=== PATIENT | female | born 1970 | race Caucasian/White ===

== ENCOUNTER 2022-07-09 13:35 | Outpatient (CLI) | payer OTHER, SELFPAY ==
[2022-07-09 15:01] LABS: Cholesterol* 174 mg/dL (90-199); Triglycerides* 160 mg/dL (40-149)
[2022-07-09 15:02] LABS: HDL Cholesterol* 50 mg/dL (>=50); LDL Cholesterol Calculated 92 mg/dL (<100)
== END 2022-07-09 13:36 | disposition home or self-care (01) ==
PROVIDERS: PCP Internal Medicine; Visit Provider Internal Medicine
DX: E78.5 Hyperlipidemia, unspecified (principal); E11.9 Type 2 diabetes mellitus without complications; I10 Essential (primary) hypertension
CPT/HCPCS: 80061

== ENCOUNTER 2022-09-30 08:49 | Outpatient (CLI) | payer OTHER, SELFPAY ==
--- NOTE | 2022-09-30 09:15 | CRLHL7_ITS ---
For Patients: As a result of the Century Cures Act, medical imaging exams and procedure reports are released immediately into your electronic medical record. You may view this report before your referring provider. If you have questions, please contact your health care provider. BILATERAL SCREENING MAMMOGRAM WITH COMPUTER-AIDED DETECTION TECHNIQUE: CC and MLO views were obtained. These mammographic images have been obtained using full-field digital technique. These mammographic images were interpreted with the benefit of computer-aided detection. COMPARISON FILM: 06/11/21, 05/02/20, 12/08/18. FINDINGS: The breasts are almost entirely fatty IMPRESSION: There is no radiographic evidence for malignancy. ASSESSMENT: BI-RADS Category 1: Negative RECOMMENDATION: Routine screening mammogram in 1 year. A lay language report of this examination will be provided to the patient. Brad Mcadams M.D. Diagnostic Radiologist [email or web address] Transcribed: 5:40 p.mGarret mace/Dictated by: Brad Mcadams MD @ 09/30/2022 12:44:00 PM (Electronically Signed)
== END 2022-09-30 08:50 | disposition home or self-care (01) ==
PROVIDERS: PCP Internal Medicine; Visit Provider Internal Medicine
DX: Z12.31 Encounter for screening mammogram for malignant neoplasm of breast (principal)
CPT/HCPCS: 77067

== ENCOUNTER 2023-04-22 09:33 | Outpatient (CLI) | payer OTHER, SELFPAY | END 2023-04-22 09:34 | disposition home or self-care (01) | LOC: NFLDREF 04-25 08:16 | PROVIDERS: PCP Internal Medicine; Referring Provider Internal Medicine; Visit Provider Internal Medicine | DX: E11.9 Type 2 diabetes mellitus without complications (principal); I10 Essential (primary) hypertension; E66.9 Obesity, unspecified; E78.5 Hyperlipidemia, unspecified | CPT/HCPCS: 80053; 80061; 82043; 82570 ==

== ENCOUNTER 2023-09-19 09:43 | Outpatient (CLI) | payer OTHER, SELFPAY ==
--- NOTE | 2023-09-19 09:45 | MM_ITS ---
Patient: BALDEMAR PETERS Facility:?[facility] Patient ID:?[id number] Site Patient ID:?[id number]. Site :?1970 Study:?XRay-Breast Bilateral 3D W/CAD-09/19/2023 10:30:29 AM Ordering Physician:Lexii Talbert Final Report: BILATERAL SCREENING MAMMOGRAM WITH COMPUTER-AIDED DETECTION AND TOMOSYNTHESIS TECHNIQUE: CC and MLO views were obtained. These mammographic images have been obtained using full-field digital technique. These mammographic images were interpreted with the benefit of computer-aided detection. Breast Tomosynthesis was used in this interpretation. COMPARISON FILM: 09/30/22, 06/11/21, 05/02/20. FINDINGS: The breasts are almost entirely fatty IMPRESSION: There is no radiographic evidence for malignancy. ASSESSMENT: BI-RADS Category 1: Negative RECOMMENDATION: Routine screening mammogram in 1 year. A lay language report of this examination will be provided to the patient. Brad Mcadams M.D. Diagnostic Radiologist [email or web address] Transcribed: 1:47 p.mGarret mace/Dictated by: Brad Mcadams MD @ 09/20/2023 11:03:00 AM Signed by:?Bard Mcadams MD @09/20/2023 1:52:33 PM (Electronic Signature)
== END 2023-09-19 09:44 | disposition home or self-care (01) ==
LOC: MAMMO 09:44
PROVIDERS: PCP Internal Medicine; Visit Provider Internal Medicine
DX: Z12.31 Encounter for screening mammogram for malignant neoplasm of breast (principal)
CPT/HCPCS: 77063; 77067

== ENCOUNTER 2023-11-05 19:30 | Inpatient (IN) | payer OTHER, SELFPAY ==
[2023-11-05] VITALS (30 sets, daily range): BP systolic 103–137; BP diastolic 43–80; PULSE 66–91; RESP 18; TEMP 36.6–36.8; O2SAT 95–100; BMI 39.5; BMI 40.8
--- NOTE | 2023-11-05 19:51 | ED_ITS ---
HPI - General Adult General Chief complaint: Hypotension Stated complaint: Low BP Time Seen by Provider: 11/05/23 19:44 History of Present Illness HPI narrative: pt states she felt dizzy, took blood pressure at home, highest she could get was 8x/5x. states blurry vision and L leg pain. she had a L leg artery procedure a while back and says sometimes it hurts. pt states diarrhea . takes morning bp meds at 1100, states this started at 14-1500 53-year-old woman presenting to the emergency department concern of low blood pressure. This evening she was feeling it was initially described as dizzy but sounds like more of a lightheadedness and checked her blood pressure at home noting she could not achieve higher than about 80/50. No changes to her antihypertensives with a longstanding history of high blood pressure. Vision can seem a little bit blurry. Light headache. She did have a small fall today but not because of feeling lightheaded she just slipped when trying to lean up against a bike rack apparently. Did not hurt anything. Does have a history of diabetes. Also with history of peripheral vascular/arterial disease requiring I believe surgery on the left femoral artery about 15 years ago. She continues to take clopidogrel. She has been experiencing new pain in the outer calf with even just a few steps. She has been having loose stools lately which are not black nor melanotic. Does note a history of long standing abdominal pains. Does have a history of cholecystectomy. She says that greasy food makes things worse. Does have a history GERD and reports extensive evaluation suggesting upper endoscopy. Records indicate current on colonoscopy I believe last done in 2019. Has been rather fatigued for unspecified amount of time. Went to vacation in [place] and [place] over this last week. Week ago she did have a fall tripping over some non-existent steps apparently entering the garage. Injuries were limited to scrapes. Otherwise no sense of tachycardia or palpitations with this fatigue or lightheadedness. No fevers. No cough or cold symptoms. She no longer has menses having had a hysterectomy Related Data Home Medications Medication Instructions Recorded Confirmed Blood Glucose Meter 12/23/21 10/19/23 aspirin 81 mg tablet,delayed 81 mg PO QDAY 12/23/21 10/19/23 release (Adult Aspirin Regimen) multivitamin 1 tab PO QAM 07/13/22 10/19/23 psyllium husk (aspartame) 3.4 gram 1 packet PO QDAY 04/28/23 10/19/23 oral powder packet (Metamucil Fiber Singles) Previous Rx's Medication Instructions Recorded COVID-19 antigen test (COVID-19 #4 ea 08/04/22 At-Home Test kit) fluoxetine 10 mg tablet 10 mg PO QAM #90 tabs 06/23/23 amlodipine 5 mg tablet 5 mg PO DAILY #90 tabs 09/26/23 clopidogrel 75 mg tablet 75 mg PO DAILY #90 tabs 09/26/23 glipizide 5 mg tablet 5 mg PO QAM #90 tabs 09/26/23 hydrochlorothiazide 25 mg tablet 25 mg PO DAILY #90 tabs 09/26/23 lisinopril 40 mg tablet 40 mg PO DAILY #90 tabs 09/26/23 metformin 1,000 mg tablet 1,000 mg PO BID #180 tabs 09/26/23 omeprazole 40 mg capsule,delayed 40 mg PO DAILY #90 caps 09/26/23 release simvastatin 10 mg tablet 10 mg PO DAILY #90 tabs 09/26/23 blood sugar diagnostic (Contour #100 ea 09/30/23 Next Test Strips) lancets (Microlet Lancet) #100 ea 09/30/23 fluconazole 150 mg tablet 150 mg PO Q3D 2 doses #2 tabs 10/19/23 triamcinolone acetonide 0.1 % 1 applic topical BID #15 grams 10/19/23 topical cream Allergies Allergy/AdvReac Type Severity Reaction Status Date / Time erythromycin base Allergy Unknown Rash Verified 10/19/23 11:21 Penicillins Allergy Unknown Rash Verified 10/19/23 11:21 Review of Systems Status of ROS: Reports: 6 or more systems reviewed and unremarkable except as noted in History and below [facility] Surgical History History of tonsillectomy and adenoidectomy (07/14/10) ?Z90.89 - Acquired absence of other organs (ICD-10) History of hysterectomy (07/14/10) ?Z90.710 - Acquired absence of both cervix and uterus (ICD-10) History of cholecystectomy (07/14/10) ?Z90.49 - Acquired absence of other specified parts of digestive tract (ICD- 10) Social History Smoking Status: Former smoker Do you use any of these nicotine containing products: None Second hand tobacco smoke exposure: No How often do you have a drink containing alcohol: never How often do you have six or more drinks on one occasion: Never AUDIT-C Alcohol total score: 0 Non-prescribed substance use: denies use Little interest or pleasure in doing things: not at all Feeling down, depressed, or hopeless: not at all service: No Exam Narrative: Exam Narrative: Very pleasant. Good energy. Skin is warm and dry. Mucous membranes are pale on reexamination. Oropharynx is unremarkable. Head is atraumatic. Cranial nerves 2-12 intact. Heart in regular rate and rhythm without murmur gallop. Lungs are clear. Abdomen is overweight soft nontender. Extremities are well perfused, warm. However I can not palpate pulses about the ankle or feet bilaterally. [place] and noted that there is some distension upon standing of posterior vasculature in the left calf; this seems somewhat symmetrical as she goes to stand. Some darkening of the distal dorsal foot and toes on the left upon longer standing. Const: Vital Signs, click to edit/add: Vital Signs - 24 hr 11/05/23 19:39 11/05/23 19:43 11/05/23 19:44 Temperature 98.3 F Pulse Rate 91 86 Pulse Rate [Pulse Oximeter] 91 Respiratory Rate 18 Blood Pressure 121/66 Blood Pressure [Ri ght Upper Arm] 123/69 Pulse Oximetry 99 98 98 Oxygen Delivery Me thod Room Air 11/05/23 19:45 11/05/23 19:47 11/05/23 20:00 Temperature Pulse Rate 87 81 83 Pulse Rate [Pulse Oximeter] Respiratory Rate Blood Pressure 103/45 L Blood Pressure [Ri ght Upper Arm] Pulse Oximetry 98 97 99 Oxygen Delivery Me thod 11/05/23 20:03 11/05/23 20:15 11/05/23 20:17 Temperature Pulse Rate 88 80 Pulse Rate [Pulse Oximeter] Respiratory Rate Blood Pressure 136/62 111/54 L Blood Pressure [Ri ght Upper Arm] Pulse Oximetry 99 97 Oxygen Delivery Me thod 11/05/23 20:30 11/05/23 20:31 11/05/23 20:32 Temperature Pulse Rate 66 77 Pulse Rate [Pulse Oximeter] Respiratory Rate Blood Pressure 112/80 106/50 L Blood Pressure [Ri ght Upper Arm] Pulse Oximetry 97 97 Oxygen Delivery Me thod 11/05/23 20:33 11/05/23 20:45 11/05/23 20:47 Temperature Pulse Rate 79 80 77 Pulse Rate [Pulse Oximeter] Respiratory Rate Blood Pressure 118/51 L Blood Pressure [Ri ght Upper Arm] Pulse Oximetry 97 97 97 Oxygen Delivery Me thod Documenting provider has reviewed patient's vital signs: yes Course Vital Signs Vital signs: Initial Vital Signs Temperature 98.3 F 11/05/23 19:39 Temperature Source Temporal Artery Scan 11/05/23 19:39 Pulse Rate 91 11/05/23 19:39 Respiratory Rate 18 11/05/23 19:39 Blood Pressure 123/69 11/05/23 19:39 Blood Pressure Mean 87 11/05/23 19:39 Blood Pressure Position Sitting 11/05/23 19:39 Pulse Oximetry 99 11/05/23 19:39 Oxygen Delivery Method Room Air 11/05/23 19:39 Vital Signs Temperature 98.3 F 11/05/23 19:39 Pulse Rate 91 11/05/23 19:39 Respiratory Rate 18 11/05/23 19:39 Blood Pressure 123/69 11/05/23 19:39 Pulse Oximetry 99 11/05/23 19:39 Oxygen Delivery Method Room Air 11/05/23 19:39 Temperature 98.3 F 11/05/23 19:39 Pulse Rate 77 11/05/23 20:47 Respiratory Rate 18 11/05/23 19:39 Blood Pressure 118/51 L 11/05/23 20:47 Pulse Oximetry 97 11/05/23 20:47 Oxygen Delivery Method Room Air 11/05/23 19:39 Medications Administered Medications: Discontinued Medications Generic Name Dose Route Start Last Admin Trade Name Freq PRN Reason Stop Dose Admin Sodium Chloride 1,000 mls @ 1,000 mls/hr 11/05/23 20:11 11/05/23 21:56 0.9 % Sodium Chloride 1000 Ml IV 11/05/23 21:10 Infused .Q1H ONE Infusion Medical Decision Making MDM Narrative Medical decision making narrative: Numerous symptoms. Has not demonstrated hypotension here in the emergency department. Does seem to be describing some symptoms of vascular claudication in the lower leg. Fatigue and lightheadedness might be related to electrolyte abnormality possibly stemming from loose/diarrheal stools or medication effect, anemia, unspecified infectious process, hypovolemia, dysrhythmia/arrhythmia, pulmonary embolus however does not have chest discomfort or hypoxia, vascular disruption. Initiating IV fluids with normal saline. Will check orthostatics. Monitor on monitoring coordinator. Notified of low hemoglobin initially checked at 6.6. Reviewing labs shows this to be a microcytic distribution. White count also shows an elevated white count. Noting history of lymphocytosis. Platelets also elevated at 555. Chemistries with sodium 128. She does take hydrochlorothiazide this might be related. Potassium is 3 which also could be medication effect. CRP is elevated for unclear etiology at this time. This might be driving some acute phase reaction with some evidence also in the CBC. Magnesium also low 1.3 Adding on peripheral smear and iron studies. Will be consenting for blood transfusion starting with 1 unit. I discussed these findings with Dr. Gallo anticipating admission. Will be scanning abdomen and pelvis with IV contrast for any evidence of bleeding or inflammation. Does have a history of diverticular disease but does not seem to have pain exclusive to this nor has she been experiencing blood in her stool. Will also be performing a venous ultrasound of the left lower extremity which may need to be broadened into arterial study. I have discussed this case with telephone operator. Initiating magnesium and potassium supplementation. Pending imaging will be handing off at change of shift. Medical Records Medical records reviewed: Yes I reviewed the patient's medical records Lab Data Lab results reviewed: Yes I reviewed the patient's lab results Labs: Lab Results 11/05/23 11/05/23 Range/Units 20:32 21:50 WBC 18.04 H (4.50-11.00) K/uL RBC 2.77 L (4.00-5.20) m/uL Hgb 6.6 L* 7.6 L* (12.0-16.0) gm/dL Hct 21.7 L (33.0-51.0) % MCV 78 L (80-100) fL MCH 24 L (26-34) pg MCHC 30 L (32-36) gm/dL RDW Coeff of Cara 16.1 H (11.5-15.5) % Plt Count 555 H (140-440) K/uL Neut % (Auto) 68.0 (42.0-72.0) % Lymph % (Auto) 22.4 (20-44) % Davie % (Auto) 7.7 (0.0-11.0) % Eos % (Auto) 1.3 (0.0-7.0) % Baso % (Auto) 0.2 (0.0-3.0) % Neut # (Auto) 12.30 H (1.7-7.0) K/uL Lymph # (Auto) 4.00 H (0.90-2.90) K/uL Davie # (Auto) 1.40 H (0.00-0.90) K/UL Eos # (Auto) 0.20 (0.00-0.50) K/uL Baso # (Auto) 0.00 (0.00-0.30) K/uL Abs Immat Gran (auto) 0.10 (0.00-0.30) K/uL Imm/Tot Granulo (auto) 0.4 % D-Dimer Quant (PE/DVT) 1.80 H (0.00-0.50) ug/ml Sodium 128 L (135-149) mmol/L Potassium 3.0 L (3.6-5.1) mmol/L Chloride 93 L (96-114) mmol/L Carbon Dioxide 25 (20-32) mmol/L Anion Gap 10 (7-15) mEq/L BUN 18 (7-30) mg/dL Creatinine 1.1 (0.5-1.5) mg/dL Estimated Creat Clear 49.90 Estimated GFR 59 ml/min Glucose 92 (60-115) mg/dL Calcium 8.3 L (8.4-10.6) mg/dL Magnesium 1.3 L (1.5-2.6) mg/dL Iron 39 (37-170) ug/dL TIBC 409 (265-497) ug/dL % Saturation 9 L (20-50) % Troponin I < 0.01 L (0.01-0.04) ng/mL C-Reactive Protein 3.7 H (0.5-1.0) mg/dL NT-Pro-B Natriuret Pep 24 pg/mL Lab Acknowledgement Test Added POC Troponin I 0.00 L (0.01-0.04) ng/ml Blood Type O Positive Antibody Screen NEGATIVE Crossmatch (AHG) See Detail ECG Data Attestation: I personally reviewed and interpreted this ECG as follows: (EKG with sinus rhythm. PAC. Generally low voltage. Rate of 80.) Discharge Plan Discharge Clinical Impression: Leg pain, Hyponatremia, Microcytic anemia, Symptomatic anemia, Abrasion, Hypokalemia, Hypomagnesemia Patient Disposition: Admitted As Observation Condition: Stable
--- OUTSIDE RECORDS SUMMARY | 2023-11-05 20:26 | XMS_ITS | Continuity of Care Document ---
Author Name Unknown Organization [facility] Address [address] [address] [place] [address] Phone Care Team Providers Care Transverse Abdominal Muscle Surgeon Name Role Phone Adrienne ENRIQUE, Martínez Unavailable Unavailable Allergies, Adverse Reactions, Alerts Substance Reaction Status Criticality ampicillin Rash Active No Information erythromycin base Rash Active No Informa tion PENICILLIN Rash Active No Information Medications Medication Instructions Dosage Effective Dates (start - stop) Status Comments omeprazole 40 mg capsule,delayed release take 1 capsule by oral route every day before a meal 40 MG - Active amlodipine 5 mg tablet take 1 tablet by oral route every day 5 MG - Active metformin 1,000 mg tablet take 1 tablet by oral route 2 times every day with morning and evening meals 1000 MG - Active hydrochlorothiazide 25 mg tablet take 1 tablet by oral route every morning 25 MG - Active lisinopril 40 mg tablet take 1 tablet by oral route every day 40 MG - Active glipizide 5 mg tablet take 1 tablet by oral route 2 times every day before meals 5 MG - Active simvastatin 10 mg tablet take 1 tablet b y oral route every day in the evening 10 MG - Active Procedures Procedure Date Offic/outpt E&m New Mod-hi New Level 4 Advance Directives Directive Yes / No Effective Date File Name No Information Encounters Encounter Description Practice Location Reason(s) For Visit Diagnoses Date Provider Providers Copied on Encounter [facility], [address] [address], [place], [place], [id number], [place] tel:[phone] [facility] No Information 1 Adrienne Soliz. [address], [facility] [address], [place], [place], [id number], [place]. tel:[phone] Offic/outpt E&m New Mod-hi [facility], [address] [address], [place], [place], [id number], [place] tel:[phone] [facility] GI Symptoms or Concerns (chief complaint) Epigastric abdominal pain 1 Adrienne Soliz. [address] [facility], [address], [place], [place], [id number], [place]. tel:[phone] Referring Provider: Lexii Ayala, [address] [place] [address], [address]. tel:[phone] [facility], [address] [address], [place], [place], [id number], [place] tel:[phone] No Information No Information Referring Provider: Lexii Ayala, [address] [place] [address], [address]. tel:[phone] Family History Family Member Type Diagnosis Age At Onset Sister Problem (finding) ulcerative colitis Immunizations Vaccine Date Status Comments SARS-COV-2 (COVID-19) vaccin e, mRNA, spike protein, LNP, preservative free, 30 mcg/0.3mL dose administered Note: [facility] bi-direct ional interface ; Source: Other Registry Seasonal, quadrivalent, recombinant, injectable influenza vaccine, preservative free administered Note: [facility] bi-direct ional interface ; Source: Other Registry SARS-COV-2 (COVID-19) vaccin e, mRNA, spike protein, LNP, preservative free, 30 mcg/0.3mL dose administered Note: [facility] bi-direct ional interface ; Source: Other Registry SARS-COV-2 (COVID-19) vaccin e, mRNA, spike protein, LNP, preservative free, 30 mcg/0.3mL dose administered Note: [facility] bi-direct ional interface ; Source: Other Registry Seasonal, quadrivalent, recombinant, injectable influenza vaccine, preservative free administered Note: [facility] bi-direct ional interface ; Source: Other Registry Pneumovax 23 administered Note: [facility] bi-d irectional interface ; Source: Other Registry Afluria Qd administered Note: [facility] bi-directional interface ; Source: Other Registry Afluria Qd administered Note: [facility] bi-directional interface ; Source: Other Registry Influenza, seasonal, injecta ble, preservative free administered Note: [facility] bi-direct ional interface ; Source: Other Registry tetanus toxoid, reduced diphtheria toxoid, and acellular pertussis vaccine, adsorbed administered Note: [facility] b i-directional interface ; Source: Other Registry Novel [id number], all formulations administered Note: [facility] bi-direct ional interface ; Source: Other Registry influenza virus vaccine, unspecified formulation administered Note: [facility] bi-di rectional interface ; Source: Other Registry Payers Payer name Insurance type Covered libertarian ID Authoriza tion(s) [employer] [facility] [id number] Social History Type Description Quantity Date Captured Comments Sex Female Smoking Status No Information Chief Complaint And Reason For Visit No Information Reason For Referral Reason For Referral No Information History Of Present Illness Encounter Date Complaint History Of Prese nt Illness GI Symptoms or Concerns Patient is a 51-year-old female with past medical history of elevated fasting blood glucose, obesity and hypertension who presents for evaluation of epigastric pain. She was recently seen at outside facility and those records were reviewed. She was interviewed by phone today and provided her consent for telephone visit. There was no one else that needed to be included in my documentation. The patient notes that over the past few months she has had episodic epigastric pain that occurs right under her sternum. It typically follow meals and are reminiscent of her prior issues with biliary colic. She did undergo a remote cholecystectomy for cholecystitis some years ago. During that time she did have similar epigastric pain with radiation to the back. Her current symptoms similarly involve radiation of the pain to the back. She has been seen at outside provider outside centers for this. Notes were reviewed from [facility] and [facility]. Her presentation was essentially identical. She was seen in the emergency room and found to have a bland laboratory workup with with exception of mild elevation in transaminases in the 40s. There was no elevation in bilirubin or alkaline phosphatase. She did undergo a cross-sectional imaging with CT and of the abdomen and pelvis which failed to demonstrate dilation of the biliary ducts or otherwise intra-abdominal pathology. She underwent upper endoscopy which demonstrated possible poor gastric motility but was negative for ulcers, gastritis or esophagitis. She tells me she did ultimately undergo gastric emptying study which was normal. She also reports having a colonoscopy a few years ago that was not suggestive of luminal inflammation. That study was for colon cancer screening. She has taken a PPI for months without benefit. Currently she continues to have epigastric pain that is quite mild but occurs a few times a week. It feels like a twinge under her breast bone. It radiates to the back. He typically follows meals. It has decreased over the past 8 months in terms of frequency and severity. She does feels like vomiting would improve her symptoms and sometimes feels the urge to make herself vomit. Her bowel movements are unchanged. She typically has 1 stool per day that is formed and soft. She has not developed luminal blood loss including melena and hematochezia. She denies unintentional weight loss, but has lost 40-50 pounds intentionally and under the supervision of her primary care provider. Functional Status Date Functional Assessmen t No Information Instructions Date Instruction Additional Infor mation No Information Assessments Type Assessment Date No Information Patient Care Teams Name Effective Dates (start - stop) Status Members No Information
[2023-11-05] MEDS: 0.9 % SODIUM CHLORIDE 1000 ml 1,000 ML IV (20:35)
[2023-11-05 20:51] LABS: Basophils Percent Auto 0.2 % (0.0-3.0); Eosinophils Percent Auto 1.3 % (0.0-7.0); Hematocrit 21.7 % (33.0-51.0); Immature Granulocytes Pct Auto 0.4 %; Lymphocytes Percent Auto 22.4 % (20-44); Mean Corpuscular HGB Conc 30 gm/dL (32-36); Mean Corpuscular Hemoglobin 24 pg (26-34); Mean Corpuscular Volume 78 fL (80-100); Monocytes Percent Auto 7.7 % (0.0-11.0); Platelet Count* 555 K/uL (140-440); RDW Coefficient of Variation % 16.1 % (11.5-15.5); Red Blood Count 2.77 m/uL (4.00-5.20); White Blood Count* 18.04 K/uL (4.50-11.00)
[2023-11-05 20:57] LABS: Hemoglobin* 6.6 gm/dL (12.0-16.0); Slide Review Reflex No
[2023-11-05 21:07] LABS: Chloride* 93 mmol/L (96-114); Sodium* 128 mmol/L (135-149)
[2023-11-05 21:09] LABS: Creatinine* 1.1 mg/dL (0.5-1.5); Estimated Glomerular Filt Rate 59 ml/min
[2023-11-05 21:10] LABS: Anion Gap 10 mEq/L (7-15); Blood Urea Nitrogen* 18 mg/dL (7-30); Carbon Dioxide* 25 mmol/L (20-32); Magnesium* 1.3 mg/dL (1.5-2.6)
[2023-11-05 21:11] LABS: Calcium* 8.3 mg/dL (8.4-10.6); Glucose* 92 mg/dL (60-115)
[2023-11-05 21:13] LABS: C Reactive Protein* 3.7 mg/dL (0.5-1.0)
[2023-11-05 21:33] LABS: NT Pro B Type NatriureticPept* 24 pg/mL; Troponin I* < 0.01 ng/mL (0.01-0.04)
--- NOTE | 2023-11-05 21:53 | CT_ITS ---
Patient: BALDEMAR PETERS Facility:?[facility] Patient ID:?[id number] Site Patient ID:?[id number]. Site :?1970 Study:?CT-Abdomen/Pelvis /-11/05/2023 10:37:26 PM Ordering Physician:FATOUMATA Final Report: INDICATION: Anemia, chronic abdominal pain. TECHNIQUE: CT abdomen and pelvis acquired with 100 cc Isovue 370 IV contrast. COMPARISON: None. FINDINGS: Lower chest: Unremarkable. Liver: Unremarkable. Normal in size and attenuation. No suspicious masses. Gallbladder and bile ducts: Status post cholecystectomy. Spleen: Unremarkable. Normal in size. No masses. Adrenal glands: Unremarkable. No nodules. Pancreas: Unremarkable. No mass or inflammation. Kidneys: Unremarkable. No suspicious masses, stones, or hydronephrosis. GI tract: Few sigmoid colonic diverticula. Mild sigmoid colonic wall thickening with mild adjacent fat stranding. Fluid-filled colon. No evidence of obstruction. Lymph nodes: No lymphadenopathy. Vasculature: Scattered atherosclerotic calcifications. Abdominal aorta is normal in caliber. Omentum/Peritoneum/Abdominal Wall: Unremarkable. No free air or significant free fluid. Pelvis: Status post hysterectomy. Bones: Degenerative changes. IMPRESSION: 1. Mild uncomplicated sigmoid diverticulitis. 2. Fluid-filled colon, likely reflecting diarrheal state. Please note that all CT scans at this facility use dose modulation, iterative reconstruction, and/or weight-based dosing when appropriate to reduce radiation dose to as low as reasonably achievable. Dictated by Luiz Haque MD @ 11/05/2023 10:55:39 PM Signed by:?Luiz Haque MD @11/05/2023 10:55:39 PM (Electronic Signature)
--- NOTE | 2023-11-05 21:54 | US_ITS ---
Patient: BALDEMAR PETERS Facility:?[facility] Patient ID:?[id number] Site Patient ID:?[id number]. Site :?[id number] Study:?US-Extremity Left LEV LT-11/05/2023 11:38:58 PM Ordering Physician:?ER Final Report: INDICATION: Leg pain and swelling. TECHNIQUE: Ultrasound venous duplex lower left extremity. Compression venous exam was performed using whiting-scale, color Doppler, and spectral Doppler analysis. COMPARISON: None. FINDINGS: Deep veins: Sonographic imaging demonstrates the left common femoral, deep femoral, superficial femoral, popliteal, posterior tibial and the contralateral right common femoral veins to be fully compressible with normal color Doppler blood flow. Superficial veins: Greater saphenous vein is fully compressible. No popliteal cyst. IMPRESSION: Normal left lower extremity venous ultrasound, no sign of deep venous thrombosis. Dictated by Brad Hoffman MD @ 11/06/2023 12:35:49 AM Signed by:?Brad Hoffman MD @11/06/2023 12:35:49 AM (Electronic Signature)
--- NOTE | 2023-11-05 21:56 | PM.IMHP1 ---
Hospitalist- H&P: HPI History of Present Illness Date Seen: 11/06/23 Chief complaint: Low BP Narrative: Salina Esqueda is a 53 year old female who presented to the ER with her this evening for concerns of symptomatic hypotension. Earlier today, she was outside and felt like she might faint, leaned against a bike rack, which fell over, so she hit the ground. No injuries, no LOC. After incident, checked her BP and it was 80s/50s on her home cuff. She's never seen a BP this low, so she came to ED. ER Course and Findings: - Hgb 6.6, repeat draw 7.6 (tranfusion of 1 U PRBCs initiated) - MCV 78, platelets 555 - Magnesium 1.3, K 3.0 (received IV Magnesium and oral Potassium) - CT ab/pelvis exhibited sigmoid diverticulitis Notes a long standing history of epigastric pain, no significant change recently. s/p Cholecystectomy. Reassuring EGD [place] [address] Pop with General Surgery. Has had yellow-colored diarrhea for the 7-10 days. Travelled to [place] and [place] last week with her niece, didn't eat anything out of the ordinary during the trip (had diarrhea prior to travel). Specifically denies melena, vomiting. No CP or dyspnea. Review of Systems Narrative: - notes L calf pain for the past 7-10 days, worse when walking, no pain at rest - no skin concerns - yeast infection 2 weeks ago [facility] Medical History (Updated 11/06/23 @ 00:38 by Renetta Smith MD) Obesity with body mass index 30 or greater ?E66.9 - Obesity, unspecified (ICD-10) Nicotine dependence due to vaping tobacco product ?F17.290 - Nicotine dependence, other tobacco product, uncomplicated (ICD-10) Adjustment disorder ?F43.20 - Adjustment disorder, unspecified (ICD-10) Essential hypertension ?I10 - Essential (primary) hypertension (ICD-10) Type 2 diabetes mellitus (06/24/16) ?E11.9 - Type 2 diabetes mellitus without complications (ICD-10) Persistent lymphocytosis ?D72.820 - Lymphocytosis (symptomatic) (ICD-10) Non-ulcer dyspepsia ?K30 - Functional dyspepsia (ICD-10) Diverticulitis of colon (03/10/12) ?K57.32 - Diverticulitis of large intestine without perforation or abscess without bleeding (ICD-10) PAD (peripheral artery disease) ?I73.9 - Peripheral vascular disease, unspecified (ICD-10) Hyperlipidemia ?E78.5 - Hyperlipidemia, unspecified (ICD-10) GERD (gastroesophageal reflux disease) ?K21.9 - Gastro-esophageal reflux disease without esophagitis (ICD-10) Surgical History History of tonsillectomy and adenoidectomy (07/14/10) ?Z90.89 - Acquired absence of other organs (ICD-10) History of hysterectomy (07/14/10) ?Z90.710 - Acquired absence of both cervix and uterus (ICD-10) History of cholecystectomy (07/14/10) ?Z90.49 - Acquired absence of other specified parts of digestive tract (ICD-10) Social History (Updated 11/05/23 @ 23:08 by Renetta Smith MD) Narrative: Lives with Chandu (he would share MDM duties with niece Catarina, if needed) in [place]. Former smoker, currently vapes. Social ETOH. Requests DNR/DNI status. Smoking Status: Former smoker Do you use any of these nicotine containing products: None Second hand tobacco smoke exposure: No How often do you have a drink containing alcohol: never How often do you have six or more drinks on one occasion: Never AUDIT-C Alcohol total score: 0 Non-prescribed substance use: denies use Little interest or pleasure in doing things: not at all Feeling down, depressed, or hopeless: not at all service: No Meds Home Medications and Allergies Home Medications Medication Instructions Recorded Confirmed Type Blood Glucose Meter 12/23/21 10/19/23 History aspirin 81 mg tablet,delayed 81 mg PO QDAY 12/23/21 11/05/23 History release (Adult Aspirin Regimen) multivitamin 1 tab PO QAM 07/13/22 11/05/23 History psyllium husk (aspartame) 3.4 gram 1 packet PO QDAY 04/28/23 11/05/23 History oral powder packet (Metamucil Fiber Singles) simvastatin 10 mg tablet 10 mg PO HS 05/18/24 05/18/24 History Allergies Allergy/AdvReac Type Severity Reaction Status Date / Time erythromycin base Allergy Unknown Rash Verified 10/19/23 11:21 Penicillins Allergy Unknown Rash Verified 10/19/23 11:21 Exam Narrative: Exam Narrative: GEN: Alert and oriented, nontoxic HEENT: EOMIs bilaterally, no scleral icterus, + conjunctival pallor CV: RRR, No concerning murmurs R: LCTA bilaterally without concerning wheezing Ab: soft, no distention. Tolerates exam in all four quadrants without discomfort, rebound, or guarding Ext: Feet are bilaterally warm with normal capillary refill. Toenails normal bilaterally. + dorsalis pedis pulse on R, difficult to obtain on L. Negative Berlin's sign Skin: No concerning skin lesions or rashes Neuro: Nonfocal Psych: Appropriate Const: Vital Signs, click to edit/add: Vital Signs - 24 hr 11/05/23 19:39 11/05/23 19:43 11/05/23 19:44 Temperature 98.3 F Pulse Rate 91 86 Pulse Rate [Pulse Oximeter] 91 Respiratory Rate 18 Blood Pressure 121/66 Blood Pressure [Ri ght Upper Arm] 123/69 Pulse Oximetry 99 98 98 Oxygen Delivery Me thod Room Air 11/05/23 19:45 11/05/23 19:47 11/05/23 20:00 Temperature Pulse Rate 87 81 83 Pulse Rate [Pulse Oximeter] Respiratory Rate Blood Pressure 103/45 L Blood Pressure [Ri ght Upper Arm] Pulse Oximetry 98 97 99 Oxygen Delivery Me thod 11/05/23 20:03 11/05/23 20:15 11/05/23 20:17 Temperature Pulse Rate 88 80 Pulse Rate [Pulse Oximeter] Respiratory Rate Blood Pressure 136/62 111/54 L Blood Pressure [Ri ght Upper Arm] Pulse Oximetry 99 97 Oxygen Delivery Me thod 11/05/23 20:30 11/05/23 20:31 11/05/23 20:32 Temperature Pulse Rate 66 77 Pulse Rate [Pulse Oximeter] Respiratory Rate Blood Pressure 112/80 106/50 L Blood Pressure [Ri ght Upper Arm] Pulse Oximetry 97 97 Oxygen Delivery Me thod 11/05/23 20:33 11/05/23 20:45 11/05/23 20:47 Temperature Pulse Rate 79 80 77 Pulse Rate [Pulse Oximeter] Respiratory Rate Blood Pressure 118/51 L Blood Pressure [Ri ght Upper Arm] Pulse Oximetry 97 97 97 Oxygen Delivery Wy thod Hospitalist - H&P: Result Labs Labs: Short CBC 11/05/23 Range/Units 20:32 WBC 18.04 H (4.50-11.00) K/uL Hgb 6.6 L* (12.0-16.0) gm/dL Hct 21.7 L (33.0-51.0) % Plt Count 555 H (140-440) K/uL BMP 11/05/23 20:32 Sodium 128 L Potassium 3.0 L Chloride 93 L Carbon Dioxide 25 BUN 18 Creatinine 1.1 Glucose 92 Calcium 8.3 L Cardiac Enzymes 11/05/23 Range/Units 20:32 Troponin I < 0.01 L (0.01-0.04) ng/mL Assessment and Plan Assessment and plan (1) Microcytic anemia: Problem comment: - etiology and chronicity unclear, no history of anemia per chart review. Last hemoglobin was 12 (2020) - normal BUN - no concerns of melena, does have gastritis, no menses - ddx: GI bleed, colonic mass, nutritional deficiency, acute infectious process, hemolysis, bone marrow abnormality - transfuse 1 unit PRBCs, follow hemoglobin - peripheral blood smear, reticulocyte count, and iron studies pending - IV PPI on 11/04, daily oral PPI to follow Status: Acute (2) Diverticulitis: Problem comment: - noted on CT ab/pelvis - clear liquid diet, IV ceftriaxone and Flagyl Status: Acute (3) GERD (gastroesophageal reflux disease): Problem comment: - previous workups have been unremarkable (functional dyspepsia) - may need EGD during this hospital stay pending results of iron studies and clinical course Status: Acute (4) Non-ulcer dyspepsia: Problem comment: on PPI, s/p EGD, CT a/p and gastric emptying scan without cause seen, seen virtually by Dr. Deleon, [facility] railroad car painter 06/20/20 for functional dyspepsia and given choice of amitriptyline at bedtime vs peppermint and she tried peppermint oil Status: Acute (5) Type 2 diabetes mellitus: Problem comment: - noninsulin dependent (oral Metformin and Glipizide) last A1C 05/12 (<6) - accuchecks Status: Acute (6) Hypokalemia: Problem comment: - replace and follow, likely combination of diarrhea + HCTZ Status: Acute (7) Hypomagnesemia: Problem comment: - replace and follow Status: Acute (8) Atherosclerotic peripheral vascular disease of extremity: Problem comment: - Femoral artery occlusion s/p L common femoral artery dilation 05/01, remaining chronic L popliteal occlusion followed by [facility] - Quit smoking 2012, statin started 06/2016 - notes L calf pain with ambulation on hospital admission 11/04 - ultrasound obtained, negative for DVT, monitor symptoms closely Status: Acute Plan - per above - SCDs for ppx (pharmacologic ppx contraindicated at this time) - updated at bedside, questions answered
[2023-11-05 22:09] LABS: Hemoglobin* 7.6 gm/dL (12.0-16.0)
[2023-11-05 22:21] LABS: Iron* 39 ug/dL (37-170)
[2023-11-05 22:30] LABS: Percent Iron Saturation 9 % (20-50); Total Iron Binding Capacity 409 ug/dL (265-497)
[2023-11-05] MEDS: MAGNESIUM IV 2 GM/50 ML PIGGYBACK IVPB (22:54)
[2023-11-05] MEDS: POTASSIUM BICARB 25 MEQ EFFERVESCENT TAB 50 MEQ PO (22:54)
[2023-11-05 22:56] LABS: Appearance Urine Clear (Clear); Bilirubin Urine Negative (Negative); Blood Urine Negative (Negative); Color Urine Yellow (Yellow); Glucose Urine Negative (Negative); Ketones Urine Negative (Negative); Leukocyte Esterase Urine Negative (Negative); Nitrite Urine Negative (Negative); Protein Urine Negative (Negative); Specific Gravity Urine <= 1.005 (1.000-1.030); Urobilinogen Urine 0.2 (0.2-1.0); pH Urine 5.5 (5.0-8.5)
[2023-11-05 23:15] LABS: RBC Urine 0-2 (0-2); Squamous Epithelial Cell Urine Few (None-Few); WBC Urine 0-2 (0-5)
[2023-11-05 23:59] LABS: Magnesium* 1.3 mg/dL (1.5-2.6)
[2023-11-06] VITALS (10 sets, daily range): BP systolic 138–154; BP diastolic 49–88; PULSE 66–99; RESP 16–18; TEMP 36.4–37.1; O2SAT 96–100
[2023-11-06 00:24] LABS: Reticulocyte Percent 2.4 % (0.5-2.0)
[2023-11-06 00:25] LABS: Immature Reticulocyte Fraction 27.9 % (3.0-15.9); Reticulocytes Absolute 0.06 # (0.03-0.08)
[2023-11-06] MEDS: cefTRIAXone 2 GM in 0.9 % SODIUM CHLORIDE Mini-bag 100 ML IVPB (00:29)
[2023-11-06] MEDS: PANTOPRAZOLE SODIUM 40 MG INJ IVP (00:29)
[2023-11-06 00:50] LABS: Ferritin* 6.8 ng/mL (11.1-264.0)
[2023-11-06] MEDS: metroNIDAZOLE 500 MG/100 ML PIGGYBACK 100 MG IVPB ×3 (01:28→16:08)
[2023-11-06] MEDS: OMEPRAZOLE 20 MG CAPSULE DR 40 MG PO (06:21)
--- NOTE | 2023-11-06 06:57 | PC.NURSE ---
pleasant and cooperative. calls appropriately. indep. tolerating clears, denies nausea. pt reports continued loose stools throughout the night. c/o pain on her left buttock from when she fell, no bruising noted, typewriter tester was able to palpate a tender bump on that buttock, typewriter tester assisted in shifting weight off left side - offered pt relief. 1 unit blood given this shift. VSS. AFebrile. Tele - NSR.
[2023-11-06 07:32] LABS: Basophils Percent Auto 0.2 % (0.0-3.0); Eosinophils Percent Auto 1.7 % (0.0-7.0); Hematocrit 28.2 % (33.0-51.0); Hemoglobin* 8.9 gm/dL (12.0-16.0); Immature Granulocytes Pct Auto 0.2 %; Mean Corpuscular HGB Conc 32 gm/dL (32-36); Mean Corpuscular Hemoglobin 25 pg (26-34); Mean Corpuscular Volume 78 fL (80-100); Monocytes Percent Auto 5.8 % (0.0-11.0); Neutrophils Percent Auto 70.1 % (42.0-72.0); Platelet Count* 440 K/uL (140-440); Red Blood Count 3.61 m/uL (4.00-5.20); White Blood Count* 13.26 K/uL (4.50-11.00)
[2023-11-06 07:44] LABS: Slide Review Reflex No
[2023-11-06 07:47] LABS: INR 1.03 (0.91-1.10); Prothrombin Time 14.2 Seconds
[2023-11-06 07:55] LABS: C Reactive Protein* 2.8 mg/dL (0.5-1.0)
[2023-11-06 08:03] LABS: Albumin* 3.7 g/dL (3.3-5.0); Chloride* 99 mmol/L (96-114); Potassium* 3.7 mmol/L (3.6-5.1); Sodium* 131 mmol/L (135-149)
[2023-11-06 08:05] LABS: Creatinine* 0.6 mg/dL (0.5-1.5); Est. Creatinine Clearance* 91.48; Estimated Glomerular Filt Rate 106 ml/min
[2023-11-06 08:06] LABS: Alanine Aminotransferase* 19 U/L (4-35); Alkaline Phosphatase* 75 U/L (40-150); Anion Gap 5 mEq/L (7-15); Aspartate Amino Transferase* 23 U/L (12-35); Bilirubin Total* 0.4 mg/dL (0.1-1.5); Blood Urea Nitrogen* 11 mg/dL (7-30); Carbon Dioxide* 27 mmol/L (20-32); Glucose* 99 mg/dL (60-115); Total Protein* 6.8 g/dL (6.0-8.3)
[2023-11-06 08:07] LABS: Calcium* 8.5 mg/dL (8.4-10.6)
[2023-11-06 09:40] LABS: Magnesium* 1.8 mg/dL (1.5-2.6)
[2023-11-06] MEDS: FLUOXETINE HCL 10 MG CAPSULE PO (09:53)
[2023-11-06] MEDS: SODIUM CHLORIDE 0.9 % (FLUSH) 10 ML SYRINGE 5 ML IVF ×2 (09:53→21:14)
--- NOTE | 2023-11-06 15:23 | P.IMPN_ITS ---
Progress Note: A&P Assessment and plan (1) Microcytic anemia: Problem details: - etiology and chronicity unclear, no history of anemia per chart review. Last hemoglobin was 12 (2020) - normal BUN - no concerns of melena, does have gastritis symptoms, no menses. - ddx: GI bleed, colonic mass, nutritional deficiency, acute infectious process, hemolysis, bone marrow abnormality. - transfuse 1 unit PRBCs, follow hemoglobin. - peripheral blood smear, reticulocyte count, and iron studies pending. - IV PPI on 11/04, daily oral PPI to follow. - NPO after midnight 11/06/2023 with EGD morning of 11/07/2023. Status: Acute (2) Diverticulitis: Problem details: - noted on CT ab/pelvis. - clear liquid diet, IV ceftriaxone and Flagyl. Status: Acute (3) GERD (gastroesophageal reflux disease): Problem details: - previous workups have been unremarkable (functional dyspepsia). - may need EGD during this hospital stay pending results of iron studies and clinical course. Status: Acute (4) Non-ulcer dyspepsia: Problem details: on PPI, s/p EGD, CT a/p and gastric emptying scan without cause seen, seen virtually by Dr. Deleon, [facility] puller machine 06/20/20 for functional dyspepsia and given choice of amitriptyline at bedtime vs peppermint and she tried peppermint oil. Status: Acute (5) Type 2 diabetes mellitus: Problem details: - noninsulin dependent (oral Metformin and Glipizide) last A1C 05/12 (<6) - accuchecks Status: Acute (6) Hypokalemia: Problem details: - replace and follow, likely combination of diarrhea + HCTZ Status: Acute (7) Hypomagnesemia: Problem details: - replace and follow Status: Acute (8) Atherosclerotic peripheral vascular disease of extremity: Problem details: - Femoral artery occlusion s/p L common femoral artery dilation 05/01, remaining chronic L popliteal occlusion followed by [facility]. - Quit smoking 2012, statin started 06/2016. - notes L calf pain with ambulation on hospital admission 11/04. Suspect anemia and peripheral vascular disease increased her symptoms. - ultrasound obtained, negative for DVT, monitor symptoms closely. Status: Acute Plan 1. Continue current efforts 2. Plan on EGD tomorrow morning. NPO after midnight tonight. Time Spent With Patient Total time spent: 40 minutes Subjective Date Seen: 11/06/23 Interval history: Hospital day 2. No longer orthostatic or near syncopal. Tells me she is hungry. Denies nausea vomiting. Acknowledges long-standing intermittent abdominal epigastric discomfort which she describes as feeling like she is constipated or leg gallbladder pain. She no longer has a gallbladder due to symptomatic cholelithiasis. Tells me she came back from a 1 week trip to [place] with her sisters late last week. States she had 3 or 4 alcoholic beverages the entire time she was there. Acknowledges drinking a lot a water. Has had loose stools for the better part of the last week and a half, predating the time she left for [place] and not improving since then. Exam Narrative: Exam Narrative: Examine her in her hospital room. Appears comfortable in no acute distress. Vision and hearing are adequate. Alert and oriented to self, place, time, situation. Friendly, articulate, cooperative. Lungs are clear to auscultation. Heart tones with regular rhythm. Abdomen with active bowel sounds, soft, nontender. Extremities without edema. Moves all 4 extremities. Independent in transfer, station, and gait. No tremor, asterixis, or ataxia. Const: Vital Signs, click to edit/add: Vital Signs - 24 hr 11/05/23 19:39 11/05/23 19:43 11/05/23 19:44 Temperature 98.3 F Pulse Rate 91 86 Pulse Rate [Pulse Oximeter] 91 Respiratory Rate 18 Blood Pressure 121/66 Blood Pressure [Ri ght Arm] Blood Pressure [Ri ght Upper Arm] 123/69 Pulse Oximetry 99 98 98 Oxygen Delivery Me thod Room Air 11/05/23 19:45 11/05/23 19:47 11/05/23 20:00 Temperature Pulse Rate 87 81 83 Pulse Rate [Pulse Oximeter] Respiratory Rate Blood Pressure 103/45 L Blood Pressure [Ri ght Arm] Blood Pressure [Ri ght Upper Arm] Pulse Oximetry 98 97 99 Oxygen Delivery Me thod 11/05/23 20:03 11/05/23 20:15 11/05/23 20:17 Temperature Pulse Rate 88 80 Pulse Rate [Pulse Oximeter] Respiratory Rate Blood Pressure 136/62 111/54 L Blood Pressure [Ri ght Arm] Blood Pressure [Ri ght Upper Arm] Pulse Oximetry 99 97 Oxygen Delivery Me thod 11/05/23 20:30 11/05/23 20:31 11/05/23 20:32 Temperature Pulse Rate 66 77 Pulse Rate [Pulse Oximeter] Respiratory Rate Blood Pressure 112/80 106/50 L Blood Pressure [Ri ght Arm] Blood Pressure [Ri ght Upper Arm] Pulse Oximetry 97 97 Oxygen Delivery Me thod 11/05/23 20:33 11/05/23 20:45 11/05/23 20:47 Temperature Pulse Rate 79 80 77 Pulse Rate [Pulse Oximeter] Respiratory Rate Blood Pressure 118/51 L Blood Pressure [Ri ght Arm] Blood Pressure [Ri ght Upper Arm] Pulse Oximetry 97 97 97 Oxygen Delivery Me thod 11/05/23 20:48 11/05/23 21:00 11/05/23 21:02 Temperature Pulse Rate 74 77 78 Pulse Rate [Pulse Oximeter] Respiratory Rate Blood Pressure 122/57 L Blood Pressure [Ri ght Arm] Blood Pressure [Ri ght Upper Arm] Pulse Oximetry 97 97 97 Oxygen Delivery Me thod 11/05/23 21:15 11/05/23 21:16 11/05/23 21:30 Temperature Pulse Rate 76 77 71 Pulse Rate [Pulse Oximeter] Respiratory Rate Blood Pressure 114/54 L Blood Pressure [Ri ght Arm] Blood Pressure [Ri ght Upper Arm] Pulse Oximetry 95 96 95 Oxygen Delivery Me thod 11/05/23 21:32 11/05/23 21:45 11/05/23 21:47 Temperature Pulse Rate 77 80 80 Pulse Rate [Pulse Oximeter] Respiratory Rate Blood Pressure 108/52 L 119/55 L Blood Pressure [Ri ght Arm] Blood Pressure [Ri ght Upper Arm] Pulse Oximetry 96 98 98 Oxygen Delivery Me thod 11/05/23 22:02 11/05/23 22:17 11/05/23 22:41 Temperature Pulse Rate Pulse Rate [Pulse Oximeter] Respiratory Rate Blood Pressure 120/61 120/52 L 118/50 L Blood Pressure [Ri ght Arm] Blood Pressure [Ri ght Upper Arm] Pulse Oximetry Oxygen Delivery Me thod 11/05/23 22:46 11/05/23 23:03 11/05/23 23:45 Temperature 97.8 F Pulse Rate Pulse Rate [Pulse Oximeter] 75 Respiratory Rate 18 Blood Pressure 106/43 L 120/53 L Blood Pressure [Ri ght Arm] 137/60 Blood Pressure [Ri ght Upper Arm] Pulse Oximetry 100 Oxygen Delivery Me thod Room Air 11/05/23 23:45 11/06/23 00:55 11/06/23 01:12 Temperature 98.3 F 98.1 F Pulse Rate 76 73 Pulse Rate [Pulse Oximeter] Respiratory Rate 18 18 18 Blood Pressure 151/59 H 147/68 H Blood Pressure [Ri ght Arm] Blood Pressure [Ri ght Upper Arm] Pulse Oximetry 100 99 100 Oxygen Delivery Me od Room Air 11/06/23 01:56 11/06/23 02:57 11/06/23 03:30 Temperature 98 F 98.8 F Pulse Rate 85 75 76 Pulse Rate [Pulse Oximeter] Respiratory Rate 18 18 Blood Pressure 138/57 L 143/88 H Blood Pressure [Ri ght Arm] Blood Pressure [Ri ght Upper Arm] Pulse Oximetry 98 100 Oxygen Delivery Me thod 11/06/23 07:00 11/06/23 07:00 11/06/23 11:00 Temperature 97.5 F L 97.8 F Pulse Rate 68 Pulse Rate [Pulse Oximeter] 73 75 Respiratory Rate 16 16 Blood Pressure Blood Pressure [Ri ght Arm] 151/80 H 149/50 H Blood Pressure [Ri ght Upper Arm] Pulse Oximetry 99 98 Oxygen Delivery Me thod Labs Labs: Laboratory Results - last 24 hr 11/05/23 11/05/23 11/05/23 20:32 21:50 22:37 WBC 18.04 H RBC 2.77 L Hgb 6.6 L* 7.6 L* Hct 21.7 L MCV 78 L MCH 24 L MCHC 30 L RDW Coeff of Cara 16.1 H Plt Count 555 H Neut % (Auto) 68.0 Lymph % (Auto) 22.4 [place] % (Auto) 7.7 Eos % (Auto) 1.3 Baso % (Auto) 0.2 Neut # (Auto) 12.30 H Lymph # (Auto) 4.00 H [place] # (Auto) 1.40 H Eos # (Auto) 0.20 Baso # (Auto) 0.00 Abs Immat Gran (auto) 0.10 Imm/Tot Granulo (auto) 0.4 Absolute Retic 0.06 Percent Retic 2.4 H Immature Retic Fraction 27.9 H Retic Hgb Equivalent 25.0 L INR D-Dimer Quant (PE/DVT) 1.80 H Sodium 128 L Potassium 3.0 L Chloride 93 L Carbon Dioxide 25 Anion Gap 10 BUN 18 Creatinine 1.1 Estimated Creat Clear 49.90 Estimated GFR 59 Glucose 92 Hemoglobin A1c Calcium 8.3 L Magnesium 1.3 L 1.3 L Iron 39 TIBC 409 % Saturation 9 L Ferritin 6.8 L Total Bilirubin AST ALT Alkaline Phosphatase Troponin I < 0.01 L C-Reactive Protein 3.7 H NT-Pro-B Natriuret Pep 24 Total Protein Albumin TSH 1.350 Urine Color Urine Appearance Urine pH Ur Specific [place] Urine Protein Urine Glucose (UA) Urine Ketones Urine Blood Urine Nitrite Urine Bilirubin Urine Urobilinogen Ur Leukocyte Esterase Urine RBC Urine WBC Ur Squamous Epith Cells Urine Bacteria Lab Acknowledgement Test Added POC Troponin I 0.00 L Blood Type O Positive Antibody Screen NEGATIVE Crossmatch ([facility]) See Detail 11/05/23 11/06/23 11/06/23 22:40 00:13 07:20 WBC 13.26 H RBC 3.61 L Hgb 8.9 L Hct 28.2 L MCV 78 L MCH 25 L MCHC 32 RDW Coeff of Cara 16.0 H Plt Count 440 Neut % (Auto) 70.1 Lymph % (Auto) 22.0 [place] % (Auto) 5.8 Eos % (Auto) 1.7 Baso % (Auto) 0.2 Neut # (Auto) 9.30 H Lymph # (Auto) 2.90 [place] # (Auto) 0.80 Eos # (Auto) 0.20 Baso # (Auto) 0.00 Abs Immat Gran (auto) 0.00 Imm/Tot Granulo (auto) 0.2 Absolute Retic Percent Retic Immature Retic Fraction Retic Hgb Equivalent INR 1.03 D-Dimer Quant (PE/DVT) Sodium 131 L Potassium 3.7 Chloride 99 Carbon Dioxide 27 Anion Gap 5 L BUN 11 Creatinine 0.6 Estimated Creat Clear 91.48 Estimated GFR 106 Glucose 99 Hemoglobin A1c 6.0 H Calcium 8.5 Magnesium 1.8 Iron TIBC % Saturation Ferritin Total Bilirubin 0.4 AST 23 ALT 19 Alkaline Phosphatase 75 Troponin I C-Reactive Protein 2.8 H NT-Pro-B Natriuret Pep Total Protein 6.8 Albumin 3.7 TSH Urine Color Yellow Urine Appearance Clear Urine pH 5.5 Ur Specific [place] <= 1.005 Urine Protein Negative Urine Glucose (UA) Negative Urine Ketones Negative Urine Blood Negative Urine Nitrite Negative Urine Bilirubin Negative Urine Urobilinogen 0.2 Ur Leukocyte Esterase Negative Urine RBC 0-2 Urine WBC 0-2 Ur Squamous Epith Cells Few Urine Bacteria None Lab Acknowledgement Test Added POC Troponin I Blood Type Antibody Screen Crossmatch ([facility]) 11/06/23 11/06/23 09:27 12:35 WBC RBC Hgb 9.0 L Hct MCV MCH MCHC RDW Coeff of Cara Plt Count Neut % (Auto) Lymph % (Auto) [place] % (Auto) Eos % (Auto) Baso % (Auto) Neut # (Auto) Lymph # (Auto) [place] # (Auto) Eos # (Auto) Baso # (Auto) Abs Immat Gran (auto) Imm/Tot Granulo (auto) Absolute Retic Percent Retic Immature Retic Fraction Retic Hgb Equivalent INR D-Dimer Quant (PE/DVT) Sodium Potassium Chloride Carbon Dioxide Anion Gap BUN Creatinine Estimated Creat Clear Estimated GFR Glucose Hemoglobin A1c Calcium Magnesium Iron TIBC % Saturation Ferritin Total Bilirubin AST ALT Alkaline Phosphatase Troponin I C-Reactive Protein NT-Pro-B Natriuret Pep Total Protein Albumin TSH Urine Color Urine Appearance Urine pH Ur Specific [place] Urine Protein Urine Glucose (UA) Urine Ketones Urine Blood Urine Nitrite Urine Bilirubin Urine Urobilinogen Ur Leukocyte Esterase Urine RBC Urine WBC Ur Squamous Epith Cells Urine Bacteria Lab Acknowledgement Test Added POC Troponin I Blood Type Antibody Screen Crossmatch ([facility])
[2023-11-06 18:12] LABS: Hemoglobin* 9.3 gm/dL (12.0-16.0)
--- NOTE | 2023-11-06 18:43 | PC.NURSE ---
Patient VSS. Alert and oriented. Patient advanced from clear to regular diet. Tolerated a regular diet. Patient continues to have occasional loose/watery stools. Patient is on a 2,000 mL fluid restriction. NPO at midnight to prepare for endoscopy in the morning. Patient independent with ambulating and bathroom use.
[2023-11-07] VITALS (7 sets, daily range): BP systolic 141–176; BP diastolic 47–90; PULSE 54–71; RESP 16; TEMP 36.4–36.9; O2SAT 99–100
[2023-11-07] MEDS: cefTRIAXone 2 GM in 0.9 % SODIUM CHLORIDE Mini-bag 100 ML IVPB (00:02)
[2023-11-07] MEDS: metroNIDAZOLE 500 MG/100 ML PIGGYBACK 100 MG IVPB ×2 (00:02→08:21)
[2023-11-07] MEDS: OMEPRAZOLE 20 MG CAPSULE DR 40 MG PO (06:02)
[2023-11-07 06:22] LABS: Hemoglobin* 8.4 gm/dL (12.0-16.0); Mean Corpuscular HGB Conc 31 gm/dL (32-36); Mean Corpuscular Hemoglobin 25 pg (26-34); Mean Corpuscular Volume 79 fL (80-100); Platelet Count* 428 K/uL (140-440); Slide Review Reflex No; White Blood Count* 8.18 K/uL (4.50-11.00)
[2023-11-07 06:32] LABS: Chloride* 101 mmol/L (96-114); Potassium* 3.6 mmol/L (3.6-5.1); Sodium* 135 mmol/L (135-149)
[2023-11-07 06:35] LABS: Anion Gap 6 mEq/L (7-15); Blood Urea Nitrogen* 8 mg/dL (7-30); Carbon Dioxide* 28 mmol/L (20-32); Creatinine* 0.5 mg/dL (0.5-1.5); Est. Creatinine Clearance* 109.78; Estimated Glomerular Filt Rate 111 ml/min; Glucose* 104 mg/dL (60-115); Phosphorus* 3.7 mg/dL (2.5-4.5)
[2023-11-07 06:36] LABS: Calcium* 8.4 mg/dL (8.4-10.6); Magnesium* 1.5 mg/dL (1.5-2.6)
--- NOTE | 2023-11-07 06:43 | PC.NURSE ---
End of shift [id number]: A&O pleasant and cooperative. Denies pain. Hypertensive VS otherwise stable. Denies dizziness or lightheadedness. Up at mark in room. Using call light appropriately.
[2023-11-07] MEDS: SODIUM CHLORIDE 0.9 % (FLUSH) 10 ML SYRINGE 5 ML IVF (08:21)
[2023-11-07] MEDS: FLUOXETINE HCL 10 MG CAPSULE PO (08:21)
[2023-11-07 10:26] LABS: Hemoglobin* 9.2 gm/dL (12.0-16.0)
--- NOTE | 2023-11-07 11:34 | W.ANESCHARGE ---
Anesthesia Charges Start Date/Time Anesthesia Start Date: 11/07/23 Anesthesia Start Time: 11:44 Stop Date/Time Anesthesia Stop Date: 11/07/23 Anesthesia Stop Time: 11:59 Summary Emergency: MDA
--- NOTE | 2023-11-07 12:00 | PM.EN ---
Chart Event Note Date Seen: 11/07/23 Chart Event Note: Patient underwent an upper endoscopy. No evidence of active bleeding. No source of bleeding identified. Random stomach biopsies were obtained and sent for rule out H pylori. Please see procedure note for full details.
--- NOTE | 2023-11-07 12:02 | P.ANES_ITS ---
Anesthesia Charges Start Date/Time Anesthesia Start Date: 11/07/23 Anesthesia Start Time: 11:44 Stop Date/Time Anesthesia Stop Date: 11/07/23 Anesthesia Stop Time: 11:59 Summary Emergency: LOADING AND UNLOADING SUPERVISOR
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
--- NOTE | 2023-11-07 17:18 | PC.NURSE ---
Pt discharged from facility at 1707, accompanied by spouse. Patient vitally stable at discharge. All discharge instructions reviewed with patient and patient verbalized understanding of information provided. Patient denied questions or concerns at discharge.
== END 2023-11-07 17:07 | disposition home or self-care (01) | DRG 812 ==
LOC: ED 23:04 → MEDSURG 23:44
PROVIDERS: Internal Medicine; Admitting Provider Family Medicine; Emergency Provider Family Medicine; PCP Internal Medicine; Visit Provider Family Medicine
DX: D50.9 Iron deficiency anemia, unspecified (principal); Z68.41 Body mass index [BMI] 40.0-44.9, adult; K57.32 Diverticulitis of large intestine without perforation or abscess without bleeding; E66.9 Obesity, unspecified; F17.290 Nicotine dependence, other tobacco product, uncomplicated; I10 Essential (primary) hypertension; E11.9 Type 2 diabetes mellitus without complications; Z79.84 Long term (current) use of oral hypoglycemic drugs; K30 Functional dyspepsia; I73.9 Peripheral vascular disease, unspecified; E78.5 Hyperlipidemia, unspecified; K21.9 Gastro-esophageal reflux disease without esophagitis; E87.6 Hypokalemia; E83.42 Hypomagnesemia; M79.662 Pain in left lower leg
CPT/HCPCS: 00731; 36415; 36430; 43239; 74177; 80048; 80053; 81001; 82728; 82962; 83036; 83540; 83550; 83735; 83880; 84100; 84443; 84484; 85018; 85025; 85027; 85045; 85379; 85610; 86140; 86850; 86900; 86901; 86922; 88305; 93005; 93971; 99140; 99284; 99285; A9270; C9113; J0696; J1836; J2704; J3475; J3490; J7030; P9016; Q9967

== ENCOUNTER 2023-11-11 09:41 | Outpatient (CLI) | payer OTHER, SELFPAY ==
--- OUTSIDE RECORDS SUMMARY | 2023-12-01 05:21 | XMS_ITS ---
Author Organization [facility] Address [address] [place] [address] Care Team Providers Care Drum Maker Name Role Phone Unavailable Unavailable Unavailable Surgery Details Not on file Complications Check Surgery Details section. Procedure Estimated Blood Loss Check Surgery Details section. Procedure Findings Check Surgery Details section. Procedure Specimens Taken Check Surgery Details section.
--- OUTSIDE RECORDS SUMMARY | 2023-12-01 05:21 | XMS_ITS | Encounter Summary ---
Author Organization [facility] Address [address] [place] [id number] Care Team Providers Care Toll Booth Operator Name Role Phone Elsewhere, Pcp Primary Care Provider Unavailabl e Reason for Visit * Reason Comments Abdominal Pain Vomiting Encounter Details Date Type Department Care Team (Late st Contact Info) Description 11/29/2023 10:38 AM CDT - 11/29/2023 4:47 PM CDT Emergency [facility] Emergency Department [address] [place] [phone] Alejandra Suárez, WILLA, C.N.P. [address] [place] [phone] Occlusion Superior Mesenteric Artery (HCC) (Primary Dx) Discharge Disposition: Home or Self Care Social History Tobacco Use Types Packs/Day Years Used Date Smoking Tobacco: Former Alcohol Use Standard Drinks/Week Comments Not Currently 0 (1 standard drink = 0.6 oz pur e alcohol) Dental Answer Date Recorded Dental: Regular Dentist Unknown 11/21/19 Sex and Gender Information Value Date Recorded Sex Assigned at Not on file Gender Identity Not on file Sexual Orientation Not on file documented as of this encounter Last Filed Vital Signs Vital Sign Reading Time Taken Comments Blood Pressure 114/53 11/29/2023 4:15 PM CDT Pulse 70 11/29/2023 4:15 PM CDT Temperature 36.3 ??C (97.3 ??F) 11/29/2023 12:52 PM C DT Respiratory Rate 16 11/29/2023 12:52 PM CDT Oxygen Saturation 97% 11/29/2023 4:15 PM CDT Inhaled Oxygen Concentration - - Weight 101 kg (221 lb 9 oz) 11/29/2023 10:28 AM CDT Height - - Body Mass Index - - documented in this encounter Discharge Instructions * Discharge Instructions* Francisca Kraft M.D. - 11/29/2023 4:01 PM CDT Please return to the ED for worsening symptoms or if you have any other concerns. documented in this encounter Medications at Time of Discharge Medication Sig Dispensed Refills Start Date End Date amLODIPine (NORVASC) 5 mg tablet Take 5 mg by mouth daily. 09/26/2023 FLUoxetine (PROzac) 10 mg tablet Take 10 mg by mouth daily. glipiZIDE (GLUCOTROL) 5 mg tablet Take 5 mg by mouth every morning before breakfast. 09/26/2023 hydroCHLOROthiazide (HYDRODIURIL) 25 mg tablet Take 1 tablet by mouth daily. 04/04/2012 lisinopriL (PRINIVIL,ZESTRIL) 40 mg tablet Take 1 tablet by mouth daily. 04/04/2012 magnesium oxide (MAG-OX) 250 mg of magnesium tablet Take 1,000 mg by mouth daily. metFORMIN (GLUCOPHAGE) 1,000 mg tablet Take 1,000 mg by mouth 2 (two) times a day with meals. 09/26/2023 multivitamin tablet Take 1 tablet by mouth daily. omeprazole (PriLOSEC) [address] capsule Take 40 mg by mouth every morning before breakfast. 09/26/2023 oxyCODONE (ROXICODONE) 5 mg immediate release tabletIndications:Acute Pain Take 1 tablet (5 mg total) by mouth every 6 (six) hours as needed for pain for up to 3 days Indication: Acute Pain. 8 tablet 11/29/2023 12/02/2023 simvastatin (ZOCOR) 10 mg tablet Take 10 mg by mouth at bedtime. 09/26/2023 documented as of this encounter ED Notes * Francisca Kraft M.D. - 11/29/2023 3:31 PM CDT Care of patient transferred to sc by Ms. Suárez. Disposition pending CT. This is a 53-year-old lady with chronic SMA occlusion, presents today with acute on chronic abdominal pain exacerbation, pending CT abdomen pelvis, if the workup is consistent with prior findings patient can be discharged home with pain management. VITAL SIGNS BP 106/65 (BP Location: Right arm, Patient Position: Sitting) Pulse 80 Temp 36.3 ??C (Oral) Resp 16 Wt 101 kg SpO2 97% No ED Course as of 11/29/23 1623 TueNov 29, [address] Abdomen Pelvis Angiogram with IV Contrast 1. Occlusion of the proximal SMA and JINA. 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 2. Fairly widespread peripheral arterial disease with up to mild stenosis on the right and up to moderate stenosis in the left common iliac artery due to coral reef-type plaque. 1600 Discussed with vascular surgery, they recommended that with normal lactate, similar pain to prior, gradual progression of the symptoms and collateral flow on the CT scan the suspicion for mesenteric ischemia is quite low, they recommend to proceed with discharge in outpatient follow-up that patient already has scheduled this Tuesday. I re-evaluated the patient, her pain is significantly better, she has comfortable, no abdominal tenderness, she is comfortable with this plan. All questions were answered, return precautions were given. Final Diagnoses: as of 11/29/23 1623 Occlusion Superior Mesenteric Artery (HCC) Francisca Kraft M.D. Resident 11/29/23 1623 * Alejandra Suárez APRN, C.N.P. - 11/29/2023 2:30 PM CDT SUBJECTIVE CHIEF COMPLAINT/REASON FOR VISIT Abdominal Pain and Vomiting HISTORY OF PRESENT ILLNESS Patient is a 53 yo female with hx of: Hemorrhage Gastrointestinal Diverticulitis Colon Diabetes Mellitus Type 2 (HCC) Hyperlipidemia Hypertension NOS Who presents to the emergency department with abdominal pain. Patient has been dealing with abdominal pain since 2010. What used to be intermittent maybe 1 time a month has progressed to daily. She is difficulty eating secondary to the pain. She has had multiple ER visits where they have given her ketorolac to help for the pain. 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 She was on Plavix and aspirin however had a GI bleed recently and was taken off Plavix and aspirin over a month ago. She was recently told to restart her Plavix they could not find a source of the GI bleed. Her 1st re-dosing of Plavix was this morning. She was told to hold the aspirin. She does have follow-up with vascular surgery at [facility] Tuesday however she presents today because the pain is too unbearable. She does say ketorolac helps but it only lasts a couple of hours. She reports that she is feels weak and lightheaded because she is unable to eat. She has significant pain when she eats and forces herself to vomit. She is lost 13 lb in the past 5 weeks. She has had some diarrhea for the past 5 weeks. No overt signs of bleeding. It is reported from [place] that claudication is made worse when her hemoglobin is around < 8. History provided by: Patient and significant other REVIEW OF SYSTEMS OBJECTIVE Initial Vitals Temperature 11/29/23 1048 36.9 ??C Pulse Rate 11/29/23 1048 76 Heart Rate -- Resp Rate 11/29/23 1048 18 Blood Pressure 11/29/23 1048 102/59 SpO2 11/29/23 1048 97 % Pain Score 11/29/23 1047 5 - Moderate pain PHYSICAL EXAMINATION Constitutional: Nursing note and vitals reviewed. She appears not lethargic. HENT: Head: Normocephalic and atraumatic. Mouth/Throat: Mucous membranes are moist. Eyes: Conjunctivae are normal. Right eye exhibits no discharge. Left eye exhibits no discharge. Neck: Neck supple. No tracheal deviation present. Cardiovascular: Normal rate, regular rhythm and normal heart sounds. Pulses are strong and palpable. Capillary refill: takes less than 3 seconds Pulmonary/Chest: Effort normal and breath sounds normal. There is normal air entry. No respiratory distress. Abdominal: Soft. exhibits no distension. There is no abdominal tenderness. There is no rebound and no guarding. Musculoskeletal: General: No edema. Normal range of motion. Cervical back: Normal range of motion and neck supple. Neurological: Alert and oriented to person, place, and time. Skin: Skin is warm, dry, intact and normal color. No rash noted. Psychiatric: She has a normal mood and affect. Behavior is normal. Judgment normal. ASSESSMENT/PLAN Assessment and Plan 1. Abdominal pain. Patient is vitally stable well-appearing no acute distress, she does not appear in any respiratory distress. She voices frustration over her symptoms. I reviewed the labs that wereobtained at intake which shows a sodium of 132. She does have an TAMMY with a creatinine of 1.35 was previously 0.6. This could be secondary to poor oral intake, dehydration and vomiting. Her potassium is 3.8. Leukocytes of improved 12.9 was previously 14.7. Hemoglobin is 11.3 previously 12.6, no overt signs of bleeding per the patient. Lactate is reassuring at 2 and lipase is 19 I do not think this represents an acute pancreatitis. Her abdomen is soft there are no peritoneal signs. Will obtain aCT angio to rule out ischemia. We have discussed that if CT results are reassuring she could potentially be discharged on some oral pain medication. She feels comfortable with this plan of care.. Alejandra Suárez APRN, C.N.P. 11/29/23 1434 * Cristin Diaz R.N. - 11/29/2023 10:44 AM CDT Pt presents with abd pain, has an appt to be seen by vascular outpatient on Tuesday with ultrasound prior. Was seen by regular doctor today, given toradol 60mg. Pt reports no appetite, weight loss. Ptpain is on the LUQ. Cristin Diaz R.N. 11/29/23 1047 documented in this encounter Plan of Treatment Upcoming Encounters Date Type Department Care Team (Latest Contact Info) Description 12/02/2023 8:00 AM CDT Appointment Department of Radiology, [facility], in [place], [place] [address] [place] [address] Mc Fabian M.D. [address] [place] [address] Discharge Disposition: Home or Self Care 12/02/2023 1:00 PM CDT Comprehensive Visit Division of Vascular and Endovascular Surgery in [place], [place] [address] [place] [phone] Mc Fabian M.D. [address] [place] [address] documented as of this encounter Procedures Procedure Name Priority Date/Time Associated Diagnosis Comments CT ABDOMEN PELVIS ANGIOGRAM WITH IV CONTRAST RAD - Semiurgent (Fast; most ED patients; some inpatients) 11/29/2023 2:18 PM CDT HEPATIC FUNCTION PANEL, S STAT 11/29/2023 11:13 AM CDT CBC WITH DIFFERENTIAL, B STAT 11/29/2023 11:13 AM CDT LIPASE, S/P STAT 11/29/2023 11:13 AM CDT LACTATE, B/P STAT 11/29/2023 11:13 AM CDT BASIC METABOLIC PANEL, S/P STAT 11/29/2023 11:13 AM CDT ECG STAT 11/29/2023 10:31 AM CDT documented in this encounter Results * CT Abdomen Pelvis Angiogram with IV Contrast (11/29/2023 2:18 PM CDT) Anatomical Region Laterality Modality Abdomen, Pelvis, Cardiovascu lar RST LOS, Abdominal ARZ LOS, Vascular Interventional ARZ LOS, Abdominal FLA LOS, Vascular Interventional FLA LOS, Procedural, Vascular Interventional NWWI LOS N/A Computed Tomography, Compute d Tomography 11/29/2023 2:17 PM CDT Impressions 11/29/2023 2:54 PM CDT 1. Occlusion of the proximal SMA and JINA. 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 2. Fairly widespread peripheral arterial disease with up to mild stenosis on the right and up to moderate stenosis in the left common iliac artery due to coral reef-type plaque. Narrative 11/29/2023 2:54 PM CDT EXAM: ??CT ABDOMEN PELVIS ANGIOGRAM WITH IV CONTRAST Including 3D image post-processing with or without AI assistance. COMPARISON: ??Outside CT of the abdomen and pelvis November 17, 2023 FINDINGS: VASCULAR FINDINGS: ABDOMINAL AORTA: Distal thoracic and abdominal aorta are of normal caliber scattered foci of calcified and partially calcified atherosclerotic plaque resulting in up to mild stenosis. VISCERAL ARTERIES: Celiac artery: Densely calcified plaque about the ostium. There is moderately stenotic noncalcified plaque in the proximal celiac artery. Conventional branching pattern. Superior mesenteric artery: ??Occluded shortly after takeoff over a distance of approximately 22 mm (series 10, image 82). Retrograde filling via collaterals. Inferior mesenteric artery: ??Also occluded from the ostium over a distance of approximately 17 mm (series 10, image 81). Retrograde filling via collaterals. RENAL ARTERIES: Right renal arteries: ??Solitary right renal artery with mildly stenotic calcified plaque about the ostium. Left renal arteries: ??There are 2 left renal arteries. There is moderately stenotic calcified plaque about the ostium of the left main renal artery. Mildly stenotic mixed density plaque about the ostium of the accessory left renal artery. ILIAC ARTERIES: Right common iliac artery: ??Of normal caliber with extensive calcified plaque resulting in up to mild stenosis. Right internal iliac artery: ??Normal caliber with scattered calcifications resulting in minimal stenosis. Right external iliac artery: ??Of normal caliber and patent without plaque or stenosis. Right femoral arteries: ??Mildly stenotic calcified plaque in the common femoral artery. Proximal superficial and deep femoral arteries are patent. Left common iliac artery: Mixed density plaque results in up to mild stenosis. Short segment with coral reef-type plaque results in borderline mild to moderate stenosis. Left internal iliac artery: ??Moderately stenotic at the ostium. Otherwise scattered calcifications resulting in mild stenosis. Left external iliac artery: ??Of normal caliber and widely patent with minimal nonstenotic trace calcifications.. Left femoral arteries: ??Mildly stenotic dense calcifications in the common femoral artery. Widely patent femoral arteries. Moderate to severely stenotic proximal superficial femoral artery. ADDITIONAL FINDINGS: Lung bases are clear. Cholecystectomy. No worrisome hepatic lesions. Spleen, bilateral adrenals and kidneys appear unremarkable. Fatty infiltration of the pancreas. Normal bowel gas pattern. Tiny sliding hiatal hernia. No free air. Negative for ascites. Decompressed bladder. Degenerative changes of the lower thoracic and lumbar spine. No suspicious or acute osseous lesions. Procedure Note Bryan Cintron M.D., Ph.D. - 11/29/2023 EXAM: CT ABDOMEN PELVIS ANGIOGRAM WITH IV CONTRAST Including 3D image post-processing with or without AI assistance. COMPARISON: Outside CT of the abdomen and pelvis November 17, 2023 FINDINGS: VASCULAR FINDINGS: ABDOMINAL AORTA: Distal thoracic and abdominal aorta are of normal caliberscattered foci of calcified and partially calcified atherosclerotic plaqueresulting in up to mild stenosis. VISCERAL ARTERIES: Celiac artery: Densely calcified plaque about the ostium. There ismoderately stenotic noncalcified plaque in the proximal celiac artery.Conventional branching pattern. Superior mesenteric artery: Occluded shortly after takeoff over adistance of approximately 22 mm (series 10, image 82). Retrograde fillingvia collaterals. Inferior mesenteric artery: Also occluded from the ostium over a distanceof approximately 17 mm (series 10, image 81). Retrograde filling viacollaterals. RENAL ARTERIES: Right renal arteries: Solitary right renal artery with mildly stenoticcalcified plaque about the ostium. Left renal arteries: There are 2 left renal arteries. There is moderatelystenotic calcified plaque about the ostium of the left main renal artery.Mildly stenotic mixed density plaque about the ostium of the accessoryleft renal artery. ILIAC ARTERIES: Right common iliac artery: Of normal caliber with extensive calcifiedplaque resulting in up to mild stenosis. Right internal iliac artery: Normal caliber with scattered calcificationsresulting in minimal stenosis. Right external iliac artery: Of normal caliber and patent without plaqueor stenosis. Right femoral arteries: Mildly stenotic calcified plaque in the commonfemoral artery. Proximal superficial and deep femoral arteries arepatent. Left common iliac artery: Mixed density plaque results in up to mildstenosis. Short segment with coral reef-type plaque results in borderlinemild to moderate stenosis. Left internal iliac artery: Moderately stenotic at the ostium. Otherwisescattered calcifications resulting in mild stenosis. Left external iliac artery: Of normal caliber and widely patent withminimal nonstenotic trace calcifications.. Left femoral arteries: Mildly stenotic dense calcifications in the commonfemoral artery. Widely patent femoral arteries. Moderate to severelystenotic proximal superficial femoral artery. ADDITIONAL FINDINGS: Lung bases are clear. Cholecystectomy. No worrisome hepatic lesions. Spleen, bilateral adrenalsand kidneys appear unremarkable. Fatty infiltration of the pancreas.Normal bowel gas pattern. Tiny sliding hiatal hernia. No free air.Negative for ascites. Decompressed bladder. Degenerative changes of the lower thoracic and lumbar spine. No suspiciousor acute osseous lesions. IMPRESSION: 1. Occlusion of the proximal SMA and JINA. Moderately severe stenosis ofthe celiac artery. 2. Fairly widespread peripheral arterial disease with up to mild stenosison the right and up to moderate stenosis in the left common iliac arterydue to coral reef- type plaque. Jovan Caceres P.A.-C. IMG CT PROCEDURES * Lipase (11/29/2023 11:13 AM CDT) Lipase, S 19 13 - 60 U/L 11/29/2023 12:23 PM CDT DTL Blood (Blood, Venous) 11/29/2023 11:13 AM CDT 11/29/2023 12:02 PM CDT Jovan Caceres P.A.-C. LAB BLOOD ADD-ON [facility] [address] [place] [address], [facility] DTL [facility] [address] [place] [address] * Lactate (11/29/2023 11:13 AM CDT) Lactate, P 2.0 0.5 - 2.2 mmol/L 11/29/2023 11:55 AM CDT STMA Blood (Blood, Venous) 11/29/2023 11:13 AM CDT 11/29/2023 11:28 AM CDT Jovan Caceres P.A.-C. LAB BLOOD NON ADD -ON Performing Organization Address City/[facility]/ZIP Co de Phone Number [facility] [address] [place] [address], [facility] STMA [facility] [address] [place] [address] * Hepatic Function Panel (11/29/2023 11:13 AM CDT) Bilirubin, Total, S 0.3 0.0 - 1.2 mg/dL 11/29/2023 12:23 PM CDT DTL Bilirubin, Direct, S <0.2 0.0 - 0.3 mg/dL 11/29/2023 12:23 PM CDT DTL Aspartate Aminotransferase (AST), S 27 8 - 43 U/L 11/29/2023 12:23 PM CDT DTL Alanine Aminotransferase (ALT), S 25 7 - 45 U/L 11/29/2023 12:23 PM CDT DTL Alkaline Phosphatase, S 93 35 - 104 U/L 11/29/2023 12:23 PM CDT DTL Albumin, S 4.5 3.5 - 5.0 g/dL 11/29/2023 12:23 PM CDT DTL Protein, Total, S 7.9 6.3 - 7.9 g/dL 11/29/2023 12:23 PM CDT DTL Blood (Blood, Venous) 11/29/2023 11:13 AM CDT 11/29/2023 12:02 PM CDT Jovan Caceres P.A.-C. LAB BLOOD ADD-ON [address] [address], [facility] [address] [address] * (ABNORMAL) Basic Metabolic Panel (11/29/2023 11:13 AM CDT) Potassium, P 3.8 3.6 - 5.2 mmol/L 11/29/2023 11:49 AM CDT STMA Sodium, P 132(L) 135 - 145 mmol/L 11/29/2023 11:49 AM CDT STMA Chloride, P 91(L) 98 - 107 mmol/L 11/29/2023 11:49 AM CDT STMA Bicarbonate, P 26 22 - 29 mmol/L 11/29/2023 11:49 AM CDT ST[facility] Anion Gap, P 15 7 - 15 11/29/2023 11:49 AM CDT ST[facility] BUN (Blood Urea Nitrogen), P 9 6 - 21 mg/dL 11/29/2023 11:49 AM CDT STMA Creatinine 1.35(H) 0.59 - 1.04 mg/dL 11/29/2023 11:49 AM CDT [facility] Estimated GFR (eGFR) 46(L) >=60 mL/min/BSA 11/29/2023 11:49 AM CDT ST[facility] Comment: Estimated GFR calculated using the 2020 CKD_EPI creatinine equation. Calcium, Total, P 10.3(H) 8.6 - 10.0 mg/dL 11/29/2023 11:49 AM CDT STMA Glucose, P 84 70 - 140 mg/dL 11/29/2023 11:49 AM CDT STMA Blood (Blood, Venous) 11/29/2023 11:13 AM CDT 11/29/2023 11:28 AM CDT Jovan Caceres P.A.-C. LAB BLOOD ADD-ON [facility] [address] [place] [address], [facility] [address] [place] [address] * (ABNORMAL) CBC with Differential, Blood (11/29/2023 11:13 AM CDT) Hemoglobin 11.3(L) 11.6 - 15.0 g/dL 11/29/2023 11:32 AM CDT STMA Hematocrit 36.6 35.5 - 44.9 % 11/29/2023 11:32 AM CDT STMA Erythrocytes 4.57 3.92 - 5.13 x10(12)/L 11/29/2023 11:32 AM CDT ST[facility] MCV 80.1 78.2 - 97.9 fL 11/29/2023 11:32 AM CDT ST[facility] RBC Distrib Width 18.1(H) 12.2 - 16.1 % 11/29/2023 11:32 AM CDT [facility] Platelet Count 488(H) 157 - 371 x10(9)/L 11/29/2023 11:32 AM CDT STMA Leukocytes 12.9(H) 3.4 - 9.6 x10(9)/L 11/29/2023 11:32 AM CDT STMA Neutrophils 9.40(H) 1.56 - 6.45 x10(9)/L 11/29/2023 11:32 AM CDT DH[facility] Lymphocytes 2.43 0.95 - 3.07 x10(9)/L 11/29/2023 11:32 AM CDT STMA Monocytes 0.91(H) 0.26 - 0.81 x10(9)/L 11/29/2023 11:32 AM CDT STMA Eosinophils 0.09 0.03 - 0.48 x10(9)/L 11/29/2023 11:32 AM CDT STMA Basophils 0.04 0.01 - 0.08 x10(9)/L 11/29/2023 11:32 AM CDT STMA Blood (Blood, Venous) 11/29/2023 11:13 AM CDT 11/29/2023 11:28 AM CDT Jovan Caceres P.A.-C. LAB BLOOD ADD-ON [facility] [address] [place] [address], [facility] STMA [facility] [address] [place] [address] [facility] [address] [place] [address] * ECG 12 Lead (11/29/2023 10:31 AM CDT) Ventricular Rate ECG/Min 77 BPM MUSE MS Interval 164 ms MUSE QRSD Interval 92 ms MUSE QT Interval 400 ms MUSE QTC Interval 452 ms MUSE P [place] -15 degrees MUSE R [place] 22 degrees MUSE T Wave [place] 56 degrees MUSE 11/29/2023 10:3 1 AM CDT 11/29/2023 10:34 AM CDT Impressions MUSE - 11/29/2023 10:35 AM CDT Sinus rhythm Low voltage QRS in the chest leads Nonspecific ST abnormality When compared with ECG of 06-Dec-2012 08:19, No significant change Reviewed by PROMISE Buck Narrative Procedure Note Timur Pinon M.D. - 11/29/2023 IMPRESSION: Sinus rhythm Low voltage QRS in the chest leads Nonspecific ST abnormality When compared with ECG of 06-Dec-2012 08:19, No significant change Reviewed by PROMISE Buck Kena Ladd APRNNYasmani ECG ORDER AIDEN MUSE NA documented in this encounter Visit Diagnoses Diagnosis Occlusion Superior Mesenteric Artery (HCC)- Primary Hemorrhage Gastrointestinal Diverticulitis Colon Diabetes Mellitus Type 2 (HCC) Hyperlipidemia Hypertension NOS documented in this encounter Administered Medications Inactive Administered Medications - up to 3 most recent administrations Medication Order MAR Action Action Date Dose Rate Site fentaNYL injection 50 mcg (SUBLIMAZE) 50 mcg, intravenous, Once, On Tue11/29/23 at 1359, For 1 dose Given 11/29/2023 2:37 PM CDT 50 mcg iopromide 370 mg iodine/mL injection 1-162 mL (ULTRAVIST) 1-162 mL, intravenous, Once in imaging, contrast, Starting on Tue11/29/23 at 1407, For 1 dose, Imaging Protocol Orders, Dose per Radiant Medication Guidelines Given 11/29/2023 2:09 PM CDT 100 mL NaCl 0.9 % bolus 1,000 mL 1,000 mL, intravenous, at 1,000 mL/hr, Administer over 1 Hours, Once, On Tue11/29/23 at 1358, For 1 dose New Bag 11/29/2023 2:36 PM CDT 1,000 mL 100 0 mL/hr sodium chloride (PF) 0.9 % injection 1-100 mL 1-100 mL, intravenous, Once, On Tue11/29/23 at 1408, For 1 dose, Imaging Protocol Orders, Dose per Radiant Medication Guidelines Given 11/29/2023 2:09 PM CDT 30 mL documented in this encounter Active and Recently Administered Medications Times are shown in CDT. Scheduled Medication Order 11/27/2023 11/28/2023 11/29/2023 fentaNYL injection 50 mcg (SUBLIMAZE) (COMPLETED) 50 mcg, intravenous, Once, On e 11/29/23 at 1359, For 1 dose 1437 (Given - Provid er: Tereso Michelle R.N.) NaCl 0.9 % bolus 1,000 mL (COMPLETED) 1,000 mL, intravenous, at 1,000 mL/hr, Administer over 1 Hours, Once, On Tue11/29/23 at 1358, For 1 dose 1436 (New Bag - Prov ider: Tereso Michelle R.N.)1635 (Stopped - Provider: Tereso Michelle R.N.) sodium chloride (PF) 0.9 % injection 1-100 mL (COMPLETED) 1-100 mL, intravenous, Once, On Tue11/29/23 at 1408, For 1 dose, Imaging Protocol Orders, Dose per Radiant Medication Guidelines 1409 (Given - Provid er: Meghan Carter R.N.) PRN Medication Order 11/27/2023 11/28/2023 11/29/2023 iopromide 370 mg iodine/mL injection 1-162 mL (ULTRAVIST) (COMPLETED) 1-162 mL, intravenous, Once in imaging, contrast, Starting on Tue11/29/23 at 1407, For 1 dose, Imaging Protocol Orders, Dose per Radiant Medication Guidelines 1409 (Given - Provid er: Meghan Carter R.N. - Comment: [id number]) documented in this encounter Care Teams Toll Booth Operator Relationship Specialty Start Date End Date Elsewhere, Pcp PCP - General Internal Medicine 11/29/23 documented as of this encounter
--- OUTSIDE RECORDS SUMMARY | 2023-12-01 05:21 | XMS_ITS | Clinical Summary ---
Author Organization [facility] Address [address] [place] [address] Care Team Providers Care Civilian Technician Name Role Phone Elsewhere, Pcp Primary Care Provider Unavailabl e Source Comments Patient records contain information from all sites at [facility]. For routine questions regarding patient records, call [phone] during business hours, M-F 8:00 AM - 5:00 PM Central Time. Record requests for emergency care only can be directed to [phone] at any time.[facility] Allergies Active Allergy Reactions Criticality Noted Date Comments Erythromycin Rash 04/04/2012 Penicillins Rash 04/04/2012 Medications Medication Sig Dispensed Refills Start Date End Date Status amLODIPine (NORVASC) 5 mg tablet Take 5 mg by mouth daily. 09/26/2023 Active glipiZIDE (GLUCOTROL) 5 mg tablet Take 5 mg by mouth every morning before breakfast. 09/26/2023 Active lisinopriL (PRINIVIL,ZESTRIL) 40 mg tablet Take 1 tablet by mouth daily. 04/04/2012 Active metFORMIN (GLUCOPHAGE) 1,000 mg tablet Take 1,000 mg by mouth 2 (two) times a day with meals. 09/26/2023 Active simvastatin (ZOCOR) 10 mg tablet Take 10 mg by mouth at bedtime. 09/26/2023 Active omeprazole (PriLOSEC) [address] capsule Take 40 mg by mouth every morning before breakfast. 09/26/2023 Active FLUoxetine (PROzac) 10 mg tablet Take 10 mg by mouth daily. Active hydroCHLOROthiazide (HYDRODIURIL) 25 mg tablet Take 1 tablet by mouth daily. 04/04/2012 Active magnesium oxide (MAG-OX) 250 mg of magnesium tablet Take 1,000 mg by mouth daily. Active multivitamin tablet Take 1 tablet by mouth daily. Active oxyCODONE (ROXICODONE) 5 mg immediate release tabletIndications:Ac patrice Pain Take 1 tablet (5 mg total) by mouth every 6 (six) hours as needed for pain for up to 3 days Indication: Acute Pain. 8 tablet 11/29/2023 12/02/2023 Active Active Problems Problem Noted Date Diagnosed Date Hemorrhage Gastrointestinal Diverticulitis Colon Diabetes Mellitus Type 2 Hyperlipidemia Hypertension NOS Encounters Date Type Department Care Team Description 11/29/2023 10:38 AM CDT - 11/29/2023 4:47 PM CDT Emergency [facility] Emergency Department [address] [place] [phone] Alejandra Suárez APRN, C.N.P. Occlusion Superior Mesenteric Artery (HCC) (Primary Dx) Discharge Disposition: Home or Self Care 11/28/2023 4:10 PM CDT Ancillary Procedure Department of Radiology in [place], [place] [address] [place] [phone] Mc Fabian M.D. Ischemia Mesenteric (HCC) 11/28/2023 Clinical Communication Division of Vascular and Endovascular Surgery in [place], [place] [address] [place] [phone] Mc Fabian M.D. 11/18/2023 Orders Only Division of Vascular and Endovascular Surgery in [place], [place] [address] [place] [phone] Mc Fabian M.D. Ischemia Mesenteric (HCC) (Primary Dx) from Last 3 Months Social History Tobacco Use Types Packs/Day Years Used Date Smoking Tobacco: Former Alcohol Use Standard Drinks/Week Comments Not Currently 0 (1 standard drink = 0.6 oz pur e alcohol) Dental Answer Date Recorded Dental: Regular Dentist Unknown 11/21/19 Sex and Gender Information Value Date Recorded Sex Assigned at Not on file Gender Identity Not on file Sexual Orientation Not on file Last Filed Vital Signs Vital Sign Reading Time Taken Comments Blood Pressure 114/53 11/29/2023 4:15 PM CDT Pulse 70 11/29/2023 4:15 PM CDT Temperature 36.3 ??C (97.3 ??F) 11/29/2023 1 2:52 PM CDT Respiratory Rate 16 11/29/2023 12:5 2 PM CDT Oxygen Saturation 97% 11/29/2023 4:1 5 PM CDT Inhaled Oxygen Concentration - - Weight 101 kg (221 lb 9 oz) 11/29/2023 10:28 AM CDT Height 164 cm (5' 4.57) 12/12/2012 9:2 2 AM CDT Patsy Posada RN Body Mass Index - - Plan of Treatment Upcoming Encounters Date Type Department Care Team (Latest Contact Info) Description 12/02/2023 8:00 AM CDT Appointment Department of Radiology, [facility], in [place], [place] [address] [place] [phone] Mc Fabian M.D. [address] [place] [address] Discharge Disposition: Home or Self Care 12/02/2023 1:00 PM CDT Comprehensive Visit Division of Vascular and Endovascular Surgery in [place], [place] [address] [place] [phone] Mc aFbian M.D. [address] [place] [phone] Health Maintenance Due Date Last Done Comments CT Colonography 1968 Cologuard 1968 Colonoscopy 1968 Colorectal Cancer Screening 1968 Diabetic Office Visit with F oot Exam 1968 Dilated Eye Exam 1968 FIT 1968 HIV Screening 1968 Hemoglobin A1C 1968 Hepatitis C Screening 1968 Lipid (Cholesterol) Screening 1968 Mammogram 1968 Office Visit for Blood Press ure Check / Re-check 1968 Urine Albumin 1968 Hepatitis B Vaccines (1 of 3 - 19+ 3-dose series) 1987 Zoster Vaccines (1 of 2) 2018 Pneumococcal vaccine (0-64 y ears) (2 of 2 - PCV) 09/01/2018 09/01/2017 DTaP,Tdap,and Td Vaccines (2 - Td or Tdap) 07/29/2019 07/29/2009 Depression Screening (Annual PHQ-2) 06/20/2023 Creatinine Level (Kidney Fun ction Test) 11/28/2024 11/29/2023, 12/12/2012, 11/24/2012, Additional history exists Potassium Level 11/28/2024 11/29/2023, 11/19, 11/24/2012, Additional history exists Sodium Level 11/28/2024 11/29/2023, 11/19, 11/24/2012, Additional history exists COVID-19 Vaccine Completed 04/28/2023, , 04/17/2021, Additional history exists Influenza Vaccine Completed 04/28/2023, , 03/24/2021, Additional history exists Procedures Procedure Name Priority Date/Time Associated Diagnosis Comments OUTSIDE CT BODY Routine 11/30/2023 7:[address] ABDOMEN PELVIS ANGIOGRAM WITH IV CONTRAST RAD - Semiurgent (Fast; most ED patients; some inpatients) 11/29/2023 2:18 PM CDT LIPASE, S/P STAT 11/29/2023 11:13 AM CDT LACTATE, B/P STAT 11/29/2023 11:13 AM CDT HEPATIC FUNCTION PANEL, S STAT 11/29/2023 11:13 AM CDT BASIC METABOLIC PANEL, S/P STAT 11/29/2023 11:13 AM CDT CBC WITH DIFFERENTIAL, B STAT 11/29/2023 11:13 AM CDT ECG STAT 11/29/2023 10:[address] BODY Routine 11/17/2023 2:30 PM CDT from Last 3 Months Results * CT ABDOMEN PELVIS W CON-Outside CT Body (11/30/2023 7:20 PM CDT) Only the most recent of2 resultswithin the time period is included. 11/30/2023 7:18 PM CDT Narrative IIMS - 11/30/2023 9:18 PM CDT This order has been created and auto-finalized to support the import of outside images. If available, original interpretation can be found on the Media Tab in Chart Review, in Document Viewer, as an image in QREADS or as an Addendum. If a re-interpretation or overread is required please follow defined workflow.?? Provider Not In System IMG CT PROCEDURES IIMS NA * CT Abdomen Pelvis Angiogram with IV [...] coral reef- type plaque. Jovan Caceres P.A.-C. [facility] CT PROCEDURES * Hepatic Function Panel (11/29/2023 11:13 AM [...] CDT Jovan Caceres P.A.-C. LAB BLOOD ADD-ON [facility] [address] [place] [address], [facility] [place] [address] [place] [address] * (ABNORMAL) CBC with Differential, Blood (11/29/2023 11:13 AM CDT) Pathologist [facility] Hemoglobin 11.3(L) 11.6 - 15.0 g/dL 11/29/2023 [...] CDT Jovan Caceres P.A.-C. LAB BLOOD ADD-ON [facility] [address] [place] [address], [facility] STMA [facility] [address] [place] [address] [facility] [address] [place] [address] * Lipase (11/29/2023 11:13 AM CDT) Lipase, S 19 13 - 60 U/L 11/29/2023 12:23 PM CDT DTL Blood (Blood, Venous) 11/29/2023 11:13 AM CDT 11/29/2023 12:02 PM CDT Jovan Caceres P.A.-C. LAB BLOOD ADD-ON [facility] 200 [place] [address], [facility] [place] [address] * Lactate (11/29/2023 11:13 AM CDT) Lactate, P 2.0 0.5 - 2.2 mmol/L 11/29/2023 11:55 AM CDT STMA Blood (Blood, Venous) 11/29/2023 11:13 AM CDT 11/29/2023 11:28 AM CDT Jovan Caceres P.A.-C. LAB BLOOD NON ADD -ON Performing Organization Address City/[facility]/ZIP Co de Phone Number [facility] [address] [place] [address], [facility] [place] [address] * (ABNORMAL) Basic Metabolic Panel (11/29/2023 11:13 [...] CDT Jovan Caceres P.A.-C. LAB BLOOD ADD-ON Performing Organization Address City/[facility]/ZIP Co de Phone Number [facility] [address] [place] [address], [facility] [address] [place] [address] * ECG 12 Lead (11/29/2023 10:31 AM CDT) Ventricular Rate ECG/Min 77 BPM MUSE IN Interval 164 ms MUSE QRSD Interval 92 ms MUSE QT Interval 400 ms MUSE QTC Interval 452 ms MUSE P [place] -15 degrees MUSE R [place] 22 degrees MUSE T Wave [place] 56 degrees MUSE 11/29/2023 10:3 1 AM [...] No significant change Reviewed by PROMISE Buck Alejandra Suárez APRN CGarretN.PGarret ECG ORDER AIDEN MUSE NA from Last 3 Months Care Teams Civilian Technician Relationship Specialty Start Date End Date Elsewhere, Pcp PCP - General Internal Medicine 11/29/23
--- OUTSIDE RECORDS SUMMARY | 2023-12-01 05:21 | XMS_ITS | Encounter Summary ---
Author Organization [facility] Address [address] [place] [address] Care Team Providers Care Door To Door Fundraising Collector Name Role Phone Elsewhere, Pcp Primary Care Provider Unavailabl e Reason for Referral * Outpatient (Routine) - Authorized Specialty Diagnoses / Procedures Referred By Gianna thomas Referred To Contact Vascular Surgery Mc Fabian M.D. [address] [place] [address] [facility] Referral ID Status Reason Start Date Expiration Date V isits Requested Visits Authorized [id number] Authorized 11/18/2023 05/19/2025 1 1 Scheduling Instructions I have also requested a duplex ultrasound of mesenteric arteries. Referral is Cassia Vance M.D. * Outpatient (Routine) - Authorized Specialty Diagnoses / Procedures Referred By Gianna thomas Referred To Contact Diagnoses Ischemia Mesenteric (HCC) Procedures US Mesenteric Artery Mc Fabian M.D. [address] [place] [address] [facility] Referral ID Status Reason Start Date Expiration Date V isits Requested Visits Authorized [id number] Authorized 11/18/2023 11/17/2024 1 1 Encounter Details Date Type Department Care Team (Late st Contact Info) Description 11/18/2023 Orders Only Division of Vascular and Endovascular Surgery in [place], [place] [address] [place] [phone] Mc Fabian M.D. [address] [place] [address] Ischemia Mesenteric (HCC) (Primary Dx) Social History Tobacco Use Types Packs/Day Years Used Date Smoking Tobacco: Never Assessed Dental Answer Date Recorded Dental: Regular Dentist Unknown 11/21/19 Sex and Gender Information Value Date Recorded Sex Assigned at Not on file Gender Identity Not on file Sexual Orientation Not on file documented as of this encounter Plan of Treatment Upcoming Encounters Date Type Department Care Team (Latest Contact Info) Description 12/02/2023 8:00 AM CDT Appointment Department of Radiology, [facility], in [place], [place] [address] [place] [address] Mc Fabian M.D. [address] [place] [phone] Discharge Disposition: Home or Self Care 12/02/2023 1:00 PM CDT Comprehensive Visit Division of Vascular and Endovascular Surgery in [place], [place] [address] [place] [address] Mc Fabian M.D. [address] [place] [phone] Scheduled Orders Name Type Priority Associated Diagnoses Orde r Schedule US Mesenteric Artery Imaging RAD - Routi ne (most inpatients and all outpatients) Ischemia Mesenteric (HCC) Expected: 11/18/2023, Expires: 02/17/2025 Scheduled Referrals Name Type Priority Associated Diagnoses Orde r Schedule Vascular Surgery office visit (clinic) Outpatient Referral Routine Expected: 11/30/2023, Expires: 02/17/2025 documented as of this encounter Visit Diagnoses Diagnosis Ischemia Mesenteric (HCC)- Primary documented in this encounter Care Teams Door To Door Fundraising Collector Relationship Specialty Start Date End Date Elsewhere, Pcp PCP - General Internal Medicine 11/29/23 documented as of this encounter
--- OUTSIDE RECORDS SUMMARY | 2023-12-01 05:21 | XMS_ITS | Referral Summary ---
Author Organization [facility] Address [address] [place] [address] Care Team Providers Care Combine Operator Name Role Phone Elsewhere, Pcp Primary Care Provider Unavailabl e Source Comments Patient records contain information from all sites at [facility]. For routine questions regarding patient records, call [phone] during business hours, M-F 8:00 AM - 5:00 PM Central Time. Record requests for emergency care only can be directed to [phone] at any time.[facility] Encounters Date Type Department Care Team Description 11/29/2023 10:38 AM CDT - 11/29/2023 4:47 PM CDT Emergency [facility] Emergency Department [address] [place] [phone] Alejandra Suárez APRN, C.N.P. Occlusion Superior Mesenteric Artery (HCC) (Primary Dx) Discharge Disposition: Home or Self Care 11/28/2023 4:10 PM CDT Ancillary Procedure Department of Radiology in [place], [place] [address] [place] [phone] Mc Fabian M.D. Ischemia Mesenteric (HCC) 11/28/2023 Clinical Communication Division of Vascular and Endovascular Surgery in [place], [place] [address] [place] [phone] Mc Fabian M.D. 11/18/2023 Orders Only Division of Vascular and Endovascular Surgery in [place], [place] [address] [place] [phone] Mc Fabian M.D. Ischemia Mesenteric (HCC) (Primary Dx) from Last 3 Months Allergies Active Allergy Reactions Criticality Noted Date [...] Diabetes Mellitus Type 2 Hyperlipidemia Hypertension NOS Social History Tobacco Use Types Packs/Day Years Used Date Smoking Tobacco: Former Alcohol Use Standard Drinks/Week Comments Not Currently 0 (1 standard drink = 0.6 oz pur e alcohol) Dental Answer Date Recorded Dental: Regular Dentist Unknown 11/21/19 24 Sex and Gender Information Value Date Recorded [...] 8:00 AM CDT Appointment Department of Radiology, [facility] in [place], [place] [address] [place] [address] Mc Fabian M.D. [address] [place] [phone] Discharge Disposition: Home or Self Care 12/02/2023 1:00 PM CDT Comprehensive Visit Division of Vascular and Endovascular Surgery in [place], [place] [address] [place] [address] Mc Fabian M.D. 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 oJvan Caceres P.A.-C. IMG CT PROCEDURES * Hepatic Function Panel (11/29/2023 [...] CDT Jovan Caceres P.A.-C. LAB BLOOD ADD-ON [facility] [address] [place] [address], [facility] [address] [place] [address] * (ABNORMAL) CBC with Differential, Blood (11/29/2023 [...] CDT Jovan Caceres P.A.-C. LAB BLOOD ADD-ON [facility] [address] [place] [address], [facility] STMA [facility] [address] [place] [address] [facility] [address] [place] [address] * Lipase (11/29/2023 11:13 AM CDT) Lipase, S 19 13 - 60 U/L 11/29/2023 12:23 PM CDT DTL Blood (Blood, Venous) 11/29/2023 11:13 AM CDT 11/29/2023 12:02 PM CDT Jovan Caceres P.A.-C. LAB BLOOD ADD-ON [facility] [address] [place], [place] [address] DTL [facility] [address] [place] [address] * Lactate (11/29/2023 11:13 AM CDT) Lactate, P 2.0 0.5 - 2.2 mmol/L 11/29/2023 11:55 AM CDT STMA Blood (Blood, Venous) 11/29/2023 11:13 AM CDT 11/29/2023 11:28 AM CDT Jovan Caceres P.A.-C. LAB BLOOD NON ADD -ON [facility] [address] [place] [address], [facility] STMA [facility] [address] [place] [address] * (ABNORMAL) Basic Metabolic Panel (11/29/2023 11:13 [...] CDT Jovan Caceres P.A.-C. [place] [address], [facility] [address] [place] [address] * ECG 12 Lead (11/29/2023 10:31 AM CDT) Ventricular Rate ECG/Min 77 BPM MUSE NC Interval 164 ms MUSE QRSD Interval 92 ms MUSE QT Interval 400 ms MUSE QTC Interval 452 ms MUSE P [place] -15 degrees MUSE R [place] 22 degrees MUSE T Wave [place] 56 degrees MUSE 11/29/2023 10:3 1 AM [...] change Reviewed by PROMISE Buck Alejandra Suárez APRN, C.N.P. ECG ORDER AIDEN MUSE NA from Last 3 Months Care Teams Combine Operator Relationship Specialty Start Date End Date Elsewhere, Pcp PCP - General Internal Medicine 11/29/23
--- OUTSIDE RECORDS SUMMARY | 2023-12-01 05:21 | XMS_ITS | Encounter Summary ---
Author Organization [facility] Address [address] [place] [address] Care Team Providers Care Agile Business Analyst Name Role Phone Unavailable Primary Care Provider Unavailabl e Encounter Details Date Type Department Care Team (Latest Contact Info) Description 11/28/2023 4:10 PM CDT Ancillary Procedure Department of Radiology in [place], [place] [address] [place] [address] Mc Fabian M.D. [address] [place] [phone] Ischemia Mesenteric (HCC) Social History Tobacco Use Types Packs/Day Years Used Date Smoking Tobacco: Former Dental Answer Date Recorded Dental: Regular Dentist Unknown 11/21/19 24 Sex and Gender Information Value Date Recorded Sex Assigned at Not on file Gender Identity Not on file Sexual Orientation Not on file documented as of this encounter Plan of Treatment Upcoming Encounters Date Type Department Care Team (Latest Contact Info) Description 12/02/2023 8:00 AM CDT Appointment Department of Radiology, [facility], in [place], [place] [address] [place] [address] Mc Fabian M.D. [address] [place] [phone] Discharge Disposition: Home or Self Care 12/02/2023 1:00 PM CDT Comprehensive Visit Division of Vascular and Endovascular Surgery in [place], [place] [address] [place] [address] Mc Fabian M.D. [address] [place] [phone] documented as of this encounter Visit Diagnoses Diagnosis Ischemia Mesenteric (HCC) documented in this encounter
--- OUTSIDE RECORDS SUMMARY | 2023-12-01 05:21 | XMS_ITS | Encounter Summary ---
Author Organization [facility] Address [address] [place] [address] Care Team Providers Care Dumpling Machine Operator Name Role Phone Elsewhere, Pcp Primary Care Provider Unavailabl e Encounter Details Date Type Department Care Team (Late Contact Info) Description 11/28/2023 Clinical Communication Division of Vascular and Endovascular Surgery in [place], [place] [address] [place] [phone] Mc Fabian M.D. [address] [place] [phone] Social History Tobacco Use Types Packs/Day Years [...] 8:00 AM CDT Appointment Department of Radiology, [facility], in [place], [place] [address] [place] [phone] Mc Fabian M.D. [address] [place] [phone] Discharge Disposition: Home or Self Care 12/02/2023 1:00 PM CDT Comprehensive Visit Division of Vascular and Endovascular Surgery in [place], [place] [address] [place] [phone] Mc Fabian M.D. [address] [place] [phone] documented as of this encounter Visit Diagnoses Diagnosis Ischemia Mesenteric (HCC)- Primary documented in this encounter Care Teams Dumpling Machine Operator Relationship Specialty Start Date End Date Elsewhere, Pcp PCP - General Internal Medicine 11/29/23 documented as of this encounter
== END 2023-11-11 09:42 | disposition home or self-care (01) ==
LOC: NFLDREF 12-01 05:19
PROVIDERS: PCP Internal Medicine; Referring Provider Internal Medicine; Visit Provider Internal Medicine
DX: E11.9 Type 2 diabetes mellitus without complications (principal); E83.42 Hypomagnesemia; D50.9 Iron deficiency anemia, unspecified
CPT/HCPCS: 80053; 80061; 83735

== ENCOUNTER 2023-11-15 16:00 | Outpatient (CLI) | payer OTHER, SELFPAY | END 2023-11-15 16:01 | disposition home or self-care (01) | PROVIDERS: PCP Internal Medicine; Visit Provider Internal Medicine | DX: D50.9 Iron deficiency anemia, unspecified (principal); E11.9 Type 2 diabetes mellitus without complications; E83.42 Hypomagnesemia | CPT/HCPCS: 82728; 83540; 83550 ==

== ENCOUNTER 2023-11-17 12:24 | Emergency (ER) | payer OTHER, SELFPAY ==
[2023-11-17] VITALS (16 sets, daily range): BP systolic 102–164; BP diastolic 67–75; PULSE 61–98; RESP 16; TEMP 36; O2SAT 94–99; BMI 38.9
--- NOTE | 2023-11-17 12:58 | ED_ITS ---
HPI - Abdominal Pain General Time Seen by Provider: 12:58 Date Seen: 11/17/23 Chief Complaint: Abdominal Pain Stated Complaint: Abdominal pain Time Seen by Provider: 11/17/23 12:39 Source: patient, RN notes reviewed and old records reviewed Mode of arrival: ambulatory Limitations: no limitations History of Present Illness HPI narrative: This 53-year-old female is coming to the ER with abdominal pain. Is primarily in the right upper quadrant epigastric area. Does been on and off for months but the last couple days has been more constant. She tries to avoid eating as she thinks it might make it worse. She has had chills but no fever. She has had underlying diarrhea which has improved with starting iron pills. She was hospitalized November 04 through November 06 here at [place] for symptomatic anemia. Her aspirin was held at that time and she was advised to hold for 2 weeks. She is on omeprazole 40 mg daily. She did get 1 unit of packed red blood cells. During the hospitalization, did have an abdominal CT and there was some sigmoid diverticulitis which patient feels she was asymptomatic. She did get ceftriaxone and Flagyl in the hospital and was discharged to [facility] and metronidazole. She does have underlying peripheral arterial disease and is also on Plavix. Her claudication symptoms were worse and her hemoglobin was 7.6 on admission to the hospital. She has had femoral artery occlusion that was dilated on the left at [facility] before. 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 She did have a negative ultrasound for DVT during the hospitalization. Patient does tell me that this epigastric pain is probably been present for few years. She describes it like a gallbladder attack except that she does not have her gallbladder. She will feel it in the right upper quadrant and it will radiate into her back. She did see her primary care provider Dr. Walsh on November 10 in hemoglobin was 9.8. She was scheduled for a colonoscopy, last 1 was in 2019. She had an EGD done on the day of discharge from the hospital on November 06 which showed nonerosive reactive gastropathy, no H pylori. She had microcytic anemia but iron studies were not done during the hospitalization. Peripheral smear was consistent with marked microcytic, hyperchromic anemia, suggestive iron deficiency anemia. She did have a dark stool this morning but again is on the iron now and was told to expect this. She states her current pain feels like a gallbladder attack and that is what this feels like when she does get it. She feels cold right now but has not had any documented temperature. (Have later found out that patient has been off her plavix and aspirin) MD elicited complaint: abdominal pain Related Data Patient : No Home Medications ?Medication ?Instructions ?Recorded ?Confirmed multivitamin 1 tab PO QAM 07/13/22 11/15/23 psyllium husk (aspartame) 3.4 gram 1 packet PO DAILY 04/28/23 11/15/23 oral powder packet (Metamucil Fiber Singles) simvastatin 10 mg tablet 10 mg PO HS 11/05/23 11/15/23 metformin 1,000 mg tablet 1,000 mg PO BIDWM 11/06/23 11/15/23 magnesium oxide 1,000 mg PO QDAY 11/15/23 11/17/23 Previous Rx's ?Medication ?Instructions ?Recorded fluoxetine 10 mg tablet 10 mg PO QAM #90 tabs 06/23/23 amlodipine 5 mg tablet 5 mg PO DAILY #90 tabs 09/26/23 glipizide 5 mg tablet 5 mg PO QAM #90 tabs 09/26/23 hydrochlorothiazide 25 mg tablet 25 mg PO DAILY #90 tabs 09/26/23 lisinopril 40 mg tablet 40 mg PO DAILY #90 tabs 09/26/23 omeprazole 40 mg capsule,delayed 40 mg PO DAILY #90 caps 09/26/23 release ciprofloxacin HCl 500 mg tablet 500 mg PO BID #20 tabs 11/07/23 metronidazole 500 mg tablet 500 mg PO TID #30 tabs 11/07/23 Allergies Allergy/AdvReac Type Severity Reaction Status Date / Time erythromycin base Allergy Unknown Rash Verified 11/17/23 14:50 Penicillins Allergy Unknown Rash Verified 11/17/23 14:50 Review of Systems Status of ROS Reports: 6 or more systems reviewed and unremarkable except as noted in History and below [facility] Medical History History of diverticulitis ?Z87.19 - Personal history of other diseases of the digestive system (ICD-10) Surgical History History of tonsillectomy and adenoidectomy (07/14/10) ?Z90.89 - Acquired absence of other organs (ICD-10) History of hysterectomy (07/14/10) ?Z90.710 - Acquired absence of both cervix and uterus (ICD-10) History of cholecystectomy (07/14/10) ?Z90.49 - Acquired absence of other specified parts of digestive tract (ICD- 10) Social History Narrative: Lives with Chandu (he would share MDM duties with niece Catarina, if needed) in [place]. Former smoker, currently vapes. Social ETOH. Requests DNR/DNI status. What is your current living situation?: I presently have a place to live Problems where you live: no known problems Problems where you live details: n/a In the past 12 months, utilities in danger of being shut off: no In past 12 months, lack of transportation kept you from medical appts, meetings, work, or getting things needed for daily living: no In the past 12 mos, have been you worried that your food would run out before you had money to buy more?: never true In the past 12 mos, the food you bought just didn't last and you didn't have money to buy more?: never true Highest level of school completed/degree received: Associate degree: occupational, technical, vocational program Smoking Status: Former smoker Do you use any of these nicotine containing products: Vaping Products Second hand tobacco smoke exposure: No How often do you have a drink containing alcohol: never How often do you have six or more drinks on one occasion: Never AUDIT-C Alcohol total score: 0 Non-prescribed substance use: marijuana (any form) How often does anyone, including family, friends and others, physically hurt you : never How often does anyone, including family, friends and others, insult or talk down to you: never How often does anyone, including family, friends and others, threaten you with harm: never How often does anyone, including family, friends and others, scream or curse at you: never Little interest or pleasure in doing things: not at all Feeling down, depressed, or hopeless: not at all service: No Exam Const: Vital Signs, click to edit/add: Vital Signs - 24 hr 11/17/23 12:33 11/17/23 12:50 11/17/23 12:51 Temperature 96.8 F L Pulse Rate 82 84 Pulse Rate [Pulse Oximeter] 85 Respiratory Rate 16 Blood Pressure 102/67 Blood Pressure [Ri ght Upper Arm] 116/70 Pulse Oximetry 99 96 98 Oxygen Delivery Me thod Room Air 11/17/23 12:58 11/17/23 13:00 11/17/23 13:15 Temperature Pulse Rate 98 65 Pulse Rate [Pulse Oximeter] Respiratory Rate Blood Pressure Blood Pressure [Ri ght Upper Arm] Pulse Oximetry 96 97 96 Oxygen Delivery Me thod 11/17/23 13:30 11/17/23 13:52 11/17/23 13:54 Temperature Pulse Rate 63 76 76 Pulse Rate [Pulse Oximeter] Respiratory Rate Blood Pressure 164/75 H Blood Pressure [Ri ght Upper Arm] Pulse Oximetry 97 99 99 Oxygen Delivery Me thod 11/17/23 14:00 11/17/23 14:15 11/17/23 14:30 Temperature Pulse Rate 68 61 68 Pulse Rate [Pulse Oximeter] Respiratory Rate Blood Pressure Blood Pressure [Ri ght Upper Arm] Pulse Oximetry 98 96 97 Oxygen Delivery Me thod 11/17/23 14:45 11/17/23 15:00 11/17/23 15:15 Temperature Pulse Rate 62 66 66 Pulse Rate [Pulse Oximeter] Respiratory Rate Blood Pressure Blood Pressure [Ri ght Upper Arm] Pulse Oximetry 97 99 94 Oxygen Delivery Me thod 11/17/23 15:30 Temperature Pulse Rate Pulse Rate [Pulse Oximeter] Respiratory Rate 16 Blood Pressure Blood Pressure [Ri ght Upper Arm] Pulse Oximetry Oxygen Delivery Me thod Patient is alert, interactive, no apparent distress. Skin is fleming. Pupils equal round, sclera clear, conjugate gaze. Face atraumatic. Thicker neck. Lungs are clear, good air entry, no wheeze or crackles. CV regular rate and rhythm, no m urmur, normal S1-S2, no S3-S4. Abdomen is obese but soft, has some mild right upper quadrant tenderness without any rebound or guarding, do not feel any organomegaly or masses. She has no lower extremity edema. Patient was ambulatory into the ED of her own accord. Documenting provider has reviewed patient's vital signs: yes Course Course ED Course: Patient is requesting something for pain. May consider starting with Toradol and can move to narcotics if needed. Reviewed her current symptoms, I feel that we really are almost obligated to look at abdominal CT again. We have no idea if the diverticulitis may be presenting he typically with complication from that. She can have new issues. We need to look for other intra-abdominal pathology. Will get a full complement of labs. Patient is in agreement, currently hemodynamically stable and afebrile. 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 She would prefer [facility] if she has to go to higher level of care in consultation. Reviewed with her I will call, do not think she needs transfer. We will initiate some IV fluids. She states her pain is completely gone now. Time of Reevaluation #2: 17:32 Reevaluation #2: Reviewed concern of intestinal ischemia as possible cause of her pain. Awaiting fluids to complete so that we may recheck her lactate. She is pain-free now. Consultations Consultation #1: Spoke with her primary care provider Dr. Walsh, found out that the patient is actually been off her aspirin and Plavix since being hospitalized. They are trying to get a colonoscopy arranged. She thinks that we should perhaps have her go back on the Plavix and just hold the aspirin. Interestingly patient when she got the blood transfusion in the hospital had complete resolution of her claudication symptoms in her legs. Reviewed with her that I wonder about intestinal ischemia. Discuss them going to try to get her into [facility] outpatient for referral. Will make sure her lactate has improved. Her pain certainly has improved. Time: 16:48 Consultation #2: Spoke with vascular surgery physician Dr. Mc Fabian from [facility]. He had reviewed the CT that was sent to them. They will get her set up for mesenteric duplex ultrasound and follow-up appointment. Time: 17:15 Vital Signs Vital signs: Initial Vital Signs Temperature 96.8 F L 11/17/23 12:33 Temperature Source Temporal Artery Scan 11/17/23 12:33 Pulse Rate 85 11/17/23 12:33 Respiratory Rate 16 11/17/23 12:33 Blood Pressure 116/70 11/17/23 12:33 Blood Pressure Mean 85 11/17/23 12:33 Blood Pressure Position Sitting 11/17/23 12:33 Pulse Oximetry 99 11/17/23 12:33 Oxygen Delivery Method Room Air 11/17/23 12:33 Vital Signs Temperature 96.8 F L 11/17/23 12:33 Pulse Rate 85 11/17/23 12:33 Respiratory Rate 16 11/17/23 12:33 Blood Pressure 116/70 11/17/23 12:33 Pulse Oximetry 99 11/17/23 12:33 Oxygen Delivery Method Room Air 11/17/23 12:33 Temperature 96.8 F L 11/17/23 12:33 Pulse Rate 66 11/17/23 15:15 Respiratory Rate 16 11/17/23 15:30 Blood Pressure 164/75 H 11/17/23 13:54 Pulse Oximetry 94 11/17/23 15:15 Oxygen Delivery Method Room Air 11/17/23 12:33 MDM - Abdominal Pain Lab Data Attestation: I reviewed the patient's lab results. Labs: Lab Results 11/17/23 11/17/23 11/17/23 Range/Units 12:48 12:51 17:56 WBC 15.85 H (4.50-11.00) K/uL RBC 4.83 (4.00-5.20) m/uL Hgb 11.6 L (12.0-16.0) gm/dL Hct 37.9 (33.0-51.0) % MCV 79 L (80-100) fL MCH 24 L (26-34) pg MCHC 31 L (32-36) gm/dL RDW Coeff of Cara 16.5 H (11.5-15.5) % Plt Count 612 H (140-440) K/uL Neut % (Auto) 78.8 H (42.0-72.0) % Lymph % (Auto) 14.4 L (20-44) % [place] % (Auto) 5.5 (0.0-11.0) % Eos % (Auto) 1.0 (0.0-7.0) % Baso % (Auto) 0.1 (0.0-3.0) % Neut # (Auto) 12.50 H (1.7-7.0) K/uL Lymph # (Auto) 2.30 (0.90-2.90) K/uL [place] # (Auto) 0.90 (0.00-0.90) K/UL Eos # (Auto) 0.20 (0.00-0.50) K/uL Baso # (Auto) 0.00 (0.00-0.30) K/uL Abs Immat Gran (auto) 0.00 (0.00-0.30) K/uL Imm/Tot Granulo (auto) 0.2 % Sodium 135 (135-149) mmol/L Potassium 3.9 (3.6-5.1) mmol/L Chloride 101 (96-114) mmol/L Carbon Dioxide 25 (20-32) mmol/L Anion Gap 9 (7-15) mEq/L BUN 10 (7-30) mg/dL Creatinine 0.6 (0.5-1.5) mg/dL Estimated Creat Clear 95.33 Estimated GFR 106 ml/min Glucose 114 (60-115) mg/dL Lactate 2.4 H 1.3 (0.5-1.9) mmol/L Calcium 9.5 (8.4-10.6) mg/dL Magnesium 1.7 (1.5-2.6) mg/dL Total Bilirubin 0.7 (0.1-1.5) mg/dL Direct Bilirubin 0.5 (0.0-0.5) mg/dL AST 32 (12-35) U/L ALT 28 (4-35) U/L Alkaline Phosphatase 88 (40-150) U/L Troponin I < 0.01 L (0.01-0.04) ng/mL C-Reactive Protein 0.7 (0.5-1.0) mg/dL NT-Pro-B Natriuret Pep 107 pg/mL Total Protein 8.6 H (6.0-8.3) g/dL Albumin 4.8 (3.3-5.0) g/dL Lipase 60 (23-300) U/L Imaging Data CT scan - abdomen: Attestation: I have reviewed the pertinent imaging results. Radiologist's impression: Patient: BALDEMAR PETERS Facility:?[facility] Patient ID:?[id number] Site Patient ID:?[id number]. Site :?[id number] Study:?CT-Abdomen/Pelvis 115CC ISOVUE 370-11/17/2023 2:50:07 PM Ordering Physician:Es Antony Final Report: INDICATION: Worsening abdominal pain, history of diverticulitis. COMPARISON: 11/05/2023 TECHNIQUE: CT of the abdomen and pelvis with intravenous contrast. Multiplanar axial, coronal, and sagittal reformats were reconstructed. Contrast: 115 mL Isovue 370. FINDINGS: Lung bases: Normal. Liver: Normal. No mass. Gallbladder and bile ducts: Cholecystectomy. No bile duct dilation. Pancreas: Normal. Spleen: Normal. Adrenal glands: Normal. Kidneys: Normal parenchyma. No cyst or solid mass. No calculi. No urinary tract dilation. Urinary bladder: Empty. Pelvis: Presumed hysterectomy. Vessels: Atherosclerotic vascular calcifications, heavy. No aortic aneurysm. 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 Bowel: Significantly improved inflammation in the sigmoid colon since the previous exam. No dilated or inflamed small bowel. No dilated or inflamed colon. The appendix is not discretely seen. Small stool burden. Lymph nodes: No adenopathy. Peritoneum: No ascites. Abdominal wall: No hernia. Bones: No fractures. No focal worrisome bone lesions. IMPRESSION: 1. Significantly improved sigmoid colitis since the previous exam. No perforation or abscess. 2. Severe atherosclerosis. Chronic appearing near occlusion of the superior mesenteric artery. No bowel ischemia seen. Please note that all CT scans at this facility use dose modulation, iterative reconstruction, and/or weight-based dosing when appropriate to reduce radiation dose to as low as reasonably achievable. Dictated by Nicole Pelletier MD @ 11/17/2023 3:03:53 PM (Electronic Signature) Discharge Plan Discharge Clinical Impression: Abdominal pain Patient Disposition: Home, Self-Care Condition: Stable Instructions: Abdominal Pain (ED) Additional Instructions: It is possible that your abdominal pain is coming from ischemia due to atherosclerosis of the arteries supplying blood in the abdomen. The CT does note that there is a chronic near occlusion of your superior mesenteric artery. Vascular surgeon Dr. Mc Fabian from [facility] plans on further evaluating you. They plan on getting you set up for a mesenteric duplex ultrasound and then a later follow-up with his service. If you have not heard by his office by Tuesday, you are to call them. The phone number he provided to call is [phone]. Dr. Walsh thought that you should perhaps go back on the Plavix and just hold the aspirin. She will see you on the previously scheduled appointment. In the meantime, if you develop severe abdo christ pain, have fever or vomiting with this, do recommend re-evaluation. Activity Level: Activity as Tolerated Prescriptions: No Action multivitamin Tablet 1 tab PO QAM magnesium oxide 500 mg magnesium tablet 1,000 mg PO QDAY Metamucil Fiber Singles 3.4 gram powder in packet 1 packet PO DAILY simvastatin 10 mg tablet 10 mg PO HS metformin 1,000 mg tablet 1,000 mg PO BIDWM ciprofloxacin HCl 500 mg tablet 500 mg PO BID Qty: 20 0RF metronidazole 500 mg tablet 500 mg PO TID Qty: 30 0RF fluoxetine 10 mg tablet 10 mg PO QAM Qty: 90 2RF lisinopril 40 mg tablet 40 mg PO DAILY Qty: 90 0RF omeprazole 40 mg capsule,delayed release(DR/EC) 40 mg PO DAILY Qty: 90 0RF glipizide 5 mg tablet 5 mg PO QAM Qty: 90 0RF hydrochlorothiazide 25 mg tablet 25 mg PO DAILY Qty: 90 0RF Hold Instructions: Resume on 11/21/23. May resume if approved by your primary care physician. amlodipine 5 mg tablet 5 mg PO DAILY Qty: 90 0RF Follow Up/Referrals: Lexii Walsh MD [Primary Care Provider] - Stand Alone Forms: [employer] Info Instructions
[2023-11-17 12:59] LABS: Basophils Percent Auto 0.1 % (0.0-3.0); Hematocrit 37.9 % (33.0-51.0); Hemoglobin* 11.6 gm/dL (12.0-16.0); Immature Granulocytes Pct Auto 0.2 %; Lymphocytes Percent Auto 14.4 % (20-44); Mean Corpuscular HGB Conc 31 gm/dL (32-36); Mean Corpuscular Hemoglobin 24 pg (26-34); Mean Corpuscular Volume 79 fL (80-100); Monocytes Percent Auto 5.5 % (0.0-11.0); Neutrophils Percent Auto 78.8 % (42.0-72.0); Platelet Count* 612 K/uL (140-440); RDW Coefficient of Variation % 16.5 % (11.5-15.5); Red Blood Count 4.83 m/uL (4.00-5.20); White Blood Count* 15.85 K/uL (4.50-11.00)
[2023-11-17 13:02] LABS: Lactate* 2.4 mmol/L (0.5-1.9)
[2023-11-17 13:03] LABS: Slide Review Reflex No
[2023-11-17 13:15] LABS: Albumin* 4.8 g/dL (3.3-5.0); Chloride* 101 mmol/L (96-114); Sodium* 135 mmol/L (135-149)
[2023-11-17 13:16] LABS: Potassium* 3.9 mmol/L (3.6-5.1)
[2023-11-17 13:17] LABS: Creatinine* 0.6 mg/dL (0.5-1.5); Est. Creatinine Clearance* 95.33; Estimated Glomerular Filt Rate 106 ml/min
[2023-11-17 13:18] LABS: Alanine Aminotransferase* 28 U/L (4-35); Alkaline Phosphatase* 88 U/L (40-150); Anion Gap 9 mEq/L (7-15); Aspartate Amino Transferase* 32 U/L (12-35); Bilirubin Direct* 0.5 mg/dL (0.0-0.5); Bilirubin Total* 0.7 mg/dL (0.1-1.5); Blood Urea Nitrogen* 10 mg/dL (7-30); Carbon Dioxide* 25 mmol/L (20-32); Glucose* 114 mg/dL (60-115); Total Protein* 8.6 g/dL (6.0-8.3)
[2023-11-17 13:19] LABS: Calcium* 9.5 mg/dL (8.4-10.6); Lipase* 60 U/L (23-300); Magnesium* 1.7 mg/dL (1.5-2.6)
[2023-11-17 13:21] LABS: C Reactive Protein* 0.7 mg/dL (0.5-1.0)
[2023-11-17 13:33] LABS: NT Pro B Type NatriureticPept* 107 pg/mL; Troponin I* < 0.01 ng/mL (0.01-0.04)
--- NOTE | 2023-11-17 13:45 | CRLHL7_ITS ---
For Patients: As a result of the Century Cures Act, medical imaging exams and procedure reports are released immediately into your electronic medical record. You may view this report before your referring provider. If you have questions, please contact your health care provider. INDICATION: Worsening abdominal pain, history of diverticulitis. COMPARISON: 11/05/2023 TECHNIQUE: CT of the abdomen and pelvis with intravenous contrast. Multiplanar axial, coronal, and sagittal reformats were reconstructed. Contrast: 115 mL Isovue 370. FINDINGS: Lung bases: Normal. Liver: Normal. No mass. Gallbladder and bile ducts: Cholecystectomy. No bile duct dilation. Pancreas: Normal. Spleen: Normal. Adrenal glands: Normal. Kidneys: Normal parenchyma. No cyst or solid mass. No calculi. No urinary tract dilation. Urinary bladder: Empty. Pelvis: Presumed hysterectomy. Vessels: Atherosclerotic vascular calcifications, heavy. No aortic aneurysm. 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 Bowel: Significantly improved inflammation in the sigmoid colon since the previous exam. No dilated or inflamed small bowel. No dilated or inflamed colon. The appendix is not discretely seen. Small stool burden. Lymph nodes: No adenopathy. Peritoneum: No ascites. Abdominal wall: No hernia. Bones: No fractures. No focal worrisome bone lesions. IMPRESSION: 1. Significantly improved sigmoid colitis since the previous exam. No perforation or abscess. 2. Severe atherosclerosis. Chronic appearing near occlusion of the superior mesenteric artery. No bowel ischemia seen. Please note that all CT scans at this facility use dose modulation, iterative reconstruction, and/or weight-based dosing when appropriate to reduce radiation dose to as low as reasonably achievable. Dictated by Nicole Pelletier MD @ 11/17/2023 3:03:53 PM (Electronically Signed)
[2023-11-17 18:03] LABS: Lactate* 1.3 mmol/L (0.5-1.9)
== END 2023-11-17 18:28 | disposition home or self-care (01) ==
PROVIDERS: Emergency Provider Family Medicine; PCP Internal Medicine
DX: R10.11 Right upper quadrant pain (principal)
CPT/HCPCS: 36415; 74177; 80053; 82248; 83605; 83690; 83735; 83880; 84484; 85025; 86140; 94761; 99284; Q9967

== ENCOUNTER 2023-11-25 09:55 | Outpatient (CLI) | payer OTHER, SELFPAY ==
--- OUTSIDE RECORDS SUMMARY | 2023-12-12 10:29 | XMS_ITS | Referral Summary ---
Author Organization [facility] Address [address] [place] [address] Care Team Providers Care Director Speech Language Name Role Phone Elsewhere, Pcp Primary Care Provider Unavailabl e Source Comments Patient records contain information from all sites at [facility]. For routine questions regarding patient records, call [phone] during business hours, M-F 8:00 AM - 5:00 PM Central Time. Record requests for emergency care only can be directed to [phone] at any time.[facility] Encounters Date Type Department Care Team Description 12/12/2023 2:45 PM CDT Hospital Encounter Department of Radiology, [facility], in [place], [place] [address] [place] [address] Mc Fabian M.D. 12/12/2023 9:28 AM CDT Hospital Encounter Department of Radiology, [facility], in [place], [place] [address] [place] [phone] Mc Fabian M.D. Arrived 12/12/2023 9:28 AM CDT Hospital Encounter Department of Cardiovascular Diseases in [place], [place] [address] [place] [phone] Mc Fabian M.D. Arrived 12/12/2023 9:27 AM CDT Hospital Encounter Department of Radiology, [facility], in [place], [place] [address] [place] [address] Mc Fabian M.D. Preoperative Examination Cardiovascular 12/02/2023 2:05 PM CDT - 12/02/2023 11:59 PM CDT Hospital Encounter Department of Laboratory Medicine and Pathology, [facility] in [place], [place] [address] [place] [phone] Mc Fabian M.D. Ischemia Mesenteric (HCC) Discharge Disposition: Home or Self Care 12/02/2023 1:00 PM CDT Comprehensive Visit Division of Vascular and Endovascular Surgery in [place], [place] [address] [place] [phone] Mc Fabian M.D. Ischemia Mesenteric (HCC) (Primary Dx) 12/02/2023 8:00 AM CDT - 12/02/2023 2:04 PM CDT Hospital Encounter Department of Radiology, [facility] in [place], [place] [address] [place] [phone] Mc Fabian M.D. Ischemia Mesenteric (HCC) Discharge Disposition: Home or Self Care 11/30/2023 Intake [facility] 11/29/2023 10:38 AM CDT - 11/29/2023 4:47 PM CDT Emergency [facility] Emergency Department [address] [place] [phone] Alejandra Suárez, WILLA, C.N.P. Occlusion Superior Mesenteric Artery (HCC) (Primary Dx) Discharge Disposition: Home or Self Care 11/28/2023 4:10 PM CDT Ancillary Procedure Department of Radiology in [place], [place] [address] [place] [phone] Mc Fabian M.D. Ischemia Mesenteric (HCC) 11/28/2023 Clinical Communication Division of Vascular and Endovascular Surgery in [place], [place] [address] [place] [phone] Mc Fabian M.D. Phone Contact 11/18/2023 Orders Only Division of Vascular and Endovascular Surgery in [place], [place] [address] [place] [phone] Mc Fabian M.D. Ischemia Mesenteric (HCC) (Primary [...] Acute Pain. 8 tablet 11/29/2023 12/02/2023 Active Problems Problem Noted Date Diagnosed Date Ischemia Mesenteric 11/28/2023 Hemorrhage Gastrointestinal Diverticulitis Colon Diabetes Mellitus Type 2 Hyperlipidemia Hypertension NOS Social History Tobacco Use Types Packs/Day Years Used Date Smoking Tobacco: Former Alcohol Use Standard Drinks/Week Comments Not Currently 0 (1 standard drink = 0.6 oz pur e alcohol) [facility] Utilities Answer Date Recorded In the past 12 months has [employer], [employer], or water [employer] threatened to shut off services in your home? No 12/09/2023 Exercise Vital Sign Answer Date Recorde d On average, how many days pe r week do you engage in moderate to strenuous exercise (like a brisk walk)? 1 day 12/09/2023 On average, how many minutes do you engage in exercise at this level? 20 min 12/09/2023 Hunger Vital Sign Answer Date Recorded Within the past 12 months, y ou worried that your food would run out before you got the money to buy more. Never true 12/09/19 Within the past 12 months, t he food you bought just didn't last and you didn't have money to get more. Never true 12/09/2023 PRAPARE - Transportation Answer Date Re corded In the past 12 months, has l ack of transportation kept you from medical appointments or from getting medications? No 11/19 In the past 12 months, has l ack of transportation kept you from meetings, work, or from getting things needed for daily living? No 12/09/2023 Nutrition Answer Date Recorded On average, how many serving s of fruits and vegetables do you eat per day (serving size is equal to 1 cup or approximately the size of a tennis ball)? 0-2 12/09/2023 Dental Answer Date Recorded Dental: Regular Dentist Yes 12/09/19 Employment Answer Date Recorded Employment status Employed but not working due t o illness or injury 12/09/2023 Housing Stability Answer Date Recorded What is your living situation today? I have a [facility] place to live 12/09/2023 Sex and Gender Information Value Date Recorded Sex Assigned at Female 12/09/2023 5:04 PM CDT Gender Identity Female 12/09/2023 5:04 PM CDT Sexual Orientation Straight 12/09/2023 5: 04 PM CDT Last Filed Vital Signs Vital Sign Reading Time Taken Comments Blood Pressure 151/89 12/02/2023 12:59 PM CDT Pulse 88 12/02/2023 12:59 PM CDT Temperature 36.3 ??C (97.3 ??F) 11/29/2023 12:52 PM C DT Respiratory Rate 16 11/29/2023 12:52 PM CDT Oxygen Saturation 97% 11/29/2023 4:15 PM CDT Inhaled Oxygen Concentration - - Weight 104 kg (228 lb 13.4 oz) 12/02/2023 12:57 PM CDT Height 165.6 cm (5' 5.2) 12/02/2023 12:57 PM CD T Body Mass Index 37.85 12/02/2023 12:57 PM CDT Plan of Treatment Upcoming Encounters Date Type Department Care Team (Latest Contact Info) Description 12/12/2023 9:28 AM CDT Hospital Encounter Department of Cardiovascular Diseases in [place], [place] [address] [place] [phone] cM Fabian M.D. [address] [place] [phone] Arrived 12/12/2023 9:28 AM CDT Hospital Encounter Department of Radiology, [facility] in [place], [place] [address] [place] [phone] Mc Fabian M.D. [address] [place] [phone] Arrived 12/12/2023 11:50 AM CDT Appointment Department of Laboratory Medicine and Pathology, [facility] in [place], [place] [address] [place] [phone] Mc Fabian M.D. [address] [place] [phone] 12/12/2023 12:15 PM CDT [facility] [place] [place] [address] [place] [phone] Mc Fabian M.D. [address] [place] [phone] 12/12/2023 1:20 PM CDT Ancillary Procedure Department of Cardiovascular Medicine in [place], [place] [address] [place] [phone] Mc Fabian M.D. [address] [place] [phone] 12/12/2023 2:45 PM CDT Hospital Encounter Department of Radiology, [facility], in [place], [place] [address] [place] [address] Mc Fabian M.D. [address] [place] [phone] 12/13/2023 8:00 AM CDT Office Visit Department of Vascular Medicine in [place], [place] [address] [place] [phone] Chuy Gallo M.B., B.Ch. [address] [place] [phone] 12/15/2023 2:36 PM CDT Hospital Encounter Post Anesthesia Care Unit in [place], [place] [address] [place] [phone] Mc Fabian M.D. [address] [place] [phone] Ischemia Mesenteric (HCC) 12/15/2023 2:36 PM CDT - 12/15/2023 8:02 PM CDT Surgery [facility] [address] [place] [phone] Mc Fabian M.D. [address] [place] [phone] ANGIOGRAPHY MESENTERIC WITH OR WITHOUT ANGIOPLASTY AND/OR STENT, possible left brachial approach. Proceed as indicated. Scheduled Procedures Name Priority Associated Diagnoses Date/Ti ma ANGIOGRAPHY MESENTERIC WITH OR WITHOUT ANGIOPLASTY AND/OR STENT Ischemia Mesenteric (HCC) 12/15/2023 2:36 PM CDT ENDOVASCULAR ACCESS UPPER EXTREMITY Ischemia Mesenteric (HCC) 12/15/2023 2:36 PM CDT Procedures Procedure Name Priority Date/Time Associated Diagnosis Comments TYPE AND SCREEN Routine 12/02/2023 2:32 PM CDT Ischemia Mesenteric (HCC) US MESENTERIC ARTERY RAD - Routine (most inpatients and all outpatients) 12/02/2023 9:15 AM CDT Ischemia Mesenteric (HCC) OUTSIDE CT BODY Routine 11/30/2023 7:20 PM [...] CDT from Last 3 Months Results * Type and Screen (with Reflex Antibody ID) (12/02/2023 2:32 PM CDT) ABORh O Pos Not applicable 12/02/2023 4:03 PM CDT ETRM Antibody Screen Negative Negative 12/02/2023 4:19 PM CDT ETRM Type & Screen Expiration 12/05/2023 23:59 12/02/2023 4:03 PM CDT ETRM Testing Location [facility] 12/02/2023 2:56 PM CDT ETRM Blood (Blood, Venous) 12/02/2023 2:32 PM CDT 12/02/2023 2:56 PM CDT Mc Fabian M.D. LAB BLOOD BANK PANFILO T ORDERABLES [facility] [address] [place] [address], [place] ETRM [facility] [address] [place] [address] * US Mesenteric Artery (12/02/2023 9:15 AM CDT) Anatomical Region Laterality Modality Abdomen, Pelvis, Ultrasound RST LOS, Ultrasound ARZ LOS, Ultrasound FLA LOS, Procedural, Vascular Interventional NWWI LOS N/A Ultrasound Impressions 12/02/2023 10:14 AM CDT 1. High-grade proximal celiac artery stenosis. 2. Occluded SMA and JINA, similar to prior CT examination. Narrative 12/02/2023 10:14 AM CDT EXAM: US MESENTERIC ARTERY Exam performed with color and spectral Doppler analysis. COMPARISON: [facility] CT 11/29/2023. FINDINGS: Celiac: High-grade stenosis. SMA: Known chronic occlusion. Reconstitution distal vessel, with dampened waveform. JINA: Not seen, consistent with known occlusion. Aorta Distal- AP: 1.5 cm Aorta Proximal - (PSV): 81 cm/s Celiac Artery - PSV: 403 cm/s Celiac Artery inspiration-PSV: 159 cm/s Celiac Artery expiration- PSV: 126 cm/s Superior Mesenteric Artery- PSV: Occluded Inferior Mesenteric Artery- PSV: Occluded Procedure Note Trevor Stubbs M.B., B.Ch. - 12/02/2023 EXAM: US MESENTERIC ARTERY Exam performed with color and spectral Doppler analysis. COMPARISON: [facility] CT 11/29/2023. FINDINGS: Celiac: High-grade stenosis. SMA: Known chronic occlusion. Reconstitution distal vessel, with dampenedwaveform. JINA: Not seen, consistent with known occlusion. Aorta Distal- AP: 1.5 cm Aorta Proximal - (PSV): 81 cm/s Celiac Artery - PSV: 403 cm/s Celiac Artery inspiration-PSV: 159 cm/s Celiac Artery expiration- PSV: 126 cm/s Superior Mesenteric Artery- PSV: Occluded Inferior Mesenteric Artery- PSV: Occluded IMPRESSION: 1. High-grade proximal celiac artery stenosis. 2. Occluded SMA and JINA, similar to prior CT examination. Mc VARGASG US PROCEDURES * CT ABDOMEN PELVIS W CON-Outside CT [...] Provider Not In System IMG CT PROCEDURES IIOR NA * CT Abdomen Pelvis Angiogram with [...] Jovan Caceres P.A.-C. IMG CT PROCEDURES * Hepatic [...] CDT Jovan Caceres P.A.-C. LAB BLOOD ADD-ON [facility] [address] [place] [address], [facility] [place] [address] [place] [address] * (ABNORMAL) CBC with Differential, Blood (11/29/2023 [...] CDT Jovan Caceres P.A.-C. LAB BLOOD ADD-ON [facility] [address] [place] [address], [facility] STMA [facility] [address] [place], [place] [phone] [place] [address] [place] [address] * Lipase (11/29/2023 11:13 AM CDT) Lipase, S 19 13 - 60 U/L 11/29/2023 12:23 PM CDT DTL Blood (Blood, Venous) 11/29/2023 11:13 AM CDT 11/29/2023 12:02 PM CDT Jovan Caceres P.A.-C. LAB BLOOD ADD-ON [facility] [address] [place] [address], [facility] DTL [facility] [address] [place] [address] * Lactate (11/29/2023 11:13 AM CDT) Pathologist [facility] Lactate, P 2.0 0.5 - 2.2 mmol/L 11/29/2023 11:55 AM CDT STMA Blood (Blood, Venous) 11/29/2023 11:13 AM CDT 11/29/2023 11:28 AM CDT Jovan Caceres P.A.-C. LAB BLOOD NON ADD -ON Performing Organization Address City/[facility]/ZIP Co de Phone Number [facility] [address] [place] [address], [facility] STMA [facility] [address] [place] [address] * (ABNORMAL) Basic Metabolic Panel (11/29/2023 11:13 AM CDT) [facility] Potassium, P 3.8 3.6 - 5.2 mmol/L [...] P.A.-C. LAB BLOOD ADD-ON Performing Organization Address City/State/[facility] Co de Phone Number [facility] [address] [place] [address], [facility] STMA [address] [address] * ECG 12 Lead (11/29/2023 10:31 AM CDT) Ventricular Rate ECG/Min 77 BPM MUSE PA Interval 164 ms MUSE QRSD Interval 92 ms MUSE QT Interval 400 ms MUSE QTC Interval 452 ms MUSE P [place] -15 degrees MUSE R [place] 22 degrees MUSE T Wave [place] 56 degrees MUSE 11/29/2023 10:3 1 AM [...] Reviewed by PROMISE Buck Alejandra Suárez APRN C.N.P. ECG ORDER AIDEN MUSE NA from Last 3 Months Care Teams Director Speech Language Relationship Specialty Start Date End Date Elsewhere, Pcp PCP - General Internal Medicine 11/29/23
--- OUTSIDE RECORDS SUMMARY | 2023-12-12 10:29 | XMS_ITS | Encounter Summary ---
Author Organization [facility] Address [address] [place] [address] Care Team Providers Care Supervisor Engines Road Name Role Phone Elsewhere, Pcp Primary Care Provider Unavailabl e Reason for Visit * MRI/CAT/PET Scan (Routine) - Authorized Specialty Diagnoses / Procedures Referred By Gianna t Referred To Contact Radiology Diagnoses Ischemia Mesenteric (HCC) Procedures CT Chest Angiogram with IV Contrast Mc Fabian M.D. [address] [place] [phone] [facility] Referral ID Status Reason Start Date Expiration Date V isits Requested Visits Authorized [id number] Authorized 12/05/2023 12/04/2024 1 1 Encounter Details Date Type Department Care Team (Late st Contact Info) Description 12/12/2023 2:45 PM CDT Hospital Encounter Department of Radiology, [facility], in [place], [place] [address] [place] [phone] Mc Fabian M.D. [address] [place] [phone] Social History Tobacco Use Types Packs/Day Years Used Date Smoking Tobacco: Former Alcohol Use Standard Drinks/Week Comments Not Currently 0 (1 standard drink = 0.6 oz pur e alcohol) [facility] Utilities Answer Date Recorded In the past 12 months has [email or web address] electric, gas, oil, or water company threatened to shut off services in your [...] your living situation today? I have a [facility] place to live 12/09/2023 Sex and Gender Information Value Date Recorded Sex Assigned at Female 12/09/2023 5:04 PM CDT Gender Identity Female 12/09/2023 5:04 PM CDT Sexual Orientation Straight 12/09/2023 5: 04 PM CDT documented as of this encounter Plan of Treatment Upcoming Encounters Date Type Department Care Team (Latest Contact Info) Description 12/12/2023 9:28 AM CDT Hospital Encounter Department of Cardiovascular Diseases in [place], [place] 200 [place] [address] Mc Fabian M.D. [address] [place] [address] Arrived 12/12/2023 9:28 AM CDT Hospital Encounter Department of Radiology, [facility] in [place], [place] [address] [place] [phone] Mc Fabian M.D. [address] [place] [phone] Arrived 12/12/2023 11:50 AM CDT Appointment Department of Laboratory Medicine and Pathology, [facility] in [place], [place] [address] [place] [phone] Mc Fabian M.D. [address] [place] [phone] 12/12/2023 12:15 PM CDT Appointment Department of Radiology, [facility] in [place], [place] [address] [place] [phone] Mc Fabian M.D. [address] [place] [phone] 12/12/2023 1:20 PM CDT Ancillary Procedure Department of Cardiovascular Medicine in [place], [place] [address] [place] [phone] Mc Fabian M.D. [address] [place] [phone] 12/13/2023 8:00 AM CDT Office Visit Department of Vascular Medicine in [place], [place] [address] [place] [phone] Chuy Gallo M.B., B.Ch. [address] [place] [phone] 12/15/2023 2:36 PM CDT Hospital Encounter Post Anesthesia Care Unit in [place], [place] [address] [place] [phone] Mc Fabian M.D. [address] [place] [phone] Ischemia Mesenteric (HCC) 12/15/2023 2:36 PM CDT - 12/15/2023 8:02 PM CDT Surgery RST ROMB MAIN OR [address] [place] [address] Mc Fabian M.D. 200 [place] [phone] ANGIOGRAPHY MESENTERIC WITH OR WITHOUT ANGIOPLASTY AND/OR STENT, possible left brachial approach. Proceed as indicated. Scheduled Procedures Name Priority Associated Diagnoses Date/Ti me ANGIOGRAPHY MESENTERIC WITH OR WITHOUT ANGIOPLASTY AND/OR STENT Ischemia Mesenteric (HCC) 12/15/2023 2:36 PM CDT ENDOVASCULAR ACCESS UPPER EXTREMITY Ischemia Mesenteric (HCC) 12/15/2023 2:36 PM CDT documented as of this encounter Visit Diagnoses Not on filedocumented in this encounter Care Teams Supervisor Engines Road Relationship Specialty Start Date End Date Elsewhere, Pcp PCP - General Internal Medicine 11/29/23 documented as of this encounter
--- OUTSIDE RECORDS SUMMARY | 2023-12-12 10:29 | XMS_ITS | Encounter Summary ---
Author Organization [facility] Address [address] [place] [address] Care Team Providers Care Supervisor Plasma Name Role Phone Elsewhere, Pcp Primary Care Provider Unavailabl e Reason for Referral * Outpatient (Routine) - Authorized Specialty Diagnoses / Procedures Referred By Gianna thomas Referred To Contact Diagnoses Preoperative Examination Cardiovascular Procedures NM Cardiac Perfusion Rest and Stress SPECT Mc Fabian M.D. [address] [place] [phone] [facility] Referral ID Status Reason Start Date Expiration Date V isits Requested Visits Authorized [id number] Authorized 12/05/2023 12/04/2024 8 8 Reason for Visit * Outpatient (Routine) - Authorized Specialty Diagnoses / Procedures Referred By Gianna thomas Referred To Contact Diagnoses Preoperative Examination Cardiovascular Procedures NM Cardiac Perfusion Rest and Stress SPECT Mc Fabian M.D. [address] [place] [phone] [facility] Referral ID Status Reason Start Date Expiration Date V isits Requested Visits Authorized [id number] Authorized 12/05/2023 12/04/2024 8 8 Encounter Details Date Type Department Care Team (Latest Contact Info) Description 12/12/2023 9:27 AM CDT Hospital Encounter Department of Radiology, [facility], in [place], [place] [address] [place] [phone] Mc Fabian M.D. [address] [place] [address] Preoperative Examination Cardiovascular Social History Tobacco Use Types Packs/Day Years Used Date Smoking Tobacco: Former Alcohol Use Standard Drinks/Week Comments Not Currently 0 (1 standard drink = 0.6 oz pur e alcohol) [facility] Utilities Answer Date Recorded In the past 12 months has e [employer], gas, oil, or water [employer] threatened to shut off services in your [...] your living situation today? I have a [facility] place to live 12/09/2023 Sex and Gender [...] Hospital Encounter Department of Cardiovascular Diseases in [place], [place] [address] [place] [phone] Mc Fabian M.D. [address] [place] [phone] Arrived 12/12/2023 9:28 AM CDT Hospital Encounter Department of Radiology, [facility] in [place], [place] [address] [place] [phone] Mc Fabian M.D. [address] [place] [phone] Arrived 12/12/2023 11:50 AM CDT Appointment Department of Laboratory Medicine and Pathology, [facility] in [place], [place] [address] [place] [phone] Mc Fabian M.D. [address] [place] [phone] 12/12/2023 12:15 PM CDT Appointment Department of Radiology, [facility] in [place], [place] [address] [place] [phone] Mc Fabian M.D. [address] [place] [phone] 12/12/2023 1:20 PM CDT Ancillary Procedure Department of Cardiovascular Medicine in [place], [place] [address] [place] [phone] Mc Fabian M.D. [address] [place] [phone] 12/12/2023 2:45 PM CDT Hospital Encounter Department of Radiology, [facility], in [place], [place] [address] [place] [phone] Mc Fabian M.D. [address] [place] [phone] 12/13/2023 8:00 AM CDT Office Visit Department of Vascular Medicine in [place], [place] [address] [place] [phone] Chuy Gallo M.B., B.Ch. [address] [place] [phone] 12/15/2023 2:36 PM CDT Hospital Encounter Post Anesthesia Care Unit in [place], [place] [address] [place] [phone] cM Fabian M.D. [address] [place] [phone] Ischemia Mesenteric (HCC) 12/15/2023 2:36 PM CDT - 12/15/2023 8:02 PM CDT Surgery RST ROMB MAIN OR [address] [place] [phone] Mc Fabian M.D. [address] [place] [phone] ANGIOGRAPHY MESENTERIC WITH OR WITHOUT ANGIOPLASTY AND/OR STENT, possible left brachial approach. Proceed as indicated. Pending Results Name Type Priority Associated Diagnoses Date /Time NM Cardiac Perfusion Rest and Stress SPECT Cardiac Services RAD - Routine (most inpatients and all outpatients) Preoperative Examination Cardiovascular 12/12/2023 9:27 AM CDT Scheduled Orders Name Type Priority Associated Diagnoses Orde r Schedule NM Cardiac Perfusion Rest and Stress SPECT Cardiac Services RAD - Routine (most inpatients and all outpatients) Preoperative Examination Cardiovascular Once for 1 Occurrences starting 12/12/2023 until 12/12/2023 Scheduled Procedures Name Priority Associated Diagnoses Date/Ti me ANGIOGRAPHY MESENTERIC WITH OR WITHOUT ANGIOPLASTY AND/OR STENT Ischemia Mesenteric (HCC) 12/15/2023 2:36 PM CDT ENDOVASCULAR ACCESS UPPER EXTREMITY Ischemia Mesenteric (HCC) 12/15/2023 2:36 PM CDT documented as of this encounter Visit Diagnoses Diagnosis Ischemia Mesenteric (HCC)- Primary Preoperative Examination Cardiovascular Ischemia Mesenteric (HCC) documented in this encounter Administered Medications Inactive Administered Medications - up to 3 most recent administrations Medication Order MAR Action Action Date Dose Rate Site technetium Tc 99m sestamibi injection (Tc-99m Cardiolite) 5.4-48.4 millicurie, intravenous, Once, On 12/12/23 at 1030, For 1 dose, Imaging Protocol Orders Given 12/12/2023 10:09 AM CDT 10.2 millicuries Right Antecubital documented in this encounter Care Teams Supervisor Plasma Relationship Specialty Start Date End Date Elsewhere, Pcp PCP - General Internal Medicine 11/29/23 documented as of this encounter
--- OUTSIDE RECORDS SUMMARY | 2023-12-12 10:29 | XMS_ITS | Encounter Summary ---
Author Organization [facility] Address [address] [place] [address] Care Team Providers Care Shotgun Shell Assembly Machine Operator Name Role Phone Elsewhere, Pcp Primary Care Provider Unavailabl e Encounter Details Date Type Department Care Team (Latest Contact Info) Description 11/30/2023 Intake [facility] Social History Tobacco Use Types Packs/Day Years [...] Hospital Encounter Department of Cardiovascular Diseases in [place], [place] [address] [place] [phone] Mc Fabian M.D. [address] [place] [phone] Arrived 12/12/2023 9:28 AM CDT Hospital Encounter Department of Radiology, [facility], in [place], [place] [address] [place] [phone] Mc Fabian M.D. [address] [place] [phone] Arrived 12/12/2023 11:50 AM CDT Appointment Department of Laboratory Medicine and Pathology, [facility] in [place], [place] [address] [place] [phone] Mc Fabian M.D. [address] [place] [phone] 12/12/2023 12:15 PM CDT Appointment Department of Radiology, [facility] in [place], [place] [address] [place] [address] Mc Fabian M.D. [address] [place] [phone] 12/12/2023 1:20 PM CDT Ancillary Procedure Department of Cardiovascular Medicine in [place], [place] [address] [place] [phone] Mc Fabian M.D. [address] [place] [phone] 12/12/2023 2:45 PM CDT Hospital Encounter Department of Radiology, [facility] in [place], [place] [address] [place] [phone] Mc Fabian M.D. [address] [place] [phone] 12/13/2023 8:00 AM CDT Office Visit Department of Vascular Medicine in [place], [place] [address] [place] [phone] Chuy Gallo M.B., B.Ch. [address] [place] [phone] 12/15/2023 2:36 PM CDT Hospital Encounter Post Anesthesia Care Unit in [place], [place] [address] [place] [phone] Mc Fabian M.D. [address] [place] [phone] Ischemia Mesenteric (HCC) 12/15/2023 2:36 PM CDT - 12/15/2023 8:02 PM CDT Surgery RST ROMB MAIN OR [address] [place] [phone] Mc Fabian M.D. [address] [place] [phone] ANGIOGRAPHY MESENTERIC WITH OR WITHOUT ANGIOPLASTY AND/OR [...] on filedocumented in this encounter Care Teams Shotgun Shell Assembly Machine Operator Relationship Specialty Start Date End Date Elsewhere, Pcp PCP - General Internal Medicine 11/29/23 documented as of this encounter
--- OUTSIDE RECORDS SUMMARY | 2023-12-12 10:29 | XMS_ITS | Encounter Summary ---
Author Organization [facility] Address [address] [place] [address] Care Team Providers Care Face Worker Name Role Phone Elsewhere, Pcp Primary Care Provider Unavailabl e Encounter Details Date Type Department Care Team (Latest Contact Info) Description 12/02/2023 2:05 PM CDT - 12/02/2023 11:59 PM CDT Hospital Encounter Department of Laboratory Medicine and Pathology, [facility] in [place], [place] [address] [place] [phone] Mc Fabian M.D. [address] [place] [phone] Ischemia Mesenteric (HCC) Discharge Disposition: Home or Self Care Social [...] PM CDT documented as of this encounter Medications at Time of Discharge [...] by mouth every morning before breakfast. 09/26/2023 simvastatin (ZOCOR) 10 mg tablet Take 10 mg by mouth at bedtime. 09/26/2023 documented as of this encounter Plan of Treatment Upcoming Encounters Date Type Department Care Team (Latest Contact Info) Description 12/12/2023 9:28 AM CDT Hospital Encounter Department of Cardiovascular Diseases in [place], [place] [address] [place] [address] Mc Fabian M.D. [address] [place] [phone] Arrived 12/12/2023 9:28 AM CDT Hospital Encounter Department of Radiology, [facility] in [place], [place] [address] [place] [address] Mc Fabian M.D. [address] [place] [phone] Arrived 12/12/2023 11:50 AM CDT Appointment Department of Laboratory Medicine and Pathology, [facility] in [place], [place] [address] [place] [phone] Mc Fabian M.D. [address] [place] [phone] 12/12/2023 12:15 PM CDT Appointment Department of Radiology, [facility], in [place], [place] [address] [place] [phone] Mc Fabian M.D. [address] [place] [phone] 12/12/2023 1:20 PM CDT Ancillary Procedure Department of Cardiovascular Medicine in [place], [place] [address] [place] [phone] Mc Fabian M.D. [address] [place] [phone] 12/12/2023 2:45 PM CDT Hospital Encounter Department of Radiology, [facility], in [place], [place] [address] [place] [phone] Mc Fabian M.D. [address] [place] [phone] 12/13/2023 8:00 AM CDT Office Visit Department of Vascular Medicine in [place], [place] [address] [place] [phone] Chuy Gallo M.B., B.Ch. [address] [place] [phone] 12/15/2023 2:36 PM CDT Hospital Encounter Post Anesthesia Care Unit in [place] [phone] [place] [phone] Mc Fabian M.D. [address] [place] [phone] Ischemia Mesenteric (HCC) 12/15/2023 2:36 PM CDT - 12/15/2023 8:02 PM CDT Surgery RST ROMB MAIN OR [address] [place] [phone] Mc Fabian M.D. [address] [place] [address] [place] [phone] ANGIOGRAPHY MESENTERIC WITH OR WITHOUT ANGIOPLASTY AND/OR STENT, possible left brachial approach. Proceed as indicated. Scheduled Procedures Name Priority Associated Diagnoses Date/Ti me ANGIOGRAPHY MESENTERIC WITH OR WITHOUT ANGIOPLASTY AND/OR STENT Ischemia Mesenteric (HCC) 12/15/2023 2:36 PM CDT ENDOVASCULAR ACCESS UPPER EXTREMITY Ischemia Mesenteric (HCC) 12/15/2023 2:36 PM CDT documented as of this encounter Procedures Procedure Name Priority Date/Time Associated Diagnosis Comments TYPE AND SCREEN Routine 12/02/2023 2:32 PM CDT Ischemia Mesenteric (HCC) documented in this encounter Results * Type and Screen (with Reflex Antibody ID) (12/02/2023 2:32 PM CDT) ABORh O Pos Not applicable 12/02/2023 4:03 PM CDT ETRM Antibody Screen Negative Negative 12/02/2023 4:19 PM CDT ETRM Type & Screen Expiration 12/05/2023 23:59 12/02/2023 4:03 PM CDT ETRM Testing Location [place] DEFAULT 12/02/2023 2:56 PM CDT ETRM Blood (Blood, Venous) 12/02/2023 2:32 PM CDT 12/02/2023 2:56 PM CDT Mc Fabian M.D. LAB BLOOD BANK PANFILO T ORDERABLES [facility] [address] [place] [address], [facility] ETRM [facility] [address] [place] [address] documented in this encounter Visit Diagnoses Diagnosis Ischemia Mesenteric (HCC) Ischemia Mesenteric (HCC)- Primary Ischemia Mesenteric (HCC) documented in this encounter Care Teams Face Worker Relationship Specialty Start Date End Date Elsewhere, Pcp PCP - General Internal Medicine 11/29/23 documented as of this encounter
--- OUTSIDE RECORDS SUMMARY | 2023-12-12 10:29 | XMS_ITS | Encounter Summary ---
Author Organization [facility] Address [address] [place] [address] Care Team Providers Care Respiratory Services Manager Name Role Phone Elsewhere, Pcp Primary Care Provider Unavailabl e Reason for Visit * Outpatient (Routine) - Closed Specialty Diagnoses / Procedures Referred By Gianna thomas Referred To Contact Vascular Surgery Mc Fabian M.D. [address] [place] [phone] [facility] Referral ID Status Reason Start Date Expiration Date Visits Re quested Visits Authorized [id number] Closed 11/18/2023 05/19/2025 1 1 Encounter Details Date Type Department Care Team (Latest Contact Info) Description 12/02/2023 1:00 PM CDT Comprehensive Visit Division of Vascular and Endovascular Surgery in [place], [place] [address] [place] [phone] Mc Fabian M.D. [address] [place] [phone] Ischemia Mesenteric (HCC) (Primary Dx) Social History [...] PM CDT documented as of this encounter Last Filed Vital Signs Vital Sign Reading Time Taken Comments Blood Pressure 151/89 12/02/2023 12:59 PM CDT Pulse 88 12/02/2023 12:59 PM CDT Temperature - - Respiratory Rate - - Oxygen Saturation - - Inhaled Oxygen Concentration - - Weight 104 kg (228 lb 13.4 oz) 12/02/2023 12:57 PM CDT Height 165.6 cm (5' 5.2) 12/02/2023 12:57 PM CD T Body Mass Index 37.85 12/02/2023 12:57 PM CDT documented in this encounter Plan of Treatment Upcoming Encounters Date Type Department Care Team (Latest Contact Info) Description 12/12/2023 9:28 AM CDT Hospital Encounter Department of Cardiovascular Diseases in [place], [place] [address] [place] [phone] Mc Fabian M.D. [address] [place] [phone] Arrived 12/12/2023 9:28 AM CDT Hospital Encounter Department of Radiology, [facility] in [place], [place] [address] [place] [phone] Mc Fabian M.D. [address] [place] [phone] Arrived 12/12/2023 11:50 AM CDT Appointment Department of Laboratory Medicine and Pathology, [facility] in [place], [place] [address] [place] [phone] Mc Fabian M.D. [address] [place] [phone] 12/12/2023 12:15 PM CDT Appointment Department of Radiology, [facility] in [place], [place] [address] [place] [phone] Mc Fabian M.D. [address] [place] [phone] 12/12/2023 1:20 PM CDT Ancillary Procedure Department of Cardiovascular Medicine in [place], [place] [address] [place] [phone] Mc Fabian M.D. [address] [place] [phone] 12/12/2023 2:45 PM CDT Hospital Encounter Department of Radiology, [facility], in [place], [place] [address] [place] [address] Mc Fabian M.D. [address] [place] [phone] 12/13/2023 8:00 AM CDT Office Visit Department of Vascular Medicine in [place], [place] [address] [place] [phone] Chuy Gallo M.B., B.Ch. [address] [place] [phone] 12/15/2023 2:36 PM CDT Hospital Encounter Post Anesthesia Care Unit in [place], [place] [address] [place] [phone] Mc Fabian M.D. [address] [place] [phone] Ischemia Mesenteric (HCC) 12/15/2023 2:36 PM CDT - 12/15/2023 8:02 PM CDT Surgery RST ROMB MAIN OR [address] [place] [address] [phone] Mc Fabian M.D. [address] [place] [phone] ANGIOGRAPHY MESENTERIC WITH OR WITHOUT ANGIOPLASTY AND/OR STENT, possible left brachial approach. Proceed as indicated. Scheduled Procedures Name Priority Associated Diagnoses Date/Ti me ANGIOGRAPHY MESENTERIC WITH OR WITHOUT ANGIOPLASTY AND/OR STENT Ischemia Mesenteric (HCC) 12/15/2023 2:36 PM CDT ENDOVASCULAR ACCESS UPPER EXTREMITY Ischemia Mesenteric (HCC) 12/15/2023 2:36 PM CDT documented as of this encounter Results * Type and Screen (with Reflex Antibody ID) (12/02/2023 2:32 PM CDT) ABORh O Pos Not applicable 12/02/2023 4:03 PM CDT ETRM Antibody Screen Negative Negative 12/02/2023 4:19 PM CDT ETRM Type & Screen Expiration 12/05/2023 23:59 12/02/2023 4:03 PM CDT ETRM Testing Location [place] DEFAULT 12/02/2023 2:56 PM CDT ETRM Blood (Blood, Venous) 12/02/2023 2:32 PM CDT 12/02/2023 2:56 PM CDT Mc Fabian M.D. LAB BLOOD BANK PANFILO T ORDERABLES [facility] [address] [place] [address], [facility] ETRM [facility] [address] [place] [address] documented in this encounter Visit Diagnoses Diagnosis Ischemia Mesenteric (HCC)- Primary Ischemia Mesenteric (HCC)- Primary Ischemia Mesenteric (HCC) documented in this encounter Care Teams Respiratory Services Manager Relationship Specialty Start Date End Date Elsewhere, Pcp PCP - General Internal Medicine 11/29/23 documented as of this encounter
--- OUTSIDE RECORDS SUMMARY | 2023-12-12 10:29 | XMS_ITS | Clinical Summary ---
Author Organization [facility] Address [address] [place] [address] Care Team Providers Care Computer Security Specialist Name Role Phone Elsewhere, Pcp Primary Care Provider Unavailabl e Source Comments Patient records contain information from all sites at [facility]. For routine questions regarding patient records, call [phone] during business hours, M-F 8:00 AM - 5:00 PM Central Time. Record requests for emergency care only can be directed to [phone] at any time.[facility] Allergies Active Allergy Reactions Criticality Noted Date [...] PM CDT Hospital Encounter Department of Radiology, [place], [place] [address] [place] [phone] Mc Fabian M.D. 12/12/2023 9:28 AM CDT Hospital Encounter Department of Radiology, [place], [place] [address] [place] [phone] Mc Fabian M.D. Arrived 12/12/2023 9:28 AM CDT Hospital Encounter Department of Cardiovascular Diseases in [address] [phone] Mc Fabian M.D. Arrived 12/12/2023 9:27 AM CDT Hospital Encounter Department of Radiology, [place], [place] [address] [place] [phone] Mc Fabian M.D. Preoperative Examination Cardiovascular 12/02/2023 2:05 PM CDT - 12/02/2023 11:59 PM CDT Hospital Encounter Department of Laboratory Medicine and Pathology, [place], [place] [address] [place] [phone] Mc Fabian M.D. Ischemia Mesenteric (HCC) Discharge Disposition: Home or Self Care 12/02/2023 1:00 PM CDT Comprehensive Visit Division of Vascular and Endovascular Surgery in [address] [phone] Mc Fabian M.D. Ischemia Mesenteric (HCC) (Primary Dx) 12/02/2023 8:00 AM CDT - 12/02/2023 2:04 PM CDT Hospital Encounter Department of Radiology, [facility], in [place], [place] [address] [place] [address] Mc Fabian M.D. Ischemia Mesenteric (HCC) Discharge Disposition: Home or Self Care 11/30/2023 Intake [facility] 11/29/2023 10:38 AM CDT - 11/29/2023 4:47 PM CDT Emergency [facility] Emergency Department [address] [place] [phone] Alejandra Suárez APRN, CGarretN.PGarret Occlusion Superior Mesenteric Artery (HCC) (Primary Dx) Discharge Disposition: Home or Self Care 11/28/2023 4:10 PM CDT Ancillary Procedure Department of Radiology in [place], [place] [address] [place] [address] Mc Fabian M.D. Ischemia Mesenteric (HCC) 11/28/2023 Clinical Communication Division of Vascular and Endovascular Surgery in [place], [place] [address] [place] [phone] Mc Fabian M.D. Phone Contact 11/18/2023 Orders Only Division of Vascular and Endovascular Surgery in [place], [place] [address] [place] [phone] Mc Fabian M.D. Ischemia Mesenteric (HCC) (Primary Dx) from Last 3 Months Social History Tobacco Use Types Packs/Day Years Used Date Smoking Tobacco: Former Alcohol Use Standard Drinks/Week Comments Not Currently 0 (1 standard drink = 0.6 oz pur e alcohol) [facility] Utilities Answer Date Recorded In the past 12 months has [employer], [employer], oil, or water [employer] threatened to shut off services in your [...] your living situation today? I have a [facility] place to live 12/09/2023 Sex and [...] Hospital Encounter Department of Cardiovascular Diseases in [place], [place] [address] [place] [phone] Mc Fabian M.D. [address] [place] [phone] Arrived 12/12/2023 9:28 AM CDT Hospital Encounter Department of Radiology, [facility] in [place], [place] [address] [place] [phone] Mc Fabian M.D. [address] [place] [phone] Arrived 12/12/2023 11:50 AM CDT Appointment Department of Laboratory Medicine and Pathology, [facility] in [place], [place] [address] [place] [phone] Mc Fabian M.D. [address] [place] [phone] 12/12/2023 12:15 PM CDT [facility] [place] [place] [address] [place] [phone] Mc Fabian M.D. [address] [place] [phone] 12/12/2023 1:20 PM CDT Ancillary Procedure Department of Cardiovascular Medicine in [place], [place] [address] [place] [phone] Mc Fabian M.D. [address] [place] [phone] 12/12/2023 2:45 PM CDT Hospital Encounter Department of Radiology, [facility], in [place], [place] [address] [place] [address] Mc Fabian M.D. [address] [place] [phone] 12/13/2023 8:00 AM CDT Office Visit Department of Vascular Medicine in [place], [place] [address] [place] [phone] Chuy Gallo M.B., B.Ch. [address] [place] [phone] 12/15/2023 2:36 PM CDT Hospital Encounter Post Anesthesia Care Unit in [place], [place] [address] [place] [phone] Mc Fabian M.D. [address] [place] [phone] Ischemia Mesenteric (HCC) 12/15/2023 2:36 PM CDT - 12/15/2023 8:02 PM CDT Surgery RST ROMB MAIN OR [address] [place] [phone] Mc Fabian M.D. [address] [place] [phone] ANGIOGRAPHY MESENTERIC WITH OR WITHOUT ANGIOPLASTY AND/OR STENT, possible left brachial approach. Proceed as indicated. Scheduled Procedures Name Priority Associated Diagnoses Date/Ti me ANGIOGRAPHY MESENTERIC WITH OR WITHOUT ANGIOPLASTY AND/OR STENT Ischemia Mesenteric (HCC) 12/15/2023 2:36 PM CDT ENDOVASCULAR ACCESS UPPER EXTREMITY Ischemia Mesenteric (HCC) 12/15/2023 2:36 PM CDT Health Maintenance Due Date Last Done Comments CT Colonography 1968 Cologuard 1968 Colonoscopy 1968 Colorectal Cancer Screening 1968 Diabetic Office Visit with F oot Exam 1968 Dilated Eye Exam 1968 FIT 1968 HIV Screening 1968 Hemoglobin A1C 1968 Hepatitis C Screening 1968 Lipid (Cholesterol) Screening 1968 Mammogram 1968 Urine Albumin 1968 Hepatitis B Vaccines (1 of 3 - 19+ 3-dose series) 1987 Zoster Vaccines (1 of 2) 2018 Pneumococcal vaccine (0-64 y ears) (2 of 2 - PCV) 09/01/2018 09/01/2017 Depression Screening (Annual PHQ-2) 06/20/2023 Office Visit for Blood Press ure Check / Re-check 03/03/2024 12/02/2023 Creatinine Level (Kidney Fun ction Test) 11/28/2024 11/29/2023, 12/12/2012, 11/24/2012, Additional history exists Potassium Level 11/28/2024 11/29/2023, 11/19, 11/24/2012, Additional history exists Sodium Level 11/28/2024 11/29/2023, 11/19, 11/24/2012, Additional history exists DTaP,Tdap,and Td Vaccines (3 - Td or Tdap) 08/20/2029 08/21/2019, 07/29/2009 COVID-19 Vaccine Completed 04/28/2023, , 04/17/2021, Additional [...] 12/02/2023 4:03 PM CDT ETRM Testing Location [place] DEFAULT 12/02/2023 2:56 PM CDT ETRM Blood (Blood, Venous) 12/02/2023 2:32 PM CDT 12/02/2023 2:56 PM CDT Mc Fabian M.D. LAB BLOOD BANK PANFILO T ORDERABLES [facility] [address] [place] [address], [facility] ETRM [facility] [address] [place] [address] * US Mesenteric Artery (12/02/2023 9:15 AM [...] with color and spectral Doppler analysis. COMPARISON: [facility] CT 11/29/2023. FINDINGS: Celiac: High-grade stenosis. SMA: [...] with color and spectral Doppler analysis. COMPARISON: [facility] CT 11/29/2023. FINDINGS: Celiac: High-grade stenosis. SMA: [...] JINA, similar to prior CT examination. Mc VÁSQUEZ US PROCEDURES * CT ABDOMEN PELVIS W [...] coral reef- type plaque. Jovan Caceres P.A.-C. [facility] PROCEDURES * Hepatic Function Panel (11/29/2023 [...] CDT Jovan Caceres P.A.-C. LAB BLOOD ADD-ON [facility] [address] [place] [address], [facility] [address] [place] [address] * (ABNORMAL) CBC with Differential, Blood (11/29/2023 [...] P.A.-C. LAB BLOOD ADD-ON Performing Organization Address City/[facility]/ZIP Co de Phone Number [facility] [address] [place] [address], [facility] STMA [facility] [address] [place] [address] [facility] [address] [place] [address] * Lipase (11/29/2023 11:13 AM CDT) Lipase, S 19 13 - 60 U/L 11/29/2023 12:23 PM CDT DTL Blood (Blood, Venous) 11/29/2023 11:13 AM CDT 11/29/2023 12:02 PM CDT Jovan Caceres P.A.-C. LAB BLOOD ADD-ON [facility] [address] [place] [address], [facility] DTL [facility] 200 [place] [address] * Lactate (11/29/2023 11:13 AM CDT) Lactate, P 2.0 0.5 - 2.2 mmol/L 11/29/2023 11:55 AM CDT STMA Blood (Blood, Venous) 11/29/2023 11:13 AM CDT 11/29/2023 11:28 AM CDT Jovan Caceres P.A.-C. LAB BLOOD NON ADD -ON [facility] [address] [place] [address], [facility] STMA [facility] [address] [place] [address] * (ABNORMAL) Basic Metabolic Panel (11/29/2023 11:13 AM CDT) Pathologist [facility] Potassium, P 3.8 3.6 - 5.2 mmol/L [...] P.A.-C. LAB BLOOD ADD-ON Performing Organization Address [facility] Co de Phone Number [facility] [address] [place] [address], [place] [facility] [address] [place] [address] * ECG 12 Lead (11/29/2023 10:31 AM CDT) Ventricular Rate ECG/Min 77 BPM MUSE AK Interval 164 ms MUSE QRSD Interval 92 ms MUSE QT Interval 400 ms MUSE QTC Interval 452 ms MUSE P Warner -15 degrees MUSE R Warner 22 degrees MUSE T Wave Warner 56 degrees MUSE 11/29/2023 10:3 1 AM [...] Buck Kena Ladd APRNNYasmani ECG ORDER AIDEN Performing Organization Address City/[facility]/ZIP Co de Phone Number MUSE NA from Last 3 Months Care Teams Computer Security Specialist Relationship Specialty Start Date End Date Elsewhere, Pcp PCP - General Internal Medicine 11/29/23
--- OUTSIDE RECORDS SUMMARY | 2023-12-12 10:29 | XMS_ITS | Encounter Summary ---
Author Organization [facility] Address [address] [place] [address] Care Team Providers Care Sales Supervisor Name Role Phone Elsewhere, Pcp Primary Care Provider Unavailabl e Reason for Visit * Outpatient (Routine) - Authorized Specialty Diagnoses / Procedures Referred By Gianna thomas Referred To Contact Diagnoses Preoperative Examination Cardiovascular Procedures NM Cardiac Perfusion Rest and Stress SPECT Mc Fabian M.D. [address] [place] [phone] [facility] Referral ID Status Reason Start Date Expiration Date V isits Requested Visits Authorized [id number] Authorized 12/05/2023 12/04/2024 8 8 Encounter Details Date Type Department Care Team (Late st Contact Info) Description 12/12/2023 9:28 AM CDT Hospital Encounter Department of Radiology, [facility], in [place], [place] [address] [place] [phone] Mc Fabian M.D. [address] [place] [phone] Arrived Social History Tobacco Use Types Packs/Day Years Used Date Smoking Tobacco: Former Alcohol Use Standard Drinks/Week Comments Not Currently 0 (1 standard drink = 0.6 oz pur e alcohol) [facility] Utilities Answer Date Recorded In the past 12 months has e electric, gas, oil, or water company threatened [...] your living situation today? I have a [facility] place to live 12/09/2023 Sex and [...] Hospital Encounter Department of Cardiovascular Diseases in [place], [place] 200 [place] [address] Mc Fabian M.D. 200 [place] [phone] Arrived 12/12/2023 11:50 AM CDT Appointment Department of Laboratory Medicine and Pathology, [facility] in [place], [place] [address] [place] [phone] Mc Fabian M.D. [address] [place] [phone] 12/12/2023 12:15 PM CDT Appointment Department of Radiology, [facility], in [place], [place] [address] [place] [phone] Mc Fabian M.D. [address] [place] [phone] 12/12/2023 1:20 PM CDT Ancillary Procedure Department of Cardiovascular Medicine in [place], [place] [address] [place] [phone] Mc Fabian M.D. [address] [place] [phone] 12/12/2023 2:45 PM CDT Hospital Encounter Department of Radiology, [facility], in [place], [place] [address] [place] [phone] Mc Fabian M.D. [address] [place] [phone] 12/13/2023 8:00 AM CDT Office Visit Department of Vascular Medicine in [place], [place] [address] [place] [phone] Chuy Gallo M.B., B.Ch. [address] [place] [phone] 12/15/2023 2:36 PM CDT Hospital Encounter Post Anesthesia Care Unit in [place], [place] [address] [place] [phone] Mc Fabian M.D. [address] [place] [phone] Ischemia Mesenteric (HCC) 12/15/2023 2:36 PM CDT - 12/15/2023 8:02 PM CDT Surgery RST ROMB MAIN OR [address] [place] [phone] Mc Fabian M.D. [address] [place] [address] ANGIOGRAPHY MESENTERIC WITH OR WITHOUT ANGIOPLASTY AND/OR STENT, possible left brachial approach. Proceed as indicated. Pending Results Name Type Priority Associated Diagnoses Date /Time NM Cardiac Perfusion Rest and Stress SPECT Cardiac Services RAD - Routine (most inpatients and all outpatients) Preoperative Examination Cardiovascular 12/12/2023 9:27 AM CDT Scheduled Procedures Name Priority Associated Diagnoses Date/Ti me ANGIOGRAPHY MESENTERIC WITH OR WITHOUT ANGIOPLASTY AND/OR STENT Ischemia Mesenteric (HCC) 12/15/2023 2:36 PM CDT ENDOVASCULAR ACCESS UPPER EXTREMITY Ischemia Mesenteric (HCC) 12/15/2023 2:36 PM CDT documented as of this encounter Visit Diagnoses Not on filedocumented in this encounter Care Teams Sales Supervisor Relationship Specialty Start Date End Date Elsewhere, Pcp PCP - General Internal Medicine 11/29/23 documented as of this encounter
--- OUTSIDE RECORDS SUMMARY | 2023-12-12 10:29 | XMS_ITS | Encounter Summary ---
Author Organization [facility] Address [address] [place] [address] Care Team Providers Care Malt House Operator Name Role Phone Elsewhere, Pcp Primary Care Provider Unavailabl e Reason for Visit * Outpatient (Routine) - Authorized Specialty Diagnoses / Procedures Referred By Gianna thomas Referred To Contact Diagnoses Preoperative Examination Cardiovascular Procedures NM Cardiac Perfusion Rest and Stress SPECT Mc Fabian M.D. [address] [place] [phone] [facility] Referral ID Status Reason Start Date Expiration Date V isits Requested Visits Authorized [id number] Authorized 12/05/2023 12/04/2024 8 8 Encounter Details Date Type Department Care Team (Latest Contact Info) Description 12/12/2023 9:28 AM CDT Hospital Encounter Department of Cardiovascular Diseases in [place], [place] [address] [place] [phone] Mc Fabian M.D. [address] [place] [phone] Arrived Social History Tobacco Use Types Packs/Day Years Used Date Smoking Tobacco: Former Alcohol Use Standard Drinks/Week Comments Not Currently 0 (1 standard drink = 0.6 oz pur e alcohol) [facility] Utilities Answer Date Recorded In the past 12 months has th e electric, gas, oil, or water company [...] your living situation today? I have a [employer] place to live 12/09/2023 Sex and Gender [...] Hospital Encounter Department of Radiology, [facility], in [place], [place] 200 [place] [phone] Mc Fabian M.D. [address] [place] [phone] Arrived 12/12/2023 11:50 AM CDT Appointment Department of Laboratory Medicine and Pathology, [facility] in [place], [place] [address] [place] [phone] Mc Fabian M.D. [address] [place] [phone] 12/12/2023 12:15 PM CDT Appointment Department of Radiology, [facility], in [place], [place] [address] [place] [phone] Mc Fabian M.D. [address] [place] [phone] 12/12/2023 1:20 PM CDT Ancillary Procedure Department of Cardiovascular Medicine in [place], [place] [address] [place] [phone] Mc Fabian M.D. [address] [place] [phone] 12/12/2023 2:45 PM CDT Hospital Encounter Department of Radiology, [facility], in [place], [place] [address] [place] [phone] Mc Fabian M.D. [address] [place] [phone] 12/13/2023 8:00 AM CDT Office Visit Department of Vascular Medicine in [place], [place] [address] [place] [phone] Chuy Gallo M.B., B.Ch. [address] [place] [phone] 12/15/2023 2:36 PM CDT Hospital Encounter Post Anesthesia Care Unit in [place], [place] [address] [place] [phone] Mc Fabian M.D. [address] [place] [phone] Ischemia Mesenteric (HCC) 12/15/2023 2:36 PM CDT - 12/15/2023 8:02 PM CDT Surgery RST ROMB MAIN OR [address] [place] [phone] Mc Fabian M.D. [address] [place] [phone] ANGIOGRAPHY MESENTERIC WITH OR WITHOUT ANGIOPLASTY AND/OR [...] on filedocumented in this encounter Care Teams Malt House Operator Relationship Specialty Start Date End Date Elsewhere, Pcp PCP - General Internal Medicine 11/29/23 documented as of this encounter
--- OUTSIDE RECORDS SUMMARY | 2023-12-12 10:29 | XMS_ITS ---
Author Organization [facility] Address [address] [place] [address] Care Team Providers Care Director Of Hemophilia Name Role Phone Unavailable Unavailable Unavailable Surgery Details Not on file Complications Check Surgery Details section. Procedure Estimated Blood Loss Check Surgery Details section. Procedure Findings Check Surgery Details section. Procedure Specimens Taken Check Surgery Details section.
--- OUTSIDE RECORDS SUMMARY | 2023-12-12 10:29 | XMS_ITS | Encounter Summary ---
Author Organization [facility] Address [address] [place] [address] Care Team Providers Care Saddle Tree Stitcher Name Role Phone Elsewhere, Pcp Primary Care Provider Unavailabl e Reason for Referral * Outpatient (Routine) - Closed Specialty Diagnoses / Procedures Referred By Gianna thomas Referred To Contact Diagnoses Ischemia Mesenteric (HCC) Procedures US Mesenteric Artery Mc Fabian M.D. 200 [place] [address] [facility] Referral ID Status Reason Start Date Expiration Date Visits Re quested Visits Authorized [id number] Closed 11/18/2023 11/17/2024 1 1 Reason for Visit * Outpatient (Routine) - Closed Specialty Diagnoses / Procedures Referred By Gianna thomas Referred To Contact Diagnoses Ischemia Mesenteric (HCC) Procedures US Mesenteric Artery Mc Fabian M.D. 200 [place] [address] [facility] Referral ID Status Reason Start Date Expiration Date Visits Re quested Visits Authorized [id number] Closed 11/18/2023 11/17/2024 1 1 Encounter Details Date Type Department Care Team (Latest Contact Info) Description 12/02/2023 8:00 AM CDT - 12/02/2023 2:04 PM CDT Hospital Encounter Department of Radiology, [facility], in [place], [place] [address] [place] [address] Mc Fabian M.D. [address] [place] [address] Ischemia Mesenteric (HCC) Discharge Disposition: Home or [...] 10 mg by mouth at bedtime. 09/26/2023 oxyCODONE (ROXICODONE) 5 mg immediate release tabletIndications:Acute Pain Take 1 tablet (5 mg total) by mouth every 6 (six) hours as needed for pain for up to 3 days Indication: Acute Pain. 8 tablet 11/29/2023 12/02/2023 documented as of this encounter Plan of Treatment Upcoming Encounters Date Type Department Care Team (Latest Contact Info) Description 12/12/2023 9:28 AM CDT Hospital Encounter Department of Cardiovascular Diseases in [place], [place] [address] [place] [address] Mc Fabian M.D. [address] [place] [phone] Arrived 12/12/2023 9:28 AM CDT Hospital Encounter Department of Radiology, [facility] in [place], [place] [address] [place] [phone] Mc Fabian M.D. [address] [place] [phone] Arrived 12/12/2023 11:50 AM CDT Appointment Department of Laboratory Medicine and Pathology, [facility] in [place], [place] [address] [place] [phone] Mc Fabian M.D. [address] [place] [phone] 12/12/2023 12:15 PM CDT [facility] [place] [place] [address] [place] [phone] Mc Fabian M.D. [address] [place] [phone] 12/12/2023 1:20 PM CDT Ancillary Procedure Department of Cardiovascular Medicine in [place], [place] [address] [place] [phone] Mc Fabian M.D. [address] [place] [phone] 12/12/2023 2:45 PM CDT Hospital Encounter Department of Radiology, [facility] in [place], [place] [address] [place] [phone] Mc Fabian M.D. [address] [place] [phone] 12/13/2023 8:00 AM CDT Office Visit Department of Vascular Medicine in [place], [place] [address] [place] [phone] Chuy Gallo M.B., B.Ch. [address] [place] [phone] 12/15/2023 2:36 PM CDT Hospital Encounter Post Anesthesia Care Unit in [place], [place] [address] [place] [phone] Mc Fabian M.D. [address] [place] [phone] Ischemia Mesenteric (HCC) 12/15/2023 2:36 PM CDT - 12/15/2023 8:02 PM CDT Surgery RST ROMB MAIN OR [address] [place] [phone] Mc Fabian M.D. [address] [place] [phone] ANGIOGRAPHY MESENTERIC WITH OR WITHOUT ANGIOPLASTY AND/OR STENT, possible left brachial approach. Proceed as indicated. Scheduled Procedures Name Priority Associated Diagnoses Date/Ti mi ANGIOGRAPHY MESENTERIC WITH OR WITHOUT ANGIOPLASTY AND/OR STENT Ischemia Mesenteric (HCC) 12/15/2023 2:36 PM CDT ENDOVASCULAR ACCESS UPPER EXTREMITY Ischemia Mesenteric (HCC) 12/15/2023 2:36 PM CDT documented as of this encounter Procedures Procedure Name Priority Date/Time Associated Diagnosis Comments US MESENTERIC ARTERY RAD - Routine (most inpatients and all outpatients) 12/02/2023 9:15 AM CDT Ischemia Mesenteric (HCC) documented in this encounter Results * US Mesenteric Artery (12/02/2023 9:15 AM [...] with color and spectral Doppler analysis. COMPARISON: [facility] CT 11/29/2023. FINDINGS: Celiac: High-grade stenosis. [...] with color and spectral Doppler analysis. COMPARISON: [facility] CT 11/29/2023. FINDINGS: Celiac: High-grade stenosis. [...] prior CT examination. Mc VÁSQUEZ US PROCEDURES documented in this encounter Visit Diagnoses Diagnosis Ischemia Mesenteric (HCC) Ischemia Mesenteric (HCC)- Primary Ischemia Mesenteric (HCC) documented in this encounter Care Teams Saddle Tree Stitcher Relationship Specialty Start Date End Date Elsewhere, Pcp PCP - General Internal Medicine 11/29/23 documented as of this encounter
--- OUTSIDE RECORDS SUMMARY | 2023-12-12 10:30 | XMS_ITS | Encounter Summary ---
Author Organization [facility] Address [address] [place] [address] Care Team Providers Care Doughnut Batter Mixer Name Role Phone Elsewhere, Pcp Primary Care Provider Unavailabl e Reason for Visit * Reason Comments Abdominal Pain Vomiting Encounter Details Date Type Department Care Team (Late st Contact Info) Description 11/29/2023 10:38 AM CDT - 11/29/2023 4:47 PM CDT Emergency [facility] Emergency Department [address] [place] [phone] Alejandra Suárez, LABORER SALVAGE, C.N.P. [address] [place] [phone] Occlusion Superior Mesenteric Artery (HCC) (Primary Dx) [...] 11/29/2023 12/02/2023 documented as of this encounter ED Notes * Francisca Kraft M.D. - 11/29/2023 3:31 PM CDT Care of patient transferred to pr by Ms. Suáerz. Disposition pending CT. This is a 53-year-old [...] SpO2 97% No ED Course as of 11/29/233 TueNov 29, [address] Abdomen Pelvis [...] does have follow-up with vascular surgery at [facility] Tuesday however she presents today because the [...] signs of bleeding. It is reported from [place] that claudication is made worse when her [...] Hospital Encounter Department of Cardiovascular Diseases in [place], [place] [address] [place] [address] Mc Fabian M.D. [address] [place] [phone] Arrived 12/12/2023 9:28 AM CDT Hospital Encounter Department of Radiology, [facility] in [place], [place] [address] [place] [address] Mc Fabian M.D. [address] [place] [phone] Arrived 12/12/2023 11:50 AM CDT Appointment Department of Laboratory Medicine and Pathology, [facility] in [place], [place] [address] [place] [phone] Mc Fabian M.D. [address] [place] [phone] 12/12/2023 12:15 PM CDT Appointment Department of Radiology, [facility] in [place], [place] [address] [place] [phone] Mc Fabian M.D. [address] [place] [phone] 12/12/2023 1:20 PM CDT Ancillary Procedure Department of Cardiovascular Medicine in [place], [place] [address] [place] [phone] Mc Fabian M.D. [address] [place] [phone] 12/12/2023 2:45 PM CDT Hospital Encounter Department of Radiology, [facility], in [place], [place] [address] [place] [address] Mc Fabian M.D. [address] [place] [phone] 12/13/2023 8:00 AM CDT Office Visit Department of Vascular Medicine in [place], [place] [address] [place] [phone] Chuy Gallo M.B., B.Ch. [address] [place] [phone] 12/15/2023 2:36 PM CDT Hospital Encounter Post Anesthesia Care Unit in [place], [place] [address] [place] [phone] Mc Fabian M.D. [address] [place] [phone] Ischemia Mesenteric (HCC) 12/15/2023 2:36 PM CDT - 12/15/2023 8:02 PM CDT Surgery RST ROMB MAIN OR [address] [place] [phone] Mc Fabian M.D. [address] [place] [phone] ANGIOGRAPHY MESENTERIC WITH OR WITHOUT ANGIOPLASTY AND/OR [...] CDT Jovan Caceres P.A.-C. LAB BLOOD ADD-ON [facility] 200 [place] [address], [facility] DTL [facility] [address] [place] [address] * Lactate (11/29/2023 11:13 AM CDT) Pathologist [facility] Lactate, P 2.0 0.5 - 2.2 mmol/L 11/29/2023 11:55 AM CDT STMA Blood (Blood, Venous) 11/29/2023 11:13 AM CDT 11/29/2023 11:28 AM CDT Jovan Caceres P.A.-C. LAB BLOOD NON ADD -ON [facility] 200 [place] [address], [facility] STMA [facility] [address] [place] [address] * Hepatic Function Panel (11/29/2023 11:13 AM [...] CDT Jovan Caceres P.A.-C. LAB BLOOD ADD-ON [facility] [address] [place] [address], [facility] [address] [place] [address] * (ABNORMAL) Basic Metabolic Panel (11/29/2023 11:13 [...] CDT Jovan Caceres P.A.-C. LAB BLOOD ADD-ON [facility] [address] [place] [address], [facility] STMA [facility] [address] [place] [address] * (ABNORMAL) CBC with Differential, Blood (11/29/2023 11:13 AM CDT) Pathologist [facility] Hemoglobin 11.3(L) 11.6 - 15.0 g/dL 11/29/2023 [...] P.A.-C. LAB BLOOD ADD-ON Performing Organization Address City/[facility] Co de Phone Number [facility] [address] [place] [address], [facility] STMA [facility] [address] [place] [address] [facility] [address] [place] [address] * ECG 12 Lead (11/29/2023 10:31 AM CDT) Ventricular Rate ECG/Min 77 BPM MUSE NE Interval 164 ms MUSE QRSD Interval 92 ms MUSE QT Interval 400 ms MUSE QTC Interval 452 ms MUSE P Henderson -15 degrees MUSE R Henderson 22 degrees MUSE T Wave Henderson 56 degrees MUSE 11/29/2023 10:3 1 AM [...] Alejandra Suárez APRN, C.N.P. ECG ORDER AIDEN Performing Organization Address City/[facility]/ZIP Co de Phone Number MUSE NA documented in this encounter Visit Diagnoses Diagnosis Occlusion Superior Mesenteric Artery (HCC)- Primary Hemorrhage Gastrointestinal Diverticulitis Colon Diabetes Mellitus Type 2 (HCC) Hyperlipidemia Hypertension NOS Ischemia Mesenteric (HCC)- Primary Ischemia Mesenteric (HCC) documented in this encounter Administered Medications Inactive Administered Medications - up to 3 most recent administrations Medication Order MAR Action Action Date Dose Rate Site fentaNYL injection 50 mcg (SUBLIMAZE) 50 mcg, intravenous, Once, On e 11/29/23 at 1359, For 1 dose Given 11/29/2023 [...] mL (COMPLETED) 1-100 mL, intravenous, Once, On 11/29/23 at 1408, For 1 dose, Imaging Protocol Orders, Dose per Radiant Medication Guidelines 1409 (Given - Provid er: Meghan Carter R.N.) PRN Medication Order 11/27/2023 11/28/2023 11/29/2023 iopromide 370 mg iodine/mL injection 1-162 mL (ULTRAVIST) (COMPLETED) 1-162 mL, intravenous, Once in imaging, contrast, Starting on Tu11/29/23 at 1407, For 1 dose, Imaging Protocol Orders, Dose per Radiant Medication Guidelines 1409 (Given - Provid er: Meghan Carter R.N. - Comment: [id number]) documented in this encounter Care Teams Doughnut Batter Mixer Relationship Specialty Start Date End Date Elsewhere, Pcp PCP - General Internal Medicine 11/29/23 documented as of this encounter
--- OUTSIDE RECORDS SUMMARY | 2023-12-12 10:30 | XMS_ITS | Encounter Summary ---
Author Organization [facility] Address [address] [place] [address] Care Team Providers Care Data Analytics Developer Name Role Phone Elsewhere, Pcp Primary Care Provider Unavailabl e Reason for Referral * Outpatient (Routine) - Authorized Specialty Diagnoses / Procedures Referred By Contac t Referred To Contact Diagnoses Preoperative Examination Cardiovascular Procedures NM Cardiac Perfusion Rest and Stress SPECT Mc Fabian M.D. [address] [place] [phone] [facility] Referral ID Status Reason Start Date Expiration Date V isits Requested Visits Authorized [id number] Authorized 12/05/2023 12/04/2024 8 8 * Outpatient (Routine) - Authorized Specialty Diagnoses / Procedures Referred By Contac t Referred To Contact Diagnoses Ischemia Mesenteric (HCC) Preoperative Examination Cardiovascular Procedures DX Chest AP or PA and Lateral 2 Views Mc Fabian M.D. [address] [place] [address] [facility] Referral ID Status Reason Start Date Expiration Date V isits Requested Visits Authorized [id number] Authorized 12/05/2023 12/04/2024 1 1 * Outpatient (Routine) - Authorized Specialty Diagnoses / Procedures Referred By Contac t Referred To Contact Diagnoses Ischemia Mesenteric (HCC) Preoperative Examination Cardiovascular Procedures ECG 12 Lead Mc Fabian M.D. [address] [place] [phone] [facility] Referral ID Status Reason Start Date Expiration Date V isits Requested Visits Authorized [id number] Authorized 12/05/2023 12/04/2024 1 1 * Outpatient (Routine) - Authorized Specialty Diagnoses / Procedures Referred By Contac t Referred To Contact Vascular Medicine Diagnoses Ischemia Mesenteric (HCC) Mc Fabian M.D. 200 [place] [address] [facility] Referral ID Status Reason Start Date Expiration Date V isits Requested Visits Authorized [id number] Authorized 12/05/2023 06/05/2025 1 1 * MRI/CAT/PET Scan (Routine) - Authorized Specialty Diagnoses / Procedures Referred By Contac t Referred To Contact Radiology Diagnoses Ischemia Mesenteric (HCC) Procedures CT Chest Angiogram with IV Contrast Mc Fabian M.D. [address] [place] [address] [facility] Referral ID Status Reason Start Date Expiration Date V isits Requested Visits Authorized [id number] Authorized 12/05/2023 12/04/2024 1 1 Reason for Visit * Reason Onset Date Comments Phone Contact 11/28/2023 Encounter Details Date Type Department Care Team (Latest Contact Info) Description 11/28/2023 Clinical Communication Division of Vascular and Endovascular Surgery in [place], [place] [address] [place] [phone] Mc Fabian M.D. [address] [place] [phone] Phone Contact Social History Tobacco Use Types Packs/Day Years Used Date Smoking Tobacco: Former Dental Answer Date Recorded Dental: Regular Dentist Unknown 11/21/19 Sex and Gender Information Value Date Recorded Sex Assigned at Female 12/09/2023 5:04 PM CDT Gender Identity Female 12/09/2023 5:04 PM CDT Sexual Orientation Straight 12/09/2023 5: 04 PM CDT documented as of this encounter Miscellaneous Notes * Telephone Encounter - Fabiloa Cosby R.N. - 12/05/2023 2:22 PM CDT Information Discussed Date for surgery ISIDRO request has been sent along with CTA chest. Looking at December 14 for surgery. Mrs Esqueda has been able to keep her pain under control and she is eating small meals throughout the day. Iwill keep in touch with her regarding additional pre op information. PLAN Disposition/Recommendation: self-care is appropriate at this time, patient encouraged to call back with questions Information/Education: patient/caller able to teach back Caller agreeable to plan of care: yes The following references were used: nursing clinical judgement along with recommendations from Dr. Fabian documented in this encounter Plan of Treatment Upcoming Encounters Date Type Department Care Team (Latest Contact Info) Description 12/12/2023 9:28 AM CDT Hospital Encounter Department of Cardiovascular Diseases in [place], [place] [address] [place] [address] Mc Fabian M.D. [address] [place] [phone] Arrived 12/12/2023 9:28 AM CDT Hospital Encounter Department of Radiology, [facility], in [place], [place] [address] [place] [address] Mc Fabian M.D. [address] [place] [phone] Arrived 12/12/2023 11:50 AM CDT Appointment Department of Laboratory Medicine and Pathology, [facility] in [place], [place] [address] [place] [phone] Mc Fabian M.D. [address] [place] [phone] 12/12/2023 12:15 PM CDT Appointment Department of Radiology, [facility], in [place], [place] [address] [place] [phone] Mc Fabian M.D. [address] [place] [phone] 12/12/2023 1:20 PM CDT Ancillary Procedure Department of Cardiovascular Medicine in [place], [place] [address] [place] [phone] Mc Fabian M.D. [address] [place] [phone] 12/12/2023 2:45 PM CDT Hospital Encounter Department of Radiology, [facility], in [place], [place] [address] [place] [phone] Mc Fabian M.D. [address] [place] [phone] 12/13/2023 8:00 AM CDT Office Visit Department of Vascular Medicine in [place], [place] [address] [place] [phone] Chuy Gallo M.B., B.Ch. [address] [place] [phone] 12/15/2023 2:36 PM CDT Hospital Encounter Post Anesthesia Care Unit in [place], [place] [address] [place] [phone] Mc Fabian M.D. [address] [place] [phone] Ischemia Mesenteric (HCC) 12/15/2023 2:36 PM CDT - 12/15/2023 8:02 PM CDT Surgery RST ROMB MAIN OR [address] [place] [address] Mc Fabian M.D. [address] [place] [address] ANGIOGRAPHY MESENTERIC WITH OR WITHOUT ANGIOPLASTY AND/OR STENT, possible left brachial approach. Proceed as indicated. Pending Results Name Type Priority Associated Diagnoses Date /Time NM Cardiac Perfusion Rest and Stress SPECT Cardiac Services RAD - Routine (most inpatients and all outpatients) Preoperative Examination Cardiovascular 12/12/2023 9:27 AM CDT Scheduled Orders Name Type Priority Associated Diagnoses Orde r Schedule CT Chest Angiogram with IV Contrast Imaging RAD - Routine (most inpatients and all outpatients) Ischemia Mesenteric (HCC) Expected: 12/05/2023 (Approximate), Expires: 11/19/2024 ECG 12 Lead ECG Routine Ischemia Mesenteric (HCC) Preoperative Examination Cardiovascular Expected: 12/05/2023, Expires: 03/06/2025 DX Chest AP or PA and Lateral 2 Views Imaging RAD - Routine (most inpatients and all outpatients) Ischemia Mesenteric (HCC) Preoperative Examination Cardiovascular Expected: 12/05/2023, Expires: 12/04/2024 Hemoglobin A1c Lab Routine Diabetes Mellitus Type 2 (HCC) Expected: 12/05/2023, Expires: 03/06/2025 NM Cardiac Perfusion Rest and Stress SPECT Cardiac Services RAD - Routine (most inpatients and all outpatients) Preoperative Examination Cardiovascular Expected: 12/05/2023, Expires: 12/04/2024 Scheduled Procedures Name Priority Associated Diagnoses Date/Ti me ANGIOGRAPHY MESENTERIC WITH OR WITHOUT ANGIOPLASTY AND/OR STENT Ischemia Mesenteric (HCC) 12/15/2023 2:36 PM CDT ENDOVASCULAR ACCESS UPPER EXTREMITY Ischemia Mesenteric (HCC) 12/15/2023 2:36 PM CDT Scheduled Referrals Name Type Priority Associated Diagnoses Orde r Schedule Vascular Medicine - RULA consult (clinic) Outpatient Referral Routine Ischemia Mesenteric (HCC) Expected: 12/05/2023, Expires: 03/06/2025 documented as of this encounter Visit Diagnoses Diagnosis Ischemia Mesenteric (HCC)- Primary Preoperative Examination Cardiovascular Diabetes Mellitus Type 2 (HCC) Ischemia Mesenteric (HCC)- Primary Ischemia Mesenteric (HCC) documented in this encounter Care Teams Data Analytics Developer Relationship Specialty Start Date End Date Elsewhere, Pcp PCP - General Internal Medicine 11/29/23 documented as of this encounter
--- OUTSIDE RECORDS SUMMARY | 2023-12-12 10:30 | XMS_ITS | Encounter Summary ---
Author Organization [facility] Address [address] [place] [address] Care Team Providers Care Interface Analyst Name Role Phone Elsewhere, Pcp Primary Care Provider Unavailabl e Reason for Referral * Outpatient (Routine) - Closed Specialty Diagnoses / Procedures Referred By Gianna thomas Referred To Contact Vascular Surgery Mc Fabian M.D. [address] [place] [phone] [facility] Referral ID Status Reason Start Date Expiration Date Visits Re quested Visits Authorized [id number] Closed 11/18/2023 05/19/2025 1 1 Scheduling Instructions I have also requested a duplex ultrasound of mesenteric arteries. Referral is Cassia Vance M.D. * Outpatient (Routine) - Closed Specialty Diagnoses / Procedures Referred By Gianna thomas Referred To Contact Diagnoses Ischemia Mesenteric (HCC) Procedures US Mesenteric Artery Mc Fabian M.D. [address] [place] [address] [facility] Referral ID Status Reason Start Date Expiration Date Visits Re quested Visits Authorized [id number] Closed 11/18/2023 11/17/2024 1 1 Encounter Details Date Type Department Care Team (Late st Contact Info) Description 11/18/2023 Orders Only Division of Vascular and Endovascular Surgery in [place], [place] [address] [place] [address] Mc Fabian M.D. [address] [place] [phone] Ischemia Mesenteric (HCC) (Primary Dx) Social History [...] Hospital Encounter Department of Cardiovascular Diseases in [place], [place] [address] [place] [address] Mc Fabian M.D. [address] [place] [phone] Arrived 12/12/2023 9:28 AM CDT Hospital Encounter Department of Radiology, [facility] in [place], [place] [address] [place] [address] Mc Fabian M.D. [address] [place] [phone] Arrived 12/12/2023 11:50 AM CDT Appointment Department of Laboratory Medicine and Pathology, [facility] in [place], [place] [address] [place] [address] Mc Fabian M.D. [address] [place] [phone] 12/12/2023 12:15 PM CDT Appointment Department of Radiology, [facility] in [place], [place] [address] [place] [phone] Mc Fabian M.D. [address] [place] [phone] 12/12/2023 1:20 PM CDT Ancillary Procedure Department of Cardiovascular Medicine in [place], [place] [address] [place] [phone] Mc Fabian M.D. [address] [place] [phone] 12/12/2023 2:45 PM CDT Hospital Encounter Department of Radiology, [facility] in [place], [place] [address] [place] [phone] Mc Fabian M.D. [address] [place] [phone] 12/13/2023 8:00 AM CDT Office Visit Department of Vascular Medicine in [place], [place] [address] [place] [phone] Chuy Gallo M.B., B.Ch. [address] [place] [phone] 12/15/2023 2:36 PM CDT Hospital Encounter Post Anesthesia Care Unit in [place] [address] [place] [phone] Mc Fabian M.D. [address] [place] [phone] Ischemia Mesenteric (HCC) 12/15/2023 2:36 PM CDT - 12/15/2023 8:02 PM CDT Surgery RST ROMB MAIN OR [address] [place] [phone] Mc Fabian M.D. [address] [place] [phone] ANGIOGRAPHY MESENTERIC WITH OR WITHOUT ANGIOPLASTY AND/OR [...] Expires: 02/17/2025 documented as of this encounter Results * US Mesenteric Artery [...] with color and spectral Doppler analysis. COMPARISON: [facility] CT 11/29/2023. FINDINGS: Celiac: High-grade [...] with color and spectral Doppler analysis. COMPARISON: [facility] CT 11/29/2023. FINDINGS: Celiac: High-grade [...] JINA, similar to prior CT examination. Mc Fabian M.D. IMG US PROCEDURES documented in this encounter Visit Diagnoses Diagnosis Ischemia Mesenteric (HCC)- Primary Ischemia Mesenteric (HCC) Ischemia Mesenteric (HCC)- Primary Ischemia Mesenteric (HCC) documented in this encounter Care Teams Interface Analyst Relationship Specialty Start Date End Date Elsewhere, Pcp PCP - General Internal Medicine 11/29/23 documented as of this encounter
--- OUTSIDE RECORDS SUMMARY | 2023-12-12 10:30 | XMS_ITS | Encounter Summary ---
Author Organization [facility] Address [address] [place] [address] Care Team Providers Care Aoc Operations Intelligence Officer Name Role Phone Unavailable Primary Care Provider Unavailabl e Encounter Details Date Type Department Care Team (Latest Contact Info) Description 11/28/2023 4:10 PM CDT Ancillary Procedure Department of Radiology in [place], [place] [address] [place] [phone] Mc Fabian M.D. [address] [place] [phone] Ischemia Mesenteric (HCC) Social History Tobacco Use [...] Hospital Encounter Department of Cardiovascular Diseases in [place], [place] [address] [place] [phone] Mc Fabian M.D. [address] [place] [phone] Arrived 12/12/2023 9:28 AM CDT Hospital Encounter Department of Radiology, [facility], in [place], [place] [address] [place] [address] Mc Fabian M.D. [address] [place] [phone] Arrived 12/12/2023 11:50 AM CDT Appointment Department of Laboratory Medicine and Pathology, [facility] in [place], [place] [address] [place] [address] Mc Fabian M.D. [address] [place] [phone] 12/12/2023 12:15 PM CDT Appointment Department of Radiology, [facility] in [place], [place] [address] [place] [address] Mc Fabian M.D. [address] [place] [phone] 12/12/2023 1:20 PM CDT Ancillary Procedure Department of Cardiovascular Medicine in [place], [place] [address] [place] [phone] Mc Fabian M.D. [address] [place] [phone] 12/12/2023 2:45 PM CDT Hospital Encounter Department of Radiology, [facility], in [place], [place] [address] [place] [address] Mc Fabian M.D. [address] [place] [phone] 12/13/2023 8:00 AM CDT Office Visit Department of Vascular Medicine in [place], [place] [address] [place] [phone] Chuy Gallo M.B., B.Ch. [address] [place] [phone] 12/15/2023 2:36 PM CDT Hospital Encounter Post Anesthesia Care Unit in [place], [place] [address] [place] [phone] Mc Fabian M.D. [address] [place] [phone] Ischemia Mesenteric (HCC) 12/15/2023 2:36 PM CDT - 12/15/2023 8:02 PM CDT Surgery RST ROMB MAIN OR [address] [place] [phone] Mc Fabian M.D. [address] [place] [phone] ANGIOGRAPHY MESENTERIC WITH OR WITHOUT ANGIOPLASTY AND/OR [...]
== END 2023-11-25 09:56 | disposition home or self-care (01) ==
LOC: NFLDREF 12-12 10:27
PROVIDERS: PCP Internal Medicine; Referring Provider Internal Medicine; Visit Provider Internal Medicine
DX: E83.42 Hypomagnesemia (principal); E11.9 Type 2 diabetes mellitus without complications; D50.9 Iron deficiency anemia, unspecified
CPT/HCPCS: 83735

== ENCOUNTER 2023-11-29 22:12 | Emergency (ER) | payer OTHER, SELFPAY ==
[2023-11-29 22:22] VITALS: BP 147/79; PULSE 93; RESP 16; TEMP 36.1; O2SAT 98; BMI 36.6
[2023-11-29] MEDS: diphenhydrAMINE 50 MG/ML inj 25 MG IVP (22:52)
[2023-11-29] MEDS: KETOROLAC 30 MG/ML inj IVP (22:52)
--- NOTE | 2023-11-29 23:02 | ED.ABDPAIN ---
HPI - Abdominal Pain General Chief Complaint: Abdominal Pain Stated Complaint: blocked arteries in stomach, pain Time Seen by Provider: 11/29/23 22:24 Source: patient Mode of arrival: ambulatory Limitations: no limitations History of Present Illness HPI narrative: 53-year-old female coming in today complaining of abdominal pain. Patient has had this pain since October. She states that she has been seen 5 times in multiple ERs since then. Pain is located in the left upper quadrant radiate to her back. 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 She was sent to [place] for further management. She does have an ultrasound scheduled for this Tuesday. Patient was actually seen at the [place] ER earlier today where she had another abdominal CT scan which, according to the patient, was unchanged. She received a L of normal saline and was given oxycodone to take home. Patient states that the oxycodone does not help at all her last dose was a few hours ago. She does state that Dr. Rodriges and has given her Toradol in the past and this does help. The patient is here because she cannot take the pain anymore is requesting to be ?admitted, put on a drip and knocked out?. She states that she called the ER back after she got home as her pain was continuing and she was told to ?take Tylenol?. She states that eating makes the pain worse. Her last bowel movement was earlier today. She has vomited today. No fevers or chills. Pain is not getting worse, it is not getting better. It is constant. Upon further conversation it appears that this pain is been present for about 10 years but had been very intermittent and now has progressed to a daily constant pain. She was recently taken off of her Plavix and aspirin for a GI bleed, her 1st re-dosing of her Plavix was today, she continues to hold the aspirin. Related Data Home Medications ?Medication ?Instructions ?Recorded ?Confirmed multivitamin 1 tab PO QAM 07/13/22 11/29/23 psyllium husk (aspartame) 3.4 gram 1 packet PO DAILY 04/28/23 11/29/23 oral powder packet (Metamucil Fiber Singles) simvastatin 10 mg tablet 10 mg PO HS 11/05/23 11/29/23 metformin 1,000 mg tablet 1,000 mg PO BIDWM 11/06/23 11/29/23 magnesium oxide 1,000 mg PO QDAY 11/15/23 11/29/23 Previous Rx's ?Medication ?Instructions ?Recorded fluoxetine 10 mg tablet 10 mg PO QAM #90 tabs 06/23/23 amlodipine 5 mg tablet 5 mg PO DAILY #90 tabs 09/26/23 glipizide 5 mg tablet 5 mg PO QAM #90 tabs 09/26/23 hydrochlorothiazide 25 mg tablet 25 mg PO DAILY #90 tabs 09/26/23 lisinopril 40 mg tablet 40 mg PO DAILY #90 tabs 09/26/23 omeprazole 40 mg capsule,delayed 40 mg PO DAILY #90 caps 09/26/23 release metronidazole 500 mg tablet 500 mg PO TID #30 tabs 11/07/23 Allergies Allergy/AdvReac Type Severity Reaction Status Date / Time erythromycin base Allergy Unknown Rash Verified 11/17/23 14:50 Penicillins Allergy Unknown Rash Verified 11/17/23 14:50 Review of Systems Status of ROS Reports: 10 or more systems reviewed and unremarkable except as noted in History and below [facility] Medical History History of diverticulitis ?Z87.19 - Personal history of other diseases of the digestive system (ICD-10) Surgical History History of tonsillectomy and adenoidectomy (07/14/10) ?Z90.89 - Acquired absence of other organs (ICD-10) History of hysterectomy (07/14/10) ?Z90.710 - Acquired absence of both cervix and uterus (ICD-10) History of cholecystectomy (07/14/10) ?Z90.49 - Acquired absence of other specified parts of digestive tract (ICD-10) Social History Narrative: Lives with Chandu (he would share MDM duties with niece Catarina, if needed) in [place]. Former smoker, currently vapes. Social ETOH. Requests DNR/DNI status. What is your current living situation?: I presently have a place to live Problems where you live: no known problems Problems where you live details: n/a In the past 12 months, utilities in danger of being shut off: no In past 12 months, lack of transportation kept you from medical appts, meetings, work, or getting things needed for daily living: no In the past 12 mos, have been you worried that your food would run out before you had money to buy more?: never true In the past 12 mos, the food you bought just didn't last and you didn't have money to buy more?: never true Highest level of school completed/degree received: Associate degree: occupational, technical, vocational program Smoking Status: Former smoker Do you use any of these nicotine containing products: Vaping Products Second hand tobacco smoke exposure: No How often do you have a drink containing alcohol: never How often do you have six or more drinks on one occasion: Never AUDIT-C Alcohol total score: 0 Non-prescribed substance use: marijuana (any form) How often does anyone, including family, friends and others, physically hurt you: never How often does anyone, including family, friends and others, insult or talk down to you: never How often does anyone, including family, friends and others, threaten you with harm: never How often does anyone, including family, friends and others, scream or curse at you: never Little interest or pleasure in doing things: not at all Feeling down, depressed, or hopeless: not at all service: No Exam Narrative: Exam Narrative: Overweight, well-developed patient in mild distress. Alert and oriented. Answers questions appropriately. Mood and affect are appropriate. Thoughts are goal oriented and rational. No tangential or magical thinking noted. Patient speaks in full sentences without needing to catch her breath. HEENT: Normocephalic atraumatic. Pupils are equally round reactive to light. Extraocular muscles are intact. Conjunctivae are moist without any icterus noted. Moist mucous membranes. Posterior pharynx is normal. Neck is soft. Cardiovascular: Heart is regular rate and rhythm S1 and S2 are present without any murmurs. Lungs: Clear to auscultation bilaterally no wheezes rhonchi or rales are appreciated. Patient takes deep breaths without any discomfort. Abdomen: Soft and nondistended with normal bowel sounds. No guarding or rebound. She has discomfort in the left upper quadrant, slightly into the epigastric area. She rubs the area while we were having a conversation. Extremities: Bilateral lower extremities are without edema. Skin: Well perfused without any obvious rashes. 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 Also vomit was fairly widespread peripheral arterial disease with up to mild stenosis on the right and up to moderate stenosis on the left common iliac artery due to a coral reef type plaque. Per the ER note vascular surgery was consulted and in the felt that he with a normal lactate in similar pain to the prior couple of weeks, as well as the collateral flow seen on the CT scan there was suspicion for mesenteric ischemia was quite low and they recommended outpatient follow-up again with an ultrasound scheduled for this Tuesday. Her pain was much better controlled when she was in the ER and per the physician note, patient felt comfortable going home at that time.Her hemoglobin this morning was 11.3 with a normal lipase and lactate. She also had normal LFTs, normal bilirubin level was, normal potassium at 3.8, slightly low sodium 132, creatinine elevated at 1.35 a for and in mild leukocytosis with a white cell count of 12.9. Patient was given IV Toradol and Benadryl in the ED today, her pain went from a 10/10 to an 8/10. She stated that she wanted the pain gone, we discussed that these were not realistic expectations. She asked if there was something else that we could try. Patient states that morphine and oxycodone do not work, therefore she was given 0.5 mg of IV Dilaudid. This helped her pain significantly and at this time she felt comfortable going home. We discussed sending her home with hydrocodone patient states that she has had hydrocodone in the past and has worked. Vital Signs Vital signs: Initial Vital Signs Temperature 97.0 F L 11/29/23 22:22 Temperature Source Temporal Artery Scan 11/29/23 22:22 Pulse Rate 93 11/29/23 22:22 Respiratory Rate 16 11/29/23 22:22 Blood Pressure 147/79 H 11/29/23 22:22 Blood Pressure Mean 101 11/29/23 22:22 Blood Pressure Position Supine 11/29/23 22:22 Pulse Oximetry 98 11/29/23 22:22 Oxygen Delivery Method Room Air 11/29/23 22:22 Vital Signs Temperature 97.0 F L 11/29/23 22:22 Pulse Rate 93 11/29/23 22:22 Respiratory Rate 16 11/29/23 22:22 Blood Pressure 147/79 H 11/29/23 22:22 Pulse Oximetry 98 11/29/23 22:22 Oxygen Delivery Method Room Air 11/29/23 22:22 Temperature 97.0 F L 11/29/23 22:22 Pulse Rate 87 11/29/23 23:27 Respiratory Rate 16 11/29/23 23:27 Blood Pressure 120/71 11/29/23 23:27 Pulse Oximetry 98 11/29/23 23:27 Oxygen Delivery Method Room Air 11/29/23 23:27 Medications Administered Medications: Generic Name Dose Route Start Last Admin Trade Name Freq PRN Reason Stop Dose Admin Diphenhydramine HCl 25 mg 11/29/23 22:31 11/29/23 22:52 Diphenhydramine 50 Mg/Ml Inj IVP 11/29/23 22:32 25 mg ONCE ONE Administration Hydromorphone HCl 0.5 mg 11/29/23 23:32 11/29/23 23:45 Hydromorphone 0.5 Mg/0.5 Ml Inj IVP 11/29/23 23:33 0.5 mg ONCE ONE Administration Ketorolac Tromethamine 30 mg 11/29/23 22:31 11/29/23 22:52 Ketorolac 30 Mg/Ml Inj IVP 11/29/23 22:32 30 mg ONCE ONE Administration MDM - Abdominal Pain MDM Narrative Medical decision making narrative: 53-year-old female with acute on chronic abdominal pain in 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 Patient has a follow-up appointment on Tuesday with [facility] with vascular surgery an ultrasound. It does seem that Toradol is what best manages her pain unfortunately with a recent GI bleed I do not think it is safe to send her home with or any oral tablets of Toradol at this time. Therefore we will send her home with tablets of [place] to see if that works better than oxycodone. Medical Records Attestation: I reviewed the patient's medical records. Discharge Plan Discharge Clinical Impression: Abdominal pain Patient Disposition: Home, Self-Care Condition: Improved Additional Instructions: Take hydrocodone as needed/as prescribed. Follow up on Tuesday as scheduled. Ten tablets of hydrocodone sent to [facility]. Prescriptions: No Action multivitamin Tablet 1 tab PO QAM magnesium oxide 500 mg magnesium tablet 1,000 mg PO QDAY Metamucil Fiber Singles 3.4 gram powder in packet 1 packet PO DAILY simvastatin 10 mg tablet 10 mg PO HS metformin 1,000 mg tablet 1,000 mg PO BIDWM metronidazole 500 mg tablet 500 mg PO TID Qty: 30 0RF fluoxetine 10 mg tablet 10 mg PO QAM Qty: 90 2RF lisinopril 40 mg tablet 40 mg PO DAILY Qty: 90 0RF omeprazole 40 mg capsule,delayed release(DR/EC) 40 mg PO DAILY Qty: 90 0RF glipizide 5 mg tablet 5 mg PO QAM Qty: 90 0RF hydrochlorothiazide 25 mg tablet 25 mg PO DAILY Qty: 90 0RF Hold Instructions: Resume on 11/21/23. May resume if approved by your primary care physician. amlodipine 5 mg tablet 5 mg PO DAILY Qty: 90 0RF Follow Up/Referrals: Lexii Walsh MD [Primary Care Provider] - Stand Alone Forms: [employer] Info Instructions
[2023-11-29 23:27] VITALS: BP 120/71; PULSE 87; RESP 16; O2SAT 98
[2023-11-29] MEDS: HYDROmorphone 0.5 mg/0.5 ml inj IVP (23:45)
[2023-11-30 00:24] VITALS: BP 128/68; PULSE 78; RESP 16; TEMP 36.6
== END 2023-11-30 00:24 | disposition home or self-care (01) ==
PROVIDERS: Emergency Provider Family Medicine; PCP Internal Medicine
DX: K55.059 Acute (reversible) ischemia of intestine, part and extent unspecified (principal); K52.9 Noninfective gastroenteritis and colitis, unspecified; R10.9 Unspecified abdominal pain
CPT/HCPCS: 96374; 96375; 99284; J1170; J1200; J1885

== ENCOUNTER 2023-11-30 18:13 | Inpatient (IN) | payer OTHER, SELFPAY ==
[2023-11-30] VITALS (13 sets, daily range): BP systolic 155–168; BP diastolic 68–76; PULSE 81–97; RESP 16–18; TEMP 36.9; O2SAT 95–98; BMI 36.6
--- NOTE | 2023-11-30 18:30 | ED.ABDPAIN ---
HPI - Abdominal Pain General Date Seen: 11/30/23 Chief Complaint: Abdominal Pain Stated Complaint: Abdominal pain Time Seen by Provider: 11/30/23 18:30 History of Present Illness HPI narrative: 53-year-old female with history type 2 diabetes, hypertension, tobacco use, elevated BMI, peripheral artery disease (on Plavix, previous lower extremity artery treatments done at [facility]), She has been seen multiple times recently here in the ER. 11/05/2019-hospitalized for anemia here in [place]. CT scan also showed possible diverticulitis-treated with Rocephin and Flagyl. Also given omeprazole. 11/16-ER for upper abdominal pain. Symptoms off and on for couple of months. Worse with the eating. 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 No active bowel ischemia. She was referred for outpatient vascular surgery workup through the [facility] after that visit. She has already had workup through the [facility]. CT scan apparently showed occlusion of the SMA, JINA, partial occlusion of the celiac trunk but with patent collaterals. She is scheduled to see vascular surgery in clinic on Tuesday. She was discharged home from the [facility] ER yesterday being told that there was no signs of gangrene for acute surgical emergency. Given prescription for oxycodone or OxyContin from the [facility] ER. She found this to be ineffective for pain control so that had come here to the ER [place]. was seen in the ER in [place] yesterday afternoon on 11/28. Records indicate that she had been seen in the ER several times between October 17 and yesterday including visits to the [facility]. 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 She is in the process of doing some outpatient workup with the vascular team that nail. Because of her ongoing pain she has been on multiple different opiates. Oxycodone and hydrocodone are ineffective in managing her pain. She has had some pain relief with Toradol (but cannot have an at home prescription for it because of recent upper GI bleed). Yesterday in the ER, she had insufficient pain relief from Benadryl and Toradol. She had more pain relief from IV Dilaudid given here in the ER. She was given a prescription for hydrocodone from our ER pick she found the hydrocodone was also ineffective in managing her pain. Since yesterday she has had worsening abdominal pain, generalized but more in the left upper quadrant. She has been nauseous and not able to eat or drink. She was not able to take any of her meds today including not her Plavix or aspirin. Because of ongoing and worsening symptoms she is feeling weak, dizzy. She says she just can not go on like this until Tuesday so her family brought her back to the ER. She is not having any vomiting here. No black or bloody stools. She is having some liquidy diarrhea.. Related Data Home Medications ?Medication ?Instructions ?Recorded ?Confirmed multivitamin 1 tab PO QAM 07/13/22 11/29/23 psyllium husk (aspartame) 3.4 gram 1 packet PO DAILY 04/28/23 11/29/23 oral powder packet (Metamucil Fiber Singles) simvastatin 10 mg tablet 10 mg PO HS 11/05/23 11/29/23 metformin 1,000 mg tablet 1,000 mg PO BIDWM 11/06/23 11/29/23 magnesium oxide 1,000 mg PO QDAY 11/15/23 11/29/23 Previous Rx's ?Medication ?Instructions ?Recorded fluoxetine 10 mg tablet 10 mg PO QAM #90 tabs 06/23/23 amlodipine 5 mg tablet 5 mg PO DAILY #90 tabs 09/26/23 glipizide 5 mg tablet 5 mg PO QAM #90 tabs 09/26/23 hydrochlorothiazide 25 mg tablet 25 mg PO DAILY #90 tabs 09/26/23 lisinopril 40 mg tablet 40 mg PO DAILY #90 tabs 09/26/23 omeprazole 40 mg capsule,delayed 40 mg PO DAILY #90 caps 09/26/23 release metronidazole 500 mg tablet 500 mg PO TID #30 tabs 11/07/23 Allergies Allergy/AdvReac Type Severity Reaction Status Date / Time erythromycin base Allergy Unknown Rash Verified 11/30/23 18:44 Penicillins Allergy Unknown Rash Verified 11/30/23 18:44 [facility] Medical History History of diverticulitis ?Z87.19 - Personal history of other diseases of the digestive system (ICD-10) Surgical History History of tonsillectomy and adenoidectomy (07/14/10) ?Z90.89 - Acquired absence of other organs (ICD-10) History of hysterectomy (07/14/10) ?Z90.710 - Acquired absence of both cervix and uterus (ICD-10) History of cholecystectomy (07/14/10) ?Z90.49 - Acquired absence of other specified parts of digestive tract (ICD-10) Social History Narrative: Lives with Chandu (he would share MDM duties with niece Catarina, if needed) in [place]. Former smoker, currently vapes. Social ETOH. Requests DNR/DNI status. What is your current living situation?: I presently have a place to live Problems where you live: no known problems Problems where you live details: n/a In the past 12 months, utilities in danger of being shut off: no In past 12 months, lack of transportation kept you from medical appts, meetings, work, or getting things needed for daily living: no In the past 12 mos, have been you worried that your food would run out before you had money to buy more?: never true In the past 12 mos, the food you bought just didn't last and you didn't have money to buy more?: never true Highest level of school completed/degree received: Associate degree: occupational, technical, vocational program Smoking Status: Former smoker Do you use any of these nicotine containing products: Vaping Products Second hand tobacco smoke exposure: No How often do you have a drink containing alcohol: never How often do you have six or more drinks on one occasion: Never AUDIT-C Alcohol total score: 0 Non-prescribed substance use: marijuana (any form) How often does anyone, including family, friends and others, physically hurt you: never How often does anyone, including family, friends and others, insult or talk down to you: never How often does anyone, including family, friends and others, threaten you with harm: never How often does anyone, including family, friends and others, scream or curse at you: never Little interest or pleasure in doing things: not at all Feeling down, depressed, or hopeless: not at all service: No Exam Narrative: Exam Narrative: Constitutional: Appears well-developed and well-nourished. Initially seems drowsy and relies on her sister and to provide her history. However when I talk to her directly she is for tracking her conversation and does answer questions and follow commands appropriately. HENT: Head: Atraumatic. Nose: Nose normal. Mouth/Throat: Oral mucosa is clear and moist. no trismus. Eyes: Conjunctivae normal. EOM normal. Pupils equal, round, and reactive to light. No scleral icterus. Neck: Normal range of motion. Neck supple. No tracheal deviation present. Cardiovascular: Normal rate, regular rhythm. No gallop. No friction rub. No murmur heard. Symmetric radial artery pulses Pulmonary/Chest: Effort normal. No stridor. No respiratory distress. No wheezes. No rales. No rhonchi . No tenderness. Abdominal: Soft. Bowel sounds normal. No distension. No mass. Diffuse tenderness. No rebound. No guarding. Healed laparoscopic cholecystectomy incisions look good. Bilateral CVA tenderness. Musculoskeletal: RUE: Normal range of motion. No tenderness. No deformity LUE: Normal range of motion. No tenderness. No deformity RLE: Normal range of motion. No edema. No tenderness. No deformity LLE: Normal range of motion. No edema. No tenderness. No deformity Neurological: oriented to person, place, and time. Normal strength. CN II-VII intact. No sensory deficit. GCS eye subscore is 4. GCS verbal subscore is 5. GCS motor subscore is 6. Normal coordination Skin: Skin is warm and dry. No rash noted. No pallor. Normal capillary refill. Psychiatric: Normal mood. Flat affect. Somewhat limited. Unclear if she could be over sedated from too much pain med at home, if she is behaving this way as a means of seeking opiate pain meds, or if there is some or other factor contributing to her seeming drowsiness. and sister both seem appropriately worried about her pain and unconcerned about her drowsy see me behavior. Const: Vital Signs, click to edit/add: Vital Signs - 24 hr 11/30/23 18:37 11/30/23 19:36 11/30/23 19:45 Temperature Pulse Rate 81 84 Pulse Rate [Right Pulse Oximeter] 85 Respiratory Rate 18 Blood Pressure Blood Pressure [Ri ght Upper Arm] 155/68 H Pulse Oximetry 98 96 98 Oxygen Delivery Me thod Room Air 11/30/23 19:59 11/30/23 20:00 11/30/23 20:18 Temperature Pulse Rate 93 92 91 Pulse Rate [Right Pulse Oximeter] Respiratory Rate Blood Pressure 168/76 H Blood Pressure [Ri ght Upper Arm] Pulse Oximetry 97 98 98 Oxygen Delivery Me thod 11/30/23 20:30 11/30/23 20:48 11/30/23 21:08 Temperature Pulse Rate 97 84 96 Pulse Rate [Right Pulse Oximeter] Respiratory Rate Blood Pressure Blood Pressure [Ri ght Upper Arm] Pulse Oximetry 98 98 97 Oxygen Delivery Me thod 11/30/23 21:15 11/30/23 21:23 11/30/23 21:24 Temperature 98.4 F Pulse Rate 94 93 Pulse Rate [Right Pulse Oximeter] Respiratory Rate 16 Blood Pressure 165/71 H Blood Pressure [Ri ght Upper Arm] Pulse Oximetry 97 96 Oxygen Delivery Me thod 11/30/23 21:30 Temperature Pulse Rate 92 Pulse Rate [Right Pulse Oximeter] Respiratory Rate Blood Pressure Blood Pressure [Ri ght Upper Arm] Pulse Oximetry 95 Oxygen Delivery Me thod Course Vital Signs Vital signs: Initial Vital Signs Pulse Rate 85 11/30/23 18:37 Pulse Rhythm Regular 11/30/23 18:37 Respiratory Rate 18 11/30/23 18:37 Blood Pressure 155/68 H 11/30/23 18:37 Blood Pressure Mean 97 11/30/23 18:37 Blood Pressure Position Right Lateral 11/30/23 18:37 Pulse Oximetry 98 11/30/23 18:37 Oxygen Delivery Method Room Air 11/30/23 18:37 Vital Signs Pulse Rate 85 11/30/23 18:37 Respiratory Rate 18 11/30/23 18:37 Blood Pressure 155/68 H 11/30/23 18:37 Pulse Oximetry 98 11/30/23 18:37 Oxygen Delivery Method Room Air 11/30/23 18:37 Temperature 98.4 F 11/30/23 21:23 Pulse Rate 92 11/30/23 21:30 Respiratory Rate 16 11/30/23 21:23 Blood Pressure 165/71 H 11/30/23 21:24 Pulse Oximetry 95 11/30/23 21:30 Oxygen Delivery Method Room Air 11/30/23 18:37 Medications Administered Medications: Generic Name Dose Route Start Last Admin Trade Name Awa PRN Reason Stop Dose Admin Hydromorphone HCl 0.5 mg 11/30/23 19:03 11/30/23 19:29 Hydromorphone 0.5 Mg/0.5 Ml Inj IVP 0.5 mg Q1H PRN Administration Pain Discontinued Medications Generic Name Dose Route Start Last Admin Trade Name Awa PRN Reason Stop Dose Admin Hydromorphone HCl 0.5 mg 11/30/23 20:57 11/30/23 21:08 Hydromorphone 0.5 Mg/0.5 Ml Inj IVP 11/30/23 20:58 0.5 mg ONCE ONE Administration Ceftriaxone Sodium 1 gm/ 100 mls @ 200 mls/hr 11/30/23 22:42 12/01/23 00:14 Sodium Chloride IVPB 11/30/23 22:43 200 mls/hr ONCE ONE Administration Ketorolac Tromethamine 15 mg 11/30/23 20:57 11/30/23 21:09 Ketorolac 15 Mg/Ml Inj IVP 11/30/23 20:58 15 mg ONCE ONE Administration Lactated Ringer's 1,000 ml 11/30/23 19:03 11/30/23 19:29 Lactated Ringers 1000 Ml IV 11/30/23 19:04 1,000 ml ONCE ONE Administration Ondansetron HCl 4 mg 11/30/23 19:03 11/30/23 19:29 Ondansetron 2 Mg/Ml Inj IVP 11/30/23 19:04 4 mg ONCE ONE Administration MDM - Abdominal Pain MDM Narrative Medical decision making narrative: 53-year-old female with a known history of fairly bad premature peripheral artery disease. She apparently has previous stents in her legs and also arterial disease elsewhere in her body. 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 She has been having intermittent abdominal pain, typically triggered by food, for months. Pain is been getting progressively more severe, more prolonged, and more persistent for the past couple of weeks. She now has severe unrelenting pain and is not able to take any of her medications or anything by mouth. She has already been referred to [facility] and has an appointment to see them on Tuesday. She has had several visits to the ER lately for this pain that is been getting worse. She came back to the ER today saying the pain is now intolerable and that she cannot go home. Differential is broad. Consider behavioral problems or be med seeking. Also concern here is for possible worsening ischemia to her bowels or possible interval development of mesenteric ischemia, gangrene, obstruction, or other cause for her severe abdominal pain. Laboratory workup does show leukocytosis of white count of 18.5. Over the past month white count has ranged from 10 up to 18. It was 15 on 11/16. Unclear if this is really a new significant change or if this is her baseline. Platelet count 440. Hemoglobin mildly anemic at 10.3. CRP elevated at 8.9. It was normal at 0.7 on 11/16. Venous lactic normal at 1.0 today. Labs show a sodium of 127, potassium 3.2. LFTs normal. Lipase normal. CT scan abdomen pelvis is largely unchanged. It does show possible new mild colitis affecting the cecum. 2243- [facility], Dr Azar called back. Currently no beds available at [facility] for this patient. The transfer center will call us back if a bed opens up overnight ( felt to be unlikely). Vascular surgery reviewed her imaging and feels there is no need for emergent surgical intervention. Vascular surgery Recommends if she needs to have pain control that she stay in the ER for IV pain meds and continue on IV fluids to avoid dehydration (because that can worsen her flow to her intestines). Also wants us to start on IV antibiotics to prevent translocation of bowel mariana. (I have ordered 1 g Rocephin IV, Flagyl 500 mg q.8 hours). Anticipate that she will likely get a bed at [facility] before she is due for another dose of Rocephin 24 hours from now. He is comfortable having her admitted to the vascular surgery floor for IV hydration, IV pain management in anticipation of further workup for eventual possible R or IR treatment of her mesenteric ischemia. However he is only covering the vascular surgery service until 7:00 a.m. tomorrow morning. Therefore, if no bed is assigned overnight, we are expected to call back through the [facility] transfer line after 7:00 a.m. tomorrow to discuss the case again with the daytime vascular surgeon. The [facility] transfer center anticipates that there will likely not be an open bed overnight. However it is the radically possible. Transfer center anticipates a bed would more likely be available at [facility] tomorrow. Another option for temporizing this patient would be to transfer her to the ER at [facility]. She is adamantly refusing that. She will only transfer to [facility] if she can be a direct admit. She prefers to stay here in the ER [place] even though there is a significant chance of worsening of her condition which may require significant bowel resection and or result in life-threatening infection. I have updated nurse's staff about her current delay in getting her to definitive care [facility]. Discussed with my partner, and with the overnight hospitalist Dr. Díaz, who will accept. Lab Data Labs: Lab Results 11/30/23 Range/Units 19:34 WBC 18.59 H (4.50-11.00) K/uL RBC 4.10 (4.00-5.20) m/uL Hgb 10.3 L (12.0-16.0) gm/dL Hct 32.3 L (33.0-51.0) % MCV 79 L (80-100) fL MCH 25 L (26-34) pg MCHC 32 (32-36) gm/dL RDW Coeff of Cara 17.9 H (11.5-15.5) % Plt Count 440 (140-440) K/uL Neut % (Auto) 83.8 H (42.0-72.0) % Lymph % (Auto) 7.5 L (20-44) % Morrison % (Auto) 8.3 (0.0-11.0) % Eos % (Auto) 0.1 (0.0-7.0) % Baso % (Auto) 0.1 (0.0-3.0) % Neut # (Auto) 15.60 H (1.7-7.0) K/uL Lymph # (Auto) 1.40 (0.90-2.90) K/uL Morrison # (Auto) 1.50 H (0.00-0.90) K/UL Eos # (Auto) 0.00 (0.00-0.50) K/uL Baso # (Auto) 0.00 (0.00-0.30) K/uL Abs Immat Gran (auto) 0.00 (0.00-0.30) K/uL Imm/Tot Granulo (auto) 0.2 % Sodium 127 L (135-149) mmol/L Potassium 3.2 L (3.6-5.1) mmol/L Chloride 91 L (96-114) mmol/L Carbon Dioxide 26 (20-32) mmol/L Anion Gap 10 (7-15) mEq/L BUN 16 (7-30) mg/dL Creatinine 0.8 (0.5-1.5) mg/dL Estimated Creat Clear 71.50 Estimated GFR 87 ml/min Glucose 132 H (60-115) mg/dL Lactate 1.0 (0.5-1.9) mmol/L Calcium 8.7 (8.4-10.6) mg/dL Total Bilirubin 0.7 (0.1-1.5) mg/dL AST 27 (12-35) U/L ALT 21 (4-35) U/L Alkaline Phosphatase 79 (40-150) U/L C-Reactive Protein 8.9 H (0.5-1.0) mg/dL Total Protein 7.0 (6.0-8.3) g/dL Albumin 4.1 (3.3-5.0) g/dL Lipase 24 (23-300) U/L Imaging Data CT scan - abdomen: Attestation: I have reviewed the pertinent imaging results. Radiologist's impression: IMPRESSION: 1. air fluid levels in the large bowel indicative of diarrheal illness. Mild thickening in the cecum may be a sign of colitis. 2. Redemonstrated narrowing at the origins of the Celiac, SMA and JINA. This can be further evaluated with CT angiogram as clinically indicated. 3. Status post cholecystectomy and hysterectomy. Discharge Plan Discharge Clinical Impression: Mesenteric ischemia, chronic, Colitis, Intractable abdominal pain Condition: Guarded Prescriptions: No Action multivitamin Tablet 1 tab PO QAM magnesium oxide 500 mg magnesium tablet 1,000 mg PO QDAY Metamucil Fiber Singles 3.4 gram powder in packet 1 packet PO DAILY simvastatin 10 mg tablet 10 mg PO HS metformin 1,000 mg tablet 1,000 mg PO BIDWM metronidazole 500 mg tablet 500 mg PO TID Qty: 30 0RF fluoxetine 10 mg tablet 10 mg PO QAM Qty: 90 2RF lisinopril 40 mg tablet 40 mg PO DAILY Qty: 90 0RF omeprazole 40 mg capsule,delayed release(DR/EC) 40 mg PO DAILY Qty: 90 0RF glipizide 5 mg tablet 5 mg PO QAM Qty: 90 0RF hydrochlorothiazide 25 mg tablet 25 mg PO DAILY Qty: 90 0RF Hold Instructions: Resume on 11/21/23. May resume if approved by your primary care physician. amlodipine 5 mg tablet 5 mg PO DAILY Qty: 90 0RF Follow Up/Referrals: Lexii Walsh MD [Primary Care Provider] -
--- NOTE | 2023-11-30 19:04 | CRLHL7_ITS ---
For Patients: As a result of the Century Cures Act, medical imaging exams and procedure reports are released immediately into your electronic medical record. You may view this report before your referring provider. If you have questions, please contact your health care provider. INDICATION: abd pain, vomiting, known occlusion of SMA, JINA, part celiac. TECHNIQUE: CT abdomen and pelvis acquired with 108 cc Isovue 370 IV contrast. COMPARISON: None. FINDINGS: Lower chest: Unremarkable. Liver: Unremarkable. Normal in size and attenuation. No suspicious masses. Gallbladder and bile ducts: Gallbladder is absent. No significant intra or extrahepatic biliary ductal dilatation. Pancreas: Unremarkable. No mass or inflammation. Spleen: Unremarkable. Normal in size. No masses. Adrenal glands: Unremarkable. No nodules. Kidneys: Unremarkable. No suspicious masses, stones, or hydronephrosis. GI tract: Air-fluid levels in the large bowel can be seen in the setting of diarrheal illness. Minimal wall thickening in the cecum. Appendix is within normal limits. No bowel obstruction. Vasculature: Abdominal aorta is normal in caliber. Redemonstrated narrowing at the origin of the celiac axis, SMA and JINA, related to dense calcifications.. This could be further evaluated with CT angiogram as clinically indicated. Lymph nodes: No lymphadenopathy. Peritoneum/Abdominal Wall: Unremarkable. No sign of mass or infiltration. No free air or significant free fluid. Pelvis: Status post hysterectomy. Small contrast within the bladder. Bladder is incompletely distended. Bones: Unremarkable for age. IMPRESSION: 1. air fluid levels in the large bowel indicative of diarrheal illness. Mild thickening in the cecum may be a sign of colitis. 2. Redemonstrated narrowing at the origins of the Celiac, SMA and JINA. This can be further evaluated with CT angiogram as clinically indicated. 3. Status post cholecystectomy and hysterectomy. Please note that all CT scans at this facility use dose modulation, iterative reconstruction, and/or weight-based dosing when appropriate to reduce radiation dose to as low as reasonably achievable. Dictated by Wesley Miller MD @ 11/30/2023 8:58:27 PM (Electronically Signed)
[2023-11-30] MEDS: LACTATED RINGERS 1000 ML IV (19:29)
[2023-11-30] MEDS: HYDROmorphone 0.5 mg/0.5 ml inj IVP ×2 (19:29→21:08)
[2023-11-30] MEDS: ONDANSETRON 2 MG/ML inj 4 MG IVP (19:29)
[2023-11-30 19:40] LABS: Basophils Percent Auto 0.1 % (0.0-3.0); Eosinophils Percent Auto 0.1 % (0.0-7.0); Hematocrit 32.3 % (33.0-51.0); Hemoglobin* 10.3 gm/dL (12.0-16.0); Immature Granulocytes Pct Auto 0.2 %; Lymphocytes Percent Auto 7.5 % (20-44); Mean Corpuscular HGB Conc 32 gm/dL (32-36); Mean Corpuscular Hemoglobin 25 pg (26-34); Mean Corpuscular Volume 79 fL (80-100); Monocytes Percent Auto 8.3 % (0.0-11.0); Neutrophils Percent Auto 83.8 % (42.0-72.0); Platelet Count* 440 K/uL (140-440); RDW Coefficient of Variation % 17.9 % (11.5-15.5); White Blood Count* 18.59 K/uL (4.50-11.00)
[2023-11-30 19:55] LABS: Slide Review Reflex No
[2023-11-30 19:58] LABS: Chloride* 91 mmol/L (96-114); Sodium* 127 mmol/L (135-149)
[2023-11-30 19:59] LABS: Albumin* 4.1 g/dL (3.3-5.0); Potassium* 3.2 mmol/L (3.6-5.1)
[2023-11-30 20:02] LABS: Alanine Aminotransferase* 21 U/L (4-35); Alkaline Phosphatase* 79 U/L (40-150); Anion Gap 10 mEq/L (7-15); Aspartate Amino Transferase* 27 U/L (12-35); Bilirubin Total* 0.7 mg/dL (0.1-1.5); Blood Urea Nitrogen* 16 mg/dL (7-30); Calcium* 8.7 mg/dL (8.4-10.6); Carbon Dioxide* 26 mmol/L (20-32); Creatinine* 0.8 mg/dL (0.5-1.5); Estimated Glomerular Filt Rate 87 ml/min; Glucose* 132 mg/dL (60-115); Lipase* 24 U/L (23-300)
[2023-11-30 20:05] LABS: C Reactive Protein* 8.9 mg/dL (0.5-1.0)
[2023-11-30] MEDS: KETOROLAC 15 MG/ML inj IVP (21:09)
[2023-12-01] VITALS (7 sets, daily range): BP systolic 132–177; BP diastolic 60–78; PULSE 67–86; RESP 16–20; TEMP 36.6–37.1; O2SAT 95–97; BMI 37.2
[2023-12-01] MEDS: cefTRIAXone 1 GM in 0.9 % SODIUM CHLORIDE Mini-bag 100 ML IVPB (00:14)
[2023-12-01] MEDS: HYDROmorphone 0.5 mg/0.5 ml inj IVP ×4 (00:54→12:35)
[2023-12-01] MEDS: LACTATED RINGERS 1000 ML 1,000 ML 125 ML IV ×3 (00:56→21:37)
[2023-12-01] MEDS: metroNIDAZOLE 500 MG/100 ML PIGGYBACK 100 MG IVPB ×3 (00:56→17:46)
--- NOTE | 2023-12-01 03:51 | W.PM.THH&P_ITS ---
Telehealth- H&P: HPI History of Present Illness Date Seen: 12/01/23 Chief complaint: Abdominal pain Narrative: Salina Esqueda is seen as an Interactive Telehealth visit. Salina Esqueda is a 53 year old male who is 53-year-old female with a past medical history significant for morbid obesity chronic abdominal pain, tobacco abuse disorder, atherosclerosis of the mesenteric vessels which is apparently led to chronic mesenteric ischemia. Patient presents to the ER with intractable pain. This is the fourth time she has come to the emergency room in the past few days. She was just released from the ER at [facility]. When she came to the ER, she was complaining of intractable pain and appeared to be in significant distress. The ER physician assessed and examined the patient and noted that she was in significant distress. He ordered a CT scan of her abdomen. This was the third CT she glad and as many weeks. CT scan showed a near occlusive superior mesenteric vessels. This has not changed. But it did show newly diagnosed mild colitis affecting the cecum. This case was reviewed with [facility] his vascular surgeon Dr. Azar who felt that given the patient has not been taking any oral intake, multiple hospitalizations due to pain that it would be reasonable for the patient to be transferred to inpatient [facility]. However they did not have any beds. Patient was started on IV antibiotics per recommendation of the surgeon. Please note this patient has a long history of abdominal pain and low back. She was admitted in [place] in 1019 due to diverticulitis at that time. Only a few months ago, he presented to the ER with complaints of abdominal pain and was found to have severe atherosclerosis with chronic appearing near occlusion of the SMA and JINA. She has had extensive workup at [facility]. She was given prescriptions oxycodone and OxyContin from the emergency room in the [facility]. She states that all the narcotics are ineffective although Toradol does seem to have the best symptom relief for her. He does have postprandial pain. To the point where she is now afraid of eating. Interestingly she is lost 14 pounds per her note. However she is relatively obese. Review of Systems Status of ROS: Reports: 10 or more systems reviewed and unremarkable except as noted in History and below Const: Denies: fever Eyes: Denies: change in vision ENMT: Denies: throat pain GI: Reports: abdominal pain, nausea and diarrhea; Denies: vomiting : Denies: painful urination Musculo: Denies: back pain Neuro: Denies: headache PFSH PFS Medical History History of diverticulitis ?Z87.19 - Personal history of other diseases of the digestive system (ICD-10) Surgical History History of tonsillectomy and adenoidectomy (07/14/10) ?Z90.89 - Acquired absence of other organs (ICD-10) History of hysterectomy (07/14/10) ?Z90.710 - Acquired absence of both cervix and uterus (ICD-10) History of cholecystectomy (07/14/10) ?Z90.49 - Acquired absence of other specified parts of digestive tract (ICD- 10) Social History Narrative: Lives with Chandu (he would share [facility] duties with niece Catarina, if needed) in [place]. Former smoker, currently vapes. Social ETOH. Requests DNR/DNI status. What is your current living situation?: I presently have a place to live Problems where you live: no known problems Problems where you live details: n/a In the past 12 months, utilities in danger of being shut off: no In past 12 months, lack of transportation kept you from medical appts, meetings, work, or getting things needed for daily living: no In the past 12 mos, have been you worried that your food would run out before you had money to buy more?: never true In the past 12 mos, the food you bought just didn't last and you didn't have money to buy more?: never true Highest level of school completed/degree received: Associate degree: occupational, technical, vocational program Smoking Status: Former smoker Do you use any of these nicotine containing products: Vaping Products Second hand tobacco smoke exposure: No How often do you have a drink containing alcohol: monthly or less How often do you have six or more drinks on one occasion: Never AUDIT-C Alcohol total score: 1 Non-prescribed substance use: marijuana (any form) How often does anyone, including family, friends and others, physically hurt you : never How often does anyone, including family, friends and others, insult or talk down to you: never How often does anyone, including family, friends and others, threaten you with harm: never How often does anyone, including family, friends and others, scream or curse at you: never Little interest or pleasure in doing things: not at all Feeling down, depressed, or hopeless: not at all service: No Meds Home Medications and Allergies Home Medications ?Medication ?Instructions ?Recorded ?Confirmed ?Type multivitamin 1 tab PO QAM 07/13/22 11/29/23 History psyllium husk (aspartame) 3.4 gram 1 packet PO DAILY 04/28/23 11/29/23 History oral powder packet (Metamucil Fiber Singles) simvastatin 10 mg tablet 10 mg PO HS 11/05/23 11/29/23 History metformin 1,000 mg tablet 1,000 mg PO BIDWM 11/06/23 11/29/23 History magnesium oxide 1,000 mg PO QDAY 11/15/23 11/29/23 History Allergies Allergy/AdvReac Type Severity Reaction Status Date / Time erythromycin base Allergy Unknown Rash Verified 11/30/23 18:44 Penicillins Allergy Unknown Rash Verified 11/30/23 18:44 Exam Narrative Exam Narrative: Physical Exam GENERAL: ?vital signs reviewed, well developed and nourished, in no distress HEENT: pupils are equal round and reactive to light, extraocular movements are grossly within normal limits and oral mucosa is moist. NECK: Supple without lymphadenopathy or thyromegaly according to nursing staff examination observation HEART: Regular rate and rhythm without any rubs, murmurs, or gallops. LUNGS: Clear to auscultation bilaterally with good air movement throughout ABDOMEN: Observation from nurse assisted exam, abdomen appears soft, nontender, and nondistended with Positive bowel sounds noted. EXTREMITIES: Strength and sensation is observed to be grossly within normal limits in the upper and lower extremities.? No focal strength deficit is observed. SKIN:? Observed warm and dry with color normal Const Vital Signs, click to edit/add: Vital Signs - 24 hr 11/30/23 18:37 11/30/23 19:36 11/30/23 19:45 Temperature Pulse Rate 81 84 Pulse Rate [Right Pulse Oximeter] 85 Respiratory Rate 18 Blood Pressure Blood Pressure [Right Arm] Blood Pressure [Right Upper Arm] 155/68 H Pulse Oximetry 98 96 98 Oxygen Delivery Method Room Air 11/30/23 19:59 11/30/23 20:00 11/30/23 20:18 Temperature Pulse Rate 93 92 91 Pulse Rate [Right Pulse Oximeter] Respiratory Rate Blood Pressure 168/76 H Blood Pressure [Right Arm] Blood Pressure [Right Upper Arm] Pulse Oximetry 97 98 98 Oxygen Delivery Method 11/30/23 20:30 11/30/23 20:48 11/30/23 21:08 Temperature Pulse Rate 97 84 96 Pulse Rate [Right Pulse Oximeter] Respiratory Rate Blood Pressure Blood Pressure [Right Arm] Blood Pressure [Right Upper Arm] Pulse Oximetry 98 98 97 Oxygen Delivery Method 11/30/23 21:15 11/30/23 21:23 11/30/23 21:24 Temperature 98.4 F Pulse Rate 94 93 Pulse Rate [Right Pulse Oximeter] Respiratory Rate 16 Blood Pressure 165/71 H Blood Pressure [Right Arm] Blood Pressure [Right Upper Arm] Pulse Oximetry 97 96 Oxygen Delivery Method 11/30/23 21:30 12/01/23 00:50 12/01/23 02:51 Temperature Pulse Rate 92 86 Pulse Rate [Right Pulse Oximeter] Respiratory Rate 16 16 Blood Pressure 150/60 H Blood Pressure [Right Arm] Blood Pressure [Right Upper Arm] Pulse Oximetry 95 95 95 Oxygen Delivery Method Room Air Room Air 12/01/23 02:52 Temperature 98.8 F Pulse Rate Pulse Rate [Right Pulse Oximeter] 71 Respiratory Rate 16 Blood Pressure Blood Pressure [Right Arm] 141/69 H Blood Pressure [Right Upper Arm] Pulse Oximetry 96 Oxygen Delivery Method Room Air Hospitalist - H&P: Result Labs Labs: Short CBC 11/30/23 Range/Units 19:34 WBC 18.59 H (4.50-11.00) K/uL Hgb 10.3 L (12.0-16.0) gm/dL Hct 32.3 L (33.0-51.0) % Plt Count 440 (140-440) K/uL BMP 11/30/23 19:34 Sodium 127 L Potassium 3.2 L Chloride 91 L Carbon Dioxide 26 BUN 16 Creatinine 0.8 Glucose 132 H Calcium 8.7 Liver Function 11/30/23 Range/Units 19:34 Total Bilirubin 0.7 (0.1-1.5) mg/dL AST 27 (12-35) U/L ALT 21 (4-35) U/L Alkaline Phosphatase 79 (40-150) U/L Albumin 4.1 (3.3-5.0) g/dL Assessment and Plan Assessment and plan (1) Intractable abdominal pain: Status: Acute (2) Colitis: Status: Acute (3) Mesenteric ischemia, chronic: Status: Acute (4) Abdominal pain: Status: Acute (5) Iron deficiency anemia: Status: Acute (6) Hyperlipidemia: Problem comment: also know vascular disease (statin started 06/2016) Status: Acute (7) PAD (peripheral artery disease): Problem comment: - claudication symptoms with low hemoglobin, suggest possible need to further evaluate for evolving clinically significant PAD. Status: Acute (8) Type 2 diabetes mellitus: Problem comment: dxed 07/06, metformin started 09/04, glipizide started 03/08, when I saw her 09/07, I decreased the glipizide from BID to daily Status: Acute Plan This patient is admitted to the hospital due to intractable abdominal pain thought to be related to colitis. I have started the patient on a ceftriaxone and Flagyl. This should cover intra-abdominal species. Her colitis per CT exam was mild. Upon physical exam, the patient did endorse abdominal pain upon palpation. This is not consistent with mesenteric ischemia as the patient's physical exam findings for mesenteric ischemia should be pain out of proportion. Clinically the patient does not seem to have signs or symptoms of mesenteric ischemia. Rather it appears to be more related to the colitis. The real question is, whether or not the colitis was precipitated by the ischemia. This cannot be turned determined unless this patient has an angiography. I will cover with antibiotics but essentially this patient needs to be seen by [facility] vascular providers to see if she is a candidate for any sort of stenting intervention. The vascular surgeon did not suggest any sort of anticoagulation to cover. Total Time Spent Total Time Spent: 55 Telehealth: Statement Statement Telehealth Visit: Today's History and Physical is provided via interactive telehealth by Brad Bell MD.? Patient is located at [facility].? Provider is located at [email or web address] [facility]? Nursing staff assisted with the patient's exam. The visit being done today meets criteria for a telehealth visit and the patient or patient?s parent/guardian is aware the visit is a telehealth visit. Camera Start Time: 02:00 Camera End Time: 02:30
[2023-12-01] MEDS: KETOROLAC 15 MG/ML inj IVP ×3 (04:49→17:46)
[2023-12-01] MEDS: SODIUM CHLORIDE 0.9 % (FLUSH) 10 ML SYRINGE 5 ML IVF ×2 (04:50→20:49)
--- NOTE | 2023-12-01 05:06 | PC.NURSE ---
Shift note: Pt arrived at the unit at 0245 on a wheelchair accompanied a staff from ED. Conscious, alert, and oriented on arrival but complained of abdominal pain. IV Ringers lactate 1000ml was in situ. Vital signs stable. Pt was reviewed by MD Ray, through [facility]. Iv Ketorolac given for pain which was effective per pt. Ambulated independently in room.
[2023-12-01] MEDS: ONDANSETRON 2 MG/ML inj 4 MG IVP (08:13)
[2023-12-01] MEDS: HYDROmorphone 0.5 mg/0.5 ml inj 1 MG IVP ×3 (08:31→20:50)
--- NOTE | 2023-12-01 10:07 | NUTR.NU ---
Addendum entered and electronically signed by Teodora Delarosa RD 12/01/23 10:11: Correction: Patient's diet is NPO currently, not clear liquids. Original Note: RDN with MD consult for Nutritional Consult. Patient admitted for intractable abdominal pain related to colitis with history of chronic mesenteric ischemia. Patient currently on clear liquids diet. Per MD report, trying to transfer to [place] at this time. Not appropriate to visit with patient at this time due to attempting to transfer and patient on clear liquids. RDN will cancel MD consult.
--- NOTE | 2023-12-01 12:51 | W.PM.CROSSCO ---
Subjective Subjective Interval history: 2243- [facility] Dr Azar called back. Currently no beds available at [facility] for this patient. The transfer center will call us back if a bed opens up overnight. He reviewed her imaging and feels there is no need for emergent surgical intervention. Recommends if she needs to have pain control that she stay in the ER for IV pain meds and continue on IV fluids to avoid dehydration (because that can worsen her flow to her intestines). Also wants us to start on IV antibiotics. We after call back after 7:00 a.m. to consult with the daytime vascular surgeon and they anticipate a bed would likely be available at [place] tomorrow. 2243- [facility] surgery, Dr Azar called back. Currently no beds available at [facility] for this patient. The transfer center will call us back if a bed opens up overnight ( felt to be unlikely). Vascular surgery reviewed her imaging and feels there is no need for emergent surgical intervention. Vascular surgery Recommends if she needs to have pain control that she stay in the ER for IV pain meds and continue on IV fluids to avoid dehydration (because that can worsen her flow to her intestines). Also wants us to start on IV antibiotics to prevent translocation of bowel mariana. (I have ordered 1 g Rocephin IV, Flagyl 500 mg q.8 hours). Anticipate that she will likely get a bed at [place] before she is due for another dose of Rocephin 24 hours from now. He is comfortable having her admitted to the vascular surgery floor for IV hydration, IV pain management in anticipation of further workup for eventual possible R or IR treatment of her mesenteric ischemia. However he is only covering the vascular surgery service until 7:00 a.m. tomorrow morning. Therefore, if no bed is assigned overnight, we are expected to call back through the [facility] transfer line after 7:00 a.m. tomorrow to discuss the case again with the daytime vascular surgeon. The [place] transfer center anticipates that there will likely not be an open bed overnight. However it is the radically possible. Transfer center anticipates a bed would more likely be available at [place] tomorrow. 11/30: I called [facility] spoke with Vascular Surgeon. She declined transfer and states patient does not require transfer to [place] [facility] Surgery Service Patient was supposed to have appointment with vascular surgery in clinic tomorrow at 8Am. She feels better after she was made npo Patient requested discharge AMA so she can arrive to her [place] [facility] appointment in AM. Prescription antibiotics sent to her pharmacy.
--- NOTE | 2023-12-01 19:45 | PC.NURSE ---
End of shift [phone] - Pt alert, oriented, cooperative. Up independently in room, continent of bowel and bladder. Pt attempted to advance diet as tolerated and experienced episode of extreme abdominal pain and nausea with emesis. Pt diet odered to clear liquids, pt tolerating well. Pt reports abdominal pain as 5-8/10 with pain increasing with eating. Pain managed with medication per MAR. Family at bedside. Pt experienced emotional episode regarding plan of care between [facility] and [facility]. MD, RN, and pt advocate assisted with emotional support and agreed on plan of action with pt expressing satisfaction with plan. Appears to be resting comfortably at end of shift.
[2023-12-02] MEDS: KETOROLAC 15 MG/ML inj IVP ×2 (00:22→06:16)
[2023-12-02] MEDS: cefTRIAXone 2 GM in 0.9 % SODIUM CHLORIDE Mini-bag 100 ML IVPB (00:26)
[2023-12-02] MEDS: metroNIDAZOLE 500 MG/100 ML PIGGYBACK 100 MG IVPB (02:10)
[2023-12-02] MEDS: HYDROmorphone 0.5 mg/0.5 ml inj 1 MG IVP ×3 (02:15→06:17)
[2023-12-02 03:00] VITALS: BP 138/75; PULSE 67; RESP 18; TEMP 36.5; O2SAT 97
[2023-12-02 06:48] LABS: Basophils Percent Auto 0.3 % (0.0-3.0); Eosinophils Percent Auto 2.5 % (0.0-7.0); Hematocrit 28.9 % (33.0-51.0); Immature Granulocytes Pct Auto 0.2 %; Lymphocytes Percent Auto 23.7 % (20-44); Mean Corpuscular HGB Conc 31 gm/dL (32-36); Mean Corpuscular Hemoglobin 25 pg (26-34); Mean Corpuscular Volume 81 fL (80-100); Monocytes Percent Auto 6.1 % (0.0-11.0); Neutrophils Percent Auto 67.2 % (42.0-72.0); Platelet Count* 452 K/uL (140-440); RDW Coefficient of Variation % 18.3 % (11.5-15.5); Red Blood Count 3.56 m/uL (4.00-5.20); White Blood Count* 14.28 K/uL (4.50-11.00)
[2023-12-02 07:10] LABS: Slide Review Reflex No
[2023-12-02 07:12] LABS: Chloride* 94 mmol/L (96-114); Potassium* 3.4 mmol/L (3.6-5.1); Sodium* 130 mmol/L (135-149)
[2023-12-02 07:15] LABS: Anion Gap 8 mEq/L (7-15); Blood Urea Nitrogen* 10 mg/dL (7-30); Calcium* 8.6 mg/dL (8.4-10.6); Carbon Dioxide* 28 mmol/L (20-32); Creatinine* 0.6 mg/dL (0.5-1.5); Est. Creatinine Clearance* 95.33; Estimated Glomerular Filt Rate 106 ml/min; Glucose* 84 mg/dL (60-115)
--- NOTE | 2023-12-02 08:25 | PC.NURSE ---
Patient discharged this morning. Patient pleasant, alert and oriented. Ambulated independently in room. remaied at bedside during night. No food eaten. Drank excellent. Given PRN Ketorolac and Dilaudid for abdominal pain rated 7/10. ?
--- NOTE | 2023-12-02 10:15 | PM.DS1 ---
DS: Providers Provider Date Seen: 12/01/23 Date of admission: 12/01/23 11:59 Primary care physician: Lexii Walsh MD Admitting Clinician: Trevor Mota MD Attending Physician on discharge: Delvin Haines MD Date of Discharge: 12/02/23 DS: Diagnosis Discharge Diagnosis (1) Intractable abdominal pain: Status: Acute (2) Colitis: Status: Acute (3) Mesenteric ischemia, chronic: Status: Acute (4) PAD (peripheral artery disease): Status: Acute Problem details: - claudication symptoms with low hemoglobin, suggest possible need to further evaluate for evolving clinically significant PAD. (5) Non-ulcer dyspepsia: Status: Acute Problem details: on PPI, s/p EGD, CT a/p and gastric emptying scan without cause seen Fall 2020, seen virtually by Dr. 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 (6) Type 2 diabetes mellitus: Status: Acute Problem details: dxed 07/06, metformin started 09/04, glipizide started 03/08, when I saw her 09/07, I decreased the glipizide from BID to daily (7) Essential hypertension: Status: Acute Problem details: on medication (8) Adjustment disorder: Status: Acute Problem details: fluoxetine started 07/12 (9) Obesity with body mass index 30 or greater: Status: Acute DS: Summary Hospital Course Hospital Course: Telehealth- H&P: HPI History of Present Illness Date Seen: 12/01/23 Chief complaint: Abdominal pain Narrative: Salina Esqueda is seen as an Interactive Telehealth visit. Salina Esqueda is a 53 year old male who is 53-year-old female with a past medical history significant for morbid obesity chronic abdominal pain, tobacco abuse disorder, atherosclerosis of the mesenteric vessels which is apparently led to chronic mesenteric ischemia. Patient presents to the ER with intractable pain. This is the fourth time she has come to the emergency room in the past few days. She was just released from the ER at [facility]. When she came to the ER, she was complaining of intractable pain and appeared to be in significant distress. The ER physician assessed and examined the patient and noted that she was in significant distress. He ordered a CT scan of her abdomen. This was the third CT she glad and as many weeks. CT scan showed a near occlusive superior mesenteric vessels. This has not changed. But it did show newly diagnosed mild colitis affecting the cecum. This case was reviewed with [facility] his vascular surgeon Dr. Azar who felt that given the patient has not been taking any oral intake, multiple hospitalizations due to pain that it would be reasonable for the patient to be transferred to inpatient [facility]. However they did not have any beds. Patient was started on IV antibiotics per recommendation of the surgeon. Please note this patient has a long history of abdominal pain and low back. She was admitted in [place] in 1019 due to diverticulitis at that time. Only a few months ago, he presented to the ER with complaints of abdominal pain and was found to have severe atherosclerosis with chronic appearing near occlusion of the SMA and JINA. She has had extensive workup at [facility]. She was given prescriptions oxycodone and OxyContin from the emergency room in the [facility]. She states that all the narcotics are ineffective although Toradol does seem to have the best symptom relief for her. He does have postprandial pain. To the point where she is now afraid of eating. Interestingly she is lost 14 pounds per her note. However she is relatively obese. HOSPITAL SUMMARY The patient was treated with IVF, antimetics, pain control and antibiotic therapy for possible underlying colitis per vascular surgery recommendations. She left AMA on morning of 12/01 she wanted to go to Vascular Surgery appointment at [facility]. Oral antibiotics were ordered. She was encouraged the day prior that if she left AMA to schedule follow up for first available appointment with Primary Care. She is high risk for readmission. Time Spent with Patient Time attestation: Total time spent providing and/or coordinating discharge services: Exam Narrative: Exam Narrative: Patient left AMA on morning of 12/01 before 7am and left before being seen Const: Vital Signs, click to edit/add: Vital Signs - 24 hr 12/01/23 11:00 12/01/23 19:00 12/01/23 23:00 Temperature 97.8 F 97.9 F Pulse Rate [Right Pulse Oximeter] 69 73 67 Respiratory Rate 20 18 18 Blood Pressure [Ri ght Arm] 168/70 H 137/63 132/61 Pulse Oximetry 97 97 96 Oxygen Delivery Me thod Room Air Room Air Room Air 12/02/23 03:00 Temperature 97.7 F Pulse Rate [Right Pulse Oximeter] 67 Respiratory Rate 18 Blood Pressure [Ri ght Arm] 138/75 Pulse Oximetry 97 Oxygen Delivery Me thod Room Air DS: Data Data Completed and Pending Completed studies during hospitalization: Procedures Excision of Stomach, Via Natural or Artificial Opening Endoscopic, Diagnostic (11/05/23) Transfusion of Nonautologous Red Blood Cells into Peripheral Vein, Percutaneous Approach (11/05/23) Labs on day of discharge: Labs from last 24 hours 12/02/23 05:52 WBC 14.28 H RBC 3.56 L Hgb 9.0 L Hct 28.9 L MCV 81 MCH 25 L MCHC 31 L RDW Coeff of Cara 18.3 H Plt Count 452 H Neut % (Auto) 67.2 Lymph % (Auto) 23.7 [place] % (Auto) 6.1 Eos % (Auto) 2.5 Baso % (Auto) 0.3 Neut # (Auto) 9.60 H Lymph # (Auto) 3.40 H [place] # (Auto) 0.90 Eos # (Auto) 0.40 Baso # (Auto) 0.00 Abs Immat Gran (auto) 0.00 Imm/Tot Granulo (auto) 0.2 Sodium 130 L Potassium 3.4 L Chloride 94 L Carbon Dioxide 28 Anion Gap 8 BUN 10 Creatinine 0.6 Estimated Creat Clear 95.33 Estimated GFR 106 Glucose 84 Calcium 8.6 Discharge Plan Discharge Disposition: Left Against Medical Advice Date of Admission: 12/01/23 11:59 Primary Care Provider: Lexii Walsh Condition: Guarded Discharge Medications: New ciprofloxacin HCl [Cipro] 500 mg tablet 500 mg PO BID Qty: 10 0RF metronidazole 500 mg tablet 500 mg PO Q8H Qty: 15 0RF Continued multivitamin Tablet 1 tab PO QAM magnesium oxide 500 mg magnesium tablet 1,000 mg PO QDAY Metamucil Fiber Singles 3.4 gram powder in packet 1 packet PO DAILY simvastatin 10 mg tablet 10 mg PO HS metformin 1,000 mg tablet 1,000 mg PO BIDWM clopidogrel 75 mg tablet 75 mg PO DAILY fluoxetine 10 mg tablet 10 mg PO QAM Qty: 90 2RF lisinopril 40 mg tablet 40 mg PO DAILY Qty: 90 0RF omeprazole 40 mg capsule,delayed release(DR/EC) 40 mg PO DAILY Qty: 90 0RF glipizide 5 mg tablet 5 mg PO QAM Qty: 90 0RF hydrochlorothiazide 25 mg tablet 25 mg PO DAILY Qty: 90 0RF Hold Instructions: Resume on 11/21/23. May resume if approved by your primary care physician. amlodipine 5 mg tablet 5 mg PO DAILY Qty: 90 0RF Discharge Orders: Discharge Order (Routine); Ordered 12/03/23 Ordered By: Delvin Haines AMA Form Signed: Yes
== END 2023-12-02 06:45 | disposition left against medical advice (07) | DRG 391 ==
LOC: ED 23:07 → MEDSURG 12-01 02:25
PROVIDERS: Admitting Provider Hospitalist; Emergency Provider Emergency Medicine; PCP Internal Medicine; Visit Provider Emergency Medicine
DX: K52.9 Noninfective gastroenteritis and colitis, unspecified (principal); K55.059 Acute (reversible) ischemia of intestine, part and extent unspecified; K55.1 Chronic vascular disorders of intestine; R10.9 Unspecified abdominal pain; E11.51 Type 2 diabetes mellitus with diabetic peripheral angiopathy without gangrene; D50.9 Iron deficiency anemia, unspecified; E66.01 Morbid (severe) obesity due to excess calories; Z68.38 Body mass index [BMI] 38.0-38.9, adult; I73.9 Peripheral vascular disease, unspecified; Z79.84 Long term (current) use of oral hypoglycemic drugs; K30 Functional dyspepsia; I10 Essential (primary) hypertension; F43.20 Adjustment disorder, unspecified; E78.5 Hyperlipidemia, unspecified
CPT/HCPCS: 36415; 74177; 80048; 80053; 83605; 83690; 85025; 86140; 93005; 99284; 99285; G0378; J0696; J1170; J1836; J1885; J2405; J7120; Q9967

== ENCOUNTER 2023-12-26 15:24 | Outpatient (CLI) | payer OTHER, SELFPAY ==
--- OUTSIDE RECORDS SUMMARY | 2023-12-26 15:27 | XMS_ITS | Clinical Summary ---
Author Organization [facility] Address [address] [place] [address] Care Team Providers Care Laboratory Apparatus Glass Blower Name Role Phone Elsewhere, Pcp Primary Care Provider Unavailabl e Source Comments Patient records contain information from all sites at [facility]. For routine questions regarding patient records, call [phone] during business hours, M-F 8:00 AM - 5:00 PM Central Time. Record requests for emergency care only can be directed to [phone] at any time.[facility] Allergies Active Allergy Reactions Criticality Noted Date Comments Erythromycin Rash 04/04/2012 Nut - Unspecified Itching 04/04/2012 Penicillins Rash 04/04/2012 Medications Medication Sig Dispensed Refills Start Date End Date Status amLODIPine (NORVASC) 5 mg tablet Take 5 mg by mouth daily. 09/26/2023 Active glipiZIDE (GLUCOTROL) 5 mg tablet Take 5 mg by mouth every morning before breakfast. 09/26/2023 Active lisinopriL (PRINIVIL,ZESTR IL) 40 mg tablet Take 1 tablet by mouth daily. 04/04/2012 Active metFORMIN (GLUCOPHAGE) 1,000 mg tablet Take 1,000 mg by mouth 2 (two) times a day with meals. 09/26/2023 Active simvastatin (ZOCOR) 10 mg tablet Take 10 mg by mouth daily. 09/26/2023 Active omeprazole (PriLOSEC) [address] capsule Take 40 mg by mouth every morning before breakfast. 09/26/2023 Active FLUoxetine (PROzac) 10 mg tablet Take 10 mg by mouth daily. Active hydroCHLOROthia zide (HYDRODIURIL) 25 mg tablet Take 1 tablet by mouth daily. 04/04/2012 Active multivitamin tablet Take 1 tablet by mouth daily. Active clopidogreL (Plavix) 75 mg tablet Take 75 mg by mouth daily. Active ferrous sulfate 325 mg (65 mg iron) tablet Take 325 mg by mouth daily. Active magnesium gluconate (Magonate) 27 mg (500 mg) tablet Take 500 mg by mouth 2 (two) times a day with meals. Active acetaminophen (TylenoL) 500 mg tablet Take 2 tablets (1,000 mg total) by mouth every 6 (six) hours as needed for pain. 12/16/[address] tablet Take 1 tablet (81 mg total) by mouth daily. 12/17/2023 Active sennosides-docu sate sodium (Senokot-S) 8.6-50 mg per tablet Take 1 tablet by mouth 2 (two) times a day as needed for constipation. 12/16/2023 Active pantoprazole (Protonix) 40 mg EC tablet Take 1 tablet (40 mg total) by mouth every morning before breakfast. Follow up with PCP for evaluation and refill. 30 tablet 12/16/2023 Active HYDROmorphone (Dilaudid) 2 mg tabletIndicatio ns:Acute Pain Exception Take 1 tablet (2 mg total) by mouth every 4 (four) hours as needed for pain Indication: Acute Pain Exception. 10 tablet 12/16/2023 Active magnesium oxide (MAG-OX) 250 mg of magnesium tablet Take 1,000 mg by mouth daily. 4 Discontinued(Err or) oxyCODONE (ROXICODONE) 5 mg immediate release tabletIndicatio ns:Acute Pain Take 1 tablet (5 mg total) by mouth every 6 (six) hours as needed for pain for up to 3 days Indication: Acute Pain. 8 tablet 11/29/2023 4 HYDROmorphone (Dilaudid) 2 mg tablet Take 2 mg by mouth every 4 (four) hours as needed for pain. 12/06/2023 4 Discontinued ketorolac (ToradoL) 10 mg tablet Take 10 mg by mouth every 6 (six) hours as needed for pain. 4 Discontinued(Sto p Taking at Discharge) Active Problems Problem Noted Date Diagnosed Date Obesity Body Mass Index 30-39.9 Adult 12/15/2023 Ischemia Mesenteric 11/28/2023 Hemorrhage Gastrointestinal Diverticulitis Colon Diabetes Mellitus Type 2 Hyperlipidemia Hypertension NOS Encounters Date Type Department Care Team Description 12/21/2023 9:30 AM CDT Virtual Visit Division of Vascular and Endovascular Surgery in [place], [place] [address] [place] [phone] Karol Lozano APRN, C.N.P. Sarah Ulrich APRN, C.N.PGarret, D.N.P. Follow Up Postprocedural (Primary Dx) 12/16/2023 Orders Only Division of Vascular and Endovascular Surgery in [address] [phone] Karol Lozano APRN, C.N.P. 12/16/2023 Clinical Communication Division of Vascular and Endovascular Surgery in [place], [place] [address] [place] [address] Karol Lozano APRN, C.N.P. Follow-up 12/15/2023 1:05 PM CDT Anesthesia Event [facility] [address] [place] [phone] Anabella Quinones M.D. Kanaparthi, Anuradha, M.D. 12/15/2023 12:47 PM CDT - 12/15/2023 6:13 PM CDT Surgery [facility] [address] [place] [phone] Mc Fabian M.D. Celiac artery covered stent placement (6x19 & 6x15 mm VBX) via ultrasound-guided right common femoral artery access 12/15/2023 10:10 AM CDT - 12/16/2023 12:59 PM CDT Hospital Encounter [facility], [facility], Eighth Floor [address] [place] [phone] Mc Fabian M.D. Ischemia Mesenteric (HCC) Discharge Disposition: Home or Self Care 12/13/2023 10:13 AM CDT - 12/13/2023 11:59 PM CDT Hospital Encounter Department of Laboratory Medicine and Pathology, [address] [phone] Chuy Gallo M.B., B.Ch. Ischemia Mesenteric (HCC); Other Elevated White Blood Cell Count; Other Hyperlipidemia Discharge Disposition: Home or Self Care 12/13/2023 8:00 AM CDT Office Visit Department of Vascular Medicine in [address] [phone] Chuy Gallo M.B., B.Ch. Other Elevated White Blood Cell Count (Primary Dx); Ischemia Mesenteric (HCC); Other Hyperlipidemia 12/12/2023 2:45 PM CDT - 12/12/2023 11:59 PM CDT Hospital Encounter Department of Radiology, [address] [phone] Mc Fabian M.D. Ischemia Mesenteric (HCC) Discharge Disposition: Home or Self Care 12/12/2023 12:15 PM CDT - 12/12/2023 2:44 PM CDT Hospital Encounter Department of Radiology[address] [phone] Mc Fabian M.D. Ischemia Mesenteric (HCC); Preoperative Examination Cardiovascular Discharge Disposition: Home or Self Care 12/12/2023 11:50 AM CDT - 12/12/2023 12:14 PM CDT Hospital Encounter Department of Laboratory Medicine and Pathology, [facility] in [place], [place] [address] [place] [phone] Mc Fabian M.D. Diabetes Mellitus Type 2 (HCC) Discharge Disposition: Home or Self Care 12/12/2023 9:28 AM CDT - 12/12/2023 11:49 AM CDT Hospital Encounter Department of Radiology, [address] [phone] Mc Fabian M.D. Discharge Disposition: Home or Self Care 12/12/2023 9:28 AM CDT - 12/12/2023 11:49 AM CDT Hospital Encounter Department of Cardiovascular Diseases in [place], [place] [address] [place] [phone] Mc Fabian M.D. Discharge Disposition: Home or Self Care 12/12/2023 9:27 AM CDT Hospital Encounter Department of Radiology, [facility] in [place], [place] [address] [place] [phone] Mc Fabian M.D. Preoperative Examination Cardiovascular Discharge Disposition: Home or Self Care 12/02/2023 2:05 PM CDT - 12/02/2023 11:59 PM CDT Hospital Encounter Department of Laboratory Medicine and Pathology, [place], [place] [address] [place] [phone] Mc Fabian M.D. Ischemia Mesenteric (HCC) Discharge Disposition: Home or Self Care 12/02/2023 1:00 PM CDT Comprehensive Visit Division of Vascular and Endovascular Surgery in [place], [place] [address] [place] [phone] Mc Fabian M.D. Ischemia Mesenteric (HCC) (Primary Dx) 12/02/2023 8:00 AM CDT - 12/02/2023 2:04 PM CDT Hospital Encounter Department of Radiology, [facility] in [place], [place] [address] [place] [phone] Mc Fabian M.D. Ischemia Mesenteric (HCC) Discharge Disposition: Home or Self Care 11/30/2023 Intake [facility] 11/29/2023 10:38 AM CDT - 11/29/2023 4:47 PM CDT Emergency [facility] Emergency Department [address] [place] [phone] Alejandra Suárez APRN C.N.PGarret Occlusion Superior Mesenteric Artery (HCC) (Primary Dx) Discharge Disposition: Home or Self Care 11/28/2023 4:10 PM CDT Ancillary Procedure Department of Radiology in [place], [place] [address] [place] [phone] Mc Fabian M.D. Ischemia Mesenteric (HCC) 11/28/2023 Clinical Communication Division of Vascular and Endovascular Surgery in [place], [place] [address] [place] [address] Mc Fabian M.D. Phone Contact 11/18/2023 Orders Only Division of Vascular and Endovascular Surgery in [place], [place] [address] [place] [phone] Mc Fabian M.D. Ischemia Mesenteric (HCC) (Primary Dx) from Last 3 Months Social History Tobacco Use Types Packs/Day Years Used Date Smoking Tobacco: Former Cigarettes 0 06/20/1982 - 12/24/2010 Smokeless Tobacco: Never Tobacco Cessation:Counseling Given: Not Answered Comments:vape Alcohol Use Standard Drinks/Week Comments Yes 1 (1 standard drink = 0.6 oz pur e alcohol) [facility] Coteraities Answer Date Recorded In the past 12 months has [facility] [employer], gas, oil, or water [employer] threatened to shut off services in your home? No 12/15/2023 Humiliation, Afraid, Rape, and Kick questionnair e Answer Date Recorded Within the last year, have y ou been afraid of your partner or ex-partner? No 12/15/2023 Within the last year, have y ou been humiliated or emotionally abused in other ways by your partner or ex-partner? No Within the last year, have y ou been kicked, hit, slapped, or otherwise physically hurt by your partner or ex-partner? No 12/15/2023 Within the last year, have y ou been raped or forced to have any kind of sexual activity by your partner or ex-partner? No 12/15/2023 Exercise Vital Sign Answer Date Recorde d [...] the money to buy more. Never true 06/27/20 24 Within the past 12 months, t he food you bought just didn't last and you didn't have money to get more. Never true 12/15/2023 PRAPARE - Transportation Answer Date Re corded In the past 12 months, has l ack of transportation kept you from medical appointments or from getting medications? No 11/19 In the past 12 months, has l ack of transportation kept you from meetings, work, or from getting things needed for daily living? No 12/15/2023 Nutrition Answer Date Recorded On average, how [...] your living situation today? I have a [facility] place to live 12/15/2023 Sex and Gender Information Value Date Recorded Sex Assigned at Female 12/09/2023 5:04 PM CDT Gender Identity Female 12/09/2023 5:04 PM CDT Sexual Orientation Straight 12/09/2023 5: 04 PM CDT Last Filed Vital Signs Vital Sign Reading Time Taken Comments Blood Pressure 142/47 12/16/2023 12:23 PM CDT Pulse 79 12/16/2023 12:23 PM CDT Temperature 36.6 ??C (97.9 ??F) 12/16/2023 12:23 PM C DT Respiratory Rate 18 12/16/2023 12:23 PM CDT Oxygen Saturation 98% 12/16/2023 12:23 PM CDT Inhaled Oxygen Concentration - - Weight 100 kg (220 lb 7.4 oz) 12/15/2023 10:27 A M CDT Height 162 cm (5' 3.78) 12/15/2023 10:27 AM CDT Body Mass Index 38.1 12/15/2023 10:27 AM CDT Plan of Treatment Upcoming Encounters Date Type Department Care Team (Latest Contact Info) Description 03/19/2024 10:30 AM CDT Appointment Department of Radiology, [facility], in [place], [place] [address] [place] [phone] Mc Fabian M.D. [address] [place] [phone] Discharge Disposition: Home or Self Care 03/19/2024 1:20 PM CDT Office Visit Division of Vascular and Endovascular Surgery in [place], [place] [address] [place] [address] Mc Fabian M.D. [address] [place] [address] Health Maintenance Due Date Last Done Comments CT Colonography 1968 Cologuard 1968 Colonoscopy 1968 Colorectal Cancer Screening 1968 Diabetic Office Visit with F oot Exam 1968 Dilated Eye Exam 1968 FIT 1968 HIV Screening 1968 Hepatitis C Screening 1968 Mammogram 1968 Urine Albumin 1968 Hepatitis B Vaccines (1 of 3 - 19+ 3-dose series) 1987 Zoster Vaccines (1 of 2) 2018 Pneumococcal vaccine (0-64 y ears) (2 of 2 - PCV) 09/01/2018 09/01/2017 Depression Screening (Annual PHQ-2) 06/20/2023 Influenza Vaccine (#1) 2024 , 05/12/2022, 03/24/2021, Additional history exists Hemoglobin A1C 06/12/2024 12/12/2023 Office Visit for Blood Press ure Check / Re-check 12/12/2024 12/13/2023 Creatinine Level (Kidney Fun ction Test) 12/15/2024 12/16/2023, 11/29/2023, 12/12/2012, Additional history exists Potassium Level 12/15/2024 12/16/2023, 11/18, 12/12/2012, Additional history exists Sodium Level 12/15/2024 12/16/2023, 11/19, 11/29/2023, Additional history exists Lipid (Cholesterol) Screening 12/12/2028 12/13/2023 DTaP,Tdap,and Td Vaccines (3 - Td or Tdap) 08/20/2029 08/21/2019, 07/29/2009 COVID-19 Vaccine Completed 04/28/2023, , 04/17/2021, Additional history exists Medical Devices Implanted Type Area Manager Service Desk Device Identifier Shelf Expiration Date Model / Serial / Lot Stnt Grft Viabahn [id number] - [id number] - [id number] Implanted:Qty : 1 on 12/15/2023 by Mc Fabian M.D. at [facility] Vascular Stent Arterial [place] 03/15/2026 [id number] / [id number] / Description:Celiac Stnt Grft Viabahn [id number] - [id number] - [id number] Implanted:Qty : 1 on 12/15/2023 by Mc Fabian M.D. at [facility] Vascular Stent Arterial [place] 10/02/2026 [id number] / [id number] / Description:Celiac Procedures Procedure Name Priority Date/Time Associated Diagnosis Comments US MESENTERIC ARTERY RAD - Timed (for specific dates/times) 12/16/2023 8:32 AM CDT ECG Routine 12/16/2023 5:22 AM CDT CBC WITHOUT DIFFERENTIAL, B Routine 12/16/2023 5:15 AM CDT BASIC METABOLIC PANEL, S/P Routine 12/16/2023 5:14 AM CDT TROPONIN T, 2H/6H REFLEX, 5TH GEN, P Timed 12/15/2023 6:17 PM CDT ADULT OXYGEN THERAPY Routine 12/15/2023 4:46 PM CDT ADULT OXYGEN THERAPY Routine 12/15/2023 4:46 PM CDT ADULT OXYGEN THERAPY Routine 12/15/2023 4:46 PM CDT TROPONIN T, BASELINE, 5TH GEN, P STAT 12/15/2023 4:19 PM CDT GLUCOSE POCT, B Routine 12/15/2023 4:09 PM CDT ECG STAT 12/15/2023 4:08 PM CDT IR IMAGING RAD - Routine (most inpatients and all outpatients) 12/15/2023 3:31 PM CDT Ischemia Mesenteric (HCC) ACT, POCT, B Routine 12/15/2023 2:46 PM CDT ACT, POCT, B Routine 12/15/2023 2:33 PM CDT ACT, POCT, B Routine 12/15/2023 2:12 PM CDT ACT, POCT, B Routine 12/15/2023 1:59 PM CDT LACTATE, B STAT 12/15/2023 1:52 PM CDT GLUCOSE, WHOLE BLOOD STAT 12/15/2023 1:52 PM CDT CALCIUM, IONIZED, S/B STAT 12/15/2023 1:52 PM CDT SODIUM, B STAT 12/15/2023 1:52 PM CDT POTASSIUM, B STAT 12/15/2023 1:52 PM CDT ABG W/COOX STAT 12/15/2023 1:52 PM CDT TYPE AND SCREEN STAT 12/15/2023 1:47 PM CDT LDA ANE ARTERIAL LINE INSERTION Routine 12/15/2023 1:22 PM CDT NJ ARTL CATH/CNULA MONITOR PERC Routine 12/15/2023 1:22 PM CDT AIRWAY MANAGEMENT Routine 12/15/2023 1:1 6 PM CDT ANGIOGRAPHY MESENTERIC WITH OR WITHOUT ANGIOPLASTY AND/OR STENT 12/15/2023 12:34 PM CDT Ischemia Mesenteric (HCC) Case Notes Roentgenologist @ 1010 GLUCOSE POCT, B Routine 12/15/2023 12:29 PM CDT LIPID PANEL, S Routine 12/13/2023 10:44 AM CDT Ischemia Mesenteric (HCC) Other Elevated White Blood Cell Count Other Hyperlipidemia C-REACTIVE PROTEIN (CRP), S/P Routine 12/13/2023 10:44 AM CDT Ischemia Mesenteric (HCC) Other Elevated White Blood Cell Count Other Hyperlipidemia CBC WITH DIFFERENTIAL, B Routine 12/13/2023 10:44 AM CDT Ischemia Mesenteric (HCC) Other Elevated White Blood Cell Count Other Hyperlipidemia CT CHEST ANGIOGRAM WITH IV CONTRAST RAD - Routine (most inpatients and all outpatients) 12/12/2023 4:33 PM CDT Ischemia Mesenteric (HCC) ECG Routine 12/12/2023 1:51 PM CDT Ischemia Mesenteric (HCC) Preoperative Examination Cardiovascular HEMOGLOBIN A1C, B Routine 12/12/2023 1:1 2 PM CDT Diabetes Mellitus Type 2 (HCC) NM CARDIAC PERFUSION REST AND STRESS SPECT RAD - Routine (most inpatients and all outpatients) 12/12/2023 12:57 PM CDT Preoperative Examination Cardiovascular DX CHEST AP OR PA AND LATERAL 2 VIEWS RAD - Routine (most inpatients and all outpatients) 12/12/2023 12:52 PM CDT Ischemia Mesenteric (HCC) Preoperative Examination Cardiovascular TYPE AND SCREEN Routine 12/02/2023 2:32 PM [...] CDT from Last 3 Months Results * US Mesenteric Artery (12/16/2023 8:32 AM CDT) Only the most recent of2 resultswithin the time period is included. Anatomical Region Laterality Modality Abdomen, Pelvis, Ultrasound RST LOS, Ultrasound ARZ LOS, Ultrasound FLA LOS, Procedural, Vascular Interventional NWWI LOS N/A Ultrasound Impressions 12/16/2023 9:35 AM CDT 1. ??Interval celiac artery stenting. 2. ??Patent celiac artery stent with mild to minimal improvement in the PSV. 3. 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 Narrative 12/16/2023 9:35 AM CDT EXAM: US MESENTERIC ARTERY Exam performed with color and spectral Doppler analysis. COMPARISON: Mesenteric artery ultrasound 12/02/2023 and celiac artery stenting 12/15/2023 FINDINGS: Aorta Distal- AP: 1.8 cm Aorta Proximal - (PSV): 75 cm/s Celiac Artery - PSV: Interval stent placement to the proximal celiac artery with slight to minimal improvement in celiac artery PSV. The PSV measures 356 cm/s on today's study, compared to 403 cm/s on ultrasound 12/02/2023. The celiac artery stent and common hepatic artery are patent. Celiac Artery inspiration-PSV: 335 cm/s Celiac Artery expiration- PSV: 328 cm/s Superior Mesenteric Artery- PSV: Known chronic occlusion of the SMA with reconstitution of flow distally. Dampened waveform. PSV: 123 cm/s Inferior Mesenteric Artery: Occluded, unchanged since 12/02/2023 Procedure Note Trevor Croft M.D. - 12/16/2023 EXAM: US MESENTERIC ARTERY Exam performed with color and spectral Doppler analysis. COMPARISON: Mesenteric artery ultrasound 12/02/2023 and celiac arterystenting 12/15/2023 FINDINGS: Aorta Distal- AP: 1.8 cm Aorta Proximal - (PSV): 75 cm/s Celiac Artery - PSV: Interval stent placement to the proximal celiacartery with slight to minimal improvement in celiac artery PSV. The PSVmeasures 356 cm/s on today's study, compared to 403 cm/s on ultrasound12/02/2023. The celiac artery stent and common hepatic artery are patent. Celiac Artery inspiration-PSV: 335 cm/s Celiac Artery expiration- PSV: 328 cm/s Superior Mesenteric Artery- PSV: Known chronic occlusion of the SMA withreconstitution of flow distally. Dampened waveform. PSV: 123 cm/s Inferior Mesenteric Artery: Occluded, unchanged since 12/02/2023 IMPRESSION: 1. Interval celiac artery stenting. 2. Patent celiac artery stent with mild to minimal improvement in thePSV. 3. 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 Wilmer Hernandez D.O. M.S. [facility] PROCEDUR ES * ECG 12 Lead (12/16/2023 5:22 AM CDT) Only the most recent of4 resultswithin the time period is included. Ventricular Rate ECG/Min 70 BPM MUSE NJ Interval 205 ms MUSE QRSD Interval 98 ms MUSE QT Interval 434 ms MUSE QTC Interval 468 ms MUSE P [place] 52 degrees MUSE R [place] 3 degrees MUSE T Wave [place] 39 degrees MUSE 12/16/2023 5:22 AM CDT 12/16/2023 5:27 AM CDT Impressions MUSE - 12/16/2023 5:27 AM CDT Normal sinus rhythm with 1st degree A-V block T wave abnormality, consider anterior ischemia When compared with ECG of 15-Dec-2023 16:08, QT has shortened NJ interval has increased Reviewed by PROMISE Madrid Narrative Procedure Note Trevor Medina M.D. - 12/16/2023 IMPRESSION: Normal sinus rhythm with 1st degree A-V block T wave abnormality, consider anterior ischemia When compared with ECG of 15-Dec-2023 16:08, QT has shortened NJ interval has increased Reviewed by PROMISE Madrid Neto Kiran APRN, C.N.P. ECG ORD ERABLES MUSE NA * (ABNORMAL) CBC without Differential (12/16/2023 5:15 AM CDT) Hemoglobin 8.4(L) 11.6 - 15.0 g/dL 12/16/2023 5:42 AM CDT DTL Hematocrit 27.0(L) 35.5 - 44.9 % 12/16/2023 5:42 AM CDT DTL Erythrocytes 3.36(L) 3.92 - 5.13 x10(12)/L 12/16/2023 5:42 AM CDT DTL MCV 80.4 78.2 - 97.9 fL 12/16/2023 5:42 AM CDT DTL RBC Distrib Width 18.7(H) 12.2 - 16.1 % 12/16/2023 5:42 AM CDT DTL Platelet Count 373(H) 157 - 371 x10(9)/L 12/16/2023 5:42 AM CDT DTL Leukocytes 8.3 3.4 - 9.6 x10(9)/L 12/16/2023 5:42 AM CDT DTL Blood (Blood, Venous) 12/16/2023 5:15 AM CDT 12/16/2023 5:37 AM CDT Wilmer Hernandez D.O. MGarretS. LAB BLOOD ADD-O N [facility] [address] [place] [address], [facility] DTL [facility] [address] [place] [address] * (ABNORMAL) Basic Metabolic Panel (12/16/2023 5:14 AM CDT) Only the most recent of2 resultswithin the time period is included. Potassium, S 4.2 3.6 - 5.2 mmol/L 12/16/2023 6:09 AM CDT DTL Sodium, S 131(L) 135 - 145 mmol/L 12/16/2023 6:09 AM CDT DTL Chloride, S 96(L) 98 - 107 mmol/L 12/16/2023 6:09 AM CDT DTL Bicarbonate, S 23 22 - 29 mmol/L 12/16/2023 6:09 AM CDT DTL Anion Gap 12 7 - 15 12/16/2023 6:09 AM CDT DTL BUN (Blood Urea Nitrogen), S 7 6 - 21 mg/dL 12/16/2023 6:09 AM CDT DTL Creatinine 0.64 0.59 - 1.04 mg/dL 12/16/2023 6:09 AM CDT DTL Estimated GFR (eGFR) >90 >=60 mL/min/BSA 12/16/2023 6:09 AM CDT DTL Comment: Estimated GFR calculated using the 2020 CKD_EPI creatinine equation. Calcium, Total, S 8.3(L) 8.6 - 10.0 mg/dL 12/16/2023 6:09 AM CDT DTL Glucose, S 107 70 - 140 mg/dL 12/16/2023 6:09 AM CDT DTL Blood (Blood, Venous) 12/16/2023 5:14 AM CDT 12/16/2023 5:53 AM CDT Yury Kraus D.O.S. LAB BLOOD ADD-O N Performing Organization Address City/[facility]/ZIP Co de Phone Number [facility] [address] DTL [facility] [address] [place] [address] * (ABNORMAL) Troponin T, 2 Hour with 6 Hour Reflex, 5th Gen (12/15/2023 6:17 PM CDT) Troponin T, 2 hr, 5th gen 13(H) <=10 ng/L 12/15/2023 6:46 PM CDT [facility] 2H Delta 2 ng/L 12/15/2023 6:46 PM CDT ST[facility] Comment:6 hour collection no t indicated. 2H Delta Interp Not Changing 12/15/2023 6:46 PM CDT [facility] Blood 12/15/2023 6:17 PM CDT 12/15/2023 6:22 PM CDT Karol Lozano APRN, C.N.P. LAB BLOOD TROPO CALEB Performing Organization Address [facility]/ZIP Co de Phone Number [facility] [address] STMA [facility] [address] [place] [address] * (ABNORMAL) Troponin T, Baseline with 2 Hour/6 Hour Reflex Biomarker Panel (12/15/2023 4:19 PM CDT) Troponin T, Baseline, 5th gen 11(H) <=10 ng/L 12/15/2023 4:58 PM CDT ST[facility] Blood (Blood, Venous) 12/15/2023 4:19 PM CDT 12/15/2023 4:27 PM CDT Karol Lozano APRN, C.N.P. LAB BLOOD TROPO CALEB Performing Organization Address City/[facility]/ZIP Co de Phone Number [facility] [address] [facility] [address] [place] [address] * Glucose, POCT (12/15/2023 4:09 PM CDT) Only the most recent of2 resultswithin the time period is included. Glucose, POCT, B 98 70 - 140 mg/dL 12/15/2023 4:11 PM CDT PCLX Site Capillary 12/15/2023 4:11 PM CDT PCLX Blood 12/15/2023 4:09 PM CDT 12/15/2023 4:11 PM CDT Unknown Provider LAB POCT ORDERABLES- MANUAL Performing Organization Address City/[facility]/ZIP Co de Phone Number POC [facility] [address] [place] [address], [facility] PCLX [facility] POC [address] [place] [address] * IR IMAGING (12/15/2023 3:31 PM CDT) Anatomical Region Laterality Modality N/A Other Narrative 12/16/2023 9:14 AM CDT Performed by surgeon - see Op Note for result. Mc Fabian M.D. IMG IR PROCEDURES * ACT (Activated Clotting Time), POCT (12/15/2023 2:46 PM CDT) Only the most recent of4 resultswithin the time period is included. Activated Clotting Time, POCT 127 84 - 139 sec 12/15/2023 2:49 PM CDT PCSM Blood 12/15/2023 2:46 PM CDT 12/15/2023 2:49 PM CDT Unknown Provider LAB POCT ORDERABLES - DEVICE Performing Organization Address City/[facility]/ZIP Co de Phone Number POC RST [facility] [address] [place] [address], [facility] PCSM [facility] POC [address] [place] [address] * (ABNORMAL) Lactate, Whole Blood (12/15/2023 1:52 PM CDT) Lactate, B <0.5(L) 0.5 - 2.2 mmol/L 12/15/2023 1:55 PM CDT ST[facility] Blood (Blood, Arterial) 12/15/2023 1:52 PM CDT 12/15/2023 1:52 PM CDT Anabella Quinones M.D. LAB BLOOD NON ADD-O N Performing Organization Address City/[facility]/ZIP Co de Phone Number [facility] WOMEN [address] [place] [address], [facility] [address] [place] [address] * (ABNORMAL) Sodium, B (12/15/2023 1:52 PM CDT) [facility] Sodium, B 133(L) 135 - 145 mmol/L 12/15/2023 1:53 PM CDT STMA Blood (Blood, Arterial) 12/15/2023 1:52 PM CDT 12/15/2023 1:52 PM CDT Anabella Quinones M.D. LAB BLOOD NON ADD-O N [facility] [address] [place] [address], [facility] [address] [place] [address] * (ABNORMAL) Blood Gas with Coox, Arterial (12/15/2023 1:52 PM CDT) pO2 197(H) 83 - 108 mm Hg 12/15/2023 1:53 PM CDT STMA pCO2 45 32 - 45 mm Hg 12/15/2023 1:53 PM CDT [facility] pH 7.37 7.35 - 7.45 pH 12/15/2023 1:53 PM CDT [facility] Base Excess 1 -2 - 3 mmol/L 12/15/2023 1:53 PM CDT [facility] HCO3 26 22 - 26 mmol/L 12/15/2023 1:53 PM CDT [facility] Hemoglobin, B 8.1(L) 11.6 - 15.0 g/dL 12/15/2023 1:53 PM CDT [facility] O2Hb 98.7(H) 94.0 - 98.0 % 12/15/2023 1:53 PM CDT [facility] COHb 1.2 <3.0 % 12/15/2023 1:53 PM CDT [facility] MetHb <1.0 <1.5 % 12/15/2023 1:53 PM CDT [facility] CtO2 11.8(L) 18.0 - 21.0 vol % 12/15/2023 1:53 PM CDT [facility] Blood (Blood, Arterial) 12/15/2023 1:52 PM CDT 12/15/2023 1:52 PM CDT Anabella Quinones M.D. LAB BLOOD NON ADD-O N Performing Organization Address City/[facility]/ZIP Co de Phone Number [facility] [address] [place] [address], [facility] [address] [place] [address] * (ABNORMAL) Potassium, Blood (12/15/2023 1:52 PM CDT) [facility] Potassium, B 3.1(L) 3.6 - 5.2 mmol/L 12/15/2023 1:54 PM CDT [facility] Blood (Blood, Arterial) 12/15/2023 1:52 PM CDT 12/15/2023 1:52 PM CDT Anabella Quinones M.D. LAB BLOOD NON ADD-O N [facility] [address] [place] [address], [facility] [address] [place] [address] * Glucose, Whole Blood (12/15/2023 1:52 PM CDT) Glucose 98 70 - 140 mg/dL 12/15/2023 1:53 PM CDT [facility] Blood (Blood, Arterial) 12/15/2023 1:52 PM CDT 12/15/2023 1:52 PM CDT Anabella Quinones M.D. LAB BLOOD ADD-ON Performing Organization Address [facility] Co de Phone Number [facility] [address] [place] [address] * (ABNORMAL) Calcium, Ionized (12/15/2023 1:52 PM CDT) [facility] Calcium, Ionized, B 4.25(L) 4.65 - 5.30 mg/dL 12/15/2023 1:54 PM CDT [facility] Blood (Blood, Arterial) 12/15/2023 1:52 PM CDT 12/15/2023 1:52 PM CDT Anabella Quinones M.D. LAB BLOOD NON ADD-O N Performing Organization Address [facility] Co de Phone Number [facility] [address] [place] [address], [place] [address] * Type and Screen (with Reflex Antibody ID) (12/15/2023 1:47 PM CDT) Only the most recent of2 resultswithin the time period is included. [facility] ABORh O Pos Not applicable 12/15/2023 2:20 PM CDT STRM Antibody Screen Negative Negative 12/15/2023 2:30 PM CDT STRM Type & Screen Expiration 12/18/2023 23:59 12/15/2023 2:20 PM CDT STRM Testing Location [place] DEFAULT 12/15/2023 1:52 PM CDT STRM Blood (Blood, Venous) 12/15/2023 1:47 PM CDT 12/15/2023 1:52 PM CDT Narrative Resulting Agency Comment Drawn in OR by [id number] Anabella Quinones M.D. LAB BLOOD BANK TEST ORDERABLES [facility] [address] [place] [address], [place] [facility] [place], operated [facility] [address] [place] [address] * [place] ARTL CATH/CNULA MONITOR PERC, LDA ANE ARTERIAL LINE INSERTION (12/15/2023 1:22 PM CDT) Narrative Anabella Quinones M.D. - 12/15/2023 1:22 PM CDT Meaghan Cannon M.D. ? 12/15/2023 ??2:18 PM Invasive Catheter Date/Time: 12/15/2023 1:22 PM Performed by: Meaghan Cannon M.D. Authorized by: Anabella Quinones M.D. ?? Location: OR PROCEDURE DETAILS: Line type: arterial ?? Laterality: right Location: radial Location details: new site ? Age group: adult Catheter diameter: 20 Ga Catheter length (cm): 10 Technique: palpation ?? Monitored: yes ?? Number of attempts: 1 UNIVERSAL PROTOCOL All relevant documentation and testing were reviewed and available. All required blood products, implants, devices and or special equipment were made available as applicable. Pre-procedure verification was conducted and the correct site was marked if required. A fire risk assessment was done as applicable. The procedural time-out to verify correct patient, correct side/site, and procedure was conducted prior to performing the procedure and confirmed in a procedural pause. PRE-PROCEDURE DETAILS: Appropriate hand hygiene, gown, cap, mask, protective eyewear, sterile gloves, skin preparation, sterile drape, and strict aseptic technique were utilized as applicable for the procedure.: yes ?? Skin preparation: chlorhexidine ?? SEDATION / ANESTHESIA Anesthesia method: anesthesia POST-PROCEDURE DETAILS: Procedure completed successfully: yes ?? Line secured: secured with sutureless device Chlorhexidine disc around insertion site and under catheter with slight turn: yes ?? Notable Events - arterial: none ATTESTATION STATEMENT A resident or fellow participated in the procedure, and the cost consultant was present for the entire procedure. Anabella Quinones M.D. PROCEDURE/MINOR DEB GICAL ORDERABLES * Airway (12/15/2023 1:16 PM CDT) Narrative Meaghan Cannon M.D. - 12/15/2023 1:16 PM CDT Meaghan Cannon M.D. ? 12/15/2023 ??2:18 PM Airway Date/Time: 12/15/2023 1:16 PM Performed by: Meaghan Cannon M.D. Authorized by: Anabella Quinones M.D. ?? Patient location during procedure: OR / Procedure Area PROCEDURE DETAILS: Mask difficulty assessment: oral/nasal airway needed Final airway type: video laryngoscope Laryngeal Manipulation: no ?? Final best view of glottic structures - Cormack/Lehane Score: grade 2A ETT location: oral VL device: glide scope [place] scope blade size: 3 Tube size: 7.5 ETT distance at teeth/gum: 24 Oral tube type: standard ETT Cuffed: yes Number of attempt to successful placement: 1 Airway confirmation: bilateral breath sounds, positive ETCO2 and bilateral chest rise Other previous techniques attempted: none PRE PROCEDURE DETAILS: Pre evaluation for airway management: procedure Urgency: elective Preop assessment of probable difficulty: no difficulty anticipated Preoxygenation: bag valve mask SEDATION / ANESTHESIA Anesthesia method: anesthesia POST PROCEDURE DETAILS: ? Procedure outcome: successful ?? Notable Events: no complications ATTESTATION STATEMENT A resident or fellow participated in the procedure, and the cost consultant was present for the entire procedure. Anabella Quinones M.D. ANESTHESIA ORDERABL ES * (ABNORMAL) Lipid Panel (12/13/2023 10:44 AM CDT) [facility] Triglycerides 133 mg/dL 12/13/2023 11:56 AM CDT DTL Comment: ----REFERENCE VALUE---- Normal: <150 mg/dL Borderline High: 150-199 mg/dL High: 200-499 mg/dL Very High: > or =500 mg/dL Cholesterol, Total 134 mg/dL 2023 11:56 AM CDT DTL Comment: ----REFERENCE VALUE---- Desirable: < 200 mg/dL Borderline High: 200 - 239 mg/dL High: > or = 240 mg/dL Cholesterol, LDL, Calculated 69 mg/dL 12/13/2023 11:56 AM CDT DTL Comment: ----REFERENCE VALUE---- Desirable: <100 mg/dL Above Desirable: 100-129 mg/dL Borderline High: 130-159 mg/dL High: 160-189 mg/dL Very High: >=190 mg/dL ----ADDITIONAL INFORMATION---- LDL cholesterol calculated using the Oquendo/NIH equation. Cholesterol, HDL, S 41(L) >=50 mg/dL 12/13/2023 11:56 AM CDT DTL Cholesterol, Non-HDL, Calculated 93 mg/dL 12/13/2023 11:56 AM CDT DTL Comment: ----REFERENCE VALUE---- Desirable: <130 mg/dL Above Desirable: 130-159 mg/dL Borderline High: 160-189 mg/dL High: 190-219 mg/dL Very High: > or =220 mg/dL Fasting (8 HR or more) Yes 12/13/2023 10:44 AM CDT DTL Blood (Blood, Venous) 12/13/2023 10:44 AM CDT 12/13/2023 11:23 AM CDT Chuy Singletary, B.Ch. LAB BLOOD A DD-ON [facility] [place] [address] [place] [address], [facility] [address] [place] [address] * (ABNORMAL) CBC with Differential, Blood (12/13/2023 10:44 AM CDT) Only the most recent of2 resultswithin the time period is included. Hemoglobin 10.4(L) 11.6 - 15.0 g/dL 12/13/2023 11:47 AM CDT DTL Hematocrit 33.9(L) 35.5 - 44.9 % 12/13/2023 11:47 AM CDT DTL Erythrocytes 4.20 3.92 - 5.13 x10(12)/L 12/13/2023 11:47 AM CDT DTL MCV 80.7 78.2 - 97.9 fL 12/13/2023 11:47 AM CDT DTL RBC Distrib Width 18.5(H) 12.2 - 16.1 % 12/13/2023 11:47 AM CDT DTL Platelet Count 462(H) 157 - 371 x10(9)/L 12/13/2023 11:47 AM CDT DTL Leukocytes 15.2(H) 3.4 - 9.6 x10(9)/L 12/13/2023 11:47 AM CDT DTL Neutrophils 13.04(H) 1.56 - 6.45 x10(9)/L 12/13/2023 11:47 AM CDT [facility] Lymphocytes 1.54 0.95 - 3.07 x10(9)/L 12/13/2023 11:47 AM CDT DTL Monocytes 0.50 0.26 - 0.81 x10(9)/L 12/13/2023 11:47 AM CDT DTL Eosinophils 0.10 0.03 - 0.48 x10(9)/L 12/13/2023 11:47 AM CDT DTL Basophils 0.04 0.01 - 0.08 x10(9)/L 12/13/2023 11:47 AM CDT DTL Blood (Blood, Venous) 12/13/2023 10:44 AM CDT 12/13/2023 11:08 AM CDT Chuy Singletary B.Ch. LAB BLOOD A DD-ON [facility] [address] [place] [address], [place] DTL [facility] [address] [place] [address] [facility] [address] [place] [address] * (ABNORMAL) CRP (C-Reactive Protein) (12/13/2023 10:44 AM CDT) [facility] C-Reactive Protein (CRP), S 6.9(H) <5.0 mg/L 12/13/2023 11:56 AM CDT DTL Blood (Blood, Venous) 12/13/2023 10:44 AM CDT 12/13/2023 11:23 AM CDT Chuy Brett Singletary BBryon LAB BLOOD A DD-ON [facility] [address] [place] [address], [facility] DTL [facility] [address] [place] [address] * CT Chest Angiogram with IV Contrast (12/12/2023 4:33 PM CDT) Anatomical Region Laterality Modality Chest, Cardiovascular RST LO S, Thoracic ARZ LOS, Thoracic FLA LOS, Vascular Interventional ARZ LOS, Procedural, Vascular Interventional NWWI LOS N/A Computed Tomography, Computed Tomography 12/12/2023 4:25 PM CDT Impressions 12/12/2023 4:53 PM CDT 1. The thoracic aorta is of normal caliber with atherosclerotic changes, most prominent in the descending thoracic segment. 2. Small amount of coronary artery calcifications. Narrative 12/12/2023 4:53 PM CDT EXAM: ??CT CHEST ANGIOGRAM WITH IV CONTRAST Including 3D image post-processing with or without AI assistance. COMPARISON: ??11/30/2023, 05/09/2024 FINDINGS: VASCULAR FINDINGS: * ??The ascending thoracic aorta is of normal caliber with minimal atherosclerotic changes. * ??The arch is of normal caliber with moderate atherosclerotic changes. * ??The descending thoracic aorta has extensive calcific and noncalcific atherosclerotic changes with mild luminal narrowing. * ??Left sided aortic arch with normal 3-vessel arch branching pattern. Mild atherosclerosis of proximal arch branch vessels with minimal luminal stenosis. Bilateral subclavian and axillary arteries are patent along their entire lengths. * ??No enlargement of cardiac chambers. Lipomatous hypertrophy of the atrial septum. * ??Trace pericardial fluid is likely physiological. No pericardial thickening or calcifications. * ??The main pulmonary artery is at the upper limit of normal size measuring 28 mm. No central pulmonary embolism. * ??Normal variant pulmonary venous anatomy with an accessory ostium for the vein draining the lateral basal segment of right lower lobe. No pulmonary venous stenosis. * ??Normal origin of coronary arteries. Small amount of coronary artery calcifications. ADDITIONAL FINDINGS: * ??Trachea and central bronchi are patent. No central endobronchial lesion. No pulmonary consolidation, pleural effusion or pneumothorax. * ??No thoracic adenopathy. Small thyroid nodules. * ??Degenerative changes of the spine. Osteopenia. No suspicious osseous. Procedure Note Zaid Orr M.B.B.S., M.D. - 12/12/2023 EXAM: CT CHEST ANGIOGRAM WITH IV CONTRAST Including 3D image post-processing with or without AI assistance. COMPARISON: 11/30/2023, 05/09/2024 FINDINGS: VASCULAR FINDINGS: * The ascending thoracic aorta is of normal caliber with minimalatherosclerotic changes. * The arch is of normal caliber with moderate atherosclerotic changes. * The descending thoracic aorta has extensive calcific and noncalcificatherosclerotic changes with mild luminal narrowing. * Left sided aortic arch with normal 3-vessel arch branching pattern.Mild atherosclerosis of proximal arch branch vessels with minimal luminalstenosis. Bilateral subclavian and axillary arteries are patent alongtheir entire lengths. * No enlargement of cardiac chambers. Lipomatous hypertrophy of theatrial septum. * Trace pericardial fluid is likely physiological. No pericardialthickening or calcifications. * The main pulmonary artery is at the upper limit of normal sizemeasuring 28 mm. No central pulmonary embolism. * Normal variant pulmonary venous anatomy with an accessory ostium forthe vein draining the lateral basal segment of right lower lobe. Nopulmonary venous stenosis. * Normal origin of coronary arteries. Small amount of coronary arterycalcifications. ADDITIONAL FINDINGS: * Trachea and central bronchi are patent. No central endobronchiallesion. No pulmonary consolidation, pleural effusion or pneumothorax. * No thoracic adenopathy. Small thyroid nodules. * Degenerative changes of the spine. Osteopenia. No suspicious osseous. IMPRESSION: 1. The thoracic aorta is of normal caliber with atherosclerotic changes,most prominent in the descending thoracic segment. 2. Small amount of coronary artery calcifications. Mc E Fabian M.D. IMG CT PROCEDURES * Hemoglobin A1c (12/12/2023 1:12 PM CDT) Hemoglobin A1c, B 5.6 4.0 - 5.6 % 12/12/2023 2:03 PM CDT DTL Blood (Blood, Venous) 12/12/2023 1:12 PM CDT 12/12/2023 1:35 PM CDT Mc Fabian M.D. LAB BLOOD ADD-ON Performing Organization Address [facility]/ZIP Co de Phone Number [facility] [address] [place] [address], [place] DTL [facility] [address] [place] [address] * NM Cardiac Perfusion Rest and Stress SPECT (12/12/2023 12:57 PM CDT) 12/12/2023 11:5 8 AM CDT Narrative CV MERGE - 12/12/2023 1:40 PM CDT See PDF For Result Procedure Note Octavio Rubio M.D. - 12/12/2023 See PDF For Result Mc Fabian M.D. IMG NM PROCEDURES Performing Organization Address [facility] Co de Phone Number [employer] NA * DX Chest AP or PA and Lateral 2 Views (12/12/2023 12:52 PM CDT) Anatomical Region Laterality Modality Chest, Thoracic RST LOS, Tho racic ARZ LOS, Thoracic FLA LOS N/A Digital Radiography Impressions 12/12/2023 1:07 PM CDT No prior chest imaging studies are available for comparison. Atherosclerotic aortic calcification. Thoracic spine hypertrophic changes. Upper abdominal surgical clips. Chest otherwise negative. Narrative 12/12/2023 1:07 PM CDT EXAM: ??DX CHEST AP OR PA AND LATERAL 2 VIEWS Procedure Note Judy Fernandez M.D. - 12/12/2023 EXAM: DX CHEST AP OR PA AND LATERAL 2 VIEWS IMPRESSION: No prior chest imaging studies are available for comparison.Atherosclerotic aortic calcification. Thoracic spine hypertrophic changes.Upper abdominal surgical clips. Chest otherwise negative. Mc Fabian M.D. IMG DIAGNOSTIC JINA GING PROCEDURES * CT ABDOMEN PELVIS W CON-Outside [...] CDT Jovan Caceres P.A.-C. LAB BLOOD ADD-ON [facility] [address] [place] [address], [facility] Laboratories[facility], [place] [address] [place] [address] * Lipase (11/29/2023 11:13 AM CDT) Lipase, S 19 13 - 60 U/L 11/29/2023 12:23 PM CDT DTL Blood (Blood, Venous) 11/29/2023 11:13 AM CDT 11/29/2023 12:02 PM CDT Jovan Caceres P.A.-C. LAB BLOOD ADD-ON [facility] [address] [place] [address], [facility] DTL [facility] [address] [place] [address] * Lactate (11/29/2023 11:13 AM CDT) Lactate, P 2.0 0.5 - 2.2 mmol/L 11/29/2023 11:55 AM CDT [facility] Blood (Blood, Venous) 11/29/2023 11:13 AM CDT 11/29/2023 11:28 AM CDT Jovan Caceres P.A.-C. LAB BLOOD NON ADD -ON Performing Organization Address City/State/[facility] Co de Phone Number [facility] [address] [place] [address], [facility] STMA [facility] [address] [place] [address] from Last 3 Months Advance Directives For more information, please contact: [phone] * Full Code (Latest Code Status on File) Date Activated Date Inactivated Comments 12/15/2023 12:23 PM 12/16/2023 3:04 PM Question Answer Comments Full Code: Discussed Care Teams Laboratory Apparatus Glass Blower Relationship Specialty Start Date End Date Elsewhere, Pcp PCP - General Internal Medicine 11/29/23
--- OUTSIDE RECORDS SUMMARY | 2023-12-26 15:27 | XMS_ITS | Encounter Summary ---
Author Organization [facility] Address [address] [place] [address] Care Team Providers Care Tipping Machine Operator Name Role Phone Elsewhere, Pcp Primary Care Provider Unavailabl e Reason for Referral * Outpatient (Routine) - Authorized Specialty Diagnoses / Procedures Referred By Gianna thomas Referred To Contact Vascular Surgery Mc Fabian M.D. 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 [address] [place] [address] [facility] Referral ID Status Reason Start Date Expiration Date V isits Requested Visits Authorized [id number] Authorized 12/16/2023 12/15/2024 1 1 Reason for Visit * Reason Onset Date Comments Follow-up 12/16/2023 Encounter Details Date Type Department Care Team (Late st Contact Info) Description 12/16/2023 Clinical Communication Division of Vascular and Endovascular Surgery in [place], [place] [address] [place] [address] Karol Lozano APRN, C.N.P. [address] [place] [address] Follow-up Social History Tobacco Use Types Packs/Day Years Used Date Smoking Tobacco: Former Cigarettes 0 06/20/1982 - 12/24/2010 Smokeless Tobacco: Never Comments:vape Alcohol Use Standard Drinks/Week Comments Yes 1 (1 standard drink = 0.6 oz pur e alcohol) [facility] Utilities Answer Date Recorded In the past 12 months has e electric, gas, oil, or water [employer] threatened to shut off services in your [...] the money to buy more. Never true 12/15/19 24 Within the past 12 months, t [...] your living situation today? I have a [facility] place to live 12/15/2023 Sex and Gender Information Value Date Recorded Sex Assigned at Female 12/09/2023 5:04 PM CDT Gender Identity Female 12/09/2023 5:04 PM CDT Sexual Orientation Straight 12/09/2023 5: 04 PM CDT documented as of this encounter Miscellaneous Notes * Addendum Note - Armida Beckett, R.N. - 12/16/2023 11:41 AM CDTAddended by: ARMIDA BECKETT on: 12/16/2023 11:41 AM Modules accepted: Orders documented in this encounter Plan of Treatment Upcoming Encounters Date Type Department Care Team (Latest Contact Info) Description 03/19/2024 10:30 AM CDT Appointment Department of Radiology, [facility], in [place], [place] [address] [place] [address] Mc Fabian M.D. [address] [place] [phone] Discharge Disposition: Home or Self Care 03/19/2024 1:20 PM CDT Office Visit Division of Vascular and Endovascular Surgery in [place], [place] [address] [place] [address] Mc Fabian M.D. [address] [place] [address] Scheduled Orders Name Type Priority Associated Diagnoses Orde r Schedule US Mesenteric Artery Imaging RAD - George ne (most inpatients and all outpatients) Ischemia Mesenteric (HCC) Expected: 03/17/2024, Expires: 03/17/2025 Scheduled Referrals Name Type Priority Associated Diagnoses Orde r Schedule Vascular Surgery office visit (clinic) Outpatient Referral Routine Expected: 03/17/2024, Expires: 03/17/2025 documented as of this encounter Visit Diagnoses Diagnosis Ischemia Mesenteric (HCC)- Primary documented in this encounter Care Teams Tipping Machine Operator Relationship Specialty Start Date End Date Elsewhere, Pcp PCP - General Internal Medicine 11/29/23 documented as of this encounter
--- OUTSIDE RECORDS SUMMARY | 2023-12-26 15:27 | XMS_ITS | Referral Summary ---
Author Organization [facility] Address [address] [place] [address] Care Team Providers Care Mover Name Role Phone Elsewhere, Pcp Primary Care Provider Unavailabl e Source Comments Patient records contain information from all sites at [facility]. For routine questions regarding patient records, call [phone] during business hours, M-F 8:00 AM - 5:00 PM Central Time. Record requests for emergency care only can be directed to [phone] at any time.[facility] Encounters Date Type Department Care Team Description 12/21/2023 9:30 AM CDT Virtual Visit Division of Vascular and Endovascular Surgery in [place] [id number] [place] [phone] Karol Lozano APRN, C.N.P. Sarah Ulrich APRN, C.N.P., D.N.P. Follow Up Postprocedural (Primary Dx) 12/16/2023 Orders Only Division of Vascular and Endovascular Surgery in [place], [place] [address] [place] [phone] Karol Lozano APRN, C.N.P. 12/16/2023 Clinical Communication Division of Vascular and Endovascular Surgery in [place], [place] [address] [place] [phone] Karol Lozano APRN, C.N.P. Follow-up 12/15/2023 10:10 AM CDT - 12/16/2023 12:59 PM CDT Hospital Encounter [facility], [facility], [facility], Eighth Floor [address] [place] [phone] Mc Fabian M.D. Ischemia Mesenteric (HCC) Discharge Disposition: Home or Self Care 12/15/2023 1:05 PM CDT Anesthesia Event [facility]IN OR [address] [place] [phone] Anabella Quinones M.D. Kanaparthi, Anuradha, M.D. 12/15/2023 12:47 PM CDT - 12/15/2023 6:13 PM CDT Surgery RST ROM MAIN OR [address] [place] [phone] Mc Fabian M.D. Celiac artery covered stent placement (6x19 & 6x15 mm VBX) via ultrasound-guided right common femoral artery access 12/13/2023 10:13 AM CDT - 12/13/2023 11:59 PM CDT Hospital Encounter Department of Laboratory Medicine and Pathology, [place], [place] [address] [place] [phone] Chuy Gallo M.B., B.Ch. Ischemia Mesenteric (HCC); Other Elevated White Blood Cell Count; Other Hyperlipidemia Discharge Disposition: Home or Self Care 12/13/2023 8:00 AM CDT Office Visit Department of Vascular Medicine in [place], [place] [address] [place] [phone] Chuy Gallo M.B., B.Ch. Other Elevated White Blood Cell Count (Primary Dx); Ischemia Mesenteric (HCC); Other Hyperlipidemia 12/12/2023 11:50 AM CDT - 12/12/2023 12:14 PM CDT Hospital Encounter Department of Laboratory Medicine and Pathology, [place], [place] [address] [place] [phone] Mc Fabian M.D. Diabetes Mellitus Type 2 (HCC) Discharge Disposition: Home or Self Care 12/12/2023 12:15 PM CDT - 12/12/2023 2:44 PM CDT Hospital Encounter Department of Radiology, [facility] in [place], [place] [address] [place] [address] Mc Fabian M.D. Ischemia Mesenteric (HCC); Preoperative Examination Cardiovascular Discharge Disposition: Home or Self Care 12/12/2023 2:45 PM CDT - 12/12/2023 11:59 PM CDT Hospital Encounter Department of Radiology, [facility] in [place], [place] [address] [place] [address] Mc Fabian M.D. Ischemia Mesenteric (HCC) Discharge Disposition: Home or Self Care 12/12/2023 9:28 AM CDT - 12/12/2023 11:49 AM CDT Hospital Encounter Department of Radiology, [facility] in [place], [place] [address] [place] [address] Mc Fabian M.D. Discharge Disposition: Home or Self Care 12/12/2023 9:28 AM CDT - 12/12/2023 11:49 AM CDT Hospital Encounter Department of Cardiovascular Diseases in [place], [place] [address] [place] [phone] Mc Fabian M.D. Discharge Disposition: Home or Self Care 12/12/2023 9:27 AM CDT Hospital Encounter Department of Radiology, [facility] in [place], [place] [address] [place] [phone] Mc Fabian M.D. Preoperative Examination Cardiovascular Discharge Disposition: Home or Self Care 12/02/2023 2:05 PM CDT - 12/02/2023 11:59 PM CDT Hospital Encounter Department of Laboratory Medicine and Pathology, [facility] in [place], [place] [address] [place] [phone] Mc Fabian M.D. Ischemia Mesenteric (HCC) Discharge Disposition: Home or Self Care 12/02/2023 1:00 PM CDT Comprehensive Visit Division of Vascular and Endovascular Surgery in [place], [place] [address] [place] [address] Mc Fabian M.D. Ischemia Mesenteric (HCC) (Primary Dx) 12/02/2023 8:00 AM CDT - 12/02/2023 2:04 PM CDT Hospital Encounter Department of Radiology, [facility], in [place], [place] [address] [place] [phone] Mc Fabian M.D. Ischemia Mesenteric (HCC) Discharge Disposition: Home or Self Care 11/30/2023 Intake [facility] 11/29/2023 10:38 AM CDT - 11/29/2023 4:47 PM CDT Emergency [facility] Emergency Department [address] [place] [phone] Alejandra Suárez APRN, C.NYasmani Occlusion Superior Mesenteric Artery (HCC) (Primary Dx) Discharge Disposition: Home or Self Care 11/28/2023 4:10 PM CDT Ancillary Procedure Department of Radiology in [place], [place] [address] [place] [phone] Mc Fabian M.D. Ischemia Mesenteric (HCC) 11/28/2023 Clinical Communication Division of Vascular and Endovascular Surgery in [place], [place] [address] [place] [phone] Mc Fabian M.D. Phone Contact 11/18/2023 Orders Only Division of Vascular and Endovascular Surgery in [place], [place] [address] [place] [phone] Mc Fabian M.D. Ischemia Mesenteric (HCC) (Primary [...] tablet Take 1,000 mg by mouth daily. Discontinued(Err or) oxyCODONE (ROXICODONE) 5 mg immediate [...] drink = 0.6 oz pur e alcohol) [facility] [employer] Answer Date Recorded In the past 12 months has [facility] [email or web address], gas, oil, or water [employer] threatened to shut off services in your [...] your living situation today? I have a [facility] place to live 12/15/2023 Sex and [...] 10:30 AM CDT Appointment Department of Radiology, [facility], in [place], [place] [address] [place] [address] cM Fabian M.D. [address] [place] [address] Discharge Disposition: Home or Self Care 03/19/2024 1:20 PM CDT Office Visit Division of Vascular and Endovascular Surgery in [place], [place] [address] [place] [address] Mc Fabian M.D. [address] [place] [address] Medical Devices Implanted Type Area Tin Flipper Device Identifier Shelf Expiration Date Model / Serial / Lot Stnt Grkacie Viabahn [id number] - [id number] - [id number] Implanted:Qty : 1 on 12/15/2023 by Mc Fabian M.D. at [facility] Vascular Stent Arterial [place] 03/15/2026 [id number] / [id number] / Description:Celiac Stnt Grft Viabahn [id number] - [id number] - [id number] Implanted:Qty : 1 on 12/15/2023 by Mc Fabian M.D. at [facility] Vascular Stent Arterial [place] 10/02/2026 [id number] / [id number] / Description:Celiac Procedures Procedure Name Priority Date/Time [...] LINE INSERTION Routine 12/15/2023 1:22 PM CDT [place] ARTL CATH/CNULA MONITOR PERC Routine 12/15/2023 1:22 PM CDT AIRWAY MANAGEMENT Routine 12/15/2023 1:1 6 PM CDT ANGIOGRAPHY MESENTERIC WITH OR WITHOUT ANGIOPLASTY AND/OR STENT 12/15/2023 12:34 PM CDT Ischemia Mesenteric (HCC) Case Notes Farmworker Poultry @ 1010 GLUCOSE POCT, B Routine 12/15/2023 [...] of the SMA and JINA. Wilmer Hernandez D.O., M.S. [facility] US PROCEDUR ES * ECG 12 Lead (12/16/2023 5:22 AM CDT) Only the most recent of4 resultswithin the time period is included. Ventricular Rate ECG/Min 70 BPM MUSE NH Interval 205 ms MUSE QRSD Interval 98 ms MUSE QT Interval 434 ms MUSE QTC Interval 468 ms MUSE P [place] 52 degrees MUSE R [place] 3 degrees MUSE T Wave [place] 39 degrees MUSE 12/16/2023 5:22 AM CDT 12/16/2023 5:27 AM CDT Impressions MUSE - 12/16/2023 5:27 AM CDT Normal sinus rhythm with 1st degree A-V block T wave abnormality, consider anterior ischemia When compared with ECG of 15-Dec-2023 16:08, QT has shortened NH interval has increased Reviewed by PROMISE Madrid Narrative Procedure Note Trevor Medina M.D. - 12/16/2023 IMPRESSION: Normal sinus rhythm with 1st degree A-V block T wave abnormality, consider anterior ischemia When compared with ECG of 15-Dec-2023 16:08, QT has shortened NH interval has increased Reviewed by PROMISE Madrid Neto Kiran APRN, C.N.P. ECG ORD ERABLES MUSE NA * (ABNORMAL) CBC without Differential (12/16/2023 5:15 AM CDT) Pathologist [facility] Hemoglobin 8.4(L) 11.6 - 15.0 g/dL 12/16/2023 [...] CDT 12/16/2023 5:37 AM CDT Wilmer Hernandez D.O., M.S. LAB BLOOD ADD-O N [facility] [address] [place] [address], [facility] [address] [place] [address] * (ABNORMAL) Basic Metabolic Panel (12/16/2023 5:14 AM CDT) Only the most recent of2 resultswithin the time period is included. [facility] Potassium, S 4.2 3.6 - 5.2 mmol/L [...] 5:14 AM CDT 12/16/2023 5:53 AM CDT Wilmer Hernandez D.O. MGarretS. LAB BLOOD ADD-O N Performing Organization Address [facility] Co de Phone Number [facility] [address] [place], [place] [phone] [place] [address] DTL [facility] 200 [place] [address] * (ABNORMAL) Troponin T, 2 Hour with [...] 6:17 PM CDT 12/15/2023 6:22 PM CDT Kena Moffett APRNNGarretPGarret LAB BLOOD TROPO CALEB Performing Organization Address City/[facility] Co de Phone Number [facility] [address] [place] [address], [facility] STMA [facility] 200 [place] [address] * (ABNORMAL) Troponin T, Baseline with 2 Hour/6 Hour Reflex Biomarker Panel (12/15/2023 4:19 PM CDT) Troponin T, Baseline, 5th gen 11(H) <=10 ng/L 12/15/2023 4:58 PM CDT STMA Blood (Blood, Venous) 12/15/2023 4:19 PM CDT 12/15/2023 4:27 PM CDT Karol Lozano APRN, C.N.P. LAB BLOOD TROPO CALEB Performing Organization Address City/[facility] Co de Phone Number [facility] [address] [place] [address], [facility] STMA [facility] 200 [place] [address] * Glucose, POCT (12/15/2023 4:09 PM CDT) Only the most recent of2 resultswithin the time period is included. Glucose, POCT, B 98 70 - 140 mg/dL 12/15/2023 4:11 PM CDT PCLX Site Capillary 12/15/2023 4:11 PM CDT PCLX Blood 12/15/2023 4:09 PM CDT 12/15/2023 4:11 PM CDT Unknown Provider LAB POCT ORDERABLES- MANUAL Performing Organization Address [facility] Co de Phone Number POC [facility] [address] [place] [address], [facility] PCLX [facility] POC 200 [place] [address] * IR IMAGING (12/15/2023 3:31 PM CDT) Anatomical Region Laterality Modality N/A Other Narrative 12/16/2023 9:14 AM CDT Performed by surgeon - see Op Note for result. Mc VARGASG IR PROCEDURES * ACT (Activated Clotting Time), POCT (12/15/2023 2:46 PM CDT) Only the most recent of4 resultswithin the time period is included. Activated Clotting Time, POCT 127 84 - 139 sec 12/15/2023 2:49 PM CDT PCSM Blood 12/15/2023 2:46 PM CDT 12/15/2023 2:49 PM CDT Unknown Provider LAB POCT ORDERABLES - DEVICE POC RST [facility] INPATIENT LABS [address] [place] [address], [facility] PCSM [facility] POC [address] [place] [address] * (ABNORMAL) Lactate, Whole Blood (12/15/2023 1:52 PM CDT) Lactate, B <0.5(L) 0.5 - 2.2 mmol/L 12/15/2023 1:55 PM CDT STMA Blood (Blood, Arterial) 12/15/2023 1:52 PM CDT 12/15/2023 1:52 PM CDT Anabella Quinones M.D. LAB BLOOD NON ADD-O N Performing Organization Address City/[facility]/ZIP Co de Phone Number [facility] 200 [place], [place] [phone] [place] [address] 200 [place] [address] * (ABNORMAL) Sodium, B (12/15/2023 1:52 PM CDT) Pathologist [facility] Sodium, B 133(L) 135 - 145 mmol/L 12/15/2023 1:53 PM CDT STMA Blood (Blood, Arterial) 12/15/2023 1:52 PM CDT 12/15/2023 1:52 PM CDT Anabella Quinones M.D. LAB BLOOD NON ADD-O N [facility] [address] [place], [place] [phone] [place] [address] 200 [place] [address] * (ABNORMAL) Blood Gas with Coox, Arterial [...] Quinones M.D. LAB BLOOD NON ADD-O N [facility] [address] [place] [address], [facility] [address] [place] [address] * (ABNORMAL) Potassium, Blood (12/15/2023 1:52 PM CDT) Potassium, B 3.1(L) 3.6 - 5.2 mmol/L 12/15/2023 1:54 PM CDT STMA Blood (Blood, Arterial) 12/15/2023 1:52 PM CDT 12/15/2023 1:52 PM CDT Anabella Quinones M.D. LAB BLOOD NON ADD-O N [facility] 200 [place] [address], [facility] 200 [place] [address] * Glucose, Whole Blood (12/15/2023 1:52 PM CDT) [facility] Glucose 98 70 - 140 mg/dL 12/15/2023 1:53 PM CDT [facility] Blood (Blood, Arterial) 12/15/2023 1:52 PM CDT 12/15/2023 1:52 PM CDT Anabella Quinones M.D. LAB BLOOD ADD-ON Performing Organization Address City/[facility]/ZIP Co de Phone Number [facility] 200 [place], [place] [address] 200 [place] [address] * (ABNORMAL) Calcium, Ionized (12/15/2023 1:52 PM CDT) [facility] Calcium, Ionized, B 4.25(L) 4.65 - 5.30 mg/dL 12/15/2023 1:54 PM CDT [facility] Blood (Blood, Arterial) 12/15/2023 1:52 PM CDT 12/15/2023 1:52 PM CDT Anabella Quinones M.D. LAB BLOOD NON ADD-O N Performing Organization Address City/[facility]/ZIP Co de Phone Number [facility] [address] [place], [place] [phone] [place] [address] 200 [place] [address] * Type and Screen (with Reflex Antibody ID) (12/15/2023 1:47 PM CDT) Only the most recent of2 resultswithin the time period is included. [facility] ABORh O Pos Not applicable 12/15/2023 2:20 PM CDT STRM Antibody Screen Negative Negative 12/15/2023 2:30 PM CDT STRM Type & Screen Expiration 12/18/2023 23:59 12/15/2023 2:20 PM CDT STRM Testing Location [place] DEFAULT 12/15/2023 1:52 PM CDT STRM Blood (Blood, Venous) 12/15/2023 1:47 PM CDT 12/15/2023 1:52 PM CDT Narrative Resulting Agency Comment Drawn in OR by [id number] Anabella Quinones M.D. LAB BLOOD BANK TEST ORDERABLES [facility] [address] [place] [address], [facility] [address] [place] [address] * [place] ARTL CATH/CNULA MONITOR PERC, LDA ANE ARTERIAL [...] fellow participated in the procedure, and the fitness consultant was present for the entire procedure. [...] ETT location: oral VL device: glide scope [place] scope blade size: 3 Tube size: 7.5 [...] fellow participated in the procedure, and the fitness consultant was present for the entire procedure. Anabella Quinones M.D. ANESTHESIA ORDERABL ES * (ABNORMAL) Lipid Panel (12/13/2023 10:44 AM CDT) Triglycerides 133 mg/dL 12/13/2023 11:56 AM CDT [...] Chuy Singletary, B.Ch. LAB BLOOD A DD-ON [facility] [address] [place] [address], [facility] [address] [place] [address] * (ABNORMAL) CBC with Differential, Blood (12/13/2023 10:44 AM CDT) Only the most recent of2 resultswithin the time period is included. [facility] Hemoglobin 10.4(L) 11.6 - 15.0 g/dL 12/13/2023 [...] - 6.45 x10(9)/L 12/13/2023 11:47 AM CDT DHPM Lymphocytes 1.54 0.95 - 3.07 x10(9)/L 12/13/2023 11:47 AM CDT DTL Monocytes 0.50 0.26 - 0.81 x10(9)/L 12/13/2023 11:47 AM CDT DTL Eosinophils 0.10 0.03 - 0.48 x10(9)/L 12/13/2023 11:47 AM CDT DTL Basophils 0.04 0.01 - 0.08 x10(9)/L 12/13/2023 11:47 AM CDT DTL Blood (Blood, Venous) 12/13/2023 10:44 AM CDT 12/13/2023 11:08 AM CDT Chuy Singletary B.Ch. LAB BLOOD A DD-ON [facility] [address] [place] [address], [facility] DTL [facility] [address] [place] [address] [facility] 200 [place] [address] * (ABNORMAL) CRP (C-Reactive Protein) (12/13/2023 10:44 AM CDT) C-Reactive Protein (CRP), S 6.9(H) <5.0 mg/L 12/13/2023 11:56 AM CDT DTL Blood (Blood, Venous) 12/13/2023 10:44 AM CDT 12/13/2023 11:23 AM CDT Chuy Singletary, B.ChGarret LAB BLOOD A DD-ON [address] [address], [address] [address] * CT Chest Angiogram with IV Contrast [...] No suspicious osseous. Procedure Note Zaid Orr M.B.B.S. MDung - 12/12/2023 EXAM: CT CHEST ANGIOGRAM WITH [...] Small amount of coronary artery calcifications. Mc Fabian M.D. IMG CT PROCEDURES * Hemoglobin A1c (12/12/2023 1:12 PM CDT) Hemoglobin A1c, B 5.6 4.0 - 5.6 % 12/12/2023 2:03 PM CDT DTL Blood (Blood, Venous) 12/12/2023 1:12 PM CDT 12/12/2023 1:35 PM CDT Mc Fabian M.D. LAB BLOOD ADD-ON Performing Organization Address City/[facility]/ZIP [place] [address], [facility] 200 [place] [address] * NM Cardiac Perfusion Rest and Stress SPECT (12/12/2023 12:57 PM CDT) 12/12/2023 11:5 8 AM CDT Narrative CV MERGE - 12/12/2023 1:40 PM CDT See PDF For Result Procedure Note Octavio Rubio M.D. - 12/12/2023 See PDF For Result Mc Fabian M.D. IMG NM PROCEDURES Performing Organization Address City/[facility]/ZIP Co de Phone Number [facility] MERGE NA * DX Chest AP or PA [...] PA AND LATERAL 2 VIEWS Procedure Note Juyd Fernandez M.D. - 12/12/2023 EXAM: DX CHEST [...] CDT Jovan Caceres P.A.-C. LAB BLOOD ADD-ON [facility] Mc[facility] [address] [place] [address], [facility] [address] [place] [address] * Lipase (11/29/2023 11:13 AM CDT) Lipase, S 19 13 - 60 U/L 11/29/2023 12:23 PM CDT DTL Blood (Blood, Venous) 11/29/2023 11:13 AM CDT 11/29/2023 12:02 PM CDT Jovan Caceres P.A.-C. LAB BLOOD ADD-ON [facility] [address] [place] [address] 200 [place] [address] * Lactate (11/29/2023 11:13 AM CDT) Lactate, P 2.0 0.5 - 2.2 mmol/L 11/29/2023 11:55 AM CDT [facility] Blood (Blood, Venous) 11/29/2023 11:13 AM CDT 11/29/2023 11:28 AM CDT Jovan Caceres P.A.-C. LAB BLOOD NON ADD -ON [facility] [address] [place] [address], [facility] STMA [facility] [address] [place] [address] from Last 3 Months Advance Directives For more information, please contact: [phone] * Full Code (Latest Code Status on File) Date Activated Date Inactivated Comments 12/15/2023 12:23 PM 12/16/2023 3:04 PM Question Answer Comments Full Code: Discussed Care Teams Mover Relationship Specialty Start Date End Date Elsewhere, Pcp PCP - General Internal Medicine 11/29/23
--- OUTSIDE RECORDS SUMMARY | 2023-12-26 15:27 | XMS_ITS ---
Author Organization [facility] Address [address] [place] [address] Care Team Providers Care Roundhouse Firer/Fireman Name Role Phone Unavailable Unavailable Unavailable Surgery Details Not on file Complications Check Surgery Details section. Procedure Estimated Blood Loss Check Surgery Details section. Procedure Findings Check Surgery Details section. Procedure Specimens Taken Check Surgery Details section.
--- OUTSIDE RECORDS SUMMARY | 2023-12-26 15:27 | XMS_ITS | Encounter Summary ---
Author Organization [facility] Address [address] [place] [address] Care Team Providers Care Lace Cutter Name Role Phone Elsewhere, Pcp Primary Care Provider Unavailabl e Reason for Referral * Outpatient (Routine) - Closed Specialty Diagnoses / Procedures Referred By Gianna thomas Referred To Contact Vascular Surgery Karol Lozano APRN, C.N.P. [address] [place] [phone] [facility] Referral ID Status Reason Start Date Expiration Date Visits Re quested Visits Authorized [id number] Closed 12/16/2023 06/16/2025 1 1 Encounter Details Date Type Department Care Team (Late st Contact Info) Description 12/16/2023 Orders Only Division of Vascular and Endovascular Surgery in [place], [place] [address] [place] [phone] Karol Lozano APRN, C.N.P. [address] [place] [phone] Social History Tobacco Use Types Packs/Day Years Used Date Smoking Tobacco: Former Cigarettes 0 06/20/1982 - 12/24/2010 Smokeless Tobacco: Never Comments:vape Alcohol Use Standard Drinks/Week Comments Yes 1 (1 standard drink = 0.6 oz pur e alcohol) [facility] Utilities Answer Date Recorded In the [...] money to buy more. Never true 12/15/19 Within the past 12 months, t he [...] your living situation today? I have a [facility] place to live 12/15/2023 Sex and Gender Information Value Date Recorded Sex Assigned at Female 12/09/2023 5:04 PM CDT Gender Identity Female 12/09/2023 5:04 PM CDT Sexual Orientation Straight 12/09/2023 5: 04 PM CDT documented as of this encounter Plan of Treatment Upcoming Encounters Date Type Department Care Team (Latest Contact Info) Description 03/19/2024 10:30 AM CDT Appointment Department of Radiology, [facility], in [place], [place] [address] [place] [address] Mc Fabian M.D. [address] [place] [address] Discharge Disposition: Home or Self Care 03/19/2024 1:20 PM CDT Office Visit Division of Vascular and Endovascular Surgery in [place], [place] [address] [place] [address] Mc Fabian M.D. [address] [place] [address] Scheduled Referrals Name Type Priority Associated Diagnoses Orde r Schedule Vascular Surgery Post Op (clinic) Outpatient Referral Routine Expected: 12/23/2023, Expires: 03/17/2025 documented as of this encounter Visit Diagnoses Not on filedocumented in this encounter Care Teams Lace Cutter Relationship Specialty Start Date End Date Elsewhere, Pcp PCP - General Internal Medicine 11/29/23 documented as of this encounter
--- OUTSIDE RECORDS SUMMARY | 2023-12-26 15:27 | XMS_ITS | Encounter Summary ---
Author Organization [facility] Address [address] [place] [id number] Care Team Providers Care Oil Analyst Name Role Phone Elsewhere, Pcp Primary Care Provider Unavailabl e Reason for Visit * Outpatient (Routine) - Closed Specialty Diagnoses / Procedures Referred By Gianna thomas Referred To Contact Vascular Surgery Karol Lozano APRN, C.N.P. [address] [place] [phone] [facility] Referral ID Status Reason Start Date Expiration Date Visits Re quested Visits Authorized [id number] Closed 12/16/2023 06/16/2025 1 1 Encounter Details Date Type Department Care Team (Latest Contact Info) Description 12/21/2023 9:30 AM CDT Virtual Visit Division of Vascular and Endovascular Surgery in [place], [place] [address] [place] [phone] Karol Lozano APRN, C.N.P. [address] [place] [phone] Sarah Ulrich APRN, C.N.P., D.N.P. [address] [place] [phone] Follow Up Postprocedural (Primary Dx) Social History Tobacco Use Types Packs/Day Years Used Date Smoking Tobacco: Former Cigarettes 0 06/20/1982 - 12/24/2010 Smokeless Tobacco: Never Comments:vape Alcohol Use Standard Drinks/Week Comments Yes 1 (1 standard drink = 0.6 oz pur e alcohol) [facility] Utilities Answer Date Recorded In [...] Date Recorded Dental: Regular Dentist Yes 12/09/19 24 Employment Answer Date Recorded Employment status Employed but not working due t o illness or injury 12/09/2023 Housing Stability Answer Date Recorded What is your living situation today? I have a [facility] place to live 12/15/2023 Sex and Gender Information Value Date Recorded Sex Assigned at Female 12/09/2023 5:04 PM CDT Gender Identity Female 12/09/2023 5:04 PM CDT Sexual Orientation Straight 12/09/2023 5: 04 PM CDT documented as of this encounter Progress Notes * Sarah Ulrich APRN, C.N.P., D.N.P. - 12/21/2023 9:30 AM CDT Chief Complaint Telephone call. Patient not seen. History of Present Illness Ms. Esqueda is a 53 y[address] of [address] Fabian who underwent celiac artery covered stent placement on 12/15/2023. She tolerated the procedure well and was dismissed from the hospital home on 12/16/2023. Ms. Esqueda was contacted today in post-hospital follow-up. Ms. Esqueda has overall been doing well. Right groin puncture healing appropriately, some bruisingremains but improving overall. She has been tired and starting to catch up on her sleep. She statesshe does have some diarrhea as well. She spoke with Dr. Fabian this morning. She is going to call Ian next week to discuss her short-term disability paperwork as she was under the impression she could be off for a longer period of time per our conversation she had with NEIDA Sosa. Assessment/Plan Ms. Esqueda is doing well postoperatively. Postoperative instructions were reviewed and the typical postoperative recovery following a procedure of this type was discussed. I thanked Ms. Esqueda for her time today and reviewed our contact information should she need anything in the future. A total of 5 minutes was spent during this follow-up phone communication; this includes, but is notlimited to, time spent during chart review, patient counseling, and care coordination as dictated by individual patient needs. documented in this encounter Plan of Treatment Upcoming Encounters Date Type Department Care Team (Latest Contact Info) Description 03/19/2024 10:30 AM CDT Appointment Department of Radiology, [facility], in [place], [place] [address] [place] [address] Mc Fabian M.D. [address] [place] [address] Discharge Disposition: Home or Self Care 03/19/2024 1:20 PM CDT Office Visit Division of Vascular and Endovascular Surgery in [place], [place] [address] [place] [address] Mc Fabian M.D. [address] [place] [address] documented as of this encounter Visit Diagnoses Diagnosis Follow Up Postprocedural- Primary documented in this encounter Care Teams Oil Analyst Relationship Specialty Start Date End Date Elsewhere, Pcp PCP - General Internal Medicine 11/29/23 documented as of this encounter
--- OUTSIDE RECORDS SUMMARY | 2023-12-26 15:28 | XMS_ITS | Encounter Summary ---
Author Organization [facility] Address [address] [place] [phone] Care Team Providers Care Sports Physiologist Name Role Phone Elsewhere, Pcp Primary Care Provider Unavailabl e Encounter Details Date Type Department Care Team (Latest Contact Info) Description 12/12/2023 11:50 AM CDT - 12/12/2023 12:14 PM CDT Hospital Encounter Department of Laboratory Medicine and Pathology, [facility] in [place], [place] [address] [place] [phone] Mc Fabian M.D. [address] [place] [phone] Diabetes Mellitus Type 2 (HCC) Discharge Disposition: Home or Self Care Social History Tobacco Use Types Packs/Day Years Used Date Smoking Tobacco: Former Alcohol Use Standard Drinks/Week Comments Not Currently 0 (1 standard drink = 0.6 oz pur e alcohol) [facility] Utilities Answer Date Recorded In the past 12 months has e [employer], gas, oil, or water [employer] threatened to shut off services in your [...] your living situation today? I have a [facility] place to live 12/09/2023 Sex and Gender Information Value Date Recorded Sex Assigned at Female 12/09/2023 5:04 PM CDT Gender Identity Female 12/09/2023 5:04 PM CDT Sexual Orientation Straight 12/09/2023 5: 04 PM CDT documented as of this encounter Medications at Time of Discharge Medication Sig Dispensed Refills Start Date End Date acetaminophen (TylenoL) 500 mg tablet Take 2 tablets (1,000 mg total) by mouth every 6 (six) hours as needed for pain. 12/16/2023 amLODIPine (NORVASC) 5 mg tablet Take 5 mg by mouth daily. 09/26/[address] tablet Take 1 tablet (81 mg total) by mouth daily. 12/17/2023 FLUoxetine (PROzac) 10 mg tablet Take 10 mg by mouth daily. glipiZIDE (GLUCOTROL) 5 mg tablet Take 5 mg by mouth every morning before breakfast. 09/26/2023 hydroCHLOROthiazide (HYDRODIURIL) 25 mg tablet Take 1 tablet by mouth daily. 04/04/2012 HYDROmorphone (Dilaudid) 2 mg tabletIndications:Acut e Pain Exception Take 1 tablet (2 mg total) by mouth every 4 (four) hours as needed for pain Indication: Acute Pain Exception. 10 tablet 12/16/2023 lisinopriL (PRINIVIL,ZESTRIL) 40 mg tablet Take 1 tablet by mouth daily. 04/04/2012 metFORMIN (GLUCOPHAGE) 1,000 mg tablet Take 1,000 mg by mouth 2 (two) times a day with meals. 09/26/2023 multivitamin tablet Take 1 tablet by mouth daily. omeprazole (PriLOSEC) [address] capsule Take 40 mg by mouth every morning before breakfast. 09/26/2023 pantoprazole (Protonix) 40 mg EC tablet Take 1 tablet (40 mg total) by mouth every morning before breakfast. Follow up with PCP for evaluation and refill. 30 tablet 12/16/2023 sennosides-docusate sodium (Senokot-S) 8.6-50 mg per tablet Take 1 tablet by mouth 2 (two) times a day as needed for constipation. 12/16/2023 simvastatin (ZOCOR) 10 mg tablet Take 10 mg by mouth daily. 09/26/2023 HYDROmorphone (Dilaudid) 2 mg tablet Take 2 mg by mouth every 4 (four) hours as needed for pain. 12/06/2023 12/16/2023 ketorolac (ToradoL) 10 mg tablet Take 10 mg by mouth every 6 (six) hours as needed for pain. 12/16/2023 magnesium oxide (MAG-OX) 250 mg of magnesium tablet Take 1,000 mg by mouth daily. 12/15/2023 documented as of this encounter Plan of Treatment Upcoming Encounters Date Type Department Care Team (Latest Contact Info) Description 03/19/2024 10:30 AM CDT Appointment Department of Radiology, [facility], in [place], [place] [address] [place] [phone] Mc Fabian M.D. [address] [place] [address] Discharge Disposition: Home or Self Care 03/19/2024 1:20 PM CDT Office Visit Division of Vascular and Endovascular Surgery in [place], [place] [address] [place] [address] Mc Fabian M.D. [address] [place] [address] documented as of this encounter Procedures Procedure Name Priority Date/Time Associated Diagnosis Comments HEMOGLOBIN A1C, B Routine 12/12/2023 1:1 2 PM CDT Diabetes Mellitus Type 2 (HCC) documented in this encounter Results * Hemoglobin A1c (12/12/2023 1:12 PM CDT) Hemoglobin A1c, B 5.6 4.0 - 5.6 % 12/12/2023 2:03 PM CDT DTL Blood (Blood, Venous) 12/12/2023 1:12 PM CDT 12/12/2023 1:35 PM CDT Mc Fabian M.D. LAB BLOOD ADD-ON [facility] [address] [place] [address], [facility] [address] [place] [address] documented in this encounter Visit Diagnoses Diagnosis Diabetes Mellitus Type 2 (HCC) documented in this encounter Care Teams Sports Physiologist Relationship Specialty Start Date End Date Elsewhere, Pcp PCP - General Internal Medicine 11/29/23 documented as of this encounter
--- OUTSIDE RECORDS SUMMARY | 2023-12-26 15:28 | XMS_ITS | Encounter Summary ---
Author Organization [facility] Address [address] [place] [address] Care Team Providers Care Expediter Name Role Phone Elsewhere, Pcp Primary Care Provider Unavailabl e Reason for Referral * Outpatient (Routine) - Authorized Specialty Diagnoses / Procedures Referred By Gianna thomas Referred To Contact Diagnoses Preoperative Examination Cardiovascular Procedures NM Cardiac Perfusion Rest and Stress SPECT Mc Fabian M.D. [address] [place] [phone] [facility] Referral ID Status Reason Start Date Expiration Date V isits Requested Visits Authorized [id number] Authorized 12/05/2023 12/04/2024 8 8 Reason for Visit * Outpatient (Routine) - Authorized Specialty Diagnoses / Procedures Referred By Gianna thomas Referred To Contact Diagnoses Preoperative Examination Cardiovascular Procedures NM Cardiac Perfusion Rest and Stress SPECT Mc Fabian M.D. [address] [place] [phone] [facility] Referral ID Status Reason Start Date Expiration Date V isits Requested Visits Authorized [id number] Authorized 12/05/2023 12/04/2024 8 8 Encounter Details Date Type Department Care Team (Latest Contact Info) Description 12/12/2023 9:27 AM CDT Hospital Encounter Department of Radiology, [facility], in [place], [place] [address] [place] [address] Mc Fabian M.D. [address] [place] [address] Preoperative Examination Cardiovascular Discharge Disposition: Home or Self Care Social History Tobacco Use Types Packs/Day Years Used Date Smoking Tobacco: Former Alcohol Use Standard Drinks/Week Comments Not Currently 0 (1 standard drink = 0.6 oz pur e alcohol) [facility] Utilities Answer Date Recorded In the past 12 months has th e [employer] gas, oil, or water [employer] threatened to shut off services in your [...] your living situation today? I have a [facility] place to live 12/09/2023 Sex and [...] 10:30 AM CDT Appointment Department of Radiology, [facility], in [place], [place] [address] [place] [address] Mc Fabian M.D. [address] [place] [address] Discharge Disposition: Home or Self Care 03/19/2024 1:20 PM CDT Office Visit Division of Vascular and Endovascular Surgery in [place], [place] [address] [place] [address] Mc Fabian M.D. [address] [place] [address] documented as of this encounter Procedures Procedure Name Priority Date/Time Associated Diagnosis Comments NM CARDIAC PERFUSION REST AND STRESS SPECT RAD - Routine (most inpatients and all outpatients) 12/12/2023 12:57 PM CDT Preoperative Examination Cardiovascular documented in this encounter Results * NM Cardiac Perfusion Rest and Stress SPECT (12/12/2023 12:57 PM CDT) 12/12/2023 11:5 8 AM CDT Narrative MORIAH CV SHOBHA - 12/12/2023 1:40 PM CDT See PDF For Result Procedure Note Octavio Rubio M.D. - 12/12/2023 See PDF For Result Mc Fabian M.D. G NM PROCEDURES Room 8 Studio SHOBHA NA documented in this encounter Visit Diagnoses Diagnosis Preoperative Examination Cardiovascular documented in this encounter Administered Medications Inactive Administered Medications - up to 3 most recent administrations Medication Order MAR Action Action Date Dose Rate Site technetium Tc 99m sestamibi injection (Tc-99m Cardiolite) 5.4-48.4 millicurie, intravenous, Once, On 12/12/23 at 1030, For 1 dose, Imaging Protocol Orders Given 12/12/2023 10:09 AM CDT 10.2 millicuries Right Antecubital documented in this encounter Care Teams Expediter Relationship Specialty Start Date End Date Elsewhere, Pcp PCP - General Internal Medicine 11/29/23 documented as of this encounter
--- OUTSIDE RECORDS SUMMARY | 2023-12-26 15:28 | XMS_ITS | Encounter Summary ---
Author Organization [facility] Address [address] [place] [phone] Care Team Providers Care Hand Wood Sander Name Role Phone Elsewhere, Pcp Primary Care Provider Unavailabl e Reason for Visit * Outpatient (Routine) - Closed Specialty Diagnoses / Procedures Referred By Gianna thomas Referred To Contact Vascular Medicine Diagnoses Ischemia Mesenteric (HCC) Mc Fabian M.D. [address] [place] [phone] [facility] Referral ID Status Reason Start Date Expiration Date Visits Re quested Visits Authorized [id number] Closed 12/05/2023 06/05/2025 1 1 Encounter Details Date Type Department Care Team (Latest Contact Info) Description 12/13/2023 8:00 AM CDT Office Visit Department of Vascular Medicine in [place], [place] [address] [place] [phone] Chuy Gallo M.B., B.Ch. [address] [place] [phone] Other Elevated White Blood Cell Count (Primary Dx); Ischemia Mesenteric (HCC); Other Hyperlipidemia Social History Tobacco Use Types Packs/Day Years Used Date Smoking Tobacco: Former Cigarettes 0 06/20/1982 - 12/24/2010 Smokeless Tobacco: Never Tobacco Cessation:Counseling Given: Not Answered Comments:vape Alcohol Use Standard Drinks/Week Comments Yes 1 (1 standard drink = 0.6 oz pur e alcohol) [facility] Utilities Answer Date Recorded In the [...] Sign Reading Time Taken Comments Blood Pressure 135/77 12/13/2023 7:47 AM CDT Pulse 70 12/13/2023 7:47 AM CDT Temperature - - Respiratory Rate - - Oxygen Saturation - - Inhaled Oxygen Concentration - - Weight 100 kg (221 lb 1.9 oz) 12/13/2023 7:40 AM CDT Height 162 cm (5' 3.78) 12/13/2023 7:40 AM CDT Body Mass Index 38.22 12/13/2023 7:40 AM CDT documented in this encounter Consult Notes * Chuy Gallo M.B., B.Ch. - 12/13/2023 8:00 AM CDT Images from the original note were not included. REFERRAL SOURCE Mc Fabian M.D. [address] [place] [phone] SUBJECTIVE CHIEF COMPLAINT / REASON FOR VISIT Chronic mesenteric ischemia with abdominal pain HISTORY OF PRESENT ILLNESS Ms. Esqueda is a delightful 53 y.o. female that I am seeing today to complete the patient's preoperative medical evaluation in preparation for planned mesenteric angiogram this with Dr Fabian. Today I had the pleasure seeing the patient in conjunction with internal medicine resident Dr. Valera. I interviewed examined, reviewed all laboratory studies and discussed findings with the patient and both of her sisters in attendance today. In summary she presents a classic history of chronic mesenteric ischemia with the abdominal pain with the past 10 years but worse over the past year or so. She has mid epigastric discomfort brought on by eating. She was no pain she does not eat. Her appetite is unchanged. She was morbidly obese at 100 kg but has lost 30 lb in weight. She also has apparently monthly episodes of more severe pain. CV risk factors Nicotine dependence she smoked for 18 years but stopped 2011 2 Arterial hypertension She has a strong family history of hypertension. Blood pressure today in the office is controlled 135/77. BP MEDS INCLUDE AMLODIPINE, LISINOPRIL, HYDROCHLOROTHIAZIDE. Hyperlipidemia She was on very low-dose simvastatin. We will do blood tests today make recommendations for better more potent lipid-lowering agents such as Crestor 20 mg daily or Lipitor 40 mg daily Type 2 diabetes She was on metformin CKD stage 3 Creatinine 1.35 likely multifactorial We reviewed blood tests noting her white cell count is mildly elevated with left shift. We will repeat a CBC From a cardiovascular standpoint she was asymptomatic no history of myocardial infarction, no angina, no wheeze no asthma no recent upper respiratory infection, no steroids, She does have lower extremity peripheral arterial disease with claudication left leg but this is stable. We note she does have a palpable right dorsalis pedal pulse but absent left popliteal and pedal pulses. No evidence of concerning resting ischemia no ulcerations of the feet The following portions of the patient's history were reviewed and updated as appropriate: allergies, current medications, family history, medical history, social history, surgical history, psychiatric history, substance abuse history, problem list, labs, diagnostics tests.. I reviewed the pertinentclinical notes in the electronic health record. REVIEW OF SYSTEMS 14 systems reviewed. Pertinent positives and pertinent negatives are documented in the history of present illness. Current Outpatient Medications on File Prior to Visit Medication Sig Dispense Refill amLODIPine (NORVASC) 5 mg tablet Take 5 mg by mouth daily. FLUoxetine (PROzac) 10 mg tablet Take 10 mg by mouth daily. glipiZIDE (GLUCOTROL) 5 mg tablet Take 5 mg by mouth every morning before breakfast. hydroCHLOROthiazide (HYDRODIURIL) 25 mg tablet Take 1 tablet by mouth daily. HYDROmorphone (Dilaudid) 2 mg tablet Take 2 mg by mouth every 4 (four) hours as needed for pain. lisinopriL (PRINIVIL,ZESTRIL) 40 mg tablet Take 1 tablet by mouth daily. magnesium oxide (MAG-OX) 250 mg of magnesium tablet Take 1,000 mg by mouth daily. metFORMIN (GLUCOPHAGE) 1,000 mg tablet Take 1,000 mg by mouth 2 (two) times a day with meals. multivitamin tablet Take 1 tablet by mouth daily. omeprazole (PriLOSEC) [address] capsule Take 40 mg by mouth every morning before breakfast. simvastatin (ZOCOR) 10 mg tablet Take 10 mg by mouth at bedtime. Current Facility-Administered Medications on File Prior to Visit Medication Dose Route Frequency Provider Last Rate Last Admin [COMPLETED] iopromide 370 mg iodine/mL injection 1-162 mL (Ultravist) 1-162 mL intravenous Once in imaging Zaid Orr M.B.B.S., M.D. 80 mL at 12/12/23 1607 [COMPLETED] regadenoson injection 0.4 mg (Lexiscan) 0.4 mg intravenous Once Mc Fabian M.D.0.4 mg at 12/12/23 1145 [COMPLETED] sodium chloride (PF) 0.9 % injection 1-100 mL 1-100 mL intravenous Once Zaid Orr M.B.B.S., M.D. 30 mL at 12/12/23 1607 [COMPLETED] technetium Tc 99m sestamibi injection (Tc-99m Cardiolite) 5.4-48.4 millicurie intravenous Once Kris Mark M.D. 10.2 millicurie at 12/12/23 1009 [COMPLETED] technetium Tc 99m sestamibi injection (Tc-99m Cardiolite) 5.4-48.4 millicurie intravenous Once Kris Mark M.D. 43.4 millicurie at 12/12/23 1158 [DISCONTINUED] sodium chloride 0.9 % injection 10 mL 10 mL intravenous PRN Mc Fabian M.D. OBJECTIVE VITALS BP 135/77 (BP Location: Left arm, Patient Position: Sitting, Cuff Size: Large) Pulse 70 Ht 162 cm Wt 100 kg BMI 38.22 kg/m?? PHYSICAL EXAMINATION Body mass index is 38.22 kg/m??. General: Pleasant 53-year-old who looks older than stated age rocking back and forth examination table with moderate abdominal discomfort asking for Toradol IV which we can not give us an outpatient.She will remain on her narcotic medication from home Vessels: Carotid 09/21 no bruit Head: Negative Neck: JVP not elevated Heart: S1-S2 no significant gallop or murmur Lungs: Clear to auscultation Abdomen: No palpable organomegaly no significant tenderness on palpation. No abdominal bruit Extremities: No lower extremity edema. Both feet well-perfused no incipient ulceration Pulses Radial pulse 4/4 bilaterally Femoral pulses difficult to palpate due to body habitus Popliteal pulse 0/0 Right dorsalis pedal pulse +3 left DP 0 Posterior tibial pulse 0/0 Neurologic: Alert oriented DIAGNOSTIC REVIEW All labs and diagnostic studies were reviewed. The thoracic aorta is of normal caliber with atherosclerotic changes, most prominent in the descending thoracic segment. 2. Small amount of coronary artery calcifications. Chest [id number] sclerotic aortic calcification hypertrophic changes the spine surgical clips abdomen otherwise negative Electrocardiogram Sinus rhythm rate 77 Low voltage QRS in the chest leads Nonspecific ST abnormality When compared with ECG of 06-Dec-2012 08:19, No significant change Latest Reference Range & Units 11/29/23 11:13 Hemoglobin 11.6 - 15.0 g/dL 11.3 (L) Hematocrit 35.5 - 44.9 % 36.6 Erythrocytes 3.92 - 5.13 x10(12)/L 4.57 MCV 78.2 - 97.9 fL 80.1 RBC Distrib Width 12.2 - 16.1 % 18.1 (H) Platelet Count 157 - 371 x10(9)/L 488 (H) Leukocytes 3.4 - 9.6 x10(9)/L 12.9 (H) Neutrophils 1.56 - 6.45 x10(9)/L 9.40 (H) Lymphocytes 0.95 - 3.07 x10(9)/L 2.43 Monocytes 0.26 - 0.81 x10(9)/L 0.91 (H) Eosinophils 0.03 - 0.48 x10(9)/L 0.09 Basophils 0.01 - 0.08 x10(9)/L 0.04 Sodium, P 135 - 145 mmol/L 132 (L) Potassium, P 3.6 - 5.2 mmol/L 3.8 Chloride, P 98 - 107 mmol/L 91 (L) Bicarbonate, P 22 - 29 mmol/L 26 Anion Gap, P 7 - 15 15 BUN (Blood Urea Nitrogen), P 6 - 21 mg/dL 9 Creatinine 0.59 - 1.04 mg/dL 1.35 (H) Estimated GFR (eGFR) >=60 mL/min/BSA 46 (L) Calcium, Total, P 8.6 - 10.0 mg/dL 10.3 (H) Glucose, P 70 - 140 mg/dL 84 Bilirubin, Total, S 0.0 - 1.2 mg/dL 0.3 Bilirubin, Direct, S 0.0 - 0.3 mg/dL <0.2 Alanine Aminotransferase (ALT), S 7 - 45 U/L 25 Aspartate Aminotransferase (AST), S 8 - 43 U/L 27 Alkaline Phosphatase, S 35 - 104 U/L 93 Protein, Total, S 6.3 - 7.9 g/dL 7.9 Albumin, S 3.5 - 5.0 g/dL 4.5 Lactate 0.5 - 2.2 mmol/L 2.0 Lipase, S 13 - 60 U/L 19 (L): Data is abnormally low (H): Data is abnormally high ASSESSMENT / PLAN #1 Ischemia Mesenteric (HCC) #2 Abdominal pain #3 Obesity #4 CKD stage 3 #5 Hyperlipidemia #6 Type 2 diabetes #7 Treated hypertension #8 Prior nicotine dependence #9 Multilevel lower extremity peripheral arterial disease with left leg claudication #10 Antiplatelet therapy with Plavix I reviewed discussed above findings with the patient and her 2 sisters today in the office. She hasa number of questions regarding the procedure on and Tessie very kindly came to see the patient to answer the questions regarding [facility] admission. Recommendation 1. Blood tests today to check lipids, LPa repeat CBC ADDENDUM HEMOGLOBIN 10.4, PLATELET COUNT 462 1000, WHITE CELL COUNT ELEVATED 15.2 WITH LEFT SHIFT 2. Following surgery recommend change simvastatin to Crestor 20 mg daily. TOTAL CHOLESTEROL 134, HDL 41, LDL 69 3. A.m. admission-hold lisinopril, hold metformin, hold HCTZ. Continue Plavix Otherwise from a cardiac pulmonary standpoint she is okay to proceed with vascular intervention on Her PA ME is complete Brown Tyler., B.Ch. Answers submitted by the patient for this visit: Cardiovascular Symptom Evaluation (Submitted on 12/09/2023) Have you had any symptoms suggestive of a stroke?: Double vision, Weakness or numbness in 1 arm or 1 leg Have you fainted or passed out?: Yes Have you had any chest pain, pressure, tightness, fullness in your chest? : Yes Have you had any shortness of breath with exertion?: Yes When you sleep at night, do you find that you are using more pillows to be comfortable from a breathing perspective?: No Do you wake up in the middle of the night short of breath?: No Do you have new or worsening abdominal pain or pain after eating?: Yes Do you have pain in your buttocks, thighs or calves when you walk?: Yes Do you have open sores on your feet that do not heal?: No Do you have swelling of your legs?: No Have you been in the emergency room or hospitalized since your last visit related to your vascular issues?: No Do you do any of the following?: Use electronic cigarettes or vape * Wander Valera M.D. - 12/13/2023 8:00 AM CDT VASCULAR MEDICINE PREANESTHETIC MEDICAL EVALUATION Supervised by: Dr. Gallo Resident: Wander Valera MD/Pager [phone] HISTORY OF PRESENT ILLNESS Salina Esqueda is a 53 y.o. female with medical comorbidities including mild CAD, hypertension,hyperlipidemia, former tobacco use disorder with a 18 pack- year history, type 2 diabetes, PAD status post left iliac stenting, and chronic mesenteric ischemia presenting for preop evaluation. The patient has known chronic mesenteric ischemia with most recent mesenteric ultrasound from 12/02/2023 re demonstrating high-grade proximal celiac artery stenosis, and complete occlusion of the SMAand JINA. Pre-surgical workup including CT chest angiogram which showed diffuse atherosclerosis of the thoracic aorta but small amount of coronary artery calcification. Last formal echocardiogram was in 2012 at which time regional wall motion abnormalities were noted without evidence of vascular disease. Most recent nuclear cardiac perfusion stress test from 12/12/2023 showed no evidence of myocardial ischemia. Most recent CBC from 11/29/2023 showed mild leukocytosis at 12.9 and mild anemia with a hemoglobin of 11.3. Most recent BMP from 11/29/2023 showed TAMMY with creatinine of 1.35. No recent lipid panel available for review. The patient is planned angiogram on 12/15/2023 with possible angioplasty/stenting of the SMA. Cardiac medications include amlodipine 5 mg daily, hydrochlorothiazide 25 mg daily, lisinopril 40 mg daily, and simvastatin 10 mg daily. Diabetes medications include metformin 1000 mg b.i.d. and glipizide 5 mg daily. Procedure cardiac risk: Intermediate Risk (cardiac risk <5%): CEA, head/neck surgery, intraabdominal or intrathoracic surgery, orthopedic surgery, prostate surgery Functional status: Functional Class III: Able to perform 2-5 METS PAST MEDICAL HISTORY Past Medical History: Diagnosis Date Dependence Nicotine vape Diabetes Mellitus Type 2 (HCC) Diverticulitis Colon Dyspepsia Non Ulcer Hemorrhage Gastrointestinal Hyperlipidemia Hypertension NOS Lymphocytosis Symptomatic 2010 Occlusion Femoral Artery (HCC) Peripheral Arterial Disease (HCC) PAST SURGICAL HISTORY Past Surgical History: Procedure Laterality Date CHOLECYSTECTOMY HYSTERECTOMY OTHER CONVERTED SHX (SEE COMMENT) N/A 04/20/2012 >1. Scoring balloon angioplasty to left common femoral artery (Dictated by Dr. Lovett). OTHER CONVERTED SHX (SEE COMMENT) N/A 11/23/2012 >1. Nonselective aortofemoral angiography. 2. Selective left lower extremity angiography. FAMILY HISTORY Reviewed and non contributary CURRENT MEDICATIONS Current Outpatient Medications Medication Sig Dispense Refill amLODIPine (NORVASC) 5 mg tablet Take 5 mg by mouth daily. FLUoxetine (PROzac) 10 mg tablet Take 10 mg by mouth daily. glipiZIDE (GLUCOTROL) 5 mg tablet Take 5 mg by mouth every morning before breakfast. hydroCHLOROthiazide (HYDRODIURIL) 25 mg tablet Take 1 tablet by mouth daily. HYDROmorphone (Dilaudid) 2 mg tablet Take 2 mg by mouth every 4 (four) hours as needed for pain. lisinopriL (PRINIVIL,ZESTRIL) 40 mg tablet Take 1 tablet by mouth daily. magnesium oxide (MAG-OX) 250 mg of magnesium tablet Take 1,000 mg by mouth daily. metFORMIN (GLUCOPHAGE) 1,000 mg tablet Take 1,000 mg by mouth 2 (two) times a day with meals. multivitamin tablet Take 1 tablet by mouth daily. omeprazole (PriLOSEC) [address] capsule Take 40 mg by mouth every morning before breakfast. simvastatin (ZOCOR) 10 mg tablet Take 10 mg by mouth at bedtime. No current facility-administered medications for this visit. ALLERGIES Allergies Allergen Reactions Erythromycin Rash Nut - Unspecified Itching Penicillins Rash REVIEW OF SYSTEMS All systems reviewed and otherwise negative unless otherwise noted. Specifically, no fevers, chills or sweats. No chest pain and no increasing shortness of breath on exertion. PHYSICAL EXAM Vitals: BP 135/77 (BP Location: Left arm, Patient Position: Sitting, Cuff Size: Large) Pulse 70 Ht 162 cm Wt 100 kg BMI 38.22 kg/m?? Gen: well appearing, well-nourished, sitting in exam chair in mild discomfort due to pain. HEENT: PERRL; moist mucous membranes Lungs: clear to auscultation bilaterally; no cough; breathing non-labored; no wheezes or crackles CV: regular rate and rhythm. Systolic murmur that radiates to the bilateral neck R>L. Abd: soft, non distended; normoactive bowel sounds Extremities: warm, dry to touch with no edema. Distal pulses intact.Normal DP pulse on the right. 2+ DP on the left. PSYCH: Mood and affect congruent. Thought content and processes within normal limits NEURO: No acute focal neurological deficits. ASSESSMENT / PLAN Salina Esqueda is a 53 y.o. female with medical comorbidities including mild CAD, hypertension,hyperlipidemia, former tobacco use disorder with a 18 pack- year history, type 2 diabetes, PAD status post left iliac stenting, and chronic mesenteric ischemia presenting for preop evaluation. 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 Pre-surgical workup including CT chest angiogram which showed diffuse atherosclerosis of the thoracic aorta but small amount of coronary artery calcification. Last formal echocardiogram was in 2012 at which time regional wall motion abnormalities were noted without evidence of vascular disease. Most recent nuclear cardiac perfusion stress test from 12/12/2023 showed no evidence of myocardial ischemia. She is currently scheduled to undergo angiogram on 12/15/2023 with possible angioplasty last stenting of the SMA. Salina Esqueda is considered a moderate risk patient undergoing a moderate risk procedure. At this time, there were no contraindications to proceed with intervention as planned. Today, we will obtain repeat CBC and lipid panel with likely transition from simvastatin to either Lipitor or Crestor. The patient has been instructed to hold her hydrochlorothiazide, lisinopril and metformin the morning of surgery. Recommendations: - No medical contraindication to anticipated surgery. - CBC and lipid panel now - Will consider transitioning from simvastatin to Lipitor or Crestor Ready to learn, no apparent learning barriers were identified; learning preferences include listening. Explained diagnosis and treatment plan; patient/child/caregiver expressed understanding of the content. Wnader Valera M.D. Internal Medicine / PGY-2 Pager: [phone] documented in this encounter Plan of Treatment Upcoming Encounters Date Type Department Care Team (Latest Contact Info) Description 03/19/2024 10:30 AM CDT Appointment Department of Radiology, [facility], in [place], [place] [address] [place] [phone] Mc Fabian M.D. [address] [place] [phone] Discharge Disposition: Home or Self Care 03/19/2024 1:20 PM CDT Office Visit Division of Vascular and Endovascular Surgery in [place], [place] [address] [place] [phone] Mc Fabian M.D. [address] [place] [phone] documented as of this encounter Results * (ABNORMAL) Lipid Panel (12/13/2023 10:44 AM [...] Chuy Singletary, B.Ch. LAB BLOOD A DD-ON Performing Organization Address City/[facility]/ZIP Co de Phone Number [facility] 200 [place], [place] [id number] [place] [address] 200 [place] [address] * (ABNORMAL) CRP (C-Reactive Protein) (12/13/2023 10:44 AM CDT) C-Reactive Protein (CRP), S 6.9(H) <5.0 mg/L 12/13/2023 11:56 AM CDT DTL Blood (Blood, Venous) 12/13/2023 10:44 AM CDT 12/13/2023 11:23 AM CDT Chuy Singletary, B.Ch. LAB BLOOD A DD-ON Performing Organization Address City/[facility]/ZIP Co de Phone Number [facility] 200 [place] [address], [facility] DTL [facility] [address] * (ABNORMAL) CBC with Differential, Blood (12/13/2023 10:44 AM CDT) Hemoglobin 10.4(L) 11.6 - 15.0 g/dL 12/13/2023 [...] AM CDT 12/13/2023 11:08 AM CDT Chuy Singletary, B.Ch. LAB BLOOD A DD-ON [facility] [address] [place] [address], [facility] DTL [facility] [address] [place] [address] [facility] [address] [place] [address] documented in this encounter Visit Diagnoses Diagnosis Other Elevated White Blood Cell Count- Primary Ischemia Mesenteric (HCC) Other Hyperlipidemia documented in this encounter Care Teams Hand Wood Sander Relationship Specialty Start Date End Date Elsewhere, Pcp PCP - General Internal Medicine 11/29/23 documented as of this encounter
--- OUTSIDE RECORDS SUMMARY | 2023-12-26 15:28 | XMS_ITS | Encounter Summary ---
Author Organization [facility] Address [address] [place] [phone] Care Team Providers Care Textile Knitter Name Role Phone Elsewhere, Pcp Primary Care Provider Unavailabl e Reason for Visit * Outpatient (Routine) - Authorized Specialty Diagnoses / Procedures Referred By Gianna thomas Referred To Contact Diagnoses Preoperative Examination Cardiovascular Procedures NM Cardiac Perfusion Rest and Stress SPECT Mc Fabian M.D. [address] [place] [phone] [facility] Referral ID Status Reason Start Date Expiration Date V isits Requested Visits Authorized [id number] Authorized 12/05/2023 12/04/2024 8 8 Encounter Details Date Type Department Care Team (Latest Contact Info) Description 12/12/2023 9:28 AM CDT - 12/12/2023 11:49 AM CDT Hospital Encounter Department of Radiology, [facility], in [place], [place] [address] [place] [phone] Mc Fabian M.D. [address] [place] [phone] Discharge Disposition: Home or Self Care Social History Tobacco Use Types Packs/Day Years Used Date Smoking Tobacco: Former Alcohol Use Standard Drinks/Week Comments Not Currently 0 (1 standard drink = 0.6 oz pur e alcohol) [facility] Utilities Answer Date Recorded In the past 12 months has e [employer], gas, oil, or water company threatened to [...] your living situation today? I have a [facility] place to live 12/09/2023 Sex and Gender [...] 10:30 AM CDT Appointment Department of Radiology, [facility], in [place], [place] [address] [place] [phone] Mc Fabian M.D. [address] [place] [phone] Discharge Disposition: Home or Self Care 03/19/2024 1:20 PM CDT Office Visit Division of Vascular and Endovascular Surgery in [place], [place] [address] [place] [phone] Mc Fabian M.D. [address] [place] [phone] documented as of this encounter Procedures Procedure Name Priority Date/Time Associated Diagnosis Comments NM CARDIAC PERFUSION REST AND STRESS SPECT RAD - Routine (most inpatients and all outpatients) 12/12/2023 12:57 PM CDT Preoperative Examination Cardiovascular documented in this encounter Visit Diagnoses Not on filedocumented in this encounter Administered Medications Inactive Administered Medications - up to 3 most recent administrations Medication Order MAR Action Action Date Dose Rate Site technetium Tc 99m sestamibi injection (Tc-99m Cardiolite) 5.4-48.4 millicurie, intravenous, Once, On 12/12/23 at 1215, For 1 dose, Imaging Protocol Orders Given 12/12/2023 11:58 AM CDT 43.4 millicuries Right Antecubital documented in this encounter Care Teams Textile Knitter Relationship Specialty Start Date End Date Elsewhere, Pcp PCP - General Internal Medicine 11/29/23 documented as of this encounter
--- OUTSIDE RECORDS SUMMARY | 2023-12-26 15:28 | XMS_ITS | Encounter Summary ---
Author Organization [facility] Address [address] [place] [address] Care Team Providers Care Liquid Loader Name Role Phone Elsewhere, Pcp Primary Care Provider Unavailabl e Reason for Visit * Auth/Cert (Routine) Specialty Diagnoses / Procedures Referred By Gianna t Referred To Contact Diagnoses Ischemia Mesenteric (HCC) Ischemia Mesenteric (HCC) [K55.8] Procedures AK PLC OPN/PERC STENT INIT AK BRACH ART EXPOS DPL PROSTH UNILAT ANGIOGRAPHY MESENTERIC WITH OR WITHOUT ANGIOPLASTY AND/OR STENT, possible left brachial approach. Proceed as indicated. IR IMAGING ENDOVASCULAR ACCESS UPPER EXTREMITY Mc Fabian M.D. [address] [place] [phone] Referral ID Status Reason Start Date Expiration Date Visits Re quested Visits Authorized [id number] 1 1 Encounter Details Date Type Department Care Team (Latest Contact Info) Description 12/15/2023 10:10 AM CDT - 12/16/2023 12:59 PM CDT Hospital Encounter [facility], [facility], [facility], Eighth Floor [address] [place] [phone] Mc Fabian M.D. [address] [place] [phone] Ischemia Mesenteric (HCC) Discharge Disposition: Home or Self Care Social History Tobacco Use Types Packs/Day Years Used Date Smoking Tobacco: Former Cigarettes 0 06/20/1982 - 12/24/2010 Smokeless Tobacco: Never Comments:vape Alcohol Use Standard Drinks/Week Comments Yes 1 (1 standard drink = 0.6 oz pur e alcohol) [facility] Utilities Answer Date Recorded In the past 12 months has th e [employer], gas, oil, or water [employer] threatened to shut off services in your [...] your living situation today? I [facility] live 12/15/2023 Sex and [...] Mass Index 38.1 12/15/2023 10:27 AM CDT documented in this encounter Discharge Summaries * Karol Lozano APRN, C.N.P. - 12/16/2023 11:10 AM CDT DISCHARGE SUMMARY BRIEF OVERVIEW Hospital: [facility] Discharge Provider: Mc Fabian M.D. Primary Team: [facility] Vascular Surgery - Rui Primary Care Provider: Lexii Walsh MD [address] [address] Admission Date: 12/15/2023 Discharge Date: 12/16/2023 PRINCIPAL DIAGNOSIS Ischemia Mesenteric (HCC) SECONDARY DIAGNOSES Principal Problem: Ischemia Mesenteric (HCC) Active Problems: Diverticulitis Colon Diabetes Mellitus Type 2 (HCC) Hyperlipidemia Hypertension NOS Obesity Body Mass Index 30-39.9 Adult Resolved Problems: * No resolved hospital problems. * Surgery Information This Encounter Past Procedures (12/16/2022 to Today) Date Procedures Providers Loc / Dept 12/15/2023 Celiac artery covered stent placement (6x19 & 6x15 mm VBX) via ultrasound-guided right common femoral artery access, IR IMAGING. Mc Fabian M.D.Chait, Jesse D, D.O., M.S. RST ROMB OR DISCHARGE DISPOSITION Home or Self Care [1] ACTIVE ISSUES REQUIRING FOLLOW-UP A follow-up appointment with your primary care provider (PCP) should be arranged within 4-7 days when you return home. This will give you the opportunity to discuss your hospital course and share anyimportant current care needs with your PCP. A copy of the discharge summary has been faxed for their review. Your primary care provider is your long-term healthcare provider, please follow-up with them for any medication refills, home care assistance, or any ongoing chronic medical conditions as needed. At the time of dismissal, pain medication (examples: oxycodone, Dilaudid, Tramadol, [place], etc.) will be prescribed to you if needed. Duration will be determined on a giru-up-imvv basis and will not exceed 2 weeks. Thereafter, you will need to be evaluated by your primary care provider or your surgical team if operative pain persists. You will return in 3-4 months at which time you will have mesenteric artery ultrasound prior to your appointment with Dr. Fabian. These appointments will be mailed to your home. Should you not receive them or if you need to reschedule your appointment, please contact the vascular scheduling office by calling [phone]. Should you need to contact Dr. Fabian or his service in the interim, you may do so through his medical researcher at during normal business hours of 8 to 5 Tuesday through Tuesday (excluding holidays) or, in an emergency situation, through the [facility] fluoroscope operator at . (Service Pager: [phone]). OUTPATIENT FOLLOW UP For appointment details refer to your Patient Appointment Guide. TEST RESULTS PENDING AT DISCHARGE Pending Labs None DETAILS OF HOSPITAL STAY REASON FOR ADMISSION Ischemia Mesenteric (HCC) HOSPITAL COURSE # Ischemia Mesenteric (HCC) # Status post celiac artery covered stent placement, 12/15/2023 Ms. Esqueda was admitted to Dr. Fabian's surgical service following celiac artery covered stentplacement on 12/15/2023. She tolerated the procedure well and was transferred to the vascular progressive care unit postoperatively. Postoperative troponins and ECG were negative for myocardial ischemia. Pain was managed with intravenous pain medications, which was later transitioned to oral pain medications with adequate control. Right groin puncture soft without hematoma or drainage. Bilateral lower extremity distal peripheral vessels with palpable DPs. Neurological exam was at baseline. At the time of dismissal, she was tolerating a general diet, ambulating, and urinating without difficulty. Aspirin and Plavix were continued and should be continued seen by Dr. Fabian in follow-up. It is recommended and discussed that while taking aspirin and Plavix, she should avoid taking Toradol as this would increase her chance of bleeding. # Diabetes Mellitus Type 2 (HCC) # Obesity Body Mass Index 30-39.9 Adult # Hyperlipidemia Blood glucose levels were monitored and correction scale insulin utilized as needed. Ms. Esqueda was continued on previous statin therapy. Continue to follow-up with primary care for ongoing monitoring. # Diverticulitis Colon # Hypertension NOS Home medications were resumed as clinically indicated. Chronic health conditions should continue rick managed by primary care provider. CONSULTS ORDERED DURING THIS ADMISSION None Pertinent Diagnostic Results: US Mesenteric Artery Result Date: 12/16/2023 Impression: 1. Interval celiac artery stenting. 2. Patent celiac artery stent with mild to minimal improvement in the PSV. 3. 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 CT Chest Angiogram with IV Contrast Result Date: 12/12/2023 Impression: 1. The thoracic aorta is of normal caliber with atherosclerotic changes, most prominentin the descending thoracic segment. 2. Small amount of coronary artery calcifications. DX Chest AP or PA and Lateral 2 Views Result Date: 12/12/2023 Impression: No prior chest imaging studies are available for comparison. Atherosclerotic aortic calcification. Thoracic spine hypertrophic changes. Upper abdominal surgical clips. Chest otherwise negative. BUN (Blood Urea Nitrogen), P Date Value Ref Range Status 11/29/2023 9 6 - 21 mg/dL Final BUN (Blood Urea Nitrogen), S Date Value Ref Range Status 12/16/2023 7 6 - 21 mg/dL Final Creatinine Date Value Ref Range Status 12/16/2023 0.64 0.59 - 1.04 mg/dL Final 11/29/2023 1.35 (H) 0.59 - 1.04 mg/dL Final Recent Results (from the past 24 hour(s)) Glucose, POCT Collection Time: 12/15/23 12:29 PM Result Value Glucose, POCT, B 101 Site Capillary Type and Screen (with Reflex Antibody ID) Collection Time: 12/15/23 1:47 PM Result Value ABORh O Pos Antibody Screen Negative Type & Screen Expiration 12/18/2023 23:59 Testing Location [place] Blood Gas with Coox, Arterial Collection Time: 12/15/23 1:52 PM Result Value pO2 197 (H) pCO2 45 pH 7.37 Base Excess 1 HCO3 26 Hemoglobin, B 8.1 (L) O2Hb 98.7 (H) COHb 1.2 MetHb <1.0 CtO2 11.8 (L) Potassium, Blood Collection Time: 12/15/23 1:52 PM Result Value Potassium, B 3.1 (L) Sodium, B Collection Time: 12/15/23 1:52 PM Result Value Sodium, B 133 (L) Calcium, Ionized Collection Time: 12/15/23 1:52 PM Result Value Calcium, Ionized, B 4.25 (L) Glucose, Whole Blood Collection Time: 12/15/23 1:52 PM Result Value Glucose 98 Lactate, Whole Blood Collection Time: 12/15/23 1:52 PM Result Value Lactate, B <0.5 (L) ACT (Activated Clotting Time), POCT Collection Time: 12/15/23 1:59 PM Result Value Activated Clotting Time, POCT 187 (H) ACT (Activated Clotting Time), POCT Collection Time: 12/15/23 2:12 PM Result Value Activated Clotting Time, POCT 206 (H) ACT (Activated Clotting Time), POCT Collection Time: 12/15/23 2:33 PM Result Value Activated Clotting Time, POCT 206 (H) ACT (Activated Clotting Time), POCT Collection Time: 12/15/23 2:46 PM Result Value Activated Clotting Time, POCT 127 Glucose, POCT Collection Time: 12/15/23 4:09 PM Result Value Glucose, POCT, B 98 Site Capillary Troponin T, Baseline with 2 Hour/6 Hour Reflex Biomarker Panel Collection Time: 12/15/23 4:19 PM Result Value Troponin T, Baseline, 5th gen 11 (H) Troponin T, 2 Hour with 6 Hour Reflex, 5th Gen Collection Time: 12/15/23 6:17 PM Result Value Troponin T, 2 hr, 5th gen 13 (H) 2H Delta 2 2H Delta Interp Not Changing Basic Metabolic Panel Collection Time: 12/16/23 5:14 AM Result Value Potassium, S 4.2 Sodium, S 131 (L) Chloride, S 96 (L) Bicarbonate, S 23 Anion Gap 12 BUN (Blood Urea Nitrogen), S 7 Creatinine 0.64 Estimated GFR (eGFR) >90 Calcium, Total, S 8.3 (L) Glucose, S 107 CBC without Differential Collection Time: 12/16/23 5:15 AM Result Value Hemoglobin 8.4 (L) Hematocrit 27.0 (L) Erythrocytes 3.36 (L) MCV 80.4 RBC Distrib Width 18.7 (H) Platelet Count 373 (H) Leukocytes 8.3 CONDITION AT DISCHARGE stable Code Status at Discharge: FULL Discharge instructions were provided to the patient and caregiver(s). Total time spent in discharge services today: > 30 minutes. documented in this encounter Discharge Instructions * Attachments The following attachments cannot be sent through Care Everywhere. * Acetaminophen (By mouth) (Icelandic) * Aspirin (By mouth) (Icelandic) * Pantoprazole (By mouth) (Icelandic) * Senna (By mouth) (Icelandic) documented in this encounter Medications at Time [...] (81 mg total) by mouth daily. 12/17/2023 clopidogreL (Plavix) 75 mg tablet Take 75 mg by mouth daily. ferrous sulfate 325 mg (65 mg iron) tablet Take 325 mg by mouth daily. FLUoxetine (PROzac) 10 mg tablet Take 10 mg by mouth daily. glipiZIDE (GLUCOTROL) 5 mg tablet Take 5 mg by mouth every morning before breakfast. 09/26/2023 hydroCHLOROthiazide (HYDRODIURIL) 25 mg tablet Take 1 tablet by mouth daily. 04/04/2012 HYDROmorphone (Dilaudid) 2 mg tabletIndications:Acute Pain Exception Take 1 tablet (2 mg total) by mouth every 4 (four) hours as needed for pain Indication: Acute Pain Exception. 10 tablet 12/16/2023 lisinopriL (PRINIVIL,ZESTRIL) 40 mg tablet Take 1 tablet by mouth daily. 04/04/2012 magnesium gluconate (Magonate) 27 mg (500 mg) tablet Take 500 mg by mouth 2 (two) times a day with meals. metFORMIN (GLUCOPHAGE) 1,000 mg tablet Take 1,000 [...] Take 10 mg by mouth daily. 09/26/2023 documented as of this encounter Progress Notes * Fina Schuster M.D. - 12/16/2023 6:30 AM CDT VASCULAR & ENDOVASCULAR SURGERY PROGRESS NOTE SUBJECTIVE Brief Summary: Ms. Salina Esqueda is a 53 y.o. female who is s/p Celiac artery stenting for celiac stenosis on12/16/2023. Her postoperative course is uncomplicated Interval Events: No acute events overnight. Hemodynamically stable and afebrile. Her abdominal pain is improved after surgery. She was able to eat a sandwich with no problems yesterday evening. However, she is still very anxious and worried about trying to eat since this has triggered her pain for so long. She wants to premedicate herself with narcotics to try eating. We discussed that this is not recommended. She should try to eat without pain medication today before discharge. If she needs rescue medications for pain, we can give them in the hospital and initiate further workup for her pain. OBJECTIVE Vital Signs: Temperature: [36.5 ??C-36.8 ??C] 36.6 ??C Heart Rate: [66-93] 88 Resp Rate: [7-24] 18 Blood Pressure: (100-142)/(47-85) 142/47 Arterial Line BP: (125-150)/(43-58) 150/58 SpO2: [94 %-100 %] 98 % Pulse Rate: [68-94] 79 Physical Examination: General: No acute distress, resting in bed HEENT: NCAT Cardiac: regular rate Respiratory: nonlabored breathing on room air Abdomen: soft, nontender, nondistended Lower extremities: right groin puncture site clean,dry, intact, no hematoma Laboratory Studies: Hemoglobin: 8.4 g/dL (from 10.4) Creatinine: 0.64 mg/dL Imaging: US Mesenteric Artery Result Date: 12/16/2023 Impression: 1. Interval celiac artery stenting. 2. Patent celiac artery stent with mild to minimal improvement in the PSV. 3. 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 ASSESSMENT Active Problems: #1 Diverticulitis Colon #2 Diabetes Mellitus Type 2 (HCC) #3 Hyperlipidemia #4 Hypertension NOS #5 Ischemia Mesenteric (HCC) #6 Obesity Body Mass Index 30-39.9 Adult Ms. Salina Esqueda is a 53 y.o. 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 Her abdominal pain is improved and she is stable postoperatively. PLAN US of mesenteric artery today. Diet: Discharge Diet for Adults Activity: as tolerated, no restrictions Antithrombotic Regimen: Plavix 75mg and 81mg aspirin daily Antimicrobial Regimen: none Analgesic Regimen: tylenol, Dilaudid Urinary Catheter: void Incision: femoral puncture site dressing to be removed tomorrow Disposition: discharge home today if tolerating diet With questions/concerns, please page Dr. Fabian's service, [phone] * Yovani Vazquez, Pharm.D., R.Ph. - 12/15/2023 10:46 AM CDT Images from the original note were not included. Admission Medication History Note Adherence issues: Unable to assess Medication list source: Patient and Pharmacy or dispense records Prior to Admission Medications Med List Status: Pharmacy/RN Complete Set By: Yovani Vazquez, Pharm.D., R.Ph. at 12/15/2023 10:46 AM Taking? Last Dose Informant LT amLODIPine (NORVASC) 5 mg tablet 12/15/2023 Self Take 5 mg by mouth daily. clopidogreL (Plavix) 75 mg tablet 12/15/2023 Self Take 75 mg by mouth daily. ferrous sulfate 325 mg (65 mg iron) tablet Past Week Self Take 325 mg by mouth daily. FLUoxetine (PROzac) 10 mg tablet 12/15/2023 Self Take 10 mg by mouth daily. glipiZIDE (GLUCOTROL) 5 mg tablet 12/14/2023 Self Take 5 mg by mouth every morning before breakfast. hydroCHLOROthiazide (HYDRODIURIL) 25 mg tablet 12/14/2023 Self Take 1 tablet by mouth daily. HYDROmorphone (Dilaudid) 2 mg tablet 12/15/2023 at 0730 Self Take 2 mg by mouth every 4 (four) hours as needed for pain. Notes: Took 4 mg (2 tablets) today, 12/15/23 ketorolac (ToradoL) 10 mg tablet 12/15/2023 at am Self Take 10 mg by mouth every 6 (six) hours as needed for pain. lisinopriL (PRINIVIL,ZESTRIL) 40 mg tablet 12/14/2023 Self Take 1 tablet by mouth daily. magnesium gluconate (Magonate) 27 mg (500 mg) tablet Past Week Self Take 500 mg by mouth 2 (two) times a day with meals. metFORMIN (GLUCOPHAGE) 1,000 mg tablet Past Week Self Take 1,000 mg by mouth 2 (two) times a day with meals. multivitamin tablet Past Week Self Take 1 tablet by mouth daily. omeprazole (PriLOSEC) [address] capsule 12/15/2023 Self Take 40 mg by mouth every morning before breakfast. simvastatin (ZOCOR) 10 mg tablet 12/15/2023 Self Take 10 mg by mouth daily. documented in this encounter OR Notes * Op Note - Wilmer Hernandez D.O., M.S. - 12/15/2023 1:46 PM CDT Pre-op Diagnosis Ischemia Mesenteric (HCC) Post-op Diagnosis Ischemia Mesenteric (HCC) Political Science Chair A office support assistant actively participated and was necessary for one or more of the following: opening, exposure and visualization during the case, maintaining hemostasis, wound closure resulting in itssafe and expeditious completion. Findings High-grade celiac axis stenosis, consistent with preoperative imaging. Extensive collateralization to superior mesenteric artery branches via a well-developed gastroduodenal artery in the setting of known proximal superior mesenteric artery occlusion. Following stent placement and balloon angioplasty, there was complete resolution of the celiac axis ostial stenosis with brisk filling of the left gastric, common hepatic, splenic, and gastroduodenal arteries without evidence of complication. Complications None Operative Note Narrative INDICATION FOR PROCEDURE: Ms. Salina Esqueda is a 53 y.o. female who presented with mesenteric angina in the setting of known superior mesenteric artery occlusion and high-grade celiac axis stenosis. Risks, benefits, and alternatives of celiac artery stenting were discussed and She elected to proceed with operative intervention. Written informed consent was obtained. OPERATIVE COURSE: Ms. Esqueda was taken to the operating room and placed in the supine position. Satisfactory general endotracheal anesthesia was administered. The necessary lines and drains were placed by the anesthesiology and nursing teams. The patient was prepped and draped in the usual sterile fashion. Perioperative antibiotics were administered within 30 minutes of incision/puncture. A surgical pause was undertaken where all members of the operating room team correctly identified the patient via full legal name, date of , medical record number, the planned procedure and laterality, allergies, fire risk, and perioperative medication administration. All were in agreement. Under ultrasound guidance, the right common femoral artery was accessed in a retrograde fashion using a 21 gauge micropuncture needle. Fluoroscopy confirmed adequate arteriotomy position overlying the femoral head. Using modified Seldinger technique, a 6 Bengali short [place] sheath was placed retrograde in the right external iliac artery. The patient was systemically anticoagulated with unfractionated intravenous heparin to maintain an activated clotting time greater than 250 seconds throughout the entirety of the case. The arteriotomy was dilated 1st with a 7 Bengali short [place] sheath. Under the protection of a Kumpe catheter, a Lambert wire was placed in the descending thoracic aorta. A7.5 Bengali [place] steerable sheath was then advanced into the para visceral aorta and formed. Hand injection was performed locating the celiac axis. Using a soft angled Glidewire, the celiac axis was easily catheterized. A Kumpe catheter was advanced without resistance past the stenosis and hand injection confirmed presence within the true lumen. A Lambert wire was placed. A 6 x 19 mm VBX balloon expandable covered stent graft was advanced into the proximal celiac axis. Angiography was performed to guide appropriate placement. The VBX stent was expanded to nominal diameter. Interval angiography demonstrated appropriate coverage of the stenotic lesion but there was minimal extension of the celiac artery stent proximally into the aorta. Therefore, a 6 x 15 mm VBX was taken up and deployed slightly more proximally with care to have at least 4 mm of stent protruding into the para visceral aorta as this was an ostial lesion. The stent was then flared proximally with a 7 x 20 mm plain circus rider balloon. Interval angiography and still shots of the stents demonstrated appropriate flaring and complete coverage of the lesion with brisk filling through all celiac artery branches. Several further projections were taken and a formal aortogram performed demonstrating a widely patent celiac axis and no evidence of complication. Protamine was administered. All wires, catheters, and sheaths were removed and manual pressure was held over the arteriotomy site with excellent hemostasis. At the end of the procedure, all counts were found to be correct. The patient was awakened from anesthesia and transferred to the PACU in stable condition. Wilmer Hernandez D.O., M.S. * Brief Op Note - Wilemr Hernandez D.O., M.S. - 12/15/2023 1:46 PM CDT Pre-op Diagnosis Ischemia Mesenteric (HCC) Post-op Diagnosis Ischemia Mesenteric (HCC) Findings High-grade proximal celiac axis stenosis successfully treated with balloon expandable covered stentplacement utilizing 6 x 19 and 6 x 15 mm VBX stents which were flared proximally with a 7 x 20 mm circus rider balloon. Completion angiography demonstrated resolution of stenosis without evidence of complication and brisk filling of the superior mesenteric artery branches via a well developed gastroduodenal artery collateral network. Manual pressure held for femoral arteriotomy hemostasis. Complications None Aftercare Lay flat until 9:00 p.m., bedrest thereafter Dual antiplatelet therapy (Plavix 75 mg and ASA 81 mg daily) for at least 3 months IV PPI, transition to PO on discharge NPO at midnight for postoperative day 1 mesenteric duplex ultrasound Wilmer Hernandez D.O., M.S. documented in this encounter Miscellaneous Notes * Hospital Course - Karol Lozano, WILLA, C.N.P. - 12/14/2023 1:23 PM CDT # Ischemia Mesenteric (HCC) # Status post celiac artery covered stent placement, 12/15/2023 Ms. Esqueda was admitted to Dr. Fabian's surgical service following celiac artery covered stentplacement on 12/15/2023. She tolerated the procedure well and was transferred to the vascular progressive care unit postoperatively. Postoperative troponins and ECG were negative for myocardial ischemia. Pain was managed with intravenous pain medications, which was later transitioned to oral pain medications with adequate control. Right groin puncture soft without hematoma or drainage. Bilateral lower extremity distal peripheral vessels with palpable DPs. Neurological exam was at baseline. At the time of dismissal, she was tolerating a general diet, ambulating, and urinating without difficulty. Aspirin and Plavix were continued and should be continued seen by Dr. Fabian in follow-up. It is recommended and discussed that while taking aspirin and Plavix, she should avoid taking Toradol as this would increase her chance of bleeding. # Diabetes Mellitus Type 2 (HCC) # Obesity Body Mass Index 30-39.9 Adult # Hyperlipidemia Blood glucose levels were monitored and correction scale insulin utilized as needed. Ms. Esqueda was continued on previous statin therapy. Continue to follow-up with primary care for ongoing monitoring. # Diverticulitis Colon # Hypertension NOS Home medications were resumed as clinically indicated. Chronic health conditions should continue rick managed by primary care provider. documented in this encounter Plan of Treatment Upcoming Encounters Date Type Department Care Team (Latest Contact Info) Description 03/19/2024 10:30 AM CDT Appointment Department of Radiology, [facility], in [place], [place] [address] [place] [address] Mc Fabian M.D. [address] [place] [address] Discharge Disposition: Home or Self Care 03/19/2024 1:20 PM CDT Office Visit Division of Vascular and Endovascular Surgery in [place], [place] [address] [place] [address] Mc Fabian M.D. [address] [place] [phone] documented as of this encounter Procedures Procedure [...] LACTATE, B STAT 12/15/2023 1:52 PM CDT SODIUM, B STAT 12/15/2023 1:52 PM CDT ABG W/COOX STAT 12/15/2023 1:52 PM CDT POTASSIUM, B STAT 12/15/2023 1:52 PM CDT GLUCOSE, WHOLE BLOOD STAT 12/15/2023 1:52 PM CDT CALCIUM, IONIZED, S/B STAT 12/15/2023 1:52 PM CDT TYPE AND SCREEN STAT 12/15/2023 1:47 PM CDT ANGIOGRAPHY MESENTERIC WITH OR WITHOUT ANGIOPLASTY AND/OR STENT 12/15/2023 12:34 PM CDT Ischemia Mesenteric (HCC) Case Notes Blocker And Cutter Contact Lens @ 1010 GLUCOSE POCT, B Routine 12/15/2023 12:29 PM CDT documented in this encounter Results * US Mesenteric Artery (12/16/2023 8:32 AM CDT) Anatomical Region Laterality Modality Abdomen, [...] the SMA and JINA. Wilmer Hernandez D.O. MGarretS. IMG US PROCEDUR ES * ECG 12 Lead (12/16/2023 5:22 AM CDT) Ventricular Rate ECG/Min 70 BPM MUSE AK Interval 205 ms MUSE QRSD Interval 98 ms MUSE QT Interval 434 ms MUSE QTC Interval 468 ms MUSE P [place] 52 degrees MUSE R [place] 3 degrees MUSE T Wave [place] 39 degrees MUSE 12/16/2023 5:22 AM CDT 12/16/2023 5:27 AM CDT Impressions MUSE - 12/16/2023 5:27 AM CDT Normal sinus rhythm with 1st degree A-V block T wave abnormality, consider anterior ischemia When compared with ECG of 15-Dec-2023 16:08, QT has shortened AK interval has increased Reviewed by PROMISE Madrid Narrative Procedure Note Trevor Medina M.D. - 12/16/2023 IMPRESSION: Normal sinus rhythm with 1st degree A-V block T wave abnormality, consider anterior ischemia When compared with ECG of 15-Dec-2023 16:08, QT has shortened AK interval has increased Reviewed by PROMISE Madrid Neto Kiran APRN, C.N.PGarret ECG ORD ERABLES MUSE NA * (ABNORMAL) [...] 12/16/2023 5:37 AM CDT Wilmer Hernandez D.O. M.S. LAB BLOOD ADD-O N [address] [address], [facility] [place] [address] * (ABNORMAL) Basic Metabolic Panel (12/16/2023 5:14 AM CDT) Potassium, S 4.2 3.6 - 5.2 mmol/L [...] CDT 12/16/2023 5:53 AM CDT Wilmer Hernandez D.O., M.S. LAB BLOOD ADD-O N Performing Organization Address [facility] Co de Phone Number [facility] [address] DTL [facility] 200 [place] [address] * (ABNORMAL) Troponin T, 2 Hour with [...] LAB BLOOD TROPO CALEB Performing Organization Address [facility]/ZIP Co de Phone Number [facility] [address] STMA [facility] 200 [place] [address] * (ABNORMAL) Troponin T, Baseline with 2 Hour/6 Hour Reflex Biomarker Panel (12/15/2023 4:19 PM CDT) Troponin T, Baseline, 5th gen 11(H) <=10 ng/L 12/15/2023 4:58 PM CDT STMA Blood (Blood, Venous) 12/15/2023 4:19 PM CDT 12/15/2023 4:27 PM CDT Karol Lozano APRN, C.N.P. LAB BLOOD TROPO CALEB [facility] [address] [place] [address], [facility] 200 [place] [address] * Glucose, POCT (12/15/2023 4:09 PM CDT) Pathologist [facility] Glucose, POCT, B 98 70 - 140 mg/dL 12/15/2023 4:11 PM CDT PCLX Site Capillary 12/15/2023 4:11 PM CDT PCLX Blood 12/15/2023 4:09 PM CDT 12/15/2023 4:11 PM CDT Unknown Provider LAB POCT ORDERABLES- MANUAL Performing Organization Address [facility]/ZIP Co de Phone Number POC [facility] [address] [place] [address], [facility] PCLX [facility] POC [address] [place] [address] * ECG 12 Lead (12/15/2023 4:08 PM CDT) Pathologist [facility] Ventricular Rate ECG/Min 66 BPM MUSE AK Interval 164 ms MUSE QRSD Interval 104 ms MUSE QT Interval 486 ms MUSE QTC Interval 509 ms MUSE R [place] 18 degrees MUSE T Wave [place] 51 degrees MUSE 12/15/2023 4:08 PM CDT 12/15/2023 4:11 PM CDT Impressions MUSE - 12/15/2023 4:11 PM CDT Normal sinus rhythm T wave abnormality, consider anterior ischemia Prolonged QT When compared with ECG of 12-Dec-2023 13:51, QT has lengthened Reviewed by PROMISE Koo Narrative Procedure Note Trevor Medina M.D. - 12/15/2023 IMPRESSION: Normal sinus rhythm T wave abnormality, consider anterior ischemia Prolonged QT When compared with ECG of 12-Dec-2023 13:51, QT has lengthened Reviewed by PROMISE Koo Kena Moffett APRNNYasmani ECG ORDERABLES Performing Organization Address [facility] Co de Phone Number MUSE NA * IR IMAGING (12/15/2023 3:31 PM CDT) Anatomical Region Laterality Modality N/A Other Narrative 12/16/2023 9:14 AM CDT Performed by surgeon - see Op Note for result. Mc Fabian M.D. IMG IR PROCEDURES * ACT (Activated Clotting Time), POCT (12/15/2023 2:46 PM CDT) Activated Clotting Time, POCT 127 84 - 139 sec 12/15/2023 2:49 PM CDT PCSM Blood 12/15/2023 2:46 PM CDT 12/15/2023 2:49 PM CDT Unknown Provider LAB POCT ORDERABLES - DEVICE Performing Organization Address [facility] Co de Phone Number POC [facility] [address] [place] [address], [facility] PCSM [facility] POC [address] [place] [address] * (ABNORMAL) ACT (Activated Clotting Time), POCT (12/15/2023 2:33 PM CDT) Activated Clotting Time, POCT 206(H) 84 - 139 sec 12/15/2023 2:37 PM CDT PCSM Blood 12/15/2023 2:33 PM CDT 12/15/2023 2:37 PM CDT Unknown Provider LAB POCT ORDERABLES - DEVICE Performing Organization Address [facility] Co de Phone Number POC [facility] 200 [place], [place] [phone] [place] [address] POC [address] [place] [address] * (ABNORMAL) ACT (Activated Clotting Time), POCT (12/15/2023 2:12 PM CDT) Activated Clotting Time, POCT 206(H) 84 - 139 sec 12/15/2023 2:16 PM CDT PCSM Blood 12/15/2023 2:12 PM CDT 12/15/2023 2:16 PM CDT Unknown Provider LAB POCT ORDERABLES - DEVICE Performing Organization Address [facility] Co de Phone Number POC [facility] 200 [place], [place] [address] POC [address] [place] [address] * (ABNORMAL) ACT (Activated Clotting Time), POCT (12/15/2023 1:59 PM CDT) Activated Clotting Time, POCT 187(H) 84 - 139 sec 12/15/2023 2:02 PM CDT PCSM Blood 12/15/2023 1:59 PM CDT 12/15/2023 2:03 PM CDT Unknown Provider LAB POCT ORDERABLES - DEVICE Performing Organization Address [facility] Co de Phone Number POC [facility] 200 [place], [place] [address] POC [address] [place] [address] * (ABNORMAL) Lactate, Whole Blood (12/15/2023 1:52 PM CDT) Lactate, B <0.5(L) 0.5 - 2.2 mmol/L 12/15/2023 1:55 PM CDT STMA Blood (Blood, Arterial) 12/15/2023 1:52 PM CDT 12/15/2023 1:52 PM CDT Anabella Quinones M.D. LAB BLOOD NON ADD-O N Performing Organization Address [facility]/ZIP Co de Phone Number [facility] [address] 200 [place] [address] * Glucose, Whole Blood (12/15/2023 1:52 PM CDT) Glucose 98 70 - 140 mg/dL 12/15/2023 1:53 PM [facility]T [facility] Blood (Blood, Arterial) 12/15/2023 1:52 PM CDT 12/15/2023 1:52 PM CDT Anabella Quinones M.D. LAB BLOOD ADD-ON Performing Organization Address [facility] Co de Phone Number [facility] 200 [place], [place] [phone] [place] [address] 200 [place] [address] * (ABNORMAL) Calcium, Ionized (12/15/2023 1:52 PM CDT) Calcium, Ionized, B 4.25(L) 4.65 - 5.30 mg/dL 12/15/2023 1:54 PM CDT STMA Blood (Blood, Arterial) 12/15/2023 1:52 PM CDT 12/15/2023 1:52 PM CDT Anabella Quinones M.D. LAB BLOOD NON ADD-O N Performing Organization Address [facility]/ZIP Co de Phone Number [facility] [address] 200 [place] [address] * (ABNORMAL) Sodium, B (12/15/2023 1:52 PM CDT) Sodium, B 133(L) 135 - 145 mmol/L 12/15/2023 1:53 PM CDT STMA Blood (Blood, Arterial) 12/15/2023 1:52 PM CDT 12/15/2023 1:52 PM CDT Anabella Quinones M.D. LAB BLOOD NON ADD-O N Performing Organization Address [facility] Co de Phone Number [facility] [address] 200 [place] [address] * (ABNORMAL) Potassium, Blood (12/15/2023 1:52 PM CDT) Pathologist [facility] Potassium, B 3.1(L) 3.6 - 5.2 mmol/L 12/15/2023 1:54 PM CDT STMA Blood (Blood, Arterial) 12/15/2023 1:52 PM CDT 12/15/2023 1:52 PM CDT Anabella Quinones M.D. LAB BLOOD NON ADD-O N Performing Organization Address [facility] Co de Phone Number [facility] 200 [place], [place] [phone] [place] [address] 200 [place] [address] * (ABNORMAL) Blood Gas with Coox, Arterial [...] BLOOD NON ADD-O N Performing Organization Address [facility]/ZIP Co de Phone Number [facility] [address] [place] [address], [facility] STMA [facility] [address] [place] [address] * Type and Screen (with Reflex Antibody ID) (12/15/2023 1:47 PM CDT) Pathologist [facility] ABORh O Pos Not applicable 12/15/2023 2:20 PM CDT STRM Antibody Screen Negative Negative 12/15/2023 2:30 PM CDT STRM Type & Screen Expiration 12/18/2023 23:59 12/15/2023 2:20 PM CDT STRM Testing Location [place] DEFAULT 12/15/2023 1:52 PM CDT STRM Blood (Blood, Venous) 12/15/2023 1:47 PM CDT 12/15/2023 1:52 PM CDT Narrative Resulting Agency Comment Drawn in OR by [id number] Anabella Quinones M.D. LAB BLOOD BANK TEST ORDERABLES Performing Organization Address [facility]/ZIP Co de Phone Number [facility] [address] [place] [address], [facility] STRM [facility] 200 [place] [address] * Glucose, POCT (12/15/2023 12:29 PM CDT) Glucose, POCT, B 101 70 - 140 mg/dL 12/15/2023 12:31 PM CDT PCLX Site Capillary 12/15/2023 12:31 PM CDT PCLX Blood 12/15/2023 12:2 9 PM CDT 12/15/2023 12:32 PM CDT Unknown Provider LAB POCT ORDERABLES- MANUAL POC [facility] 200 [place] [address], [facility] PCLX [facility] 200 [place] [address] documented in this encounter Visit Diagnoses Diagnosis Ischemia Mesenteric (HCC)- Primary Diabetes Mellitus Type 2 (HCC) Diverticulitis Colon Hyperlipidemia Hypertension NOS Obesity Body Mass Index 30-39.9 Adult Ischemia Mesenteric (HCC) documented in this encounter Admitting Diagnoses Diagnosis Ischemia Mesenteric (HCC) documented in this encounter Administered Medications Inactive Administered Medications - up to 3 most recent administrations Medication Order MAR Action Action Date Dose Rate Site acetaminophen tablet 1,000 mg (TylenoL) 1,000 mg, oral, 4 times daily, First dose on Tue12/15/23 at 2100 Given 12/16/2023 8:58 AM CDT 1,000 mg Given 12/15/2023 8:30 PM CDT 1,[address] tablet 81 mg 81 mg, oral, Daily, First dose on Tue12/16/23 at 0900, Swallow whole. Do NOT crush, chew, or split tablet. Given 12/16/2023 8:58 AM CDT 81 mg atorvastatin tablet 20 mg (Lipitor) 20 mg, oral, Daily, First dose on Tue12/16/23 at 0900, atorvaSTATin 20 mg oral daily was interchanged for simvastatin 5-40 mg oral daily Given 12/16/2023 8:58 AM CDT 20 mg clopidogreL tablet 75 mg (Plavix) 75 mg, oral, Daily, First dose on Tue12/16/23 at 0900 Given 12/16/2023 8:58 AM CDT 75 mg fentaNYL injection 25 mcg (Sublimaze) 25 mcg, intravenous, Every 1 hour PRN, moderate pain or score 4-6 of 10, severe pain or score 7-10 of 10, if patient is unable to take oral analgesics, Starting on Lian 12/15/23 at 1646, For 2 doses Given 12/15/2023 6:19 PM CDT 25 mcg Given 12/15/2023 5:01 PM CDT 25 mcg FLUoxetine tablet 10 mg (PROzac) 10 mg, oral, Daily, First dose on Tue12/16/23 at 0900, FLUoxetine orderable was interchanged for FLUoxetine tablet/capsule Given 12/16/2023 8:58 AM CDT 10 mg heparin (porcine) injection 5,000 Units 5,000 Units, subcutaneous, Every 8 hours scheduled, First dose on Tue12/15/23 at 2300 Given 12/16/2023 4:50 AM CDT 5,000 Units Left Lower Abdomen Given 12/15/2023 9:16 PM CDT 5,000 Units R ight Lower Abdomen HYDROmorphone (PF) injection 0.4 mg (Dilaudid) 0.4 mg, intravenous, Every 1 hour PRN, moderate pain or score 4-6 of 10, severe pain or score 7-10 of 10, if patient is unable to take oral analgesics, Starting on Lian 12/15/23 at 1646, For 1 dose, If pain score remains 4 or greater 1 hour after the second fentaNYL dose then administer HYDROmorphone. If pain remains 4 or greater after HYDROmorphone administration, call provider. Given 12/15/2023 7:48 PM CDT 0.4 mg HYDROmorphone tablet 2 mg (Dilaudid) 2 mg, oral, Every 4 hours PRN, moderate pain or score 4-6 of 10, Starting on Tue12/16/23 at 0957, Does patient have renal impairment, frailty, or advanced age (avoid morphine) and unable to take oxycodone? No, Did the patient fail other oral opioids during hospitalization? No, Does the patient have documented allergies to oxycodone and/or morphine? No, Is the patient on hydromorphone chronically for pain? No ketorolac tablet 10 mg (ToradoL) 10 mg, oral, Once, On Tue12/16/23 at 0945, For 1 dose Given 12/16/2023 10:37 AM CDT 10 mg magnesium oxide tablet 100 mg (Mag-Ox) 100 mg, oral, Daily before morning meal, First dose on Tue12/16/23 at 0700, magnesium oxide 200 mg daily was interchanged for magnesium gluconate 250 mg daily Given 12/16/2023 6:49 AM CDT 100 mg oxyCODONE IR tablet 10 mg (Roxicodone) 10 mg, oral, Every 4 hours PRN, severe pain or score 7-10 of 10, Starting on Lian 12/15/23 at 1646, Administer if pain is unrelieved by acetaminophen. Do not give more than 10 mg of oxycodone in 4 hours. Begin oral narcotics ONLY when tolerating oral diet. Given 12/16/2023 4:46 AM CDT 10 mg Given 12/16/2023 1:07 AM CDT 10 mg Given 12/15/2023 9:18 PM CDT 10 mg pantoprazole injection 40 mg (Protonix) 40 mg, intravenous, Every 12 hours scheduled, First dose on Lian 12/15/23 at 1715, Administer IV push over 2 minutes. Add 10 mL NS to 40 mg vial for a final concentration of 4 mg/mL. Given 12/16/2023 8:59 AM CDT 4 0 mg Given 12/15/2023 6:19 PM CDT 40 mg potassium chloride IVPB 10 mEq 10 mEq, intravenous, at 50 mL/hr, Administer over 60 Minutes, Every 1 hour, First dose on Tue12/16/23 at 0015, For 3 doses, For K 3.0-3.2 mEq/L - give total of 30 mEq, Monitor the following for replacement: Potassium, Replace Potassium per: Standard Schedule New Bag 12/16/2023 1:39 AM CDT 10 mEq 50 mL/hr New Bag 12/16/2023 1:07 AM CDT 10 mEq 50 mL/hr New Bag 12/16/2023 12:10 AM CDT 10 mEq 50 mL/hr sennosides-docusate sodium 8.6-50 mg per tablet 1 tablet (Senokot-S) 1 tablet, oral, 2 times daily, First dose on Tue12/16/23 at 0900, Initiate ONLY when taking oral food and fluids. Do not give if patient has diarrhea or ostomy. Given 12/16/2023 8:58 AM CDT 1 tablet documented in this encounter Active and Recently Administered Medications Times are shown in CDT. Scheduled Medication Order 12/14/2023 12/15/2023 12/16/2023 acetaminophen tablet 1,000 mg (TylenoL) 1,000 mg, oral, 4 times daily, First dose on Tue12/15/23 at 2100 2030 (Given - Provider: Nohemi Sanford R.N.) 0858 (Given - [facility]: [facility].N., [facility]1222 (Not Given - Provider: Lalita White R.N., JUNGN - Reason: Patient/family refused) aspirin DR tablet 81 mg 81 mg, oral, Daily, First dose on Tue12/16/23 at 0900, Swallow whole. Do NOT crush, chew, or split tablet. 0858 (Given - Provid er: Lalita White R.N., PCCN) atorvastatin tablet 20 mg (Lipitor) 20 mg, oral, Daily, First dose on Tue12/16/23 at 0900, atorvaSTATin 20 mg oral daily was interchanged for simvastatin 5-40 mg oral daily 0858 (Given - Provid er: Lal[facility] R.N., [facility]) clopidogreL tablet 75 mg (Plavix) 75 mg, oral, Daily, First dose on Tue12/16/23 at 0900 0858 (Given - Provid er: Lal[facility] R.N., [facility]) FLUoxetine tablet 10 mg (PROzac) 10 mg, oral, Daily, First dose on Tue12/16/23 at 0900, FLUoxetine orderable was interchanged for FLUoxetine tablet/capsule 0858 (Given - Provid er: Lalita White R.N., PCCN) heparin (porcine) injection 5,000 Units 5,000 Units, subcutaneous, Every 8 hours scheduled, First dose on Tue12/15/23 at 2300 2116 (Given - Provider: Nohemi Sanford R.N.) 0450 (Given - Provider: Nohemi Sanford R.N.) ketorolac tablet 10 mg (ToradoL) (COMPLETED) 10 mg, oral, Once, On Tue12/16/23 at 0945, For 1 dose 1037 (Given - Provid er: Lalita White R.N., ELIAN) magnesium oxide tablet 100 mg (Mag-Ox) 100 mg, oral, Daily before morning meal, First dose on Tue12/16/23 at 0700, magnesium oxide 200 mg daily was interchanged for magnesium gluconate 250 mg daily 0649 (Given - Provid er: Nohemi Sanford R.N.) pantoprazole injection 40 mg (Protonix) 40 mg, intravenous, Every 12 hours scheduled, First dose on Tue12/15/23 at 1715, Administer IV push over 2 minutes. Add 10 mL NS to 40 mg vial for a final concentration of 4 mg/mL. 1819 (Given - Provider: Micah Henriquez R.N.) 0859 (Given - Provider: Lalita White R.N., EILAN) potassium chloride IVPB 10 mEq (COMPLETED) 10 mEq, intravenous, at 50 mL/hr, Administer over 60 Minutes, Every 1 hour, First dose on Tue12/16/23 at 0015, For 3 doses, For K 3.0-3.2 mEq/L - give total of 30 mEq, Monitor the following for replacement: Potassium, Replace Potassium per: Standard Schedule 0010 (New Bag - Provider: Nohemi Sanford R.N.)0107 (New Bag - Provider: Nohemi Sanford R.N.)0139 (New Bag - Provider: Nohemi Sanford R.N.) sennosides-docusate sodium 8.6-50 mg per tablet 1 tablet (Senokot-S) 1 tablet, oral, 2 times daily, First dose on Tue12/16/23 at 0900, Initiate ONLY when taking oral food and fluids. Do not give if patient has diarrhea or ostomy. 0858 (Given - Provid er: [facility] R.N., [facility]) PRN Medication Order 12/14/2023 12/15/2023 12/16/2023 bisacodyL suppository 10 mg (Dulcolax) 10 mg, rectal, Daily PRN, constipation, Starting on Tue12/15/23 at 1646, Ordered sequence of administration: polyethylene glycol, then bisacodyl until BM achieved. fentaNYL injection 25 mcg (Sublimaze) (COMPLETED) 25 mcg, intravenous, Every 1 hour PRN, moderate pain or score 4-6 of 10, severe pain or score 7-10 of 10, if patient is unable to take oral analgesics, Starting on Lian 12/15/23 at 1646, For 2 doses 1701 (Given - Provider: Micah Henriquez R.N.)1819 (Given - Provider: Micah Henriquez R.N.) heparin 10 Units/mL in NaCl 0.9% 500 mL flush solution (COMPLETED) miscellaneous, Once in surgery, OR use only, Starting on Lian 12/15/23 at 1315, For 1 dose, Intra-Op, *Flush/Irrigation use only* 1436 (New Bag - Provider: Wilmer Hernandez D.O., M.S.) HYDROmorphone (PF) injection 0.4 mg (Dilaudid) (COMPLETED) 0.4 mg, intravenous, Every 1 hour PRN, moderate pain or score 4-6 of 10, severe pain or score 7-10 of 10, if patient is unable to take oral analgesics, Starting on Lian 12/15/23 at 1646, For 1 dose, If pain score remains 4 or greater 1 hour after the second fentaNYL dose then administer HYDROmorphone. If pain remains 4 or greater after HYDROmorphone administration, call provider. 1947 (Given - Provider: Nohemi Sanford R.N.) HYDROmorphone tablet 2 mg (Dilaudid) 2 mg, oral, Every 4 hours PRN, moderate pain or score 4-6 of 10, Starting on Tue12/16/23 at 0957, Does patient have renal impairment, frailty, or advanced age (avoid morphine) and unable to take oxycodone? No, Did the patient fail other oral opioids during hospitalization? No, Does the patient have documented allergies to oxycodone and/or morphine? No, Is the patient on hydromorphone chronically for pain? No iodixanoL (Visipaque) 160 mg/mL in NaCl 0.9% injection (COMPLETED) 300 mL, injection, Once in surgery, OR use only, Starting on Lian 12/15/23 at 1315, For 1 dose, Intra-Op 1436 (Given - Provider: Wilmer Hernandez D.O., M.S.) naloxone injection 0.2 mg (Narcan) 0.2 mg, intravenous, As needed, respiratory depression, Starting on Lian 12/15/23 at 1646, For RASS Score -4 or less, respiratory rate of less than 8 breaths/min. Notify provider/service and rapid response team (if available at institution). oxyCODONE IR tablet 10 mg (Roxicodone) (CANCELED)(Linked Group 1) 10 mg, oral, Every 4 hours PRN, severe pain or score 7-10 of 10, Starting on Lian 12/15/23 at 1646, Administer if pain is unrelieved by acetaminophen. Do not give more than 10 mg of oxycodone in 4 hours. Begin oral narcotics ONLY when tolerating oral diet. 2117 (Given - Provider: Nohemi Sanford R.N.) 0107 (Given - Provider: Nohemi Sanford R.N.)0446 (Given - Provider: Nohemi Sanford R.N.)0859 (See Alternative - Provider: [facility] R.N., [facility]) polyethylene glycol powder packet 1 packet (Miralax) 1 packet, oral, Daily PRN, constipation, Starting on Lian 12/15/23 at 1646, Ordered sequence of administration: polyethylene glycol, then bisacodyl until BM achieved. Avoid mixing with starch-based thickened liquids. prochlorperazine injection 5 mg (Compazine) 5 mg, intravenous, Every 6 hours PRN, nausea, vomiting, Starting on Lian 12/15/23 at 1646, For 48 hours, RASS must be -2 or higher to administer. Reassess for nausea/vomiting after at least 10 minutes. If nausea or vomiting persists administer next ordered antiemetic medications (order for antiemetic medication administration ondansetron then haloperidol then prochlorperazine) Linked Groups Order Group 1: oxyCODONE IR tablet 5 mg (Roxicodone) (CANCELED) 5 mg, oral, Every 4 hours PRN, moderate pain or score 4-6 of 10, Starting on Lian 12/15/23 at 1646, Administer if pain is unrelieved by acetaminophen. May repeat dose once after 1 hour for persistent pain not to exceed 10 mg in 4 hours. Begin oral narcotics ONLY when tolerating oral diet. Or oxyCODONE IR tablet 10 mg (Roxicodone) (CANCELED)Jump to med 10 mg, oral, Every 4 hours PRN, severe pain or score 7-10 of 10, Starting on Lian 12/15/23 at 1646, Administer if pain is unrelieved by acetaminophen. Do not give more than 10 mg of oxycodone in 4 hours. Begin oral narcotics ONLY when tolerating oral diet. documented in this encounter Care Teams Liquid Loader Relationship Specialty Start Date End Date Elsewhere, Pcp PCP - General Internal Medicine 11/29/23 documented as of this encounter
--- OUTSIDE RECORDS SUMMARY | 2023-12-26 15:28 | XMS_ITS | Encounter Summary ---
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 Proceed as indicated. IR IMAGING ENDOVASCULAR ACCESS UPPER EXTREMITY Mc Fabian M.D. [address] [place] [phone] Referral ID Status Reason Start Date Expiration Date Visits Re quested Visits Authorized [id number] 1 1 Encounter Details Date Type Department Care Team (Late st Contact Info) Description 12/15/2023 1:05 PM CDT Anesthesia Event RST ROMB MAIN OR [address] [place] [phone] Anabella Quinones M.D. [address] [place] [phone] Meaghan Cannon M.D. [address] [place] [phone] Anesthesia Record Procedure Summary Procedure Name Responsible Anesthesiologist Anesthesia Start Time Anesthesia Stop Time Celiac artery covered stent placement (6x19 & 6x15 mm VBX) via ultrasound-guided right common femoral artery access Anabella Quinones M.D. 12/15/23 1305 12/15/23 1542 Events Date Time Event Comment 12/15/2023 1305 An Start Machine/Equipme nt Checked Infection Precautions Followed Procedure/Site Verified NPO Status Verified Supine Standard ASA Monitors Applied 1312 An Induction 1316 An Intubation 1328 Turnover to Proceduralist 1345 T&S Scan Type and Screen Blood Label Created with Armband Scan. 1346 Proc Start 1517 Proc Fin 1524 Turnover to ANE Staff 1526 Airway Removal Criteria Met 1526 Extubation/Airway Removed 1528 an stop data 1542 An End I completed my handoff to the receiving staff during which we 1. Identified the patient 2. Identified the responsible provider 3. Reviewed the pertinent medical history 4. Discussed the surgical course 5. Reviewed intra-op anesthesia management and issues during anesthesia 6. Set expectations for post-procedure period 7. Allowed opportunity for questions and acknowledgement of understanding. Meds Name Total fentanyl injection 50 mcg/mL 50 mcg lidocaine 2% (mg) injection 100 mg rocuronium 10 mg/mL injection 100 mg phenylephrine 100 mcg/mL injection 200 m cg ePHEDrine PF 5 mg/mL syringe injection 1 5 mg ondansetron 4 mg/2 mL injection 4 mg sugammadex 100 mg/mL injection 300 mg glycopyrrolate 0.2 mg/mL injection 0.4 m g propofol 10 mg/mL injection 200 mg heparin 1,000 units/mL injection 11,000 Units ceFAZolin 2 g dexAMETHasone (DECADRON) injection 4 mg/ mL 4 mg phenylephrine 20 mg/250 mL infusion 0.69 mg protamine 10 mg/mL injection 50 mg acetaminophen injection 1,000 mg/100 mL (RESTRICTED) 1,000 mg plasmalyte-A free drip 1,000 mL plasmalyte-A free drip 500 mL * Agents No agents on file. * Blood No blood administrations on file. Lines, Drains, and Airways Type Details Placement Removal Wound 12/15/23; 1347; N; Incision; Groin; Right; Primapore 12/15/23 1347 by Esperanza Ramsay RGarretN. Peripheral IV Placement Date: 11/19 01/10; Placement Time: 1235; Catheter Size: 20 G; Orientation: Right; Location: Hand; Site Prep: Chlorhexidine (Preferred); Technique: Anatomical landmarks; Insertion Attempts: 1; Removal Date: 12/16/23; Removal Time: 0027; Removal Reason: Infiltrated 12/15/23 1235 by Fatou Mckeon 12/16/23 0027 by Nohemi Sanford RCindy ETT Placement Date: 11/19 01/10; Placement Time: 1316 (created via procedure documentation); Mask Ventilation: Oral/Nasal airway needed; Technique: Video laryngoscopy; Type: Standard ETT; Single Lumen Tube Size: 7.5 mm; Cuffed: Yes; Location: Oral; Grade View: Grade 2A; Insertion Attempts: 1; Placement Verification: Bilateral breath sounds, Positive ETCO2, Symmetrical chest wall movement; Removal Date: 12/15/23; Removal Time: 1526 12/15/23 1316 by Meaghan Cannon M.D. 12/15/23 1526 by Ena Gray APRN, MANAGER PEST, DNAP Arterial Line Placement Date: 11/19 01/10; Placemnt Time: 1322 (created via procedure documentation); Size: 20 G; Orientation: Right; Location: Radial; Site Prep: Chlorhexidine (Preferred); Technique: Anatomical landmarks; Insertion Attempts: 1; Securement: Securement dressing, Securement device; Removal Date: 12/15/23; Removal Time: 1800; Removal Reason: Other (Comment) 12/15/23 1322 by Meaghan Cannon M.D. 12/15/23 1800 by Nohemi Sanford RGarretNGarret Indwelling Urinary Catheter Placement Date: 12/15/23; Placement Time: 1324; Inserted by: CSA student with Coleman Vasquez; Type: Non-latex; Size: 16 Fr.; Balloon Size: 5 mL; Urine Returned: Yes; Removal Date: 12/16/23; Removal Time: 0911; Removal Reason: Per order 12/15/23 1324 by Lorrie Liu RCindy 12/16/23 0911 by Lalita White RGarretNGarret, [facility] Peripheral IV Placement Date: 11/19 01/10; Placement Time: 1324; Catheter Size: 16 G; Orientation: Right; Location: Hand; Removal Date: 12/16/23; Removal Time: 122; Removal Reason: Patient discharged 12/15/23 1324 by Meaghan Cannon M.D. 12/16/23 1221 by Lal[facility] R.N., [facility] documented in this encounter Social History Tobacco Use Types Packs/Day Years Used Date Smoking Tobacco: Former Cigarettes 0 06/20/1982 - 12/24/2010 Smokeless Tobacco: Never Comments:vape Alcohol Use Standard Drinks/Week Comments Yes 1 (1 standard drink = 0.6 oz pur e alcohol) [facility] Utilities Answer Date Recorded In the past 12 months has e [employer], gas, oil, or water [employer] threatened to shut off services in [...] living situation today? I have a [facility] place to live 12/15/2023 Sex and Gender Information Value Date Recorded Sex Assigned at Female 12/09/2023 5:04 PM CDT Gender Identity Female 12/09/2023 5:04 PM CDT Sexual Orientation Straight 12/09/2023 5: 04 PM CDT documented as of this encounter OR Notes * Anesthesia Postprocedure Evaluation - Jes Thompson M.B., B.Ch., B.A.O. - 12/15/2023 4:21 PM CDT Patient: Salina Esqueda Procedure Summary Date: 12/15/23 Room / Location: [address] 01 85 / [facility] in [place], [place] Anesthesia Start: 1305 Anesthesia Stop: 1542 Procedures: Celiac artery covered stent placement (6x19 & 6x15 mm VBX) via ultrasound-guided right common femoral artery access IR IMAGING. Diagnosis: Ischemia Mesenteric (HCC) (Ischemia Mesenteric (HCC) [K55.8].) Providers: Mc Fabian M.D. Responsible Provider: Anabella Quinones M.D. Anesthesia Type: general ASA Status: 4 Anesthesia Type: general Last vitals Vitals Value Taken Time BP 107/53 12/15/23 1615 Temp 36.8 ??C 12/15/23 1535 Pulse 70 12/15/23 1621 Resp 17 12/15/23 1621 SpO2 96 % 12/15/23 1621 Vitals shown include unfiled device data. Please reference Vitals flowsheet for most recent vital signs. Anesthesia Post Evaluation Patient Disposition: monitored unit, expectation for recovery time deferred to receiving unit Cardiovascular status: hemodynamics (HR & BP) acceptable Respiratory status: patent airway with spontaneous effort Temperature: normothermic Oxygen requirements: room air Level of consciousness: awake Pain score: pain adequately controlled and/or at baseline Post Op nausea/vomiting: none Hydration status: euvolemic * Anesthesia Procedure Notes - Meaghan Cannon M.D. - 12/15/2023 2:18 PM CDTAssociated Order(s): Airway Airway Date/Time: 12/15/2023 1:16 PM Performed by: Meaghan aCnnon M.D. Authorized by: Anabella Quinones M.D. Patient location during procedure: OR / Procedure Area PROCEDURE DETAILS: Mask difficulty assessment: oral/nasal airway needed Final airway type: video laryngoscope Laryngeal Manipulation: no Final best view of glottic structures - Cormack/Lehane Score: grade 2A ETT location: oral VL device: glide scope Mercer scope blade size: 3 Tube size: 7.5 [...] ANESTHESIA Anesthesia method: anesthesia POST PROCEDURE DETAILS: Procedure outcome: successful Notable Events: no complications ATTESTATION STATEMENT A resident or fellow participated in the procedure, and the technical assistance consultant was present for the entire procedure. * Anesthesia Procedure Notes - Meaghan Cannon M.D. - 12/15/2023 2:17 PM CDTAssociated Order(s): Invasive Catheter Invasive Catheter Date/Time: 12/15/2023 1:22 PM Performed by: Meaghan Cannon M.D. Authorized by: Anabella Quinones M.D. Location: OR PROCEDURE DETAILS: Line type: arterial Laterality: right Location: radial Location details: new site Age group: adult Catheter diameter: 20 Ga Catheter length (cm): 10 Technique: palpation Monitored: yes Number of attempts: 1 UNIVERSAL PROTOCOL All [...] utilized as applicable for the procedure.: yes Skin preparation: chlorhexidine SEDATION / ANESTHESIA Anesthesia method: anesthesia POST-PROCEDURE DETAILS: Procedure completed successfully: yes Line secured: secured with sutureless device Chlorhexidine disc around insertion site and under catheter with slight turn: yes Notable Events - arterial: none ATTESTATION STATEMENT A resident or fellow participated in the procedure, and the technical assistance consultant was present for the entire procedure. * Anesthesia Preprocedure Evaluation - Jesse Mack M.D. - 12/15/2023 1:43 PM CDT Preprocedure Anesthesia & H&P Assessment Procedure Summary Anesthesia Start Date/Time: 12/15/23 1305 Procedures: ANGIOGRAPHY MESENTERIC WITH OR WITHOUT ANGIOPLASTY AND/OR STENT, possible left brachial approach, proceed as indicated. IR IMAGING. ENDOVASCULAR ACCESS UPPER EXTREMITY. (Left) Diagnosis: Ischemia Mesenteric (HCC) [K55.8] Pre-op diagnosis: Ischemia Mesenteric (HCC) [K55.8]. Location: [address] [facility] / [facility] in [place], [place] Providers: Mc Fabian M.D. Pertinent components of the patient's history including current problem list, medical history, surgical history, family history, social history, medications and allergies were reviewed. Present illness and pre-op diagnosis were confirmed. The planned surgery / procedure was verified with the patient / legal guardian. The patient's general health condition remains unchanged RELEVANT COMORBID CONDITIONS CV (+) Hypertension NOS OBJECTIVE PHYSICAL EXAMINATION Airway (HEENT) Mallampati: III TM Distance: >3 FB Neck ROM: Limited Mouth Opening: >3 cm Cardiovascular Rhythm: Regular Pulmonary Pulmonary Assessment: Clear General / Constitutional Constitutional Assessment: Normal ASSESSMENT / PLAN ANESTHESIA PLAN ASA: 4 Anesthesia Plan: general Patient seen and allergies reviewed; anesthesia plan and risks discussed directly with patient / legal guardian, or through an account support associate; patient evaluated and approved for anesthesia / sedation Risks/Benefits/Alternatives of Blood transfusion discussed with patient / legal guardian, includingan opportunity to ask questions and/or decline some or all transfusion therapies. The patient / legal guardian consented to the use of all blood products, as deemed medically necessary Approval to Proceed: approved for anesthesia documented in this encounter Plan of Treatment Upcoming Encounters Date Type Department Care Team (Latest Contact Info) Description 03/19/2024 10:30 AM CDT Appointment Department of Radiology, [facility], in [place], [place] [address] [place] [address] Mc Fabian M.D. [address] [place] [phone] Discharge Disposition: Home or Self Care 03/19/2024 1:20 PM CDT Office Visit Division of Vascular and Endovascular Surgery in [place], [place] [address] [place] [phone] Mc Fabian M.D. [address] [place] [phone] documented as of this encounter Procedures Procedure Name Priority Date/Time Associated Diagnosis Comments LDA ANE ARTERIAL LINE INSERTION Routine 12/15/2023 1:22 PM CDT WV ARTL CATH/CNULA MONITOR PERC Routine 12/15/2023 1:22 PM CDT AIRWAY MANAGEMENT Routine 12/15/2023 1:1 6 PM CDT documented in this encounter Results * WV ARTL CATH/CNULA MONITOR PERC, LDA ANE ARTERIAL [...] fellow participated in the procedure, and the technical assistance consultant was present for the entire procedure. [...] ETT location: oral VL device: glide scope Mercer scope blade size: 3 Tube size: 7.5 [...] fellow participated in the procedure, and the technical assistance consultant was present for the entire procedure. Anabella Quinones M.D. ANESTHESIA ORDERABL ES documented in this encounter Visit Diagnoses Not on filedocumented in this encounter Administered Medications Inactive Administered Medications - up to 3 most recent administrations Medication Order MAR Action Action Date Dose Rate Site acetaminophen injection intravenous, Administer over 15 Minutes, As needed, Starting on Lian 12/15/23 at 1449, Anesthesia Intra-op Given 12/15/2023 2:49 PM CDT 1,000 mg ceFAZolin injection (Ancef) intravenous, As needed, Starting on Lian 12/15/23 at 1340, Anesthesia Intra-op Given 12/15/2023 1:40 PM CDT 2 g dexAMETHasone injection (Decadron) intravenous, As needed, Starting on Lian 6/27/24 at 1353, Anesthesia Intra-op Given 12/15/2023 1:53 PM CDT 4 mg electrolyte-A solution (Plasma-Lyte A) intravenous, Continuous Infusion: Per Instructions PRN, Starting on Lian 12/15/23 at 1325, Anesthesia Intra-op New Bag 12/15/2023 1:25 PM CDT electrolyte-A solution (Plasma-Lyte A) intravenous, Continuous Infusion: Per Instructions PRN, Starting on Lian 12/15/23 at 1308, Anesthesia Intra-op New Bag 12/15/2023 2:15 PM CDT New Bag 12/15/2023 1:08 PM CDT ePHEDrine (PF) injection intravenous, As needed, Starting on Lian 12/15/23 at 1335, Anesthesia Intra-op Given 12/15/2023 1:35 PM CDT 5 mg Given 12/15/2023 1:30 PM CDT 5 mg Given 12/15/2023 1:25 PM CDT 5 mg fentaNYL injection (Sublimaze) intravenous, As needed, Starting on Lian 12/15/23 at 1312, Anesthesia Intra-op Given 12/15/2023 1:12 PM CDT 50 mcg glycopyrrolate injection (RobinuL) intravenous, As needed, Starting on Lian 12/15/23 at 1338, Anesthesia Intra-op Given 12/15/2023 1:38 PM CDT 0.4 mg heparin (porcine) 1,000 unit/mL injection intravenous, As needed, Starting on Lian 12/15/23 at 1349, Anesthesia Intra-op Given 12/15/2023 2:04 PM CDT 3,000 U nits Given 12/15/2023 1:49 PM CDT 8,000 Units lidocaine (PF) (cardiac) injection intravenous, As needed, Starting on Lian 12/15/23 at 1312, Anesthesia Intra-op Given 12/15/2023 1:12 PM CDT 100 mg ondansetron (PF) injection (Zofran) intravenous, As needed, Starting on Lian 12/15/23 at 1353, Anesthesia Intra-op Given 12/15/2023 1:53 PM CDT 4 mg phenylephrine 80 mcg/mL in NaCl 0.9% 250 mL infusion intravenous, Continuous Infusion: Per Instructions PRN, Starting on Lian 12/15/23 at 1401, Anesthesia Intra-op Rate/Dose Change 12/15/2023 2:41 PM CDT 0.05 mcg/kg/min 3.75 mL/hr Rate/Dose Change 12/15/2023 2:24 PM CDT 0.1 mcg/kg/min 7.5 mL/hr Restarted 12/15/2023 2:19 PM CDT 0.2 mcg/kg/min 15 mL/hr phenylephrine injection intravenous, As needed, Starting on Lian 12/15/23 at 1424, Anesthesia Intra-op Given 12/15/2023 2:38 PM CDT 100 mcg Given 12/15/2023 2:24 PM CDT 100 mcg propofoL injection (Diprivan) intravenous, As needed, Starting on Lian 12/15/23 at 1312, Anesthesia Intra-op Given 12/15/2023 1:12 PM CDT 200 mg protamine injection intravenous, As needed, Starting on Lian 12/15/23 at 1438, Anesthesia Intra-op Given 12/15/2023 2:40 PM CDT 45 mg Given 12/15/2023 2:38 PM CDT 5 mg rocuronium injection (Zemuron) intravenous, As needed, Starting on Lian 12/15/23 at 1312, Anesthesia Intra-op Given 12/15/2023 1:12 PM CDT 100 mg sugammadex injection (Bridion) intravenous, As needed, Starting on Lian 12/15/23 at 1514, Anesthesia Intra-op Given 12/15/2023 3:14 PM CDT 300 mg documented in this encounter Care Teams Immigration Case Manager Relationship Specialty Start Date End Date Elsewhere, Pcp PCP - General Internal Medicine 11/29/23 documented as of this encounter
--- OUTSIDE RECORDS SUMMARY | 2023-12-26 15:28 | XMS_ITS | Encounter Summary ---
Author Organization [facility] Address [address] [place] [address] Care Team Providers Care Starch Factory Laborer Name Role Phone Elsewhere, Pcp Primary Care Provider Unavailabl e Encounter Details Date Type Department Care Team (Latest Contact Info) Description 12/13/2023 10:13 AM CDT - 12/13/2023 11:59 PM CDT Hospital Encounter Department of Laboratory Medicine and Pathology, [facility] in [place], [place] [address] [place] [phone] Chuy Gallo M.B., B.Ch. [address] [place] [phone] Ischemia Mesenteric (HCC); Other Elevated White Blood Cell Count; Other Hyperlipidemia Discharge Disposition: Home or Self Care Social History Tobacco Use Types Packs/Day Years Used Date Smoking Tobacco: Former Cigarettes 0 06/20/1982 - 12/24/2010 Smokeless Tobacco: Never Comments:vape Alcohol Use Standard Drinks/Week Comments Yes 1 (1 standard drink = 0.6 oz pur e alcohol) [facility] Utilities Answer Date Recorded In the past 12 months has [employer], gas, oil, or water [employer] threatened to shut off services in your [...] your living situation today? I have a [facility] place to live 12/09/2023 Sex and [...] 10:30 AM CDT Appointment Department of Radiology, [facility], in [place], [place] [address] [place] [address] Mc Fabian M.D. [address] [place] [address] Discharge Disposition: Home or Self Care 03/19/2024 1:20 PM CDT Office Visit Division of Vascular and Endovascular Surgery in [place], [place] [address] [place] [phone] Mc Fabian M.D. [address] [place] [phone] documented as of this encounter Procedures Procedure Name Priority Date/Time Associated Diagnosis Comments LIPID PANEL, S Routine 12/13/2023 10:44 AM CDT Ischemia Mesenteric (HCC) Other Elevated White Blood Cell Count Other Hyperlipidemia CBC WITH DIFFERENTIAL, B Routine 12/13/2023 10:44 AM CDT Ischemia Mesenteric (HCC) Other Elevated White Blood Cell Count Other Hyperlipidemia C-REACTIVE PROTEIN (CRP), S/P Routine 12/13/2023 10:44 AM CDT Ischemia Mesenteric (HCC) Other Elevated White Blood Cell Count Other Hyperlipidemia documented in this encounter Results * (ABNORMAL) Lipid Panel [...] LAB BLOOD A DD-ON Performing Organization Address City/[facility] [[email or web address]] Co de Phone Number [facility] [address] [place] [address] * (ABNORMAL) CRP (C-Reactive Protein) (12/13/2023 10:44 AM CDT) C-Reactive Protein (CRP), S 6.9(H) <5.0 mg/L 12/13/2023 11:56 AM CDT DTL Blood (Blood, Venous) 12/13/2023 10:44 AM CDT 12/13/2023 11:23 AM CDT Chuy Singletary B.Ch. LAB BLOOD A DD-ON Performing Organization Address City/[facility]/ZIP Co de Phone Number [facility] [address] [place] [address] * (ABNORMAL) CBC with Differential, Blood (12/13/2023 [...] Chuy Singletary, B.Ch. LAB BLOOD A DD-ON [facility] [address] [place] [address], [place] DTL [facility] [address] [place] [address] [facility] [address] [place] [address] documented in this encounter Visit Diagnoses Diagnosis Ischemia Mesenteric (HCC) Other Elevated White Blood Cell Count Other Hyperlipidemia documented in this encounter Care Teams Starch Factory Laborer Relationship Specialty Start Date End Date Elsewhere, Pcp PCP - General Internal Medicine 11/29/23 documented as of this encounter
--- OUTSIDE RECORDS SUMMARY | 2023-12-26 15:28 | XMS_ITS | Encounter Summary ---
Author Organization [facility] Address [address] [place] [address] Care Team Providers Care Fingernail Sculptor Name Role Phone Elsewhere, Pcp Primary Care Provider Unavailabl e Reason for Referral * MRI/CAT/PET Scan (Routine) - Closed Specialty Diagnoses / Procedures Referred By Contac t Referred To Contact Radiology Diagnoses Ischemia Mesenteric (HCC) Procedures CT Chest Angiogram with IV Contrast Mc Fabian M.D. [address] [place] [address] [facility] Referral ID Status Reason Start Date Expiration Date Visits Re quested Visits Authorized [id number] Closed 12/05/2023 12/04/2024 1 1 Reason for Visit * MRI/CAT/PET Scan (Routine) - Closed Specialty Diagnoses / Procedures Referred By Contac martha Referred To Contact Radiology Diagnoses Ischemia Mesenteric (HCC) Procedures CT Chest Angiogram with IV Contrast Mc Fabian M.D. [address] [place] [address] [facility] Referral ID Status Reason Start Date Expiration Date Visits Re quested Visits Authorized [id number] Closed 12/05/2023 12/04/2024 1 1 Encounter Details Date Type Department Care Team (Latest Contact Info) Description 12/12/2023 2:45 PM CDT - 12/12/2023 11:59 PM CDT Hospital Encounter Department of Radiology, [facility], in [place], [place] [address] [place] [address] Mc Fabian M.D. [address] [place] [address] Ischemia Mesenteric (HCC) Discharge Disposition: Home or Self Care Social History Tobacco Use Types Packs/Day Years Used Date Smoking Tobacco: Former Alcohol Use Standard Drinks/Week Comments Not Currently 0 (1 standard drink = 0.6 oz pur e alcohol) [facility] Utilities Answer Date Recorded In the [...] have a [facility] place to live 12/09/2023 Sex and Gender [...] 10:30 AM CDT Appointment Department of Radiology, [facility], in [place], [place] [address] [place] [address] Mc Fabian M.D. [address] [place] [phone] Discharge Disposition: Home or Self Care 03/19/2024 1:20 PM CDT Office Visit Division of Vascular and Endovascular Surgery in [place], [place] [address] [place] [address] Mc Fabian M.D. [address] [place] [phone] documented as of this encounter Procedures Procedure Name Priority Date/Time Associated Diagnosis Comments CT CHEST ANGIOGRAM WITH IV CONTRAST RAD - Routine (most inpatients and all outpatients) 12/12/2023 4:33 PM CDT Ischemia Mesenteric (HCC) documented in this encounter Results * CT Chest Angiogram with IV Contrast [...] suspicious osseous. Procedure Note Zaid Orr M.B.B.S., M.Noel. - 12/12/2023 EXAM: CT CHEST ANGIOGRAM WITH [...] Small amount of coronary artery calcifications. Mc VÁSQUEZ CT PROCEDURES documented in this encounter Visit Diagnoses Diagnosis Ischemia Mesenteric (HCC) documented in this encounter Administered Medications Inactive Administered Medications - up to 3 most recent administrations Medication Order MAR Action Action Date Dose Rate Site iopromide 370 mg iodine/mL injection 1-162 mL (Ultravist) 1-162 mL, intravenous, Once in imaging, contrast, Starting on Tue12/12/23 at 1534, For 1 dose, Imaging Protocol Orders, Dose per Radiant Medication Guidelines Given 12/12/2023 4:07 PM CDT 80 mL sodium chloride (PF) 0.9 % injection 1-100 mL 1-100 mL, intravenous, Once, On Tue12/12/23 at 1600, For 1 dose, Imaging Protocol Orders, Dose per Radiant Medication Guidelines Given 12/12/2023 4:07 PM CDT 30 mL documented in this encounter Care Teams Fingernail Sculptor Relationship Specialty Start Date End Date Elsewhere, Pcp PCP - General Internal Medicine 11/29/23 documented as of this encounter
--- OUTSIDE RECORDS SUMMARY | 2023-12-26 15:28 | XMS_ITS | Encounter Summary ---
Author Organization [facility] Address [address] [place] [address] Care Team Providers Care Finance Controller Name Role Phone Elsewhere, Pcp Primary Care Provider Unavailabl e Reason for Referral * Outpatient (Routine) - Closed Specialty Diagnoses / Procedures Referred By Jaspalac t Referred To Contact Diagnoses Ischemia Mesenteric (HCC) Preoperative Examination Cardiovascular Procedures DX Chest AP or PA and Lateral 2 Views Mc Fabian M.D. [address] [place] [address] [facility] Referral ID Status Reason Start Date Expiration Date Visits Re quested Visits Authorized [id number] Closed 12/05/2023 12/04/2024 1 1 Reason for Visit * Outpatient (Routine) - Closed Specialty Diagnoses / Procedures Referred By Jaspalac martha Referred To Contact Diagnoses Ischemia Mesenteric (HCC) Preoperative Examination Cardiovascular Procedures DX Chest AP or PA and Lateral 2 Views Mc Fabian M.D. [address] [place] [address] [facility] Referral ID Status Reason Start Date Expiration Date Visits Re quested Visits Authorized [id number] Closed 12/05/2023 12/04/2024 1 1 Encounter Details Date Type Department Care Team (Latest Contact Info) Description 12/12/2023 12:15 PM CDT - 12/12/2023 2:44 PM CDT Hospital Encounter Department of Radiology, [facility], in [place], [place] [address] [place] [address] Mc Fabian M.D. [address] [place] [address] Ischemia Mesenteric (HCC); Preoperative Examination Cardiovascular Discharge Disposition: Home or Self Care Social History Tobacco Use Types Packs/Day Years Used Date Smoking Tobacco: Former Alcohol Use Standard Drinks/Week Comments Not Currently 0 (1 standard drink = 0.6 oz pur e alcohol) [facility] Utilities Answer Date Recorded In the past [...] living situation today? I have a [facility] place to live 12/09/2023 Sex and [...] 10:30 AM CDT Appointment Department of Radiology, [facility], in [place], [place] [address] [place] [address] Mc Fabian M.D. [address] [place] [phone] Discharge Disposition: Home or Self Care 03/19/2024 1:20 PM CDT Office Visit Division of Vascular and Endovascular Surgery in [place], [place] [address] [place] [address] Mc Fabian M.D. [address] [place] [phone] documented as of this encounter Procedures Procedure Name Priority Date/Time Associated Diagnosis Comments DX CHEST AP OR PA AND LATERAL 2 VIEWS RAD - Routine (most inpatients and all outpatients) 12/12/2023 12:52 PM CDT Ischemia Mesenteric (HCC) Preoperative Examination Cardiovascular documented in this encounter Results * DX Chest AP or PA and [...] Fabian M.D. IMG DIAGNOSTIC JINA GING PROCEDURES documented in this encounter Visit Diagnoses Diagnosis Ischemia Mesenteric (HCC) Preoperative Examination Cardiovascular documented in this encounter Care Teams Finance Controller Relationship Specialty Start Date End Date Elsewhere, Pcp PCP - General Internal Medicine 11/29/23 documented as of this encounter
--- OUTSIDE RECORDS SUMMARY | 2023-12-26 15:28 | XMS_ITS | Encounter Summary ---
Author Organization [facility] Address [address] [place] [address] Care Team Providers Care Uniformer Name Role Phone Elsewhere, Pcp Primary Care Provider Unavailabl e Reason for Visit * Outpatient (Routine) - Authorized Specialty Diagnoses / Procedures Referred By Gianna thomas Referred To Contact Diagnoses Preoperative Examination Cardiovascular Procedures NM Cardiac Perfusion Rest and Stress SPECT Mc Fabian M.D. [address] [place] [phone] [facility] Referral ID Status Reason Start Date Expiration Date V isits Requested Visits Authorized [id number] Authorized 12/05/2023 12/04/2024 8 8 Encounter Details Date Type Department Care Team (Latest Contact Info) Description 12/12/2023 9:28 AM CDT - 12/12/2023 11:49 AM CDT Hospital Encounter Department of Cardiovascular Diseases in [place], [place] [address] [place] [phone] Mc Fabian M.D. [address] [place] [phone] Discharge Disposition: Home or Self Care Social History Tobacco Use Types Packs/Day Years Used Date Smoking Tobacco: Former Alcohol Use Standard Drinks/Week Comments Not Currently 0 (1 standard drink = 0.6 oz pur e alcohol) [facility] Utilities Answer Date Recorded In the past 12 months has [employer], or [employer] threatened to shut off services in your [...] your living situation today? I have a [facility] place to live 12/09/2023 Sex and [...] 10:30 AM CDT Appointment Department of Radiology, [facility], in [place], [place] [address] [place] [address] Mc Fabian M.D. [address] [place] [address] Discharge Disposition: Home or Self Care 03/19/2024 1:20 PM CDT Office Visit Division of Vascular and Endovascular Surgery in [place], [place] [address] [place] [address] Mc Fabian M.D. [address] [place] [address] documented as of this encounter Procedures Procedure [...] MAR Action Action Date Dose Rate Site regadenoson injection 0.4 mg (Lexiscan) 0.4 mg, intravenous, Once, On 12/12/23 at 1245, For 1 dose, Intraprocedure - Diagnostic, See protocol Administer via rapid IV injection (approximately 10 seconds). Given 12/12/2023 11:45 AM CDT 0.4 mg documented in this encounter Care Teams Uniformer Relationship Specialty Start Date End Date Elsewhere, Pcp PCP - General Internal Medicine 11/29/23 documented as of this encounter
--- OUTSIDE RECORDS SUMMARY | 2023-12-26 15:28 | XMS_ITS | Encounter Summary ---
Author Organization [facility] Address [address] [place] [address] Care Team Providers Care Knotting Machine Operator Portable Name Role Phone Elsewhere, Pcp Primary Care Provider Unavailabl e Reason for Visit * Auth/Cert (Routine) Specialty Diagnoses / Procedures Referred By Gianna t Referred To Contact Diagnoses Ischemia Mesenteric (HCC) Ischemia Mesenteric (HCC) [K55.8] Procedures NH PLC OPN/PERC STENT INIT NH BRACH ART EXPOS DPL PROSTH UNILAT ANGIOGRAPHY MESENTERIC WITH OR WITHOUT ANGIOPLASTY AND/OR STENT, possible left brachial approach. Proceed as indicated. IR IMAGING ENDOVASCULAR ACCESS UPPER EXTREMITY Mc Fabian M.D. [address] [place] [phone] Referral ID Status Reason Start Date Expiration Date Visits Re quested Visits Authorized [id number] 1 1 Encounter Details Date Type Department Care Team (Late st Contact Info) Description 12/15/2023 12:47 PM CDT - 12/15/2023 6:13 PM CDT Surgery [facility]ST [facility] MAIN OR [address] [place] [phone] Mc Fabian M.D. [address] [place] [phone] Celiac artery covered stent placement (6x19 & 6x15 mm VBX) via ultrasound-guided right common femoral artery access Social History Tobacco Use Types Packs/Day Years Used Date Smoking Tobacco: Former Cigarettes 0 06/20/1982 - 12/24/2010 Smokeless Tobacco: Never Comments:vape Alcohol Use Standard Drinks/Week Comments Yes 1 (1 standard drink = 0.6 oz pur e alcohol) [facility] Utilities Answer Date Recorded In the past 12 months has th e [employer], gas, oil, or water company threatened to [...] your living situation today? I have a [facility] place to live 12/15/2023 Sex and Gender Information Value Date Recorded Sex Assigned at Female 12/09/2023 5:04 PM CDT Gender Identity Female 12/09/2023 5:04 PM CDT Sexual Orientation Straight 12/09/2023 5: 04 PM CDT documented as of this encounter Last Filed Vital Signs Vital Sign Reading Time Taken Comments Blood Pressure 117/61 12/15/2023 5:00 PM CDT Pulse 81 12/15/2023 5:00 PM CDT Temperature 36.5 ??C (97.7 ??F) 12/15/2023 5:00 PM CD T Respiratory Rate 19 12/15/2023 5:00 PM CDT Oxygen Saturation 96% 12/15/2023 5:00 PM CDT Inhaled Oxygen Concentration - - Weight 100 kg (220 lb 7.4 oz) 12/15/2023 10:27 A M CDT Height 162 cm (5' 3.78) 12/15/2023 10:27 AM CDT Body Mass Index 38.1 12/15/2023 10:27 AM CDT documented in this encounter Discharge Summaries * Karol Lozano APRN, C.N.P. - 12/16/2023 11:10 AM CDT DISCHARGE SUMMARY BRIEF OVERVIEW Hospital: [facility] Discharge Provider: Mc Fabian M.D. Primary Team: [facility] Vascular Surgery - Riu Primary Care Provider: Lexii Walsh MD [place] [phone] Admission Date: 12/15/2023 Discharge Date: 12/16/2023 PRINCIPAL [...] dismissal, pain medication (examples: oxycodone, Dilaudid, Tramadol, [place], etc.) will be prescribed to you if needed. Duration will be determined on a [id number] basis and will not exceed 2 weeks. [...] contact the vascular scheduling office by calling [phone]. Should you need to contact Dr. Fabian or his service in the interim, you may do so through his biomedical repair technician at during normal business hours of 8 to 5 Tuesday through Tuesday (excluding holidays) or, in an emergency situation, through the [facility] dumbwaiter operator at . (Service Pager: [phone]). OUTPATIENT FOLLOW UP For appointment details refer [...] & Screen Expiration 12/18/2023 23:59 Testing Location [facility] Blood Gas with Coox, Arterial Collection Time: [...] through Care Everywhere. * Acetaminophen (By mouth) (Grenadian) * Aspirin (By mouth) (Grenadian) * Pantoprazole (By mouth) (Grenadian) * Senna (By mouth) (Grenadian) documented in this encounter Medications at Time [...] With questions/concerns, please page Dr. Fabian's service, [phone] * Yovani Vazquez, Avril, R.Ph. - 12/15/2023 10:46 AM CDT Images from the original note were not included. Admission Medication History Note Adherence issues: Unable to assess Medication list source: Patient and Pharmacy or dispense records Prior to Admission Medications Med List Status: Pharmacy/RN Complete Set By: Yovani Vazquez Pharm.D., R.Ph. at 12/15/2023 10:46 AM Taking? [...] Mesenteric (HCC) Post-op Diagnosis Ischemia Mesenteric (HCC) Drywall Finisher A first assist actively participated and was necessary for one [...] head. Using modified Seldinger technique, a 6 Hebrew short Lucas sheath was placed retrograde in the right external iliac artery. The patient was systemically anticoagulated with unfractionated intravenous heparin to maintain an activated clotting time greater than 250 seconds throughout the entirety of the case. The arteriotomy was dilated 1st with a 7 Hebrew short Lucas sheath. Under the protection of a Kumpe catheter, a Lambert wire was placed in the descending thoracic aorta. A7.5 Hebrew Oscor steerable sheath was then advanced into [...] with a 7 x 20 mm plain taffy puller balloon. Interval angiography and still shots of [...] D.O., M.S. * Brief Op Note - Wilmer Hernandez D.O., M.S. - 12/15/2023 1:46 PM CDT Pre-op Diagnosis Ischemia Mesenteric (HCC) Post-op Diagnosis Ischemia Mesenteric (HCC) Findings High-grade proximal celiac axis stenosis successfully treated with balloon expandable covered stentplacement utilizing 6 x 19 and 6 x 15 mm VBX stents which were flared proximally with a 7 x 20 mm taffy puller balloon. Completion angiography demonstrated resolution of stenosis [...] 10:30 AM CDT Appointment Department of Radiology, [facility], in [place], [place] [address] [place] [address] Mc Fabian M.D. [address] [place] [address] Discharge Disposition: Home or Self Care 03/19/2024 1:20 PM CDT Office Visit Division of Vascular and Endovascular Surgery in [place], [place] [address] [place] [address] Mc Fabian M.D. [address] [place] [address] documented as of this encounter Procedures Procedure [...] PM CDT Ischemia Mesenteric (HCC) Case Notes Fundraising Manager @ 1010 GLUCOSE POCT, B Routine 12/15/2023 [...] CDT) Ventricular Rate ECG/Min 70 BPM MUSE NH Interval 205 ms MUSE QRSD Interval 98 ms MUSE QT Interval 434 ms MUSE QTC Interval 468 ms MUSE P Bradley 52 degrees MUSE R Bradley 3 degrees MUSE T Wave Bradley 39 degrees MUSE 12/16/2023 5:22 AM CDT [...] Reviewed by PROMISE Madrid Neto Kiran APRN, CGarretN.PGarret ECG ORD ERABLES MUSE NA * (ABNORMAL) [...] Hernandez D.O., M.S. LAB BLOOD ADD-O N [facility] [address] [place] [address], [facility] [address] [place] [address] * (ABNORMAL) Basic Metabolic Panel (12/16/2023 5:14 [...] LAB BLOOD ADD-O N Performing Organization Address City/[facility]/ZIP Co de Phone Number [facility] [address] [place] [facility] [address] [place] [address] * (ABNORMAL) Troponin T, 2 Hour with [...] CDT 12/15/2023 6:22 PM CDT Karol Lozano APRN C.N.P. LAB BLOOD TROPO CALEB Performing Organization Address City/[facility]/ZIP Co de Phone Number [facility] [address] [place] [address] * (ABNORMAL) Troponin T, Baseline with 2 Hour/6 Hour Reflex Biomarker Panel (12/15/2023 4:19 PM CDT) Pathologist [facility] Troponin T, Baseline, 5th gen 11(H) <=10 ng/L 12/15/2023 4:58 PM CDT [facility] Blood (Blood, Venous) 12/15/2023 4:19 PM CDT 12/15/2023 4:27 PM CDT Kena Moffett APRNNGarretP. LAB BLOOD TROPO CALEB Performing Organization Address City/[facility]/ZIP Co de Phone Number [facility] [address] [place] [address], [facility] [address] [place] [address] * Glucose, POCT (12/15/2023 4:09 PM CDT) [facility] Glucose, POCT, B 98 70 - 140 mg/dL 12/15/2023 4:11 PM CDT PCLX Site Capillary 12/15/2023 4:11 PM CDT PCLX Blood 12/15/2023 4:09 PM CDT 12/15/2023 4:11 PM CDT Unknown Provider LAB POCT ORDERABLES- MANUAL Performing Organization Address City/[facility]/ZIP Co de Phone Number POC [facility] [address] [place] [address], [facility] PCLX [facility] POC [address] [place] [address] * ECG 12 Lead (12/15/2023 4:08 PM CDT) Pathologist [facility] Ventricular Rate ECG/Min 66 BPM MUSE NH Interval 164 ms MUSE QRSD Interval 104 ms MUSE QT Interval 486 ms MUSE QTC Interval 509 ms MUSE R Bradley 18 degrees MUSE T Wave Bradley 51 degrees MUSE 12/15/2023 4:08 PM CDT [...] Moffett APRNNYasmani ECG ORDERABLES Performing Organization Address [facility] Co de Phone Number MUSE NA [...] POCT ORDERABLES - DEVICE Performing Organization Address [facility] Co de Phone Number POC [facility] INPATIENT LABS [address] [place] [address], [facility] PCSM [facility] POC [address] [place] [address] * (ABNORMAL) ACT (Activated Clotting Time), POCT (12/15/2023 2:33 PM CDT) Activated Clotting Time, POCT 206(H) 84 - 139 sec 12/15/2023 2:37 PM CDT PCSM Blood 12/15/2023 2:33 PM CDT 12/15/2023 2:37 PM CDT Unknown Provider LAB POCT ORDERABLES - DEVICE Performing Organization Address [facility] de Phone Number POC [facility] INPATIENT [facility] [address] [place] [address], [facility] POC [address] [place] [address] * (ABNORMAL) ACT (Activated Clotting Time), POCT (12/15/2023 2:12 PM CDT) Activated Clotting Time, POCT 206(H) 84 - 139 sec 12/15/2023 2:16 PM CDT PCSM Blood 12/15/2023 2:12 PM CDT 12/15/2023 2:16 PM CDT Unknown Provider LAB POCT ORDERABLES - DEVICE Performing Organization Address [facility] de Phone Number POC [facility] INPATIENT [facility] [address] [place] [address], [facility] POC [address] [place] [address] * (ABNORMAL) ACT (Activated Clotting Time), POCT (12/15/2023 1:59 PM CDT) Activated Clotting Time, POCT 187(H) 84 - 139 sec 12/15/2023 2:02 PM CDT PCSM Blood 12/15/2023 1:59 PM CDT 12/15/2023 2:03 PM CDT Unknown Provider LAB POCT ORDERABLES - DEVICE Performing Organization Address [facility] Co de Phone Number POC [facility] INPATIENT [facility] [address] [place] [address], [facility] POC [address] [place] [address] * (ABNORMAL) Lactate, Whole Blood (12/15/2023 1:52 PM CDT) Lactate, B <0.5(L) 0.5 - 2.2 mmol/L 12/15/2023 1:55 PM CDT [facility] Blood (Blood, Arterial) 12/15/2023 1:52 PM CDT 12/15/2023 1:52 PM CDT Anabella Quinones M.D. LAB BLOOD NON ADD-O N Performing Organization Address [facility]/ZIP Co de Phone Number [facility] [address] [place] [address] * Glucose, Whole Blood (12/15/2023 1:52 PM CDT) Glucose 98 70 - 140 mg/dL 12/15/2023 1:53 PM CDT [facility] Blood (Blood, Arterial) 12/15/2023 1:52 PM CDT 12/15/2023 1:52 PM CDT Anabella Quinones M.D. LAB BLOOD ADD-ON Performing Organization Address [facility] Co de Phone Number [facility] [address] [place], [place] [phone] [place] [address] 200 [place] [address] * (ABNORMAL) Calcium, Ionized (12/15/2023 1:52 PM CDT) Calcium, Ionized, B 4.25(L) 4.65 - 5.30 mg/dL 12/15/2023 1:54 PM CDT [facility] Blood (Blood, Arterial) 12/15/2023 1:52 PM CDT 12/15/2023 1:52 PM CDT Anabella Quinones M.D. LAB BLOOD NON ADD-O N Performing Organization Address City/[facility]/ZIP Co de Phone Number [facility] [address] [place], [place] [phone] [place] [address] 200 [place] [address] * (ABNORMAL) Sodium, B (12/15/2023 1:52 PM CDT) Sodium, B 133(L) 135 - 145 mmol/L 12/15/2023 1:53 PM CDT [facility] Blood (Blood, Arterial) 12/15/2023 1:52 PM CDT 12/15/2023 1:52 PM CDT Anabella Quinones M.D. LAB BLOOD NON ADD-O N Performing Organization Address City/[facility] Co de Phone Number [facility] [address] [place], [place] [phone] [place] [address] 200 [place] [address] * (ABNORMAL) Potassium, Blood (12/15/2023 1:52 PM CDT) Pathologist [facility] Potassium, B 3.1(L) 3.6 - 5.2 mmol/L 12/15/2023 1:54 PM CDT [facility] Blood (Blood, Arterial) 12/15/2023 1:52 PM CDT 12/15/2023 1:52 PM CDT Anabella Quinones M.D. LAB BLOOD NON ADD-O N Performing Organization Address City/[facility] Co de Phone Number [facility] [address] [place], [place] [phone] [place] [address] 200 [place] [address] * (ABNORMAL) Blood Gas with Coox, Arterial [...] BLOOD NON ADD-O N Performing Organization Address [facility]/ZIP Co de Phone Number [facility] [address] [place], [place] [phone] [place] [address] STMA [facility] [address] [place] [address] * Type and Screen (with Reflex Antibody ID) (12/15/2023 1:47 PM CDT) ABORh O Pos Not applicable 12/15/2023 2:20 PM CDT STRM Antibody Screen Negative Negative 12/15/2023 2:30 PM CDT STRM Type & Screen Expiration 12/18/2023 23:59 12/15/2023 2:20 PM CDT STRM Testing Location [facility] DEFAULT 12/15/2023 1:52 PM CDT STRM Blood (Blood, Venous) 12/15/2023 1:47 PM CDT 12/15/2023 1:52 PM CDT Narrative Resulting Agency Comment Drawn in OR by [id number] Anabella Quinones M.D. LAB BLOOD BANK TEST ORDERABLES Performing Organization Address [facility] Co de Phone Number [facility] [address] [place] [address], [facility] STRM [facility] [address] [place] [address] * Glucose, POCT (12/15/2023 12:29 PM CDT) Glucose, POCT, B 101 70 - 140 mg/dL 12/15/2023 12:31 PM CDT PCLX Site Capillary 12/15/2023 12:31 PM CDT PCLX Blood 12/15/2023 12:2 9 PM CDT 12/15/2023 12:32 PM CDT Unknown Provider LAB POCT ORDERABLES- MANUAL POC [facility] [address] [place] [address], [facility] PCLX [facility] [address] [place] [address] documented in this encounter Visit Diagnoses Diagnosis [...] Given 12/16/2023 8:58 AM CDT 75 mg FLUoxetine tablet 10 mg (PROzac) 10 mg, [...] CDT 5,000 Units R ight Lower Abdomen heparin 10 Units/mL in NaCl 0.9% 500 mL flush solution miscellaneous, Once in surgery, OR use only, Starting on Tue12/15/23 at 1315, For 1 dose, Intra-Op, *Flush/Irrigation use only* New Bag 12/15/2023 2:36 PM CDT 200 mL HYDROmorphone tablet 2 mg (Dilaudid) 2 mg, [...] (Visipaque) 160 mg/mL in NaCl 0.9% injection 300 mL, injection, Once in surgery, OR use only, Starting on Tue12/15/23 at 1315, For 1 dose, Intra-Op Given 12/15/2023 2:36 PM CDT 150 mL magnesium oxide tablet 100 mg (Mag-Ox) 100 mg, oral, Daily before morning meal, First dose on Tue12/16/23 at 0700, magnesium oxide 200 mg daily was interchanged for magnesium gluconate 250 mg daily Given 12/16/2023 6:49 AM CDT 100 mg pantoprazole injection 40 mg (Protonix) 40 mg, intravenous, Every 12 hours scheduled, First dose on Tue12/15/23 at 1715, Administer IV push over 2 minutes. Add 10 mL NS to 40 mg vial for a final concentration of 4 mg/mL. Given 12/16/2023 8:59 AM CDT 40 mg Given 12/15/2023 6:19 PM CDT 40 mg sennosides-docusate sodium 8.6-50 mg per tablet 1 [...] 0858 (Given - Provider: [facility]N., [facility]1222 (Not Given - Provider: Lalita White R.N., PCCN - Reason: Patient/family refused) aspirin DR tablet [...] - Provid er: Lalita White R.N., PCCN) clopidogreL tablet 75 mg (Plavix) 75 mg, oral, Daily, First dose on Tue12/16/23 at 0900 0858 (Given - Provid er: Lalita White R.N., PCCN) FLUoxetine tablet 10 mg (PROzac) 10 mg, [...] (Given - Provid er: [facility] R[facility]., [facility]) magnesium oxide tablet 100 mg (Mag-Ox) 100 [...] for a final concentration of 4 mg/mL. 181 (Given - Provider: Micah Henriquez R.N.) 0859 (Given - Provider: [facility]., [facility]) potassium chloride IVPB 10 mEq (COMPLETED) 10 [...] (Given - Provid er: Lal[facility] R.N., [facility]) PRN Medication Order 12/14/2023 12/15/2023 12/16/2023 bisacodyL suppository 10 mg (Dulcolax) 10 mg, rectal, Daily PRN, constipation, Starting on Lian 12/15/23 [...] doses 1701 (Given - Provider: Micah Henriquez R.N.)181 (Given - Provider: Micah Henriquez R.N.) heparin [...] provider. 1947 (Given - Provider: Nohemi Sanford RCindy) HYDROmorphone tablet 2 mg (Dilaudid) 2 mg, [...] R.N.) 0107 (Given - Provider: Nohemi Sanford R.Deepak.)0446 (Given - Provider: Nohemi Sanford R.N.)0859 (See Alternative - Provider: Lalita White R.N., [facility]) polyethylene glycol powder packet 1 packet (Miralax) [...] diet. documented in this encounter Care Teams Knotting Machine Operator Portable Relationship Specialty Start Date End Date Elsewhere, Pcp PCP - General Internal Medicine 11/29/23 documented as of this encounter
--- OUTSIDE RECORDS SUMMARY | 2023-12-26 15:29 | XMS_ITS | Encounter Summary ---
Author Organization [facility] Address [address] [place] [address] Care Team Providers Care Auto Repair Shop Manager Name Role Phone Elsewhere, Pcp Primary Care Provider Unavailabl e Reason for Referral * Outpatient (Routine) - Closed Specialty Diagnoses / Procedures Referred By Gianna thomas Referred To Contact Diagnoses Ischemia Mesenteric (HCC) Procedures US Mesenteric Artery Mc Fabian M.D. [address] [place] [address] [facility] Referral ID Status Reason Start Date Expiration Date Visits Re quested Visits Authorized [id number] Closed 11/18/2023 11/17/2024 1 1 Reason for Visit * Outpatient (Routine) - Closed Specialty Diagnoses / Procedures Referred By Gianna thomas Referred To Contact Diagnoses Ischemia Mesenteric (HCC) Procedures US Mesenteric Artery Mc Fabian M.D. [address] [place] [address] [facility] Referral ID Status Reason Start Date Expiration Date Visits Re quested Visits Authorized [id number] Closed 11/18/2023 11/17/2024 1 1 Encounter Details Date Type Department Care Team (Latest Contact Info) Description 12/02/2023 8:00 AM CDT - 12/02/2023 2:04 PM CDT Hospital Encounter Department of Radiology, [facility], in [place], [place] [address] [place] [address] Mc Fabian M.D. [address] [place] [address] Ischemia Mesenteric (HCC) Discharge Disposition: Home or [...] Take 10 mg by mouth daily. 09/26/2023 oxyCODONE (ROXICODONE) 5 mg immediate release tabletIndications:Acute Pain Take 1 tablet (5 mg total) by mouth every 6 (six) hours as needed for pain for up to 3 days Indication: Acute Pain. 8 tablet 11/29/2023 12/02/2023 magnesium oxide (MAG-OX) 250 mg of magnesium tablet Take 1,000 mg by mouth daily. 12/15/2023 documented as of this encounter Plan of Treatment Upcoming Encounters Date Type Department Care Team (Latest Contact Info) Description 03/19/2024 10:30 AM CDT Appointment Department of Radiology, [facility], in [place], [place] [address] [place] [address] Mc Fabian M.D. [address] [place] [address] Discharge Disposition: Home or Self Care 03/19/2024 1:20 PM CDT Office Visit Division of Vascular and Endovascular Surgery in [place], [place] [address] [place] [address] Mc Fabian M.D. [address] [place] [phone] documented as of this encounter Procedures Procedure [...] (HCC) documented in this encounter Care Teams Auto Repair Shop Manager Relationship Specialty Start Date End Date Elsewhere, Pcp PCP - General Internal Medicine 11/29/23 documented as of this encounter
--- OUTSIDE RECORDS SUMMARY | 2023-12-26 15:29 | XMS_ITS | Encounter Summary ---
Author Organization [facility] Address [address] [place] [address] Care Team Providers Care Maintenance And Engineering Manager Name Role Phone Elsewhere, Pcp Primary Care Provider Unavailabl e Reason for Referral * Outpatient (Routine) - Closed Specialty Diagnoses / Procedures Referred By Gianna thomas Referred To Contact Vascular Surgery Mc Fabian M.D. [address] [place] [phone] [facility] Referral ID Status Reason Start Date Expiration Date Visits Re quested Visits Authorized [id number] Closed 11/18/2023 05/19/2025 1 1 Scheduling Instructions I have also requested a duplex ultrasound of mesenteric arteries. Referral is Cassia Vance M.D. * Outpatient (Routine) - Closed Specialty Diagnoses / Procedures Referred By Gianna thomas Referred To Contact Diagnoses Ischemia Mesenteric (HCC) Procedures US Mesenteric Artery Mc Fabian M.D. [address] [place] [address] [facility] Referral ID Status Reason Start Date Expiration Date Visits Re quested Visits Authorized [id number] Closed 11/18/2023 11/17/2024 1 1 Encounter Details Date Type Department Care Team (Late st Contact Info) Description 11/18/2023 Orders Only Division of Vascular and Endovascular Surgery in [place], [place] [address] [place] [phone] Mc Fabian M.D. [address] [place] [phone] Ischemia Mesenteric (HCC) (Primary Dx) Social History [...] 10:30 AM CDT Appointment Department of Radiology, [facility] in [place], [place] [address] [place] [phone] cM Fabian M.D. [address] [place] [phone] Discharge Disposition: Home or Self Care 03/19/2024 1:20 PM CDT Office Visit Division of Vascular and Endovascular Surgery in [place], [place] [address] [place] [phone] Mc Fabian M.D. [address] [place] [phone] Scheduled Referrals Name Type Priority Associated Diagnoses [...] with color and spectral Doppler analysis. COMPARISON: [facility] CT 11/29/2023. FINDINGS: Celiac: High-grade stenosis. SMA: [...] with color and spectral Doppler analysis. COMPARISON: [facility] CT 11/29/2023. FINDINGS: Celiac: High-grade stenosis. SMA: [...] (HCC) documented in this encounter Care Teams Maintenance And Engineering Manager Relationship Specialty Start Date End Date Elsewhere, Pcp PCP - General Internal Medicine 11/29/23 documented as of this encounter
--- OUTSIDE RECORDS SUMMARY | 2023-12-26 15:29 | XMS_ITS | Encounter Summary ---
Author Organization [facility] Address [address] [place] [address] Care Team Providers Care Rubber Ball Finisher Name Role Phone Elsewhere, Pcp Primary Care Provider Unavailabl e Encounter Details Date Type Department Care Team (Latest Contact Info) Description 12/02/2023 2:05 PM CDT - 12/02/2023 11:59 PM CDT Hospital Encounter Department of Laboratory Medicine and Pathology, [facility] in [place], [place] [address] [place] [address] Mc Fabian M.D. [address] [place] [phone] Ischemia Mesenteric (HCC) Discharge Disposition: Home or [...] Take 10 mg by mouth daily. 09/26/2023 magnesium oxide (MAG-OX) 250 mg of magnesium tablet Take 1,000 mg by mouth daily. 12/15/2023 documented as of this encounter Plan of Treatment Upcoming Encounters Date Type Department Care Team (Latest Contact Info) Description 03/19/2024 10:30 AM CDT Appointment Department of Radiology, [facility], in [place], [place] [address] [place] [address] Mc Fabian M.D. [address] [place] [phone] Discharge Disposition: Home or Self Care 03/19/2024 1:20 PM CDT Office Visit Division of Vascular and Endovascular Surgery in [place], [place] [address] [place] [phone] Mc Fabian M.D. [address] [place] [phone] documented as of this encounter Procedures Procedure [...] M.D. LAB BLOOD BANK PANFILO T ORDERABLES [facility] [address] [place] [address], [facility] ETRM [facility] [address] [place] [address] documented in this encounter Visit Diagnoses Diagnosis Ischemia Mesenteric (HCC) documented in this encounter Care Teams Rubber Ball Finisher Relationship Specialty Start Date End Date Elsewhere, Pcp PCP - General Internal Medicine 11/29/23 documented as of this encounter
--- OUTSIDE RECORDS SUMMARY | 2023-12-26 15:29 | XMS_ITS | Encounter Summary ---
Author Organization [facility] Address [address] [place] [address] Care Team Providers Care Holistic Nutritionist Name Role Phone Elsewhere, Pcp Primary Care Provider Unavailabl e Reason for Visit * Outpatient (Routine) - Closed Specialty Diagnoses / Procedures Referred By Gianna thomas Referred To Contact Vascular Surgery Mc Fabian M.D. [address] [place] [phone] [facility] Referral ID Status Reason Start Date Expiration Date Visits Re quested Visits Authorized [id number] Closed 11/18/2023 05/19/2025 1 1 Encounter Details Date Type Department Care Team (Latest Contact Info) Description 12/02/2023 1:00 PM CDT Comprehensive Visit Division of Vascular and Endovascular Surgery in [place], [place] [address] [place] [phone] Mc Fabian M.D. [address] [place] [phone] Ischemia Mesenteric (HCC) (Primary Dx) Social History Tobacco Use Types Packs/Day Years Used Date Smoking Tobacco: Former Alcohol Use Standard Drinks/Week Comments Not Currently 0 (1 standard drink = 0.6 oz pur e alcohol) [facility] Utilities Answer Date Recorded In the past 12 months has [employer], gas, oil, or water company threatened [...] your living situation today? I have a [facility] place to live 12/15/2023 Sex and Gender [...] 12:57 PM CDT documented in this encounter Consult Notes * Mc Fabian M.D. - 12/02/2023 1:00 PM CDT Salina Esqueda : 1970 Visit Date: 12/15/23 Referring provider: Mc Fabian M.D. SUBJECTIVE Recurrent, progressive abdominal pain associated with meals. CHIEF COMPLAINT/ REASON FOR VISIT: Recurrent, progressive abdominal pain associated with meals. presents for evaluation of mesenteric angina. HISTORY OF PRESENT ILLNESS: Salina Esqueda is a 53 y.o. 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 The pain has been so bad that she has presented multiple times recently to the emergency department for evaluation and pain medications. The current medications, allergies, medical, surgical, social, and family history sections of the chart have been reviewed and updated as pertinent. VAS Surgery VQI Screening No current facility-administered medications for this visit. No current outpatient medications on file. Facility-Administered Medications Ordered in Other Visits: acetaminophen tablet 1,000 mg (TylenoL), 4x Daily [START ON 12/16/2023] aspirin DR tablet 81 mg, Daily [START ON 12/16/2023] atorvastatin tablet 20 mg (Lipitor), Daily bisacodyL suppository 10 mg (Dulcolax), Daily PRN [START ON 12/16/2023] clopidogreL tablet 75 mg (Plavix), Daily fentaNYL injection 25 mcg (Sublimaze), Q1H PRN [START ON 12/16/2023] FLUoxetine tablet 10 mg (PROzac), Daily haloperidol lactate injection 1 mg (HaldoL), Q6H PRN heparin (porcine) injection 5,000 Units, Q8H MARCO HYDROmorphone (PF) injection 0.4 mg (Dilaudid), Q1H PRN [START ON 12/16/2023] magnesium oxide tablet 100 mg (Mag-Ox), Daily before breakfast naloxone injection 0.2 mg (Narcan), PRN ondansetron (PF) injection 4 mg (Zofran), Q6H PRN oxyCODONE IR tablet 5 mg (Roxicodone), Q4H PRN OR oxyCODONE IR tablet 10 mg (Roxicodone), Q4H PRN pantoprazole injection 40 mg (Protonix), Q12H MARCO polyethylene glycol powder packet 1 packet (Miralax), Daily PRN prochlorperazine injection 5 mg (Compazine), Q6H PRN [START ON 12/16/2023] sennosides-docusate sodium 8.6-50 mg per tablet 1 tablet (Senokot-S), BID REVIEW OF SYSTEMS: Pertinent items are noted in HPI; all other systems were reviewed per Health History. OBJECTIVE VITAL SIGNS Vitals: 12/02/23 1257 12/02/23 1259 BP: (!) 173/70 151/89 Patient Position: Sitting Sitting Pulse: 73 88 Height: 165.6 cm Weight: 104 kg PHYSICAL EXAM: General: Alert and oriented, No acute distress. Neck: Supple, Non-tender. Respiratory: Lungs are clear to auscultation. Respirations are non-labored. Breath sounds are equal. Heart: Regular rate and rhythm, no murmur appreciated. Abdomen: Soft, Non-tender, no masses. Cognition and Speech: Speech clear and coherent. Functional cognition intact. Psychiatric: Cooperative, appropriate mood & affect. Extremities: Warm, well perfused, no edema. No ulcers or tissue loss. VASCULAR EXAM: Pulses Exam Symmetric femoral pulses with no palpable pulses below the groin. DIAGNOSTIC STUDIES: I have reviewed the patient's current laboratory, imaging, and other diagnosticstudies as pertinent. ASSESSMENT / PLAN Chronic mesenteric ischemia presenting as worsening/refractory mesenteric angina. I recommend an attempt at endovascular repair of the high-grade celiac artery stenosis, which in conjunction of a chronically occluded SMA and JINA may be a leading cause of Ms. Esqueda's symptoms. We plan a transfemoral aortogram with selective arteriography of the celiac artery and stenting if possible in the coming weeks. If this procedure is successful but does not relieve Ms. Esqueda's symptoms then we may be faced to perform a more extensive open revascularization of the chronically occluded superior mesenteric artery. DIAGNOSIS: #1 Ischemia Mesenteric (HCC) Mc Fabian M.D. documented in this encounter Plan of Treatment Upcoming Encounters Date Type Department Care Team (Latest Contact Info) Description 03/19/2024 10:30 AM CDT Appointment Department of Radiology, [facility], in [place], [place] [address] [place] [address] Mc Fabian M.D. [address] [place] [address] Discharge Disposition: Home or Self Care 03/19/2024 1:20 PM CDT Office Visit Division of Vascular and Endovascular Surgery in [place], [place] [address] [place] [address] Mc Fabian M.D. [address] [place] [phone] documented as of this encounter Results * [...] M.D. LAB BLOOD BANK PANFILO T ORDERABLES [facility] [address] [place] [address], [facility] ETRM [facility] [address] [place] [address] documented in this encounter Visit Diagnoses Diagnosis Ischemia Mesenteric (HCC)- Primary documented in this encounter Care Teams Holistic Nutritionist Relationship Specialty Start Date End Date Elsewhere, Pcp PCP - General Internal Medicine 11/29/23 documented as of this encounter
--- OUTSIDE RECORDS SUMMARY | 2023-12-26 15:29 | XMS_ITS | Encounter Summary ---
Author Organization [facility] Address [address] [place] [address] Care Team Providers Care Inorganic Chemistry Professor Name Role Phone Elsewhere, Pcp Primary Care [...] AM CDT Appointment Department of Radiology, [facility], in [place], [place] [address] [place] [address] Mc Fabian M.D. [address] [place] [phone] Discharge Disposition: Home or Self Care 03/19/2024 1:20 PM CDT Office Visit Division of Vascular and Endovascular Surgery in [place], [place] [address] [place] [address] Mc Fabian M.D. [address] [place] [phone] documented as of this encounter Visit Diagnoses Not on filedocumented in this encounter Care Teams Inorganic Chemistry Professor Relationship Specialty Start Date End Date Elsewhere, Pcp PCP - General Internal Medicine 11/29/23 documented as of this encounter
--- OUTSIDE RECORDS SUMMARY | 2023-12-26 15:29 | XMS_ITS | Encounter Summary ---
Author Organization [facility] Address [address] [place] [address] Care Team Providers Care Retail Marketing Executive Name Role Phone Elsewhere, Pcp Primary Care Provider Unavailabl e Reason for Visit * Reason Comments Abdominal Pain Vomiting Encounter Details Date Type Department Care Team (Late st Contact Info) Description 11/29/2023 10:38 AM CDT - 11/29/2023 4:47 PM CDT Emergency [facility] Emergency Department [address] [place] [phone] Alejandra Suárez, WAD BLANKING PRESS ADJUSTER, C.N.P. [address] [place] [phone] Occlusion Superior Mesenteric Artery (HCC) (Primary Dx) [...] daily. 12/15/2023 documented as of this encounter ED Notes * Francisca Kraft M.D. - 11/29/2023 3:31 PM CDT Care of patient transferred to nm by Ms. Suárez. Disposition pending CT. This [...] SpO2 97% No ED Course as of 11/29/231622Nov 29, [address] Abdomen Pelvis Angiogram [...] signs of bleeding. It is reported from [facility] that claudication is made worse when her [...] 10:30 AM CDT Appointment Department of Radiology, [facility], in [place], [place] [address] [place] [address] Mc Fabian M.D. [address] [place] [address] Discharge Disposition: Home or Self Care 03/19/2024 1:20 PM CDT Office Visit Division of Vascular and Endovascular Surgery in [place], [place] [address] [place] [address] Mc Fabian M.D. [address] [place] [address] documented as of this encounter Procedures Procedure [...] PROCEDURES * Lipase (11/29/2023 11:13 AM CDT) Pathologist [facility] Lipase, S 19 13 - 60 U/L 11/29/2023 12:23 PM CDT DTL Blood (Blood, Venous) 11/29/2023 11:13 AM CDT 11/29/2023 12:02 PM CDT Jovan Caceres P.A.-C. LAB BLOOD ADD-ON [facility] [address] [place] [address], [facility] [address] [place] [address] * Lactate (11/29/2023 11:13 AM CDT) Pathologist [facility] Lactate, P 2.0 0.5 - 2.2 mmol/L 11/29/2023 11:55 AM CDT [facility] Blood (Blood, Venous) 11/29/2023 11:13 AM CDT 11/29/2023 11:28 AM CDT Jovan Caceres P.A.-C. LAB BLOOD NON ADD -ON Performing Organization Address City/[facility]/ZIP Co de Phone Number [facility] [address] [place] [address], [facility] STMA [facility] [address] [place] [address] * Hepatic Function Panel (11/29/2023 11:13 AM [...] LAB BLOOD ADD-ON [facility] [address] [place] [address], [facility] DTL [facility] [address] [place] [address] * (ABNORMAL) Basic Metabolic Panel (11/29/2023 11:13 [...] LAB BLOOD ADD-ON [facility] [address] [place] [address], [facility] [address] [place] [address] * (ABNORMAL) CBC with Differential, Blood (11/29/2023 [...] LAB BLOOD ADD-ON [facility] [address] [place] [address], [facility] STMA [facility] [address] [place], [place] [phone] [place] [address] [place] [address] * ECG 12 Lead (11/29/2023 10:31 AM CDT) Ventricular Rate ECG/Min 77 BPM MUSE RI Interval 164 ms MUSE QRSD Interval 92 ms MUSE QT Interval 400 ms MUSE QTC Interval 452 ms MUSE P [place] -15 degrees MUSE R [place] 22 degrees MUSE T Wave [place] 56 degrees MUSE 11/29/2023 10:3 1 AM [...] APRN, C.N.P. ECG ORDER AIDEN MUSE NA documented in [...] 1-100 mL 1-100 mL, intravenous, Once, On 11/29/23 at [...] mL (COMPLETED) 1-100 mL, intravenous, Once, On e 11/29/23 at 1408, For 1 dose, Imaging [...] Provid er: Meghan Carter R.N. - Comment: [id number]) documented in this encounter Care Teams Retail Marketing Executive Relationship Specialty Start Date End Date Elsewhere, Pcp PCP - General Internal Medicine 11/29/23 documented as of this encounter
--- OUTSIDE RECORDS SUMMARY | 2023-12-26 15:29 | XMS_ITS | Encounter Summary ---
Author Organization [facility] Address [address] [place] [address] Care Team Providers Care Clam Digger Name Role Phone Elsewhere, Pcp Primary Care Provider Unavailabl e Reason for Referral * Outpatient (Routine) - Authorized Specialty Diagnoses / Procedures Referred By Gianna t Referred To Contact Diagnoses Preoperative Examination Cardiovascular Procedures NM Cardiac Perfusion Rest and Stress SPECT Mc Fabian M.D. [address] [place] [address] [facility] Referral ID Status Reason Start Date Expiration Date V isits Requested Visits Authorized [id number] Authorized 12/05/2023 12/04/2024 8 8 * Outpatient (Routine) - Closed Specialty Diagnoses / Procedures Referred By Gianna t Referred To Contact Diagnoses Ischemia Mesenteric (HCC) Preoperative Examination Cardiovascular Procedures DX Chest AP or PA and Lateral 2 Views Mc Fabian M.D. [address] [place] [address] [facility] Referral ID Status Reason Start Date Expiration Date Visits Re quested Visits Authorized [id number] Closed 12/05/2023 12/04/2024 1 1 * Outpatient (Routine) - Closed Specialty Diagnoses / Procedures Referred By Contac t Referred To Contact Diagnoses Ischemia Mesenteric (HCC) Preoperative Examination Cardiovascular Procedures ECG 12 Lead Mc Fabian M.D. [address] [place] [address] [facility] Referral ID Status Reason Start Date Expiration Date Visits Re quested Visits Authorized [id number] Closed 12/05/2023 12/04/2024 1 1 * Outpatient (Routine) - Closed Specialty Diagnoses / Procedures Referred By Contac t Referred To Contact Vascular Medicine Diagnoses Ischemia Mesenteric (HCC) Mc Fabian M.D. [address] [place] [address] [facility] Referral ID Status Reason Start Date Expiration Date Visits Re quested Visits Authorized [id number] Closed 12/05/2023 06/05/2025 1 1 * MRI/CAT/PET Scan (Routine) - Closed Specialty Diagnoses / Procedures Referred By Contac t Referred To Contact Radiology Diagnoses Ischemia Mesenteric (HCC) Procedures CT Chest Angiogram with IV Contrast Mc Fabian M.D. [address] [place] [address] [facility] Referral ID Status Reason Start Date Expiration Date Visits Re quested Visits Authorized [id number] Closed 12/05/2023 12/04/2024 1 1 Reason for Visit * Reason Onset Date Comments Phone Contact 11/28/2023 Encounter Details Date Type Department Care Team (Latest Contact Info) Description 11/28/2023 Clinical Communication Division of Vascular and Endovascular Surgery in [place], [place] [address] [place] [phone] Mc Fabian M.D. [address] [place] [phone] Phone Contact Social History Tobacco Use Types [...] encounter Miscellaneous Notes * Telephone Encounter - Fabiola Cosby R.N. - 12/05/2023 2:22 PM CDT [...] 10:30 AM CDT Appointment Department of Radiology, [facility], in [place], [place] [address] [place] [address] Mc Fabian M.D. [address] [place] [phone] Discharge Disposition: Home or Self Care 03/19/2024 1:20 PM CDT Office Visit Division of Vascular and Endovascular Surgery in [place], [place] [address] [place] [address] Mc Fabian M.D. [address] [place] [phone] Scheduled Referrals Name Type Priority Associated Diagnoses Orde r Schedule Vascular Medicine - RULA consult (clinic) Outpatient Referral Routine Ischemia Mesenteric (HCC) Expected: 12/05/2023, Expires: 03/06/2025 documented as of this encounter Results * CT Chest Angiogram [...] coronary artery calcifications. Mc [facility] CT PROCEDURES * ECG 12 Lead (12/12/2023 1:51 PM CDT) Ventricular Rate ECG/Min 67 BPM MUSE [place] Interval 182 ms MUSE QRSD Interval 104 ms MUSE QT Interval 438 ms MUSE QTC Interval 462 ms MUSE P [place] 42 degrees MUSE R [place] 4 degrees MUSE T Wave [place] 58 degrees MUSE 12/12/2023 1:51 PM CDT 12/12/2023 1:54 PM CDT Impressions MUSE - 12/12/2023 1:54 PM CDT Normal sinus rhythm Nonspecific T wave abnormality When compared with ECG of 29-Nov-2023 10:31, QRS voltage has increased in chest leads Reviewed by PROMISE Howard Narrative Procedure Note Martínez Moreno M.D., Ph.D. - 12/12/2023 IMPRESSION: Normal sinus rhythm Nonspecific T wave abnormality When compared with ECG of 29-Nov-2023 10:31, QRS voltage has increased in chest leads Reviewed by PROMISE Howard Mc Fabian M.D. ECG ORDERABLES Performing Organization Address City/[facility] Co de Phone Number MUSE NA * Hemoglobin A1c (12/12/2023 1:12 PM CDT) Hemoglobin A1c, B 5.6 4.0 - 5.6 % 12/12/2023 2:03 PM CDT DTL Blood (Blood, Venous) 12/12/2023 1:12 PM CDT 12/12/2023 1:35 PM CDT Mc Fabian M.D. LAB BLOOD ADD-ON Performing Organization Address [facility] Co de Phone Number [facility] [address] [place] [address], [facility] DTL [facility] [address] [place] [address] * NM Cardiac Perfusion Rest and Stress SPECT (12/12/2023 12:57 PM CDT) 12/12/2023 11:5 8 AM CDT Narrative [facility] CV MERGE - 12/12/2023 1:40 PM CDT See PDF For Result Procedure Note Octavio Rubio M.D. - 12/12/2023 See PDF For Result Mc Fabian M.D. IMG NM PROCEDURES [facility] CV MERGE NA * DX Chest AP or [...] abdominal surgical clips. Chest otherwise negative. Mc [facility] JINA GING PROCEDURES documented in this encounter Visit Diagnoses Diagnosis Ischemia Mesenteric (HCC)- Primary Preoperative Examination Cardiovascular Diabetes Mellitus Type 2 (HCC) Preoperative Examination Cardiovascular Ischemia Mesenteric (HCC) Ischemia Mesenteric (HCC) Preoperative Examination Cardiovascular documented in this encounter Care Teams Clam Digger Relationship Specialty Start Date End Date Elsewhere, Pcp PCP - General Internal Medicine 11/29/23 documented as of this encounter
--- OUTSIDE RECORDS SUMMARY | 2023-12-26 15:29 | XMS_ITS | Encounter Summary ---
Author Organization [facility] Address [address] [place] [phone] Care Team Providers Care Systems Requirements Planner Name Role Phone Unavailable Primary Care Provider Unavailabl e Encounter Details Date Type Department Care Team (Latest Contact Info) Description 11/28/2023 4:10 PM CDT Ancillary Procedure Department of Radiology in [place], [place] [address] [place] [phone] Mc Fabian M.D. [address] [place] [phone] Ischemia Mesenteric (HCC) Social History Tobacco Use [...] 10:30 AM CDT Appointment Department of Radiology, [facility], in [place], [place] [address] [place] [phone] Mc Fabian M.D. [address] [place] [phone] Discharge Disposition: Home or Self Care 03/19/2024 1:20 PM CDT Office Visit Division of Vascular and Endovascular Surgery in [place], [place] [address] [place] [address] Mc Fabian M.D. [address] [place] [address] documented as of this encounter Visit Diagnoses Diagnosis Ischemia Mesenteric (HCC) documented in this encounter
== END 2023-12-26 15:25 | disposition home or self-care (01) ==
PROVIDERS: PCP Internal Medicine; Visit Provider Internal Medicine
DX: D50.9 Iron deficiency anemia, unspecified (principal)
CPT/HCPCS: 83735

== ENCOUNTER 2024-05-16 07:49 | Outpatient (CLI) | payer OTHER, SELFPAY | END 2024-05-16 07:50 | disposition home or self-care (01) | LOC: NFLDREF 05-17 18:57 | PROVIDERS: PCP Internal Medicine; Referring Provider Internal Medicine; Visit Provider Internal Medicine | DX: E11.9 Type 2 diabetes mellitus without complications (principal); E78.5 Hyperlipidemia, unspecified; I10 Essential (primary) hypertension; I73.9 Peripheral vascular disease, unspecified | CPT/HCPCS: 80053; 80061; 82043; 82570 ==

== ENCOUNTER 2025-04-02 07:50 | Outpatient (CLI) | payer OTHER, SELFPAY | END 2025-04-02 07:51 | disposition home or self-care (01) | LOC: NFLDREF 04-04 11:20 | PROVIDERS: PCP Internal Medicine; Referring Provider Internal Medicine; Visit Provider Internal Medicine | DX: I10 Essential (primary) hypertension (principal); E78.5 Hyperlipidemia, unspecified; E11.9 Type 2 diabetes mellitus without complications | CPT/HCPCS: 80053; 80061 ==

== ENCOUNTER 2025-04-04 08:35 | Outpatient (CLI) | payer OTHER, SELFPAY | END 2025-04-04 08:36 | disposition home or self-care (01) | LOC: NFLDREF 08:36 | PROVIDERS: PCP Internal Medicine; Visit Provider Internal Medicine | DX: D50.9 Iron deficiency anemia, unspecified (principal) | CPT/HCPCS: 82728 ==

== ENCOUNTER 2025-05-13 13:59 | Outpatient (CLI) | payer OTHER, SELFPAY ==
--- NOTE | 2025-05-13 14:00 | CRLHL7_ITS ---
For Patients: As a result of the Century Cures Act, medical imaging exams and procedure reports are released immediately into your electronic medical record. You may view this report before your referring provider. If you have questions, please contact your health care provider. INDICATION: BILATERAL SCREENING MAMMOGRAM, ASYMPTOMATIC 55 Y/O FEMALE COMPARISON: 09/19/2023, 09/30/2022, 06/11/2021 TECHNIQUE: Digital mammogram in CC and MLO projections including computer-aided detection (CAD) and tomosynthesis. BREAST COMPOSITION: The breasts are almost entirely fatty. FINDINGS: No suspicious findings. ASSESSMENT: BI-RADS 1 Negative RECOMMENDATION: Annual screening mammogram. A lay language report of this examination will be provided to the patient. Dictated by: Chey Parker MD @ 05/14/2025 09:31:19 (Electronically Signed)
== END 2025-05-13 14:00 | disposition home or self-care (01) ==
LOC: MAMMO 13:59
PROVIDERS: PCP Internal Medicine; Visit Provider Internal Medicine
DX: Z12.31 Encounter for screening mammogram for malignant neoplasm of breast (principal)
CPT/HCPCS: 77063; 77067